=== PATIENT | male | born 1945 | race Caucasian/White ===

== ENCOUNTER 2023-05-26 13:16 | Outpatient (OUT) | payer MEDICARE, SELFPAY ==
--- NOTE | 2023-05-26 13:34 | CT_ITS ---
[address] [address] Patient Name: IVAN BERNAL MRN: [id number] date: 1945 Sex: M Assigned Patient Location: CT Current Patient Location: Accession/Order Number: [id number] Exam Date: 05/26/2023 13:25 Report Date: 05/27/2023 07:52 At the request of: CHAVA BRICE Procedure: CT lung screening low-dose EXAMINATION: CT lung screening low-dose HISTORY: Nicotine dependence , cigarettes, uncomplicated F17.210 COMPARISON: 03/22/2022 chest x-ray TECHNIQUE: Axial, Coronal, and Sagittal images were created without the administration of IV contrast material. Dose reduction techniques were achieved by using automated exposure control and/or adjustment of mA and/or kV according to patient size and/or use of iterative reconstruction technique. FINDINGS: LUNGS: Minimal biapical pleural parenchymal scarring. Scattered subcentimeter calcified and noncalcified pulmonary nodules. The largest noncalcified nodule is identified in the left apex axial image 24 measuring 8.6 x 3.6 mm. Mild paraseptal emphysema with an upper lobe predominance. PLEURA: No mass, effusion, or pneumothorax. VASCULATURE: No abnormality. LUDWIN: No mass or pathologic adenopathy. MEDIASTINUM: No mass or pathologic adenopathy. CARDIAC: No enlargement or pericardial effusion. Heavy coronary atherosclerosis AORTA: No aortic aneurysm. Moderate atherosclerosis CHEST WALL: No mass or axillary adenopathy BONES: No bone lesion or fracture. LIMITED ABDOMEN: No suspicious findings. Limited images of the upper abdomen. OTHER: Negative. CT/CT lung screening low-dose IMPRESSION: LUNG SCREENING: Lung-RADS Category 2- Benign Appearance or Behavior. Nodules with a very low likelihood of becoming a clinically active cancer due to size or lack of growth. 2. Continue annual screening with LDCT in 12 months. Electronically authenticated by: IVAN CALIXTO Date: 05/27/2023 07:52
== END 2023-05-26 13:17 | disposition home or self-care (01) ==
LOC: CT 13:16
PROVIDERS: PCP Internal Medicine; Visit Provider Internal Medicine
DX: F17.210 Nicotine dependence, cigarettes, uncomplicated (principal); R91.8 Other nonspecific abnormal finding of lung field
CPT/HCPCS: 71271

== ENCOUNTER 2023-05-26 13:46 | Outpatient (OUT) | payer MEDICARE, SELFPAY ==
[2023-05-26 15:04] LABS: Basophils Absolute Auto 0.1 10^3/uL (0.0-0.1); Basophils Percent Auto 1.2 % (0.2-2.0); Eosinophils Absolute Auto 0.3 10^3/uL (0.0-0.7); Eosinophils Percent Auto 4.6 % (0.9-7.0); Hematocrit 41.9 % (42.0-54.0); Hemoglobin 13.9 g/dL (14.0-18.0); Immature Granulocytes Abs Auto 0.02 10^3/uL (0.00-0.03); Immature Granulocytes Pct Auto 0.3 % (0.0-0.5); Lymphocytes Absolute Auto 1.7 10^3/uL (1.2-3.8); Lymphocytes Percent Auto 23.1 % (20.5-60.0); Mean Corpuscular HGB Conc 33.2 g/dL (29.9-35.2); Mean Corpuscular Hemoglobin 32.6 pg (25.9-34.0); Mean Corpuscular Volume 98.4 fL (80.0-94.0); Mean Platelet Volume 11.2 fL (9.5-13.5); Monocytes Absolute Auto 0.7 10^3/uL (0.3-0.8); Monocytes Percent Auto 9.8 % (1.7-12.0); Neutrophils Absolute Auto 4.6 10^3/uL (1.4-6.5); Platelet Count 225 10^3/uL (150-450); Red Blood Count 4.26 10^6/uL (4.70-6.10); Red Cell Distribution Width 13.6 % (11.0-15.0); White Blood Count 7.5 10^3/uL (4.0-11.0)
[2023-05-26 15:43] LABS: BUN Creatinine Ratio 15.2; Calcium 8.6 mg/dL (8.5-10.1); Carbon Dioxide 31.2 mmol/L (21.0-32.0); Chloride 104 mmol/L (98-107); Chol HDL Ratio 2.5; Cholesterol 107 mg/dL (<=200); Estimated GFR (African America >60 (>=60); Estimated GFR (Non-African Ame >60 (>=60); Glucose 89 mg/dL (74-106); HDL Cholesterol 42 mg/dL (40-60); LDL Cholesterol Calculated 46.4 mg/dL; Potassium 4.2 mmol/L (3.5-5.1); Sodium 143 mmol/L (136-145); Triglycerides 93 mg/dL (<=150); VLDL CHOLESTEROL 18.6 mg/dL
[2023-05-26 15:53] LABS: Prostate Specific Antigen Scrn 0.76 ng/mL (<=4.00)
== END 2023-05-26 13:47 | disposition home or self-care (01) ==
LOC: LAB 13:49
PROVIDERS: PCP Internal Medicine; Visit Provider Internal Medicine
DX: E78.00 Pure hypercholesterolemia, unspecified (principal); I10 Essential (primary) hypertension; Z12.5 Encounter for screening for malignant neoplasm of prostate; I42.0 Dilated cardiomyopathy
CPT/HCPCS: 36415; 80048; 80061; 85025; G0103

== ENCOUNTER 2023-12-08 08:53 | Outpatient (OUT) | payer MEDICARE, SELFPAY ==
[2023-12-08 10:54] LABS: Anion Gap 15.1; BUN Creatinine Ratio 22.1; Carbon Dioxide 25.5 mmol/L (21.0-32.0); Chloride 103 mmol/L (98-107); Estimated GFR (African America >60 (>=60); Estimated GFR (Non-African Ame 58 (>=60); Glucose 92 mg/dL (74-106); Potassium 4.6 mmol/L (3.5-5.1); Sodium 139 mmol/L (136-145)
== END 2023-12-08 08:54 | disposition home or self-care (01) ==
LOC: LAB 08:54
PROVIDERS: PCP Internal Medicine; Visit Provider Internal Medicine Cardiovascular Disease
DX: I42.0 Dilated cardiomyopathy (principal); I10 Essential (primary) hypertension
CPT/HCPCS: 36415; 80048

== ENCOUNTER 2024-05-26 07:58 | Outpatient (OUT) | payer MEDICARE, SELFPAY ==
[2024-05-26 08:27] LABS: Basophils Absolute Auto 0.1 10^3/uL (0.0-0.1); Basophils Percent Auto 0.8 % (0.2-2.0); Eosinophils Absolute Auto 0.4 10^3/uL (0.0-0.7); Hemoglobin 11.3 g/dL (14.0-18.0); Immature Granulocytes Abs Auto 0.05 10^3/uL (0.00-0.03); Immature Granulocytes Pct Auto 0.6 % (0.0-0.5); Lymphocytes Absolute Auto 1.7 10^3/uL (1.2-3.8); Lymphocytes Percent Auto 18.9 % (20.5-60.0); Mean Corpuscular HGB Conc 32.3 g/dL (29.9-35.2); Mean Corpuscular Hemoglobin 32.9 pg (25.9-34.0); Mean Platelet Volume 10.4 fL (9.5-13.5); Monocytes Absolute Auto 0.8 10^3/uL (0.3-0.8); Monocytes Percent Auto 9.4 % (1.7-12.0); Neutrophils Percent Auto 66.3 % (43.0-75.0); Platelet Count 286 10^3/uL (150-450); Red Blood Count 3.43 10^6/uL (4.70-6.10)
[2024-05-26 09:26] LABS: Alanine Aminotransferase 25 U/L (16-63); Albumin Globulin Ratio 0.9; Albumin Level 3.2 g/dL (3.4-5.0); Alkaline Phosphatase 59 U/L (46-116); Anion Gap 13.9; Aspartate Amino Transferase 14 U/L (15-37); BUN Creatinine Ratio 24.1; Bilirubin Total 0.4 mg/dL (0.2-1.0); Calcium 9.1 mg/dL (8.5-10.1); Carbon Dioxide 26.8 mmol/L (21.0-32.0); Chloride 105 mmol/L (98-107); Cholesterol 83 mg/dL (<=200); Estimated GFR (African America >60 (>=60); Estimated GFR (Non-African Ame >60 (>=60); Globulin 3.5 g/dL; Glucose 104 mg/dL (74-106); HDL Cholesterol 28 mg/dL (40-60); Potassium 4.7 mmol/L (3.5-5.1); Sodium 141 mmol/L (136-145); Total Protein 6.7 g/dL (6.4-8.2); Triglycerides 101 mg/dL (<=150); VLDL CHOLESTEROL 20.2 mg/dL
[2024-05-26 10:53] LABS: Prostate Specific Antigen Scrn 18.13 ng/mL (<=4.00)
== END 2024-05-26 07:59 | disposition home or self-care (01) ==
LOC: LAB 07:59
PROVIDERS: PCP Internal Medicine; Visit Provider Internal Medicine
DX: I11.0 Hypertensive heart disease with heart failure (principal); I50.22 Chronic systolic (congestive) heart failure; I48.91 Unspecified atrial fibrillation; J42 Unspecified chronic bronchitis; Z12.5 Encounter for screening for malignant neoplasm of prostate; E78.00 Pure hypercholesterolemia, unspecified
CPT/HCPCS: 36415; 80053; 80061; 85025; G0103

== ENCOUNTER 2024-06-07 09:44 | Outpatient (OUT) | payer MEDICARE, SELFPAY ==
--- OUTSIDE RECORDS SUMMARY | 2024-06-07 10:06 | XMS_ITS | CCD ---
Author Organization [facility] CliniSyla Care Team Providers Care Order Schedule Clerk Name Role Phone Alonzo Gray Unavailable Unavailable Unavailable Irma Pérez Unavailable Malcom Irene Unavailable DO Alonzo Gray Primary Care Provider MD Malcom Irene Attending Provider MD Malcom Irene Admit Provider [phone] ISAAC, DR ROSADO Primary Care Unavailable VIVAS, DR DAQUAN Solo Admitting Unavailable VIVAS, DR DAQUAN Solo Attending Unavailable VIVAS, DR DAQUAN Solo Consulting Unavailable KARIME, ALEXANDRIA Consulting Unavailable ISAAC, DR ROSADO Primary Care Unavailable VIVAS, DR DAQUAN Solo Admitting Unavailable VIVAS, DR DAQUAN Solo Attending Unavailable SANGEETHA, DR DAQUAN Solo Consulting Unavailable NATALIIA, YOHANA Consulting Unavailable ISAAC, DR ROSADO Admitting Unavailable BALL, DR ROSADO Attending Unavailable BALL, DR ROSADO Primary Care Unavailable BALL, DR ROSADO Consulting Unavailable ISAAC, DR ROSADO Primary Care Unavailable MISC, DR DONNELLY Admitting Unavailable MISC, DR DONNELLY Attending Unavailable MISC, DR DONNELLY Consulting Unavailable ISAAC, DR ROSADO Admitting Unavailable BALL, DR ROSADO Attending Unavailable BALL, DR ROSADO Primary Care Unavailable BALL, DR ROSADO Consulting Unavailable MANCELONA, DR IVAN Harrison Consulting Unavailable DO Alonzo Gray Primary Care Provider MD Malcom Irene Admit Provider MD Malcom Irene Attending Provider RUPERT Pérez Attending Provider Maria Del Rosario, Dr. Alexandria Callaway Attending Unavail able Maria Del Rosario, Dr. Alexandria Callaway Referring Unavail able Isaac, Dr. Rosado tomas [facility], Dr. Suyapa Potter Attending Unavailable Isaac, Dr. Alonzo Jesus Primary Care Mau Irwin II, Dr. Suyapa Potter Attending Unavailable Nicholas II, Dr. Suyapa Potter Referring Unavailable Isaac, Dr. Alonzo Jesus Primary Care Mau Gray, Dr. Alonzo Jesus Primary Care Mau Irwin II, Dr. Suyapa Potter Attending Unavailable Nicholas II, Dr. Suyapa Potter Referring Unavailable Isaac, Dr. Alonzo Jesus Primary Care Mau Issa, Dr. Alexandria Callaway Attending Unavail able Maria Del Rosario, Dr. Alexandria Callaway Referring Unavail able Alonzo Gray Unavailable DO Alonzo Gray Primary Care Provider MD Malcom Irene Attending Provider Malcom Irene Admitting Unavailable Alonzo Gray Primary Care Unavailable Malcom Irene Attending Unavailable Irma Pérez Attending Unavailable Irma Pérez Admitting Unavailable Alonzo Gray Primary Care Unavailable SUYAPA IRWIN Attending Unavailable ALONZO GRAY Primary Care Unavailable SUYAPA IRWIN Attending Unavailable SUYAPA IRWIN Referring Unavailable ALONZO GRAY Primary Care Unavailable Allergies Allergy Classification Reported Allergen(s) Allergy Type Date of Onset Reaction(s) Facility (20 sources) Cephalexin; Translations: [Keflex] Drug Allergy Anaphylaxis, Unknown [employer] Other (20 sources) Penicillins; Translations: [Penicillins] Allergy to drug (finding) 01-04-20 22 Anaphylaxis, Rash, Rash, anaphylaxis [facility] (8 sources) Penicillin V Drug Allergy anaphylaxis [facility] Other (7 sources) Cephalexin; Translations: [cephalexin] Drug Allergy 02-12-20 22 Anaphylaxis [facility] (1 source) Cephalexin Drug Allergy 05-24-20 13 [facility] (1 source) Penicillins Drug allergy (disorder) 05-24-20 13 [facility] (12 sources) Penicillin Drug Allergy anaphylaxis [facility] Other (4 sources) Substance with penicillin structure and antibacterial mechanism of action (substance) Drug allergy 03-21-20 14 Unknown [employer] Other (9 sources) Tamsulosin HCl *GENITOURINARY AGENTS - MISCELLANEO Propensity to adverse reactions Comment:Harry funez also said that along with dizziness he didnt feel well when he took the tamsulosin. [facility] Other (4 sources) patient allergy list reviewed by nurse or physicia Propensity to adverse reactions 07-14-20 Comment:Done [employer] Other (1 source) Penicillins Drug allergy (disorder) 07-16-20 [facility] (1 source) Tamsulosin HCl *GENITOURINARY Allergy to substance 11-23-19 Comment:Harry funez also said that along with dizziness he di... [facility] Medications Current Medications Medication Drug Class(es) Dates Sig (Normalized) Sig (Original) acetaminophen 500 mg oral tablet (3 sources) Start: 07-17-2022 take 1000 mg by mouth every six hours Acetaminophen Active 1000 MG PO Q6H July 17, 2022 12:00am amLODIPine 5 mg oral tablet (20 sources) Dihydropyridine Calcium Channel Taye Start: 12-10-2021 take 5 mg by mouth once daily Amlodipine Active 5 MG PO Daily February 11, 2022 12:00am amLODIPine Besyl ate Not-Taking amLODIPine Besyl ate Active aspirin 81 mg delayed release oral tablet (20 sources) Platelet Aggregation Inhibitor, Nonsteroidal Anti-inflammatory Drug Start: 02-11-2022 take 81 mg by mouth once daily Aspirin Active 81 MG PO Daily February 11, 2022 12:00am take 1 tablet by chris th every twenty-four hours Aspirin 81 MG 1 tablet Orally Once a day for 30 day(s) Active atorvastatin 80 mg oral tablet (20 sources) HMG-CoA Reductase Inhibitor Start: 02-03-2024 Atorvastatin Active 0 .ROUTE .COMPLEX 90 February 03, 2024 9:57am TAKE 1 TABLET DAILY IN THE EVENING Start: 01-12-2022 End: 02-03-2024 take 80 mg by mouth once daily at bedtime Atorvastatin Discontinued 80 MG PO Daily at bedtime February 11, 2022 12:00am February 03, 2024 9:57am Atorvastatin Mahin cium Active carvedilol 6.25 mg oral tablet (20 sources) alpha-Adrenergic Taye, beta-Adrenergic Taye Start: 05-23-2024 take 6.25 mg by mouth twice daily Carvedilol Active 6.25 MG PO Twice daily May 23, 2024 12:00am Start: 10-01-2022 take 1 tablet by chris twice daily at mealtime Carvedilol 6.25 MG Oral Tablet TAKE 1 TABLET BY MOUTH TWICE A DAY WITH MEALS Quantity: 180 Refills: 3 Ordered: 12-Jun-2023 Suyapa Irwin MD Start : 01-Oct-2022 Active Start: 06-18-2022 End: 05-23-2024 take 3.125 mg by mouth twice daily Carvedilol Discontinued 3.125 MG PO Twice daily June 18, 2022 12:00am May 23, 2024 11:31am Carvedilol Activ e cholecalciferol 0.025 mg oral capsule (18 sources) Vitamin D Start: 02-11-2022 take 1 capsule by mouth once daily Cholecalciferol (Vitamin D3) (Vitamin D3) 25 mcg (1,000 unit) Capsule Active 1000 UNIT PO Daily February 11, 2022 12:00am Start: 02-11-2022 take 1 capsule by mo [facility] once daily Cholecalciferol (Vitamin D3) (Vitamin D3) 25 mcg (1,000 unit) Capsule Active 25 MCG PO Daily February 11, 2022 12:00am Vitamin D 1000 U NIT TABS TAKE 1 TABLET DAILY. Quantity: 0 Refills: 0 Ordered: 23-Jan-2022 DO Active clopidogrel 75 mg oral tablet (20 sources) P2Y12 Platelet Inhibitor Start: 02-03-2024 take 1 tablet by mouth once daily Clopidogrel Active 0 .ROUTE .COMPLEX 90 February 03, 2024 9:57am TAKE 1 TABLET BY MOUTH EVERY DAY Start: 01-11-2022 End: 02-03-2024 take 75 mg by mouth once daily in the morning Clopidogrel Discontinued 75 MG PO Every morning February 11, 2022 12:00am February 03, 2024 9:57am Clopidogrel Bisu lfate Active empagliflozin 10 mg oral tablet (20 sources) Sodium-Glucose Cotransporter 2 Inhibitor Start: 05-23-2024 take 1 mg by mouth once daily Empagliflozin Active MG PO Daily May 23, 2024 12:00am [employer]: daily orally; Note: Source Status: Taking; Provider: Isaac Rosado ( ) Start: 10-01-2022 take 1 tablet by chris th once daily Jardiance 10 MG Oral Tablet TAKE 1 TABLET BY MOUTH ONCE DAILY Quantity: 90 Refills: 3 Ordered: 01-Oct-2022 Suyapa Irwin MD Start : 01-Oct-2022 Active NEW START JARDIANCE Active sacubitril 97 mg / valsartan 103 mg oral tablet (20 sources) Angiotensin 2 Receptor Taye Start: 06-18-2022 take 1 tablet by mouth twice daily Sacubitril-Valsartan (Entresto) 97-103 mg tablet Active 1 TAB PO Twice daily June 18, 2022 12:00am ENTRESTO Active spironolactone 25 mg oral tablet (12 sources) Aldosterone Antagonist Start: 05-23-2024 take 1 tablet by mouth once daily Spironolactone Active 25 MG PO Daily May 23, 2024 12:00am Free[employer]Si tablet Orally; Note: Source Status: Taking; Provider: Isaac Rosado ( ) Spironolactone 2 5 MG 1 tablet Orally Active triamcinolone acetonide 0.001 mg/mg topical ointment (12 sources) Corticosteroid Start: 05-23-2024 Triamcinolone Acetonide Active 1 APPLIC TOPICAL Twice daily May 23, 2024 12:00am [employer] application Externally Twice a day; Note: Source Status: Taking; Provider: Isaac Rosado ( ) Triamcinolone Ac etonide 0.1 % 1 application Externally Twice a day Active Vitamin D 1000 UNIT (9 sources) take 1 tablet by mouth once daily Vitamin D 1000 UNIT 1 tablet Orally Once a day for 30 day(s) Active vitamin e 180 mg oral capsule (20 sources) Start: 02-11-2022 take 400 [IU] by mouth once daily Vitamin E Active 400 UNIT PO Daily February 11, 2022 12:00am Vitamin E Active Completed/Discontinued Medications Medication Drug Class(es) Dates Sig (Normalized) Sig (Original) cephalexin 500 mg oral tablet (7 sources) Cephalosporin Antibacterial Start: 06-30-2012 take 1 capsule by mouth twice daily Keflex 500 mg 1 capsule Orally twice a day for 10 day(s) Jun, Not-Taking lisinopril 40 mg oral tablet (20 sources) Angiotensin Converting Enzyme Inhibitor Start: 08-29-2021 End: 06-18-2022 take 40 mg by mouth once daily Lisinopril Discontinued 40 MG PO Daily February 11, 2022 12:00am June 18, 2022 11:24am take 1 tablet by chris th every twenty-four hours Lisinopril 10 MG 1 tablet Orally Once a day for 30 day(s) Not-Taking 24 hr metoprolol succinate 50 mg extended release oral tablet (19 sources) beta-Adrenergic Taye Start: 01-23-2022 End: 06-18-2022 take 50 mg by mouth once daily Metoprolol Succinate Discontinued 50 MG PO Daily February 11, 2022 12:00am June 18, 2022 11:24am Metoprolol Succi julio Active Vitamin E-400 CAPS (13 sources) Vitamin E-400 CA PS TAKE 1 CAPSULE Daily Quantity: 0 Refills: 0 Ordered: 23-Jan-2022 DO Active Problems Active Problems Problem Classification Problem Date Documented Date Episodic/Chronic Acute bronchitis (20 sources) Acute bronchitis; Translations: [Acute bronchitis due to other specified organisms] Onset: 4 Episodic Allergic reactions (20 sources) Irritant contact dermatitis due to detergents; Translations: [Irritant contact dermatitis caused by detergent] Episodic Cardiac dysrhythmias (20 sources) Atrial fibrillation; Translations: [Atrial fibrillation] Onset: 3 Chronic Chronic obstructive pulmonary disease and bronchiectasis (20 sources) Chronic obstructive pulmonary disease with (acute) exacerbation; Translations: [Mucopurulent chronic bronchitis] Onset: 9 Chronic Congestive heart failure; nonhypertensive (19 sources) Heart failure with reduced ejection fraction; Translations: [Unspecified systolic (congestive) heart failure] Chronic Disorders of lipid metabolism (20 sources) Hyperlipidemia; Translations: [Other and unspecified hyperlipidemia] Onset: 3 Chronic Diverticulosis and diverticulitis (9 sources) Diverticulitis of colon; Translations: [Diverticulitis of colon (without mention of hemorrhage)] Onset: 4 Chronic Essential hypertension (20 sources) Hypertensive disorder; Translations: [Unspecified essential hypertension] Onset: 2 Chronic Hyperplasia of prostate (20 sources) Lower urinary tract symptoms due to benign prostatic hypertrophy; Translations: [Benign prostatic hyperplasia with lower urinary tract symptoms] Onset: 5 Chronic Immunizations and screening for infectious disease (9 sources) Vaccination given; Translations: [Encounter for immunization] Episodic Occlusion or stenosis of precerebral arteries (20 sources) Bilateral stenosis of carotid arteries; Translations: [Occlusion and stenosis of carotid artery without mention of cerebral infarction] Onset: 2 Resolved: 2 Chronic Osteoarthritis (20 sources) Bilateral arthritis of knees; Translations: [Bilateral primary osteoarthritis of knee] Onset: 4 12-28-2023 Chronic Other aftercare (1 source) group home (current) use of aspirin; Translations: [SKILLED NURSING CURRENT USE OF ASPIRIN] Onset: 2 Episodic Other aftercare (1 source) Other artificial flower maker (current) drug therapy; Translations: [OTH RESEARCH LABORATORY MANAGER CURRENT DRUG THERAPY] Onset: 2 Episodic Other circulatory disease (1 source) H/O: cardiovascular disease; Translations: [Personal history of other diseases of the circulatory system] 05-19-2024 Episodic Other circulatory disease (1 source) Personal history of other diseases of the circulatory system; Translations: [Personal history of other diseases of circulatory system] 05-23-2024 Episodic Other connective tissue disease (1 source) Other specified soft tissue disorders; Translations: [OTHER SPEC SOFT TISSUE DISORDERS] Onset: 2 Episodic Other ear and sense organ disorders (20 sources) Impacted cerumen; Translations: [Impacted cerumen, bilateral] Episodic Other lower respiratory disease (14 sources) Dyspnea; Translations: [Shortness of breath] Onset: 2 Episodic Other lower respiratory disease (4 sources) Shortness of breath; Translations: [SHORTNESS OF BREATH] Onset: 2 Episodic Other nutritional; endocrine; and metabolic disorders (2 sources) Body mass index (BMI) 19.9 or less, adult; Translations: [Body mass index (BMI) 19.9 or less, adult] Onset: 4 Episodic Other screening for suspected conditions (not mental disorders or infectious disease) (20 sources) Electrocardiogram abnormal; Translations: [Nonspecific abnormal electrocardiogram [ECG] [EKG]] Onset: 7 Resolved: 1 Episodic Dian-; endo-; and myocarditis; cardiomyopathy (except that caused by tuberculosis or sexually transmitted disease) (20 sources) Cardiomyopathy; Translations: [Other primary cardiomyopathies] Onset: 2 Resolved: 2 Chronic Peripheral and visceral atherosclerosis (20 sources) Peripheral vascular disease, unspecified; Translations: [PAD (peripheral artery disease)] Chronic Residual codes; unclassified (15 sources) Body mass index 20-24 - normal; Translations: [Body Mass Index between 19-24, adult] Episodic Residual codes; unclassified (3 sources) Other specified postprocedural states; Translations: [OTH SPECIFIED POSTPROCEDURAL STATES] Onset: 2 Episodic Residual codes; unclassified (1 source) Localized edema; Translations: [LOCALIZED EDEMA] Onset: 2 Episodic Residual codes; unclassified (8 sources) Procedure not done; Translations: [Procedure and treatment not carried out because of patient's decision for unspecified reasons] Episodic Residual codes; unclassified (8 sources) Postprocedural state finding; Translations: [Other specified postprocedural states] Episodic Residual codes; unclassified (1 source) Procedure and treatment not carried out because of patient's decision for unspecified reasons; Translations: [Procedure and treatment not carried out because of patient's decision for unspecified reasons] Episodic Substance-related disorders (20 sources) Smoker; Translations: [Tobacco use disorder] Onset: 4 Resolved: 2 Chronic Comment on above: 1/2 pack per day; 1/4 pack per day; Unclassified (1 source) CONTACT W/AND (SUSP) EXPOS COVID-19; Translations: [CONTACT W/AND (SUSP) EXPOS COVID-19] Onset: 2 Unclassified (1 source) Occlusion and stenosis of bilateral carotid arteries; Translations: [Occlusion and stenosis of bilateral carotid arteries] Onset: 3 Past or Other Problems Problem Classification Problem Date Documented Date Episodic/Chronic Abdominal pain (9 sources) Left lower quadrant pain; Translations: [Left lower quadrant pain] Onset: 07-14-2014 Episodic Bacterial infection; unspecified site (8 sources) Bacterial infectious disease; Translations: [Bacterial infection, unspecified, in conditions classified elsewhere and of unspecified site] Onset: 08-16-2018 Episodic Coagulation and hemorrhagic disorders (1 source) Spontaneous ecchymoses; Translations: [SPONTANEOUS ECCHYMOSES] Onset: 03-17-2022 Episodic E Codes: Natural/environment (1 source) Exposure to other specified factors, initial encounter; Translations: [EXPOSURE OTHER SPEC FACTORS INITIAL] Onset: 03-17-2022 Episodic Fluid and electrolyte disorders (9 sources) Dehydration; Translations: [Dehydration] Onset: 07-14-2014 Episodic Genitourinary symptoms and ill-defined conditions (9 sources) Polyuria; Translations: [Other polyuria] Onset: 07-14-2014 Episodic Malaise and fatigue (9 sources) Malaise and fatigue; Translations: [Other malaise and fatigue] Onset: 09-28-2017 Episodic Open wounds of head; neck; and trunk (4 sources) Unspecified open wound of other part of head, initial encounter; Translations: [UNS OPEN WOUND OTH PART HEAD INIT] Onset: 03-14-2022 Episodic Other aftercare (1 source) Encounter for surgical aftercare following surgery on the circulatory system Onset: 03-18-2022 Resolved: 03-18-2022 Episodic Other aftercare (1 source) television cable installer (current) use of antithrombotics/antip latelets; Translations: [RESEARCH LABORATORY MANAGER ANTITHROMBOT/ANTIPLAT LETS] Onset: 03-17-2022 Episodic Other circulatory disease (4 sources) Other specified symptoms and signs involving the circulatory and respiratory systems; Translations: [OTH SPEC SX SIGNS INVLV CIRC RS] Onset: 12-17-2021 Episodic Other circulatory disease (9 sources) Cardiovascular symptoms; Translations: [Other specified symptoms and signs involving the circulatory and respiratory systems] Resolved: 01-09-2022 Episodic Other connective tissue disease (9 sources) Olecranon bursitis; Translations: [Olecranon bursitis] Onset: 08-16-2018 Episodic Other connective tissue disease (8 sources) Synovial cyst of knee; Translations: [Synovial cyst of popliteal space] Onset: 05-24-2019 Episodic Other connective tissue disease (1 source) Synovial cyst of popliteal space; Translations: [Synovial cyst of popliteal space] Onset: 05-24-2019 Episodic Other non-traumatic joint disorders (8 sources) Arthralgia of the lower leg; Translations: [Pain in left knee] Onset: 04-18-2014 Episodic Other non-traumatic joint disorders (1 source) Pain in left knee; Translations: [Pain in left knee] Onset: 04-18-2014 Episodic Other skin disorders (9 sources) Other seborrheic keratosis; Translations: [Other seborrheic keratosis] Onset: 12-27-2015 Episodic Other upper respiratory disease (8 sources) Bleeding from nose; Translations: [Epistaxis] Resolved: 04-16-2022 Episodic Other upper respiratory disease (1 source) Epistaxis; Translations: [Epistaxis] Resolved: 04-16-2022 Episodic Residual codes; unclassified (9 sources) Tobacco user; Translations: [Nondependent tobacco use disorder] Onset: 03-21-2014 Episodic Sprains and strains (9 sources) Sprain of medial collateral ligament of knee; Translations: [Sprain of medial collateral ligament of unspecified knee, initial encounter] Onset: 04-18-2014 Episodic Unclassified (1 source) Bacterial infection, unspecified, in conditions classified elsewhere and of unspecified site; Translations: [Bacterial infection, unspecified, in conditions classified elsewhere and of unspecified site] Onset: 08-16-2018 Unclassified (1 source) Hypertrophy (benign) of prostate without urinary obstruction and other lower urinary tract symptoms [LUTS]; Translations: [Hypertrophy (benign) of prostate without urinary obstruction and other lower urinary tract symptoms [LUTS]] Onset: 10-16-2015 Results Test Name Value Interpretation Reference Range Facility US carotid doppler BIon 10-02 US carotid doppler BI [facility] [place] [address] Ultrasound Report Signed Patient: Ivan Anthony MR#: [id number] 221 : 1945 Acct:[id number] Age/Sex: 78 / M ADM Date: 10/19/23 Loc: [facility] Room: Type: [facility] Attending Dr: Malcom Irene MD Ordering Provider: Malcom Irene MD Date of Service: 10/19/23 US/US carotid doppler BI: I65.23 Copies to: Malcom Irene MD CAROTID DUPLEX INDICATION: Known carotid occlusive disease status post bilateral endarterectomy PROCEDURE: Color-flow duplex scanning is used to interrogate the extracranial carotid arterial system, as well as both vertebral arteries. Both carotid bifurcations show some smooth homogeneous plaque formation. The proximal right internal carotid artery shows a highest peak systolic velocity of 173 cm/s with an end-diastolic velocity of 24.2 cm/s . The mid internal carotid artery measures 132 cm/s peak systolic with an end diastolic velocity of 24.2 cm/s . The distal segment measures 76.2 cm/s peak systolic with an end diastolic velocity of 16.3 cm/s . The velocities of the right common carotid artery are 98.8 cm/s peak systolic and 14.3 cm/s end-diastolic and 146 cm/s peak systolic and 24.3 cm/s end diastolic distally. The peak systolic velocity ratio of the internal to the common carotid artery is 1.18 . The external carotid artery measures 132 cm/s peak systolic. The right vertebral artery is patent at 73.3 cm/s peak systolic with antegrade flow. The proximal left internal carotid artery shows a highest peak systolic velocity of 114 cm/s with an end-diastolic velocity of 22.7 cm/s . The mid internal carotid artery measures 101 cm/s peak systolic with an end diastolic velocity of 21.2 cm/s . The distal segment measures 110 cm/s peak systolic with an end diastolic velocity of 22.7 cm/s . The velocities of the left common carotid artery are 57.8 cm/s peak systolic and 10.7 cm/s end-diastolic and 85.1 cm/s peak systolic and 13.2 cm/s end diastolic distally. The peak systolic velocity ratio of the internal to the common carotid artery is 1.34 . The external carotid artery measures 285 cm/s peak systolic. The left vertebral artery is patent at 56.6 cm/s peak systolic with antegrade flow. US/US carotid doppler BI IMPRESSION: Mild flow disturbance is present bilaterally with likely less than 50% stenosis in both internal carotid arteries. The right vertebral artery is patent with antegrade flow. The left vertebral artery has [id number] flow Impression dictated by: Malcom Irene M.D.10/19/2023 12:03 PM Dictation Location: [place] [address] Tech: Marian Cabrera Transcribed By: ELOY 10/19/23 1203 Dictated By: Malcom Irene MD 10/19/23 1202 Signed By: 10/19/23 1203 [facility] Office Visit (Cardiology)on 05-20-2023 Follow-up visit Diagnoses/Problems Assessed Hyperlipidemia (272.4) (E78.5) Hypertension (401.9) (I10) Current smoker (305.1) (F17.200) 1/4 pack per day Cardiomyopathy (425.4) (I42.9) Shortness of breath (786.05) (R06.02) Body mass index (BMI) of 20.0 to 20.9 in adult (V85.1) (Z68.20) Orders Atrial fibrillation Changed: From Aspirin EC 81 MG TBEC TAKE 1 TABLET DAILY DIRECTED To Aspirin 81 MG Oral Tablet Delayed Release TAKE 1 TABLET DAILY DIRECTED SocHx: Current smoker Tobacco Use Screening; Status:Complete; Done: [id number] You need to quit smoking.; Status:Complete - Retrospective Authorization; Done: [id number] You need to stop smoking. Though it is not easy, more than half of all adult smokers have quit. We encourage you to write down all the reasons you should quit smoking and set a quit date for yourself. Ask us how we can help. You may also call 9-516-DDQUNOW for free resources and assistance.; Status:Complete - Retrospective Authorization; Done: [id number] Patient Instructions Please bring all medicines, vitamins, and herbal supplements with you when you come to the office. Prescriptions will not be filled unless you are compliant with your follow up appointments or have a follow up appointment scheduled as per instruction of your physician. Refills should be requested at the time of your visit. Follow up in 6 months Chief Complaint IVAN ANTHONY is being seen for a 4-6 month follow-up of. History of Present Illness Patient returns in follow-up of problems as noted. In the interim he is done relatively well. He denies angina CHF or arrhythmia symptomatology. Specifically we focused on cardiomyopathy and/or heart failure symptoms and he has none. Likewise he has no arrhythmia symptomatology whatsoever. His lipids and hypertension both appear to be well controlled and he denies any shortness of breath. He continues to smoke and the merits of smoking cessation were advocated. Surgical History Problems History of Common carotid artery ligation History of Complete colonoscopy denies History of Excision melanoma History of Knee surgery History of Tonsillectomy Current Meds Medication NameInstruction Aspirin EC 81 MG TBECTAKE 1 TABLET DAILY DIRECTED. Atorvastatin Calcium 80 MG Oral TabletTAKE 1 TABLET DAILY. Carvedilol 6.25 MG Oral TabletTAKE 1 TABLET TWICE DAILY WITH MEALS. Clopidogrel Bisulfate 75 MG Oral TabletTAKE 1 TABLET DAILY. Entresto 97-103 MG Oral TabletTAKE 1 TABLET BY MOUTH TWICE A DAY Jardiance 10 MG Oral TabletTAKE 1 TABLET BY MOUTH ONCE DAILY Vitamin D 1000 UNIT TABSTAKE 1 TABLET DAILY. Vitamin E-400 CAPSTAKE 1 CAPSULE Daily Allergies Medication Keflex Allergy; Anaphylaxis;; Updated By: Lucía Pereira; 03/10/2022 1:12:35 PM Penicillins Allergy; Anaphylaxis;; Updated By: Lucía Pereira; 03/10/2022 1:12:35 PM Social History Problems Current smoker (305.1) (F17.200) 1/4 pack per day Daily caffeine consumption 1to 2 cups of coffee daily No alcohol use No illicit drug use Review of Systems Constitutional: not feeling tired. Eyes: no eyesight problems. ENT: no hearing loss and no nosebleeds. Cardiovascular: no intermittent leg claudication and as noted in HPI. Respiratory: no chronic cough and no shortness of breath. Gastrointestinal: no change in bowel habits and no blood in stools. Genitourinary: no urinary frequency and no hematuria. Skin: no skin rashes. Neurological: no seizures and no frequent falls. Psychiatric: no depression and not suicidal. All other systems have been reviewed and are negative for complaint. Vitals Vital Signs Recorded: [id number] 02:27PMRecorded: 57Ggi2956 02:14PM Phjhsykt800, LUE, Banaqzv274, LUE, Sitting Ltzbuuwep97, LUE, Qwkyjgn04, LUE, Sitting Heart Rate64, L Radial Height6 ft 2 in Mhflue529 lb BMI Jkdizrvdmi79.41 kg/m2 BSA Calculated1.97 Tobacco Usea) Yes Patient encouraged to stop using tobacco productsYes Falls Screening (Age 18+)a) No falls within the last year Physical Exam Constitutional: alert and in no acute distress. Eyes: no erythema, swelling or discharge from the eye . Neck: neck is supple, symmetric, trachea midline, no masses and no thyromegaly . Pulmonary: no increased work of breathing or signs of respiratory distress and lungs clear to auscultation. Cardiovascular: carotid pulses 2+ bilaterally with no bruit , JVP was normal, no thrills , regular rhythm, normal S1 and S2, no murmurs , pedal pulses 2+ bilaterally and no edema . Abdomen: abdomen non-tender, no masses and no hepatomegaly . Skin: skin warm and dry, normal skin turgor . Psychiatric judgment and insight is normal and oriented to person, place and time . Signatures Electronically signed by : Suyapa Irwin MD; May 20 2023 5:02PM EST (Author) Normal Touchworks Tobacco Screening.on 023 Fall risk assessment a) No falls within the last year -[facility] DO Work Phone: Tobacco use status CPHS a) Yes M -[facility] 250 DO Work Phone: Tobacco Screening. 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 Both carotid bifurcations show mild to moderate heterogeneous plaque formation. The proximal right internal carotid artery shows a highest peak systolic velocity of 295 cm/s with an end-diastolic velocity of 47 cm/s . The mid internal carotid artery measures 169 cm/s peak systolic and 30 cm/s end diastolic. The distal segment measures 67.8 cm/s peak systolic with an end diastolic velocity of 15.2 cm/s . The velocities of the right common carotid artery are 106 cm/s peak systolic and 18 cm/s end-diastolic proximally and 107 cm/s peak systolic and 14.9 cm/s end diastolic distally. The peak systolic velocity ratio of the internal to the common carotid artery is 2.76. The right external carotid artery measures 116 cm/s peak systolic. The right vertebral artery is patent at 103 cm/s with antegrade flow. The proximal left internal carotid artery shows a highest peak systolic velocity of 232 cm/s with an end-diastolic velocity of 37 cm/s . The mid internal carotid artery measures 172 cm/s peak systolic and 49.4 cm/s end diastolic. The distal segment measures 135 cm/s peak systolic with an end diastolic velocity of 30.3 cm/s . The velocities of the left common carotid artery are 91.9 cm/s peak systolic and 17.4 cm/s end-diastolic proximally and 88.2 cm/s peak systolic and 20.5 cm/s end diastolic distally. The peak systolic velocity ratio of the internal to the common carotid artery is 2.63 . The left external carotid artery measures 108 cm/s peak systolic. The left vertebral artery is patent at 75.8 cm/s with antegrade flow. US/US carotid doppler BI IMPRESSION: Moderate residual or recurrent internal carotid artery stenosis is noted bilaterally in the range of 50-69%. This is unchanged from the prior study. Impression dictated by: Malcom Irene M.D.04/14/2023 11:59 AM Dictation Location: [place] [address] Tech: Imani Negro Transcribed By: ELOY 04/14/23 1159 Dictated By: Malcom Irene MD 04/14/23 1157 Signed By: 04/14/23 1159 [facility] Office Visit (Cardiology)on 11-24-2022 Follow-up visit Diagnoses/Problems Assessed Cardiomyopathy (425.4) (I42.9) Hyperlipidemia (272.4) (E78.5) Hypertension (401.9) (I10) Body mass index (BMI) of 20.0 to 20.9 in adult (V85.1) (Z68.20) Atrial fibrillation (427.31) (I48.91) Current smoker (305.1) (F17.200) 1/4 pack per day Shortness of breath (786.05) (R06.02) Orders SocHx: Current smoker Tobacco Use Screening; Status:Complete; Done: 24Nov2022 You need to stop smoking. Though it is not easy, more than half of all adult smokers have quit. We encourage you to write down all the reasons you should quit smoking and set a quit date for yourself. Ask us how we can help. You may also call 7-039-XLYNTresoritNOW for free resources and assistance.; Status:Complete; Done: 24Nov2022 Patient Instructions Please bring all medicines, vitamins, and herbal supplements with you when you come to the office. Prescriptions will not be filled unless you are compliant with your follow up appointments or have a follow up appointment scheduled as per instruction of your physician. Refills should be requested at the time of your visit. Follow up in 4-6 ] months Chief Complaint Echo results History of Present Illness Patient returns in follow-up of problems as noted. He states he been feeling better and better. He has been compliant with therapy. Ejection fraction previously was 20 to 25% and recent echocardiogram demonstrates 35 to 40%. Also notable is that his ventricle was dilated before and now has normal dimensions. This was discussed and explained to him and his in great detail. He is pleased in this regard and we recommend continued therapy as is. He and his are educated regarding arrhythmia symptoms watch for both those of atrial fibrillation as well as malignant ventricular arrhythmias and they were advised to contact us or go to the emergency room if such symptoms arise or occur. For now it appears that his lipids and hypertension are adequately addressed. Atrial fibrillation is none recurrent and because of this, for the time being we will continue current antithrombotic strategy as is. The merits of smoking cessation were again emphasized. Current Meds Medication NameInstruction Aspirin EC 81 MG Oral Tablet Delayed ReleaseTAKE 1 TABLET DAILY DIRECTED. Atorvastatin Calcium 80 MG Oral TabletTAKE 1 TABLET DAILY. Carvedilol 6.25 MG Oral TabletTAKE 1 TABLET TWICE DAILY WITH MEALS. Clopidogrel Bisulfate 75 MG Oral TabletTAKE 1 TABLET DAILY. Entresto 97-103 MG Oral TabletTAKE 1 TABLET BY MOUTH TWICE A DAY Jardiance 10 MG Oral TabletTAKE 1 TABLET BY MOUTH ONCE DAILY Vitamin D 1000 UNIT TABSTAKE 1 TABLET DAILY. Vitamin E-400 CAPSTAKE 1 CAPSULE Daily Allergies Medication Keflex Allergy; Anaphylaxis;; Updated By: Lucía Pereira; 03/10/2022 1:12:35 PM Penicillins Allergy; Anaphylaxis;; Updated By: Lucía Pereira; 03/10/2022 1:12:35 PM Social History Problems Current smoker (305.1) (F17.200) 1/4 pack per day Daily caffeine consumption 1to 2 cups of coffee daily No alcohol use No illicit drug use Review of Systems Constitutional: not feeling tired. Eyes: no eyesight problems. ENT: no hearing loss and no nosebleeds. Cardiovascular: no intermittent leg claudication and as noted in HPI. Respiratory: no chronic cough and no shortness of breath. Gastrointestinal: no change in bowel habits and no blood in stools. Genitourinary: no urinary frequency and no hematuria. Skin: no skin rashes. Neurological: no seizures and no frequent falls. Psychiatric: no depression and not suicidal. All other systems have been reviewed and are negative for complaint. Vitals Vital Signs Recorded: 24Nov2022 04:05PMRecorded: 24Nov2022 03:25PM [id number], LUE, Sitting Goisdhrls1159, LUE, Sitting Heart Rate66, L Radial Height6 ft 2 in Utnpeq439 lb BMI Vlhkpxmydg53.8 kg/m2 BSA Calculated1.99 Tobacco Usea) Yes Patient encouraged to stop using tobacco productsYes PHQ-2 #1. Over the last 2 weeks have you felt down, depressed or hopeless? (If yes, answer PHQ-9 below)No PHQ-2 #2. Over the last 2 weeks have you felt little interest or pleasure in doing things? (If yes, answer PHQ-9 below)No Falls Screening (Age 18+)a) No falls within the last year Physical Exam Constitutional: alert and in no acute distress. Eyes: no erythema, swelling or discharge from the eye . Neck: neck is supple, symmetric, trachea midline, no masses and no thyromegaly . Pulmonary: no increased work of breathing or signs of respiratory distress and lungs clear to auscultation. Cardiovascular: carotid pulses 2+ bilaterally with no bruit , JVP was normal, no thrills , regular rhythm, normal S1 and S2, no murmurs , pedal pulses 2+ bilaterally and no edema . Abdomen: abdomen non-tender, no masses and no hepatomegaly . Skin: skin warm and dry, normal skin turgor . Psychiatric judgment and insight is normal and oriented to person, place and time . Signatures Electro (more content not included)... Normal Touchworks Tobacco Screening.on 023 Adult depression screening assessment No [facility] [facility] 250 DO Work Phone: Fall risk assessment a) No falls within the last year [facility] [facility] 250 DO Work Phone: Tobacco use status CPHS a) Yes M [facility] [facility] 250 DO Work Phone: Tobacco Screening. Yes [facility] [facility] 250 DO Work Phone: Echocardiogramon 11-19-[address], [address] [place] [address] TRANSTHORACIC ECHOCARDIOGRAM REPORT Patient Name: IVAN [facility] Physician: [id number] Richy Delgadillo MD Study Date: 11/19/2022 Referring Physician: SUYAPA IRWIN MRN/PID: [id number] PCP: Alonzo Gray Accession/Order#: [id number] Department Location: [facility] Date of : 1945 Fellow: Gender: M Nurse: Admit Date: Vascular Nurse: Marcia Fernandez [facility] Height: 187.96 cm CC Report to: Weight: 75.30 kg Study Type: Echocardiogram BSA: 2.01 m2 Blood Pressure: 150 /86 mmHg Diagnosis/ICD: I42.9-Cardiomyopath y, unspecified; R06.02-Shortness of breath Indication: Atrial Fibrillation, HTN, Hyperlipidemia, Tobacco Abuse, Carotid Stenosis Procedure/CPT: Echo Complete w Full [id number] Study Detail: The following Echo studies were performed: 2D, M-Mode, Doppler and color flow. PHYSICIAN INTERPRETATION: Left Ventricle: Left ventricular systolic function is moderately decreased, with an estimated ejection fraction of 35-40%. There are no regional wall motion abnormalities. The left ventricular cavity size is normal. Spectral Doppler shows an impaired relaxation pattern of left ventricular diastolic filling. Mild LVH. Left Atrium: The left atrium is mildly dilated. Mildly dilated left atrium. Right Ventricle: The right ventricle is normal in size. There is normal right ventricular global systolic function. Right Atrium: The right atrium is normal in size. Aortic Valve: The aortic valve appears structurally normal. There is no evidence of aortic valve regurgitation. The peak instantaneous gradient of the aortic valve is 4.2 mmHg. The mean gradient of the aortic valve is 2.0 mmHg. Mitral Valve: The mitral valve is normal in structure. There is mild mitral valve regurgitation. Tricuspid Valve: The tricuspid valve is structurally normal. No evidence of tricuspid regurgitation. Pulmonic Valve: The pulmonic valve is structurally normal. There is no indication of pulmonic valve regurgitation. Pericardium: There is no pericardial effusion noted. Aorta: The aortic root is normal. CONCLUSIONS: 1. Left ventricular systolic function is moderately decreased with a 35-40% estimated ejection fraction. 2. Mild LVH. 3. Spectral Doppler shows an impaired relaxation pattern of left ventricular diastolic filling. 4. Mildly dilated left atrium. 5. Mild mitral valve regurgitation. 6. When compared to prior study there is evidence of improvement of left ventricular systolic function. QUANTITATIVE DATA SUMMARY: 2D MEASUREMENTS: Normal Ranges: Ao Root d: 3.50 cm (2.0-3.7cm) LAs: 4.10 cm (2.7-4.0cm) RVIDd: 3.10 cm (0.9-3.6cm) IVSd: 1.60 cm (0.6-1.1cm) LVPWd: 1.10 cm (0.6-1.1cm) LVIDd: 4.70 cm (3.9-5.9cm) LVIDs: 4.30 cm LV Mass Index: 125.2 g/m2 LV % FS 8.5 % LV SYSTOLIC FUNCTION BY 2D PLANIMETRY (MOD): Normal Ranges: EF-A4C View: 37.6 % (>=55%) LV DIASTOLIC FUNCTION: Normal Ranges: MV Peak E: 0.49 m/s (0.7-1.2 m/s) MV Peak A: 0.96 m/s (0.42-0.7 m/s) E/A Ratio: 0.51 (1.0-2.2) MV lateral e' 0.05 m/s MV medial e' 0.03 m/s E/e' Ratio: 10.80 (<8.0) MITRAL VALVE: Normal Ranges: MV Vmax: 0.87 m/s (<=1.3m/s) MV peak P.0 mmHg (<5mmHg) MV mean P.0 mmHg (<48mmHg) MITRAL INSUFFICIENCY: Normal Ranges: MR Vmax: 293.00 cm/s AORTIC VALVE: Normal Ranges: AoV Vmax: 1.02 m/s (<=1.7m/s) AoV Peak P.2 mmHg (<20mmHg) AoV Mean P.0 mmHg (1.7-11.5mmHg) LVOT Max Zain: 0.65 m/s (<=1.1m/s) AoV VTI: 28.00 cm (18-25cm) LVOT VTI: 17.60 cm LVOT Diameter: 2.70 cm (1.8-2.4cm) AoV Area, VTI: 3.60 cm2 (2.5-5.5cm2) AoV Area,Vmax: 3.63 cm2 (2.5-4.5cm2) AoV Dimensionless Index: 0.63 PULMONIC VALVE: Normal Ranges: PV Max Zain: 0.5 m/s (0.6-0.9m/s) PV Max P.2 mmHg [id number] Richy Delgadillo MD Electronically signed on 11/19/2022 at 5:56:19 PM Final Normal [facility] Office Visit (Cardiology)on 10-01-2022 Follow-up visit Diagnoses/Problems Assessed Atrial fibrillation (427.31) (I48.91) Cardiomyopathy (425.4) (I42.9) Hyperlipidemia (272.4) (E78.5) Hypertension (401.9) (I10) Shortness of breath (786.05) (R06.02) Asymptomatic bilateral carotid artery stenosis (433.10,433.30) (I65.23) Body mass index (BMI) of 21.0 to 21.9 in adult (V85.1) (Z68.21) Current smoker (305.1) (F17.200) 1/4 pack per day Orders Atrial fibrillation Renew: Aspirin EC 81 MG Oral Tablet Delayed Release; TAKE 1 TABLET DAILY DIRECTED Cardiomyopathy Start: Jardiance 10 MG Oral Tablet; TAKE 1 TABLET BY MOUTH ONCE DAILY Cardiomyopathy, Hypertension Start: Carvedilol 6.25 MG Oral Tablet; TAKE 1 TABLET TWICE DAILY WITH MEALS Cardiomyopathy, Shortness of breath Echocardiogram; Status:Hold For - Scheduling,Retrospe ctive Authorization; Requested for:01Oct2022; Hyperlipidemia Renew: Atorvastatin Calcium 80 MG Oral Tablet; TAKE 1 TABLET DAILY SocHx: Current smoker You need to quit smoking.; Status:Complete - Retrospective Authorization; Done: 01Oct2022 Tobacco Use Screening; Status:Complete; Done: 01Oct2022 You need to stop smoking. Though it is not easy, more than half of all adult smokers have quit. We encourage you to write down all the reasons you should quit smoking and set a quit date for yourself. Ask us how we can help. You may also call 0-377-QLKOTresoritNOW for free resources and assistance.; Status:Complete - Retrospective Authorization; Done: 01Oct2022 Unlinked Stop: amLODIPine Besylate 5 MG Oral Tablet Stop: Carvedilol 3.125 MG Oral Tablet Patient Instructions Please bring all medicines, vitamins, and herbal supplements with you when you come to the office. Prescriptions will not be filled unless you are compliant with your follow up appointments or have a follow up appointment scheduled as per instruction of your physician. Refills should be requested at the time of your visit. Follow-up after testing completed Chief Complaint IVAN ANTHONY is being seen for a 6 month follow-up of. History of Present Illness Patient is seen by me for the first time for follow-up of nonischemic cardiomyopathy. He was evaluated many months ago by Dr. Issa. Guideline directed therapy was initiated but thereafter up titration was not performed. He is on an acceptable dose of Entresto but a tiny dose of carvedilol and not on spironolactone or Jardiance. His most recent echocardiogram was months ago and ejection fraction at that time was 25 to 30%. Because of this I recommend that we today intensify therapy by doubling carvedilol and adding Jardiance. I also recommend an echocardiogram to determine the status of his cardiomyopathy to determine if in fact he is improved, or not. Based upon the results we will make a final recommendation. Obviously if there is improvement in ejection fraction we will continue as is but if ejection fraction is still impaired we will schedule prompt appointment to discuss whether or not he wishes to proceed with device implantation or further up titrate medication for the next several months. He and his are educated regarding symptoms of cardiomyopathy heart failure and most importantly arrhythmia to watch for and encouraged to call if they arise. I did advocate the merits of smoking cessation. Surgical History Problems History of Common carotid artery ligation History of Complete colonoscopy denies History of Excision melanoma History of Knee surgery History of Tonsillectomy Current Meds Medication NameInstruction amLODIPine Besylate 5 MG Oral TabletTAKE 1 TABLET BY MOUTH EVERY DAY Aspirin EC 81 MG Oral Tablet Delayed ReleaseTAKE 1 TABLET DAILY DIRECTED. Atorvastatin Calcium 80 MG Oral TabletTAKE 1 TABLET DAILY. Carvedilol 3.125 MG Oral TabletTAKE 1 TABLET BY MOUTH TWICE A DAY Clopidogrel Bisulfate 75 MG Oral TabletTAKE 1 TABLET DAILY. Entresto 97-103 MG Oral TabletTAKE 1 TABLET BY MOUTH TWICE A DAY Lisinopril 40 MG Oral TabletTAKE 1 TABLET DAILY DIRECTED. Metoprolol Succinate ER 50 MG Oral Tablet Extended Release 24 HourTAKE 1 TABLET DAILY. Vitamin D 1000 UNIT TABSTAKE 1 TABLET DAILY. Vitamin E-400 CAPSTAKE 1 CAPSULE Daily Allergies Medication Keflex Allergy; Anaphylaxis;; Updated By: Lucía Pereira; 03/10/2022 1:12:35 PM Penicillins Allergy; Anaphylaxis;; Updated By: Lucía Pereira; 03/10/2022 1:12:35 PM Social History Problems Current smoker (305.1) (F17.200) 1/4 pack per day Daily caffeine consumption 1to 2 cups of coffee daily No alcohol use No illicit drug use Review of Systems Constitutional: not feeling tired. Eyes: no eyesight problems. ENT: no hearing loss and no nosebleeds. Cardiovascular: no intermittent leg claudication and as noted in HPI. Respiratory: no chronic cough and no shortness of breath. Gastrointestinal: no change in bowel habits and no blood in stools. Genitourinary: no urinary frequency and no hematuria. Skin: no skin rashes. (more content not included)... Normal [facility] Tobacco Screening.on 022 Fall risk assessment a) No falls within the last year [facility] [facility] 250 DO Work Phone: Tobacco use status CPHS a) Yes M [facility] [facility] 250 DO Work Phone: Tobacco Screening. Yes [facility] [facility] 250 DO Work Phone: PROF CHEM 8 (BAS METB)on Anion gap [Moles/Vol] 10.2 mmol/L Normal [facility] Comment on above: Performed By: #### B MP #### [facility] [address] [place] [address] [address] Oksana Dowell Calcium [Mass/Vol] 8.5 mg/dL Normal 8.5-10.1 [facility] Comment on above: Performed By: #### B MP #### [facility] [address] [place] [address] [address] Oksana Dowell Chloride [Moles/Vol] 106 mmol/L Normal 98-107 [facility] Comment on above: Performed By: #### B MP #### [facility] [address] [place] [address] [address] Oksana Dowell CO2 [Moles/Vol] 27.0 mmol/L Normal 21.0-32.0 [facility] Comment on above: Performed By: #### B MP #### [facility] [address] [place] [address] [address] Oksana Dowell Creatinine [Mass/Vol] 1.06 mg/dL Normal 0.70-1.30 [facility] Comment on above: Performed By: #### B MP #### [facility] [address] [place] [address] [address] Oksana Dowell EGFR-AF BOTSWANAN >60 Normal >=60 [facility] Comment on above: Performed By: #### B MP #### [facility] [address] [place] [address] [address] Oksana Dowell EGFR-NON AF BOTSWANAN >60 Normal >=60 [facility] Comment on above: Performed By: #### B MP #### [facility] [address] [place] [address] [address] Oksana Dowell Glucose [Mass/Vol] 102 mg/dL Normal 74-106 [facility] Comment on above: Performed By: #### B MP #### [facility] [address] [place] [address] [address] Oksana Dowell Potassium [Moles/Vol] 4.2 mmol/L Normal 3.5-5.1 [facility] Comment on above: Performed By: #### B MP #### [facility] [address] [place] [address] [address] Oksana Dowell Sodium [Moles/Vol] 139 mmol/L Normal 136-145 [facility] Comment on above: Performed By: #### B MP #### [facility] [address] [place] [address] Dr. Oksana Dowell Urea nitrogen [Mass/Vol] 18.0 mg/dL Normal 7.0-18.0 [facility] Comment on above: Performed By: #### B MP #### [facility] [address] [place] [address] Dr. Oksana Dowell Urea nitrogen/Creatinine [Mass ratio] 17.0 mg/mg Normal [facility] Comment on above: Performed By: #### B MP #### [facility] [address] [place] [address] Dr. Oksana Dowell BNPon 07-23-2022 Natriuretic peptide B (Bld) [Mass/Vol] 562.0 pg/mL Normal <=1,800.0 [facility] Comment on above: Performed By: #### H STROPN, BNP, CMP #### [facility] [address] [place] [address] Dr. Oksana Dowell CBC AUTO DIFFon 07-23-2022 BASO # 0.1 103/ul Normal 0.0-0.1 [facility] Comment on above: Performed By: #### C BC #### [facility] [address] [place] [address] Dr. Oksana Dowell Basophils/100 WBC (Bld) 0.8 % Normal 0.2-2.0 [facility] Comment on above: Performed By: #### C BC #### [facility] [address] [place] [address] Dr. Oksana Dowell EO # 0.4 103/ul Normal 0.0-0.7 [facility] Comment on above: Performed By: #### C BC #### [facility] [address] [place] [address] Dr. Oksana Dowell Eosinophils/100 WBC (Bld) 5.7 % Normal 0.9-7.0 [facility] Comment on above: Performed By: #### C BC #### [facility] [address] [place] [address] Dr. Oksana Dowell Erythrocyte distribution width (RBC) [Ratio] 14.3 % Normal 11.0-15.0 [facility] Comment on above: Performed By: #### C BC #### [facility] [address] [place] [address] Dr. Oksana Dowell Hematocrit (Bld) [Volume fraction] 32.0 % Critically low 42.0-54.0 [facility] Comment on above: Performed By: #### C BC #### [facility] [address] [place] [address] Dr. Oksana Dowell Hemoglobin (Bld) [Mass/Vol] 10.3 g/dL Critically low 14.0-18.0 [facility] Comment on above: Performed By: #### C BC #### [facility] [address] [place] [address] Dr. Oksana Dowell IG # 0.02 10e3/ul Normal 0.00-0.03 [facility] Comment on above: Performed By: #### C BC #### [facility] [address] [place] [address] Dr. Oksana Dowell IG % 0.3 % Normal 0.0-0.5 [facility] Comment on above: Performed By: #### C BC #### [facility] [address] [place] [address] Dr. Oksana Dowell LYMPH # 1.3 103/ul Normal 1.2-3.8 [facility] Comment on above: Performed By: #### C BC #### [facility] [address] [place] [address] Dr. Oksana Dowell Lymphocytes/100 WBC (Bld) 17.9 % Critically low 20.5-60.0 [facility] Comment on above: Performed By: #### C BC #### [facility] [address] [place] [address] Dr. Oksana Dowell MANUAL DIFF REQ NO Normal [facility] Comment on above: Performed By: #### C BC #### [facility] [address] [place] [address] Dr. Oksana Dowell MCH (RBC) [Entitic mass] 31.4 pg Normal 25.9-34.0 [facility] Comment on above: Performed By: #### C BC #### [facility] [address] [place] [address] Dr. Oksana Dowell MCHC (RBC) [Mass/Vol] 32.2 g/dL Normal 29.9-35.2 [facility] Comment on above: Performed By: #### C BC #### [facility] [address] [place] [address] Dr. Oksana Dowell MCV (RBC) [Entitic vol] 97.6 fL Critically high 80.0-94 .0 [facility] Comment on above: Performed By: #### C BC #### [facility] [address] [place] [address] Dr. Oksana Dowell MONO # 0.9 103/ul Critically high 0.3-0.8 [facility] Comment on above: Performed By: #### C BC #### [facility] [address] [place] [address] Dr. Oksana Dowell Monocytes/100 WBC (Bld) 12.8 % Critically high 1.7-12. 0 [facility] Comment on above: Performed By: #### C BC #### [facility] [address] [place] [address] Dr. Oksana Dowell NEUT # 4.5 103/ul Normal 1.4-6.5 [facility] Comment on above: Performed By: #### C BC #### [facility] [address] [place] [address] Dr. Oksana Dowell Neutrophils/100 WBC (Bld) 62.5 % Normal 43.0-75.0 [facility] Comment on above: Performed By: #### C BC #### [facility] [address] [place] [address] Dr. Oksana Dowell Platelet mean volume (Bld) [Entitic vol] 10.6 fL Normal 9.5-13.5 [facility] Comment on above: Performed By: #### C BC #### [facility] [address] [place] [address] Dr. Oksana Dowell PLT 219 103/ul Normal 150-450 [facility] Comment on above: Performed By: #### C BC #### [facility] [address] [place] [address] Dr. Oksana Dowell RBC 3.28 106/ul Critically low 4.70-6.10 [facility] Comment on above: Performed By: #### C BC #### [facility] [address] [place] [address] Dr. Oksana Dowell WBC 7.2 103/ul Normal 4.0-11.0 [facility] Comment on above: Performed By: #### C BC #### [facility] [address] [place] [address] Dr. Oksana Dowell PROF 14(COMP METB)on 022 Albumin [Mass/Vol] 3.2 g/dL Critically low 3.4-5.0 [facility] Comment on above: Performed By: #### H STROPN, BNP, CMP #### [facility] [address] [place] [address] Dr. Oksana Dowell Albumin/Globulin [Mass ratio] 1.1 {ratio} Normal [facility] Comment on above: Performed By: #### H STROPN, BNP, CMP #### [facility] [address] [place] [address] Dr. Oksana Dowell ALP [Catalytic activity/Vol] 59 U/L Normal 46-116 [facility] Comment on above: Performed By: #### H STROPN, BNP, CMP #### [facility] [address] [place] [address] Dr. Oksana Dowell ALT [Catalytic activity/Vol] 15 U/L Critically low 16-63 [facility] Comment on above: Performed By: #### H STROPN, BNP, CMP #### [facility] [address] [address] [address] Oksana Dowell Anion gap [Moles/Vol] 10.8 mmol/L Normal Th e [facility] Comment on above: Performed By: #### H STROPN, BNP, CMP #### [facility] [address] [address] [address] Oksana Dowell AST [Catalytic activity/Vol] 12 U/L Critically low 15-37 [facility] Comment on above: Performed By: #### H STROPN, BNP, CMP #### [facility] [address] [place] [address] Dr. Oksana Dowell Bilirubin [Mass/Vol] 0.3 mg/dL Normal 0.2-1.0 [facility] Comment on above: Performed By: #### H STROPN, BNP, CMP #### [facility] [address] [place] [address] Dr. Oksana Dowell Calcium [Mass/Vol] 8.5 mg/dL Normal 8.5-10.1 [facility] Comment on above: Performed By: #### H STROPN, BNP, CMP #### [facility] [address] [place] [address] Dr. Oksana Dowell Chloride [Moles/Vol] 106 mmol/L Normal 98-107 [facility] Comment on above: Performed By: #### H STROPN, BNP, CMP #### [facility] [address] [place] [address] Dr. Oksana Dowell CO2 [Moles/Vol] 26.8 mmol/L Normal 21.0-32.0 [facility] Comment on above: Performed By: #### H STROPN, BNP, CMP #### [facility] [address] [place] [address] Dr. Oksana Dowell Creatinine [Mass/Vol] 0.87 mg/dL Normal 0.70-1.30 [facility] Comment on above: Performed By: #### H STROPN, BNP, CMP #### [facility] [address] [address] [address] Oksana Dowell EGFR-AF BOTSWANAN >60 Normal >=60 [facility] Comment on above: Performed By: #### H STROPN, BNP, CMP #### [facility] [address] [address] [address] Oksana Dowell EGFR-NON AF BOTSWANAN >60 Normal >=60 [facility] Comment on above: Performed By: #### H STROPN, BNP, CMP #### [facility] [address] [address] [address] Oksana Dowell Globulin (S) [Mass/Vol] 3.0 g/dL Normal [facility] Comment on above: Performed By: #### H STROPN, BNP, CMP #### [facility] [address] [address] [address] Oksana Dowell Glucose [Mass/Vol] 119 mg/dL Critically high 74-106 [facility] Comment on above: Performed By: #### H STROPN, BNP, CMP #### [facility] [address] [address] [address] Oksana Dowell Potassium [Moles/Vol] 3.6 mmol/L Normal 3.5-5.1 [facility] Comment on above: Performed By: #### H STROPN, BNP, CMP #### [facility] [address] [address] [address] Oksana Dowell Protein [Mass/Vol] 6.2 g/dL Critically low 6.4-8.2 [facility] Comment on above: Performed By: #### H STROPN, BNP, CMP #### [facility] [address] [address] [address] Oksana Dowell Sodium [Moles/Vol] 140 mmol/L Normal 136-145 [facility] Comment on above: Performed By: #### H STROPN, BNP, CMP #### [facility] [address] [address] [address] Oksana Dowell Urea nitrogen [Mass/Vol] 13.0 mg/dL Normal 7.0-18.0 [facility] Comment on above: Performed By: #### H STROPN, BNP, CMP #### [facility] [address] [place], [place] [address] Dr. Oksana Dowell Urea nitrogen/Creatinine [Mass ratio] 14.9 mg/mg Normal [facility] Comment on above: Performed By: #### H STROPN, BNP, CMP #### [facility] [address] [place], [place] [address] Dr. Oksana Dowell TROPONIN, HIGH SENSITIVITYon 07-23-2022 HSTROP 8.3 pg/mL Normal 4.0-76.1 [facility] Comment on above: Result Comment: CUT- OFF POINTS HAVE BEEN ESTABLISHED BASED ON THE FOURTH UNIVERSAL DEFINITIONS OF MYOCARDIAL INFARCTION. THE UPPER REFERENCE LIMIT (URL) OF TROPONIN, DEFINED THE 99TH PERCENTILE OF cTnI DISTRIBUTION IN A REFERENCE POPULATION, HAS BEEN CONFIRMED THE DECISION THRESHOLD FOR MT DIAGNOSIS. Performed By: #### H STROPN, BNP, CMP #### [facility] [address] [address] [address] Oksana Dowell XR CHEST 1 Von 07-23-2022 XR CHEST 1 V EXAM: XR CHEST 1 V HISTORY: SHORTNESS OF BREATH COMPARISON: None. TECHNIQUE: A frontal projection of the chest is submitted. FINDINGS: The lungs are clear. A pneumothorax is not identified. The size of the cardiac silhouette is mildly enlarged, likely accentuated by the AP projection. The diaphragm is normal in morphology. Osseous structures are age appropriate. IMPRESSION: 1. No evidence of acute pulmonary disease. Electronically authenticated by: ALEXANDRIA SCHAFFER Date: 2022-07-23 20:48 Normal [facility] Basophils Auto (Bld) [#/Vol] Ordered By: Senthil Donato on 07-16-2022 Basophils (Bld) [#/Vol] 0.1 10*3/uL 0.0-0.2 [facility] Basophils/100 WBC Auto (Bld) Ordered By: Senthil Donato on 07-16-2022 Basophils/100 WBC (Bld) 0.9 % . [facility] Creatinine and Glomerular fi ltration rate.predicted panel (S/P/Bld)Ordered By: Senthil Donato on 07-16-2022 Creatinine [Mass/Vol] 1.06 mg/dL 0.64-1.27 [facility] Eosinophils Auto (Bld) [#/Vo l]Ordered By: Senthil Donato on 07-16-2022 Eosinophils (Bld) [#/Vol] 0.3 10*3/uL 0.0-0.45 [facility] Eosinophils/100 WBC Auto (Bl d)Ordered By: Senthil Donato on 07-16-2022 Eosinophils/100 WBC (Bld) 4.0 % . [facility] Erythrocyte distribution wid th Auto (RBC) [Ratio]Ordered By: Senthil Donato on 07-16-2022 Erythrocyte distribution width (RBC) [Ratio] 14.6 % 12.0-14.8 [facility] Estimated glomerular filtrat ion rate (GFR) non- AmericanOrdered By: Senthil Donato on 07-16-2022 GFR/1.73 sq M.predicted among non-blacks MDRD (S/P/Bld) [Vol rate/Area] > 60 mL/Min [facility] Hematocrit Auto (Bld) [Volum e fraction]Ordered By: Senthil Donato on 07-16-2022 Hematocrit (Bld) [Volume fraction] 38.2 % 38.8-50.0 [facility] Hemoglobin [Mass/volume] in BloodOrdered By: Senthil Donato on 07-16-2022 Hemoglobin (Bld) [Mass/Vol] 12.6 g/dL 13.0-17.0 [facility] - Hematology and Cell countsOrdered By: Senthil Donato on 07-16-2022 Nucleated RBC/100 WBC (Bld) [Ratio] 0.1 % 0-0.5 [facility] Leukocytes [#/volume] in Blo od by Automated countOrdered By: Senthil Donato on 07-16-2022 WBC (Bld) [#/Vol] 7.2 10*3/uL 4.5-11.0 [facility] Lymphocytes Auto (Bld) [#/Vo l]Ordered By: Senthil Donato on 07-16-2022 Lymphocytes (Bld) [#/Vol] 1.2 10*3/uL 1.00-4.8 [facility] Lymphocytes/100 WBC Auto (Bl d)Ordered By: Senthil Donato on 07-16-2022 Lymphocytes/100 WBC (Bld) 16.4 % . [facility] MCH Auto (RBC) [Entitic mass ]Ordered By: Senthil Donato on 07-16-2022 MCH (RBC) [Entitic mass] 31.7 pg 27.5-35.2 [facility] MCHC Auto (RBC) [Mass/Vol]Or dered By: Senthil Donato on 07-16-2022 MCHC (RBC) [Mass/Vol] 33.1 g/dL 32.5-35.[address] [facility] MCV Auto (RBC) [Entitic vol] Ordered By: Senthil Donato on 07-16-2022 MCV (RBC) [Entitic vol] 95.6 fL 83.5-101 [facility] Monocytes Auto (Bld) [#/Vol] Ordered By: Senthil Donato on 07-16-2022 Monocytes (Bld) [#/Vol] 0.5 10*3/uL 0.0-0.8 [facility] Monocytes/100 WBC Auto (Bld) Ordered By: Senthil Donato on 07-16-2022 Monocytes/100 WBC (Bld) 7.2 % . [facility] Neutrophils Auto (Bld) [#/Vo l]Ordered By: Senthil Donato on 07-16-2022 Neutrophils (Bld) [#/Vol] 5.1 10*3/uL 1.8-7.7 [facility] Neutrophils/100 WBC Auto (Bl d)Ordered By: Senthil Donato on 07-16-2022 Neutrophils/100 WBC (Bld) 71.5 % . [facility] No Panel InformationOrdered By: Senthil Donato on 07-16-2022 Estimated GFR () > 60 mL/Min [facility] Comment on above: GFR estimated refere nce range: According to KDOQI guidelines, <60 ml/min/1.73m2 is sufficient to diagnose a patient with chronic kidney disease. Pharmacy Creatinine Clearance (Chem 61.81 [facility] Platelet mean volume Auto (B ld) [Entitic vol]Ordered By: Senthil Donato on 07-16-2022 Platelet mean volume (Bld) [Entitic vol] 9.5 fL 6.6-10.1 [facility] Platelets Auto (Bld) [#/Vol] Ordered By: Senthil Donato on 07-16-2022 Platelets (Bld) [#/Vol] 197 10*3/uL 150-450 [facility] RBC Auto (Bld) [#/Vol]Ordere d By: Senthil Donato on 07-16-2022 RBC (Bld) [#/Vol] 4.00 10*6/uL 3.90-5.60 [facility] Serum or plasma anion gap de terminationOrdered By: Senthil Donato on 07-16-2022 Anion gap [Moles/Vol] 14.2 mmol/L 6.0-15.0 [facility] Serum or plasma calcium paul urement (mass/volume)Ordered By: Senthil Donato on 07-16-2022 Calcium [Mass/Vol] 9.3 mg/dL 8.2-10.2 [facility] Serum or plasma chloride sarah surement (moles/volume)Ordered By: Senthil Donato on 07-16-2022 Chloride [Moles/Vol] 102 mmol/L 95-114 [facility] Serum or plasma glucose paul urement (mass/volume)Ordered By: Senthil Donato on 07-16-2022 Glucose [Mass/Vol] 106 mg/dL 70-100 [facility] Comment on above: ADA recommended refe rence rangeRandom Glucose Reference Range is dependent on time and content of last meal. Glucose of more than 200 mg/dL in a nonstressed, ambulatory subject supports the diagnosis of Diabetes Mellitus. Serum or plasma potassium me asurement (moles/volume)Ordered By: Senthil Donato on 07-16-2022 Potassium [Moles/Vol] 3.9 mmol/L 3.5-5.1 [facility] Serum or plasma sodium measu rement (moles/volume)Ordered By: Senthil Donato on 07-16-2022 Sodium [Moles/Vol] 137 mmol/L 136-146 [facility] Serum or plasma total carbon dioxide measurement (moles/volume)Ordered By: Senthil Donato on 07-16-2022 CO2 [Moles/Vol] 24.7 mmol/L 22.0-30.0 [facility] Serum or plasma urea nitroge n measurement (mass/volume)Ordered By: Senthil Donato on 07-16-2022 Urea nitrogen [Mass/Vol] 17 mg/dL 9-23 [facility] COVID-19 Positive/NegativeOr dered By: Malcom Irene on 07-14-2022 SARS-CoV-2 (COVID-19) N gene LAUREN+probe Ql (Resp) Negative Negative [facility] Comment on above: Testing for SARS-CoV -2 by RT-PCR This test was developed and its performance characteristics determined by [employer] [facility] and validated at the [facility]. This test has not been FDA cleared or approved. This test has been authorized by FDA under an Emergency Use Authorization (EUA). This test has been validated in accordance with the FDA's Guidance Document (Policy for Diagnostics Testing in Laboratories Certified to Perform High Complexity Testing under CLIA prior to Emergency Use Authorization for Coronavirus Disease-2019 during the Public Health Emergency) issued on February 02, 2020. This test is only authorized for the duration of time the declaration that circumstances exist justifying the authorization of the emergency use of in vitro diagnostic tests for detection of SARS-CoV-2 virus and/or diagnosis of COVID-19 infection under section 564(b)(1) of the Act, 21 U.S.C. 360bbb-3(b)(1), unless the authorization is terminated or revoked sooner. Creatinine (Bld) [Mass/Vol]O rdered By: Malcom Irene on 06-18-2022 Creatinine [Mass/Vol] 1.1 mg/dL 0.6-1.3 [facility] Comment on above: ER/ESD physician is notified/shown all ISTAT results. Critical values may be confirmed by laboratory testing if deemed necessary by ER attending doctor. No Panel InformationOrdered By: Malcom Irene on 06-18-2022 POC Estimated GFR > 60 [facility] Comment on above: GFR estimated refere nce range: According to KDOQI guidelines, <60 ml/min/1.73m2 is sufficient to diagnose a patient with chronic kidney disease. POC Estimated GFR Non- Amer > 60 [facility] Covid-19 PCR (CVDTB)on SARS-CoV-2 (COVID-19) RNA LAUREN+probe Ql (Unsp spec) Not detected Normal NOT DETECTED [facility] Comment on above: Result Comment: This test is not yet approved or cleared by the [place] FDA. When there are no FDA-approved or cleared tests available, and other criteria are met, FDA can make tests available under an emergency access mechanism called an Emergency Use Authorization (EUA). The EUA for this test is supported by the Library Cataloging Technician of Health and Human Service's (HHS's) declaration that circumstances exist to justify the emergency use of in vitro diagnostics for the detection and/or diagnosis of the virus that causes COVID-19. This EUA will remain in effect (meaning this test can be used) for the duration of the COVID-19 declaration justifying emergency of IVDs, unless it is terminated or revoked by FDA (after which the test may no longer be used). When diagnostic testing is negative, the possibility of a false negative should be considered in the context of a patient's recent exposures and the presence of clinical signs and symptoms consistent with SARS-CoV-2. Performed By: #### [facility] #### [facility] [address] [place] [address] Dr. Oksana Dwoell Tobacco Screening.on 022 Adult depression screening assessment No [facility] Work Phone: Fall risk assessment a) [facility] the [facility] Work Phone: Tobacco use status [facility] a) Yes [facility] y 250 DO Work Phone: Tobacco Screening. Yes [facility] DO Work Phone: Echocardiogramon 01-27-2022 Echocardiography [facility] [address] [place] [address], [address] [place] [address] TRANSTHORACIC ECHOCARDIOGRAM REPORT Patient Name: IVAN ANTHONY Bruce Physician: [id number] Suyapa Irwin MD Study Date: 01/27/2022 Referring Physician: [id number] ALEXANDRIA ISSA MRN/PID: [id number] PCP: Alonzo Gray Accession/Order#: [id number] Department Location: [facility] Tressa Garg Date of : 1945 Fellow: Gender: M Nurse: Admit Date: Vascular Nurse: Marcia Fernandez RDCS, RVT Height: 187.96 cm CC Report to: Malcom Irene Weight: 73.94 kg Study Type: Echocardiogram BSA: 1.99 m2 Blood Pressure: 160 /72 mmHg Diagnosis/ICD: R94.39-Abnormal result of other cardiovascular function study; Z01.818-Encounter for other preprocedural examination; R06.02-Shortness of breath Indication: Atrial Fibrillation, HTN, Hyperlipidemia, Tobacco Abuse, Bilateral Carotid Artery Stenosis, POC-Carotid Endarterectomy with Dr. Joseline Irene/Date Pending Procedure/CPT: Echo Complete w Full [id number] Study Detail: The following Echo studies were performed: 2D, M-Mode, Doppler and color flow. PHYSICIAN INTERPRETATION: Left Ventricle: The left ventricular systolic function is severely decreased, with an estimated ejection fraction of 25-30%. There is global hypokinesis of the left ventricle with minor regional variations. The left ventricular cavity size is mildly dilated. There is mild concentric left ventricular hypertrophy. Spectral Doppler shows a normal pattern of left ventricular diastolic filling. Left Atrium: The left atrium is mildly dilated. Right Ventricle: The right ventricle is normal in size. There is normal right ventricular global systolic function. Right Atrium: The right atrium is normal in size. Aortic Valve: The aortic valve is trileaflet. There is no evidence of aortic valve regurgitation. The peak instantaneous gradient of the aortic valve is 5.7 mmHg. The mean gradient of the aortic valve is 2.0 mmHg. Mitral Valve: The mitral valve is mildly thickened. There is trace to mild mitral valve regurgitation. Tricuspid Valve: The tricuspid valve is structurally normal. There is trace to mild tricuspid regurgitation. Pulmonic Valve: The pulmonic valve is not well visualized. There is no indication of pulmonic valve regurgitation. Pericardium: There is no pericardial effusion noted. Aorta: The aortic root is normal. CONCLUSIONS: 1. The left ventricular systolic function is severely decreased with a 25-30% estimated ejection fraction. 2. There is global hypokinesis of the left ventricle with minor regional variations. QUANTITATIVE DATA SUMMARY: 2D MEASUREMENTS: Normal Ranges: Ao Root d: 3.00 cm (2.0-3.7cm) LAs: 4.20 cm (2.7-4.0cm) RVIDd: 3.10 cm (0.9-3.6cm) IVSd: 1.20 cm (0.6-1.1cm) LVPWd: 1.10 cm (0.6-1.1cm) LVIDd: 6.10 cm (3.9-5.9cm) LVIDs: 5.60 cm LV Mass Index: 153.0 g/m2 LV % FS 8.2 % LV SYSTOLIC FUNCTION BY 2D PLANIMETRY (MOD): Normal Ranges: EF-A4C View: 27.3 % (>55%) LV DIASTOLIC FUNCTION: Normal Ranges: MV Peak E: 0.51 m/s (0.7-1.2 m/s) MV Peak A: 0.97 m/s (0.42-0.7 m/s) E/A Ratio: 0.53 (1.0-2.2) MV lateral e' 0.04 m/s MV medial e' 0.03 m/s E/e' Ratio: 13.90 (<8.0) MITRAL VALVE: Normal Ranges: MV Vmax: 1.02 m/s (<1.3m/s) MV peak P.2 mmHg (<5mmHg) MV mean P.0 mmHg (<48mmHg) MITRAL INSUFFICIENCY: Normal Ranges: MR Vmax: 332.00 cm/s AORTIC VALVE: Normal Ranges: AoV Vmax: 1.19 m/s (<1.7m/s) AoV Peak P.7 mmHg (<20mmHg) AoV Mean P.0 mmHg (1.7-11.5mmHg) LVOT Max Zain: 0.76 m/s (<1.1m/s) AoV VTI: 25.70 cm (18-25cm) LVOT VTI: 17.10 cm LVOT Diameter: 2.30 cm (1.8-2.4cm) AoV Area, VTI: 2.76 cm2 (2.5-5.5cm2) AoV Area,Vmax: 2.65 cm2 (2.5-4.5cm2) AoV Dimensionless Index: 0.67 PULMONIC VALVE: Normal Ranges: PV Max Zain: 0.6 m/s (0.6-0.9m/s) PV Max P.3 mmHg [id number] Suyapa Irwin MD Electronically signed on 01/31/2022 at 7:24:37 PM Final Normal [facility] Echocardiography Please click on the link to view the study images Normal -[facility] 600 DO Work Phone: Tobacco Screening.on 022 Adult depression screening assessment No [facility] io [facility] [facility] 250 DO Work Phone: Fall risk assessment a) No falls within the last year [facility] 250 DO Work Phone: Tobacco use status CPHS a) Yes M -[facility] 250 DO Work Phone: Tobacco Screening. Yes [facility] 250 DO Work Phone: No Panel Informationon 01-17 Normal [facility] 250 DO Work Phone: No Panel Informationon 01-16 [facility] 250 DO Work Phone: Tobacco Screening.on 022 Adult depression screening assessment No [facility] 250 DO Work Phone: Fall risk assessment a) No falls within the last year -[facility] 250 DO Work Phone: Tobacco use status CPHS a) Yes M P-[facility] 250 DO Work Phone: Tobacco Screening. Yes [facility] 250 DO Work Phone: US CAROTID ART BILon 022 US CAROTID ART HELEN EXAMINATION: US CAROTID ART HELEN HISTORY: Cardiovascular symptoms COMPARISON: No relevant comparison available. TECHNIQUE: Duplex Doppler ultrasound analysis of carotid and vertebral arteries. . Bilateral carotid arterial duplex examination was performed using B-mode, color flow and spectral analysis. Carotid stenosis is reported according to validated velocity parameters, similar to NASCET criteria. FINDINGS: RIGHT CAROTID ARTERY Extensive atherosclerotic plaque. Maximum area reduction 89% proximal internal carotid artery Subclavian: PSV: 147.6 cm/s cm/s EDV: 15.6 cm/s cm/s CCA: Prox: PSV: 88.7 cm/s cm/s EDV: 17.6 cm/s cm/s Mid: PSV: 116.1 cm/s cm/s EDV: 22.4 cm/s cm/s Distal: PSV: 108.0 cm/s cm/s EDV: 22.4 cm/s cm/s BULB: PSV: 121.0 cm/s cm/s EDV: 20.8 cm/s cm/s ICA: Prox: PSV: 513.3 cm/s cm/s EDV: 145.3 cm/s cm/s Mid: PSV: 191.9 cm/s cm/s EDV: 41.5 cm/s cm/s Distal: PSV: 41.9 cm/s cm/s EDV: 19.1 cm/s cm/s ECA: PSV: 131.8 cm/s cm/s EDV: 15.6 cm/s cm/s VERTEBRAL: PSV: 77.9 cm/s cm/s EDV: 18.6 cm/s cm/s ICA/CCA ratio: PSV: 4.8 EDV: 6.5 LEFT CAROTID ARTERY Extensive atherosclerotic plaque. 94% reduction proximal internal carotid artery. 89% reduction in vertebral artery Subclavian: PSV: 279.3 cm/s cm/s EDV: 12.0 cm/s CCA: Prox: PSV: 32.3 cm/s cm/s EDV: 10.4 cm/s Mid: PSV: 32.3 cm/s cm/s EDV: 13.6 cm/s Distal: PSV: 33.9 cm/s cm/s EDV: 15.3 cm/s BULB: PSV: 438.5 cm/s cm/s EDV: 104.8 cm/s ICA: Prox: PSV: 111.3 cm/s cm/s EDV: 22.4 cm/s Mid: PSV: 59.4 cm/s cm/s EDV: 29.6 cm/s Distal: PSV: 68.0 cm/s cm/s EDV: 15.3 cm/s ECA: PSV: 137.6 cm/s cm/s EDV: 9.8 cm/s VERTEBRAL: PSV: 241.2 cm/s cm/s EDV: 79.5 cm/s ICA/CCA ratio: PSV: 12.9 EDV: 6.9 IMPRESSION: High-grade stenosis proximal bilateral internal carotid arteries, measured at 89% in the right and 94% in the left 89% area narrowing left vertebral artery Spectral Doppler US Thresholds (Reference: Jaron EG, et al. Radiology 2000; 214:247-252) Stenosis (%) PSV (cm/sec) VICA/VCCA 0-49 <150 <2.5 50-69 150-225 2.5-4.0 >70 >225 >4.0 Electronically authenticated by: IVAN CALIXTO Date: 2021-12-17 12:30 Normal [facility] Vital Signs Date Time Vital Sign Value Performing Clinician Facility 05-23-2024 11:09-0400 Body height 186.69 cm [facility] 05-23-2024 11:09-0400 Body mass index (BMI) [Ratio] 18.2 kg/m2 [facility] 05-23-2024 11:09-0400 Body weight 63.61 kg [facility] 05-23-2024 11:09-0400 Diastolic blood pressure 61 mm[Hg] [facility] 05-23-2024 11:09-0400 Heart rate 66 /min [facility] 05-23-2024 11:09-0400 Respiratory rate 12 /min [facility] 05-23-2024 11:09-0400 Systolic blood pressure 100 mm[Hg] [facility] 11-16-2023 09:30-0500 Body height 186.69 cm Alonzo Ball Other [employer] Other 11-16-2023 09:30-0500 Body mass index (BMI) [Ratio] 19.96 kg/m2 Alonzo Ball Other [employer] Other 11-16-2023 09:30-0500 Body weight 69.58 kg Alonzo Ball Other [employer] Other 11-16-2023 09:30-0500 Diastolic blood pressure 78 mm[Hg] Alonzo Ball Other [employer] Other 11-16-2023 09:30-0500 Respiratory rate 12 /min Alonzo Ball Other [employer] Other 11-16-2023 09:30-0500 Systolic blood pressure 159 mm[Hg] Alonzo Ball Other [employer] Other 10-19-2023 11:30-0500 Body height 186.69 cm Malocm Irene Other [employer] Other 10-19-2023 11:30-0500 Body mass index (BMI) [Ratio] 20.56 kg/m2 Malcom Irene Other [employer] Other 10-19-2023 11:30-0500 Body temperature 97.8 [degF] Malcom Irene Other [employer] Other 10-19-2023 11:30-0500 Body weight 71.67 kg Malcom Irene Other [employer] Other 10-19-2023 11:30-0500 Diastolic blood pressure 74 mm[Hg] Malcom Irene Other [employer] Other 10-19-2023 11:30-0500 SaO2% (BldA) [Mass fraction] 97 % Malcom Irene Other [facility] Other 10-19-2023 11:30-0500 Systolic blood pressure 128 mm[Hg] Malcom Irene Other [employer] Other 05-20-2023 14:27-0400 Diastolic blood pressure 70 mm[Hg] Alonzo Evangelista Ball Work Phone: [employer] DO Work Phone: 05-20-2023 14:27-0400 Systolic blood pressure 138 mm[Hg] [facility]onzo E [facility] [employer] [facility] Work Phone: 05-20-2023 14:14-0400 Body height 187.96 cm Alonzo Evangelista Ball Work Phone: [employer] [employer] DO Work Phone: 05-20-2023 14:14-0400 Body mass index (BMI) [Ratio] 20.41 kg/m2 Alonzo Evangelista Ball Work Phone: [employer] DO Work Phone: 05-20-2023 14:14-0400 Body surface area Derived from formula 1.97 m2 Alonzo Evangelista Ball Work Phone: [employer] [employer] 250 DO Work Phone: 05-20-2023 14:14-0400 Body weight 72.12 kg Alonzo E Ball [facility] [employer] 250 DO Work Phone: 05-20-2023 14:14-0400 Diastolic blood pressure 68 mm[Hg] Alonzo E Ball [facility] 250 DO Work Phone: 05-20-2023 14:14-0400 Heart rate 64 /min Alonzo E Ball Work Phone: [facility] [employer] 250 DO Work Phone: 05-20-2023 14:14-0400 Systolic blood pressure 180 mm[Hg] Alonzo E Ball Work Phone: [facility] [employer] 250 DO Work Phone: 05-15-2023 11:00-0400 Body height 186.69 cm Alonzo Ball Other [facility] Other 05-15-2023 11:00-0400 Body mass index (BMI) [Ratio] 20.64 kg/m2 Alonzo Ball Other [facility] Other 05-15-2023 11:00-0400 Body weight 71.94 kg Alonzo Ball Other [facility] [employer] Other 05-15-2023 11:00-0400 Diastolic blood pressure 72 mm[Hg] Alonzo Ball Other [facility] Other 05-15-2023 11:00-0400 Respiratory rate 12 /min Alonzo Ball Other [facility] Other 05-15-2023 11:00-0400 Systolic blood pressure 175 mm[Hg] Alonzo Ball Other [facility] Other 11-24-2022 16:05-0500 Diastolic blood pressure 82 mm[Hg] Alonzo E Ball Work Phone: [facility] [employer] 250 DO Work Phone: 11-24-2022 16:05-0500 Systolic blood pressure 138 mm[Hg] Alonzo E Ball Work Phone: [facility] [employer] 250 DO Work Phone: 11-24-2022 15:25-0500 Body height 187.96 cm Alonzo E Ball Work Phone: [facility] 250 DO Work Phone: 11-24-2022 15:25-0500 Body mass index (BMI) [Ratio] 20.8 kg/m2 Alonzo E Ball Work Phone: [facility] 250 DO Work Phone: 11-24-2022 15:25-0500 Body surface area Derived from formula 1.99 m2 Alonzo E Ball Work Phone: [facility] 250 DO Work Phone: 11-24-2022 15:25-0500 Body weight 73.48 kg Alonzo E Ball Work Phone: [facility] 250 DO Work Phone: 11-24-2022 15:25-0500 Diastolic blood pressure 82 mm[Hg] Alonzo E Ball Work Phone: [facility] 250 DO Work Phone: 11-24-2022 15:25-0500 Heart rate 66 /min Alonzo E Ball Work Phone: [facility] 250 DO Work Phone: 11-24-2022 15:25-0500 Systolic blood pressure 144 mm[Hg] Alonzo E Ball Work Phone: [facility] 250 DO Work Phone: 11-19-2022 14:30-0500 40 Alonzo E Ball Work Phone: [facility] [address] [place] Work Phone: Comment on above: [id number] 10-01-2022 13:47-0500 Body height 187.96 cm Alonzo E Ball Work Phone: [facility] 250 DO Work Phone: 10-01-2022 13:47-0500 Body mass index (BMI) [Ratio] 21.33 kg/m2 Alonzo E Ball Work Phone: [facility] 250 DO Work Phone: 10-01-2022 13:47-0500 Body surface area Derived from formula 2.01 m2 Alonzo E Ball Work Phone: [facility] 250 DO Work Phone: 10-01-2022 13:47-0500 Body weight 75.36 kg Alonzo E Ball Work Phone: [facility] 250 DO Work Phone: 10-01-2022 13:47-0500 Diastolic blood pressure 90 mm[Hg] Alonzo E Ball Work Phone: [facility] 250 DO Work Phone: 10-01-2022 13:47-0500 Heart rate 66 /min Alonzo E Ball Work Phone: [facility] 250 DO Work Phone: 10-01-2022 13:47-0500 Systolic blood pressure 160 mm[Hg] Alonzo E Ball Work Phone: [facility] 250 DO Work Phone: 08-11-2022 12:30-0400 Body height 186.69 cm Irma Pérez Other [employer] Other 08-11-2022 12:30-0400 Body mass index (BMI) [Ratio] 20.82 kg/m2 Irma Pérez Other [employer] Other 08-11-2022 12:30-0400 Body temperature 97.1 [degF] Irma Pérez Other [employer] Other 08-11-2022 12:30-0400 Body weight 72.58 kg Imra Pérez Other [facility] [employer] Other 08-11-2022 12:30-0400 Diastolic blood pressure 68 mm[Hg] Irma Pérez Other [facility] [employer] Other 08-11-2022 12:30-0400 SaO2% (BldA) [Mass fraction] 98 % Irma Pérez Other [facility] [employer] Other 08-11-2022 12:30-0400 Systolic blood pressure 158 mm[Hg] Irma Pérez Other [facility] [employer] Other 07-17-2022 07:00-0400 Diastolic blood pressure 54 mm[Hg] DO Alonzo Ball Work Phone: [facility] 07-17-2022 07:00-0400 Heart rate 49 /min DO Alonzo Ball Work Phone: [facility] 07-17-2022 07:00-0400 Respiratory rate 17 /min DO Alonzo Ball Work Phone: [facility] 07-17-2022 07:00-0400 Systolic blood pressure 122 mm[Hg] DO Alonzo Ball Work Phone: [facility] 07-17-2022 06:00-0400 SaO2% (BldA) [Mass fraction] 98 % DO Alonzo Ball Work Phone: [facility] 07-17-2022 05:46-0400 Body weight 74.8 kg DO Alonzo Ball Work Phone: [facility] 07-17-2022 00:00-0400 Body temperature 98.6 [degF] DO Alonzo Ball Work Phone: [facility] 07-17-2022 00:00-0400 Inhaled oxygen flow rate 1 L/min DO Alonzo Ball Work Phone: [facility] 07-16-2022 08:17-0400 Body height 189.23 cm DO Alonzo Ball Work Phone: [facility] 07-16-2022 08:17-0400 Body mass index (BMI) [Ratio] 20.2 kg/m2 DO Alonzo Ball Work Phone: [facility] 06-18-2022 15:35-0400 Diastolic blood pressure 57 mm[Hg] DO Alonzo Ball Work Phone: [facility] 06-18-2022 15:35-0400 Heart rate 57 /min DO Alonzo Ball Work Phone: [facility] 06-18-2022 15:35-0400 Respiratory rate 20 /min DO Alonzo Ball Work Phone: [facility] 06-18-2022 15:35-0400 SaO2% (BldA) [Mass fraction] 95 % DO Alonzo Ball Work Phone: [facility] 06-18-2022 15:35-0400 Systolic blood pressure 131 mm[Hg] DO Alonzo Ball Work Phone: [facility] 06-18-2022 12:30-0400 Inhaled oxygen flow rate 2 L/min DO Alonzo Ball Work Phone: [facility] 06-18-2022 11:04-0400 Body height 187.96 cm DO Alonzo Ball Work Phone: [facility] 06-18-2022 11:04-0400 Body weight 74.84 kg DO Alonzo Ball Work Phone: [facility] 05-20-2022 11:30-0400 Body height 186.69 cm Malcom Irene Other [facility] [employer] Other 05-20-2022 11:30-0400 Body mass index (BMI) [Ratio] 20.82 kg/m2 Malcom Irene Other [employer] Other 05-20-2022 11:30-0400 Body temperature 97.6 [degF] Malcom Brownleerer Other [employer] Other 05-20-2022 11:30-0400 Body weight 72.58 kg Malcom Brownleerer Other [employer] Other 05-20-2022 11:30-0400 Diastolic blood pressure 62 mm[Hg] Malcom Brownleerer Other [employer] Other 05-20-2022 11:30-0400 SaO2% (BldA) [Mass fraction] 99 % Malcom Brownleerer Other [employer] Other 05-20-2022 11:30-0400 Systolic blood pressure 138 mm[Hg] Malcom Brownleerer Other [employer] Other 03-18-2022 11:45-0400 Body height 186.69 cm Irma Mcdonalddilip Other [employer] Other 03-18-2022 11:45-0400 Body mass index (BMI) [Ratio] 20.82 kg/m2 Irma Pérez Other [employer] Other 03-18-2022 11:45-0400 Body temperature 97.2 [degF] Irma Pérez Other [employer] Other 03-18-2022 11:45-0400 Body weight 72.58 kg Irma Pérez Other [employer] Other 03-18-2022 11:45-0400 Diastolic blood pressure 52 mm[Hg] Irma Pérez Other [employer] Other 03-18-2022 11:45-0400 SaO2% (BldA) [Mass fraction] 99 % Irma Pérez Other [employer] Other 03-18-2022 11:45-0400 Systolic blood pressure 140 mm[Hg] Irma Pérez Other [employer] Other 03-10-2022 13:39-0400 Diastolic blood pressure 60 mm[Hg] Alonzo Evangelista Ball Work Phone: [employer] DO Work Phone: 03-10-2022 13:39-0400 Systolic blood pressure 138 mm[Hg] Alonzo Evangelista Ball Work Phone: [employer] DO Work Phone: 03-10-2022 13:19-0400 Body height 187.96 cm Alonzo E Ball Work Phone: [employer] [employer] 250 DO Work Phone: 03-10-2022 13:19-0400 Body mass index (BMI) [Ratio] 20.8 kg/m2 Alonzo Evangelista Ball Work Phone: [employer] 250 DO Work Phone: 03-10-2022 13:19-0400 Body surface area Derived from formula 1.99 m2 Alonzo E Ball Work Phone: [employer] 250 DO Work Phone: 03-10-2022 13:19-0400 Body weight 73.48 kg Alonzo E Ball Work Phone: [employer] 250 DO Work Phone: 05-09-2022 13:19-0400 Diastolic blood pressure 62 mm[Hg] Alonzo Evangelista Ball Work Phone: [facility] [employer] 250 DO Work Phone: 03-10-2022 13:19-0400 Heart rate 66 /min Alonzo Evangelista Ball Work Phone: [facility] [employer] 250 DO Work Phone: 03-10-2022 13:19-0400 Systolic blood pressure 152 mm[Hg] Alonzo Evangelista Ball Work Phone: [facility] [employer] 250 DO Work Phone: 02-04-2022 12:00-0400 Body height 186.69 cm Malcom Irene Other [employer] Other 02-04-2022 12:00-0400 Body mass index (BMI) [Ratio] 20.82 kg/m2 Malcom Irene Other [employer] Other 02-04-2022 12:00-0400 Body temperature 96.3 [degF] Malcom Irene Other [employer] Other 02-04-2022 12:00-0400 Body weight 72.58 kg Malcom Irene Other [employer] Other 02-04-2022 12:00-0400 Diastolic blood pressure 60 mm[Hg] Malcom Irene Other [employer] Other 02-04-2022 12:00-0400 SaO2% (BldA) [Mass fraction] 97 % Malcom Irene Other [employer] Other 02-04-2022 12:00-0400 Systolic blood pressure 158 mm[Hg] Malcom Irene Other [facility] [employer] Other 01-27-2022 08:45-0400 30 1 Alonzo E Ball Work Phone: [facility] [address] [place] Work Phone: Comment on above: [place] [id number] 01-23-2022 13:08-0400 Body height 187.96 cm Alonzo E Ball Work Phone: [facility] 250 DO Work Phone: 01-23-2022 13:08-0400 Body mass index (BMI) [Ratio] 20.93 kg/m2 Alonzo E Ball Work Phone: [facility] 250 DO Work Phone: 01-23-2022 13:08-0400 Body surface area Derived from formula 1.99 m2 Laonzo E Ball Work Phone: [facility] 250 DO Work Phone: 01-23-2022 13:08-0400 Body weight 73.94 kg Alonzo E Ball Work Phone: [facility] 250 DO Work Phone: 01-23-2022 13:08-0400 Heart rate 68 /min Alonzo E Ball Work Phone: [facility] 250 DO Work Phone: 01-16-2022 16:13-0400 30 1 Alonzo E Ball Work Phone: [facility] 250 DO Work Phone: Comment on above: [place] [id number] 01-13-2022 15:09-0400 Diastolic blood pressure 67 mm[Hg] Alonzo E Ball Work Phone: [facility] 250 DO Work Phone: 01-13-2022 15:09-0400 Systolic blood pressure 141 mm[Hg] Alonzo Evangelista Ball Work Phone: [facility] [employer] 250 DO Work Phone: 01-13-2022 15:05-0400 Body height 189.23 cm Alonzo Evangelista Ball Work Phone: [facility] [employer] 250 DO Work Phone: 01-13-2022 15:05-0400 Body mass index (BMI) [Ratio] 20.27 kg/m2 Alonzo Evangelista Ball Work Phone: [facility] [employer] 250 DO Work Phone: 01-13-2022 15:05-0400 Body surface area Derived from formula 1.99 m2 Alonzo Evangelista Ball Work Phone: [facility] [employer] 250 DO Work Phone: 01-13-2022 15:05-0400 Body weight 72.58 kg Alonzo Evangelista Ball Work Phone: [facility] [employer] 250 DO Work Phone: 01-13-2022 15:05-0400 Diastolic blood pressure 63 mm[Hg] Alonzo Evangelista Ball Work Phone: [facility] [employer] DO Work Phone: 01-13-2022 15:05-0400 Heart rate 65 /min Alonzo Evangelista Ball Work Phone: [facility] [employer] 250 DO Work Phone: 01-13-2022 15:05-0400 Systolic blood pressure 132 mm[Hg] Alonzo Evangelista Ball Work Phone: [facility] [employer] 250 DO Work Phone: 12-23-2021 11:30-0500 Body height 186.69 cm Irma Rutdilip Other [facility] Other 12-23-2021 11:30-0500 Body mass index (BMI) [Ratio] 20.82 kg/m2 Irma Pérez Other [employer] Other 12-23-2021 11:30-0500 Body temperature 96.9 [degF] Irma Pérez Other [employer] Other 12-23-2021 11:30-0500 Body weight 72.58 kg Irma Pérez Other [employer] Other 12-23-2021 11:30-0500 Diastolic blood pressure 70 mm[Hg] Irma Pérez Other [employer] Other 12-23-2021 11:30-0500 SaO2% (BldA) [Mass fraction] 95 % Irma Pérez Other [employer] Other 12-23-2021 11:30-0500 Systolic blood pressure 160 mm[Hg] Irma Pérez Other [employer] Other Encounters Encounter Date Encounter Type Care Provider Facility Start: 05-23-2024 End: 05-23-2024 ambulatory [facility] Work Phone: Start: 05-23-2024 End: 05-23-2024 Patient encounter procedure [facility] Work Phone: Start: 05-19-2024 End: 05-19-2024 ambulatory [facility] Ambulatory Start: 11-23-2023 Telephone encounter Alonzo INTERIANO [facility] Start: 11-23-2023 End: 11-23-2023 ambulatory SUYAPA Estevez [facility] [employer] Other Start: 11-16-2023 End: 11-16-2023 ambulatory Alonzo Gray Other [facility] [employer] Other Start: 11-16-2023 Office outpatient vi sit 25 minutes Alonzo Gray [facility] Start: 10-19-2023 Office outpatient vi sit 25 minutes Malcom Irene [facility] Vascular Surgery Start: 10-19-2023 End: 10-19-2023 ambulatory DO Alonzo Gray Work Phone: [employer] Other Start: 10-19-2023 End: 10-19-2023 Patient encounter procedure DO Alonzo Gray Work Phone: [facility]-Ultrasound [facility] Start: 08-17-2023 End: 08-17-2023 ambulatory Alonzo Gray Other [employer] Other Start: 08-17-2023 Nursing evaluation o f patient and report Alonzo Gray [facility] Start: 06-11-2023 Rx Renewal Alonzo Evangelista Bal l Work Phone: [facility] [employer] 250 DO Work Phone: Start: 05-27-2023 End: 05-27-2023 ambulatory Alonzo Gray Other [employer] Other Start: 05-27-2023 Telephone encounter Alonzo INTERIANO [facility] Start: 05-20-2023 Office outpatient vi sit 25 minutes Alonzo Gray Work Phone: [facility] [employer] 250 DO Work Phone: Start: 05-18-2023 End: 05-18-2023 ambulatory Alonzo Gray Other [employer] Other Start: 05-18-2023 Telephone encounter Alonzo INTERIANO [facility] Start: 05-15-2023 End: 05-15-2023 ambulatory Alonzo Gray Other [employer] Other Start: 05-15-2023 Patient encounter procedure Alonzo Gray [facility] Start: 04-14-2023 End: 04-14-2023 ambulatory Irma Pérez Facility:[facility] Start: 12-15-2022 Chart Update Alonzo evangelista Work Phone: [facility] 250 DO Work Phone: Start: 11-26-2022 End: 11-26-2022 ambulatory Irma Pérez Other [facility] [employer] Other Start: 11-26-2022 Telephone encounter Irma Fernández [facility] Start: 11-24-[address] Suyapa Irwin II Facility: Start: 11-24-2022 Chart Update Alonzo evangelista Work Phone: [facility] 250 DO Work Phone: Start: 11-19-2022 Patient encounter procedure Alonzo Gray Work Phone: [facility] [address] [place] Work Phone: Start: 11-19-[address] Suyapa Irwin II Facility:[id number] Start: 10-14-2022 End: 10-14-2022 ambulatory DO Alonzo Gray Work Phone: [facility] Work Phone: Start: 10-14-2022 End: 10-14-2022 Patient encounter procedure DO Alonzo Gray Work Phone: [facility]-Ultrasound [facility] Start: 10-01-2022 Office outpatient vi sit 25 minutes Alonzo Jean Carlos Gray Work Phone: [facility] 250 DO Work Phone: Start: 10-01-[address] Alonzo Gray Facility: Start: 08-11-2022 End: 08-11-2022 ambulatory Irma Pérez Other [facility] [employer] Other Start: 08-11-2022 Follow-up encounter Irma Fernández [facility] Start: 08-06-2022 End: 08-07-[address] ALONZO GRAY Facility:[facility] Start: 07-23-2022 End: 07-23-[address] ALONZO GRAY Facility:[facility] Start: 07-16-2022 End: 07-17-2022 Evaluation and management of inpatient DO Alonzo Gray Work Phone: [facility] [place] [facility] Start: 07-14-2022 End: 07-14-2022 Patient encounter procedure DO Alonzo Gray Work Phone: [facility]-Pre-Surgical Testing Start: 06-23-2022 End: 06-23-2022 ambulatory Irma Pérez Other [employer] Other Start: 06-23-2022 Encounter for other preprocedural examination Irma Pérez [facility] Vascular Surgery Start: 06-23-2022 Telephone encounter Irma Fernández [facility] Start: 06-18-2022 End: 06-18-2022 Evaluation and management of inpatient DO Alonzo Gray Work Phone: [facility] [place] [facility] Start: 06-05-2022 [facility]ced[facility] Start: 06-02-2022 End: 06-02-[address] ALONZO GRAY Facility:[facility] Start: 06-02-2022 End: 06-02-2022 Encounter for preprocedural laboratory examination DR ALONZO GRAY Facility:[facility] Start: 05-20-2022 End: 05-20-2022 ambulatory Malcom Irene Other [employer] Other Start: 05-20-2022 Postop follow up vis it related to original px Malcom Irene [facility] Vascular Surgery Start: 05-20-2022 End: 05-20-2022 Patient encounter procedure DO Alonzo Gray Work Phone: [facility]-Ultrasound [facility] Start: 03-18-2022 End: 03-18-2022 ambulatory Irma Pérez Other [employer] Other Start: 03-18-2022 Follow-up encounter Irma Mcdonaldkimberlyken Fernández [facility] Start: 03-14-2022 End: 03-14-[address] ALONZO GRAY Facility: Start: 03-10-2022 Office outpatient vi sit 25 minutes Alonzo Gray Work Phone: [facility] 250 DO Work Phone: Start: 03-10-[address] Alonzo Gray Facility: Start: 02-10-2022 End: 02-10-2022 ambulatory Irma Pérez Other [facility] [employer] Other Start: 02-10-2022 Encounter for other preprocedural examination Irma Pérez [facility] Start: 02-10-2022 Telephone encounter Irma Fernández [facility] Start: 02-05-2022 Chart Update Alonzo evangelista Work Phone: [facility] DO Work Phone: Start: 02-04-2022 End: 02-04-2022 ambulatory Malcom Irene Other [facility] [employer] Other Start: 02-04-2022 Office outpatient vi sit 25 minutes Malcom Irene [facility] Start: 01-27-2022 Encounter for other preprocedural examination Dr. Alexandria Issa [facility] Start: 01-27-2022 Telephone encounter Irma Mcdonaldkimberlyken Fernández [facility] Start: 01-27-2022 Patient encounter procedure Alonzo Gray Work Phone: [facility] [place] Work Phone: Start: 01-27-2022 End: 01-27-[address] Alexandria Issa [facility] [employer] Other Start: 01-23-2022 FUV, Provider: Alexandria Issa, Status: Pen, Time: 1:00 PM Alonzo Gray Work Phone: [facility] DO Work Phone: Start: 01-23-2022 Office outpatient vi sit 25 minutes Alonzo Jean Carlos Isaac Work Phone: [facility] DO Work Phone: Start: 01-21-2022 Chart Update Alonzo Jean Carlos Chris l Work Phone: [facility] DO Work Phone: Start: 01-13-2022 Office consultation new/estab patient 60 min Alonzo Jean Carlos Isaac Work Phone: [facility] DO Work Phone: Start: 12-23-2021 End: 12-23-2021 ambulatory Irma Pérez Other [employer] Other Start: 12-23-2021 Office outpatient ne w 20 minutes Irma Pérez [facility] Start: 12-17-2021 End: 12-18-[address] ALONZO GRAY Facility: Start: 05-13-2021 Adult health examination Miles min Isaac Other [employer] Other Patient encounter status Huinae dodd E Isaac Work Phone: [facility] DO Work Phone: Preoperative state Alonzo Evangelista Ba ll Work Phone: [facility] DO Work Phone: Procedures Date Procedure Procedure Detail Performing Clinician Start: 11-23-2023 Basic metabolic 2000 panel - Serum or Plasma SUYAPA IRWIN Start: 10-19-2023 Doppler ultrasonogra phy of bilateral carotid arteries DO Alonzo Ball Work Phone: Start: 11-19-2022 Echocardiography Benjsammie Evangelista Ball Work Phone: Start: 10-14-2022 Doppler ultrasonogra phy of bilateral carotid arteries DO Alonzo Ball Work Phone: Start: 05-20-2022 Doppler ultrasonogra phy of bilateral carotid arteries DO Alonzo Gray Work Phone: Start: 01-27-2022 Echocardiography Benjsammie Gray Work Phone: Start: 09-28-2017 General examination of patient Alonzo Gray Other Start: 09-28-2017 Screening for malign ant neoplasm of colon Alonzo Gray Other Start: 09-28-2017 Screening for malign ant neoplasm of prostate Alonzo Gray Other Depression screening Trista Gray Other Excision of melanoma Trista Gray Work Phone: History of carotid endarterectomy Alonzo Gray Other End: 06-05-2021 Hyperlipidemia screening Alonzo Gray Other Ligation of common c arotid artery Alonzo Gray Work Phone: Operative procedure on knee Alonzo Gray Work Phone: Screening for malign ant neoplasm of prostate Alonzo Gray Other Tonsillectomy Alonzo Evangelista Bal l Work Phone: Total colonoscopy Alonzo Gray Work Phone: Comment on above: denies; Plan of Treatment Date Care Activity Detail Author Start: 12-02-2023 FUV, Provider: Suyapa Irwin, Status: Lele, Time: 2:20 PM FUV, Provider: Suyapa Irwin, Status: Lele, Time: 2:20 PM [facility] 250 DO Work Phone: Start: 05-20-2023 FUV, Provider: Suyapa Irwin, Status: Lele, Time: 2:20 PM FUV, Provider: Suyapa Irwin, Status: Lele, Time: 2:20 PM [facility] DO Work Phone: Start: 11-24-2022 FUV, Provider: Suyapa Irwin, Status: Lele, Time: 3:30 PM FUV, Provider: Suyapa Irwin, Status: Pen, Time: 3:30 PM [facility] DO Work Phone: Start: 11-19-2022 ECHO, Provider: MALU KIM [facility] 01,[id number], Status: Pen, Time: 2:30 PM ECHO, Provider: [facility] 01,[id number], Status: Pen, Time: 2:30 PM -[facility] 250 DO Work Phone: Start: 10-01-2022 FUV, Provider: Suyapa Irwin, Status: Pen, Time: 1:40 PM FUV, Provider: Suyapa Irwin, Status: Pen, Time: 1:40 PM [facility] 250 DO Work Phone: Start: 07-17-2022 [facility] Start: 07-16-2022 Extirpation of Matte r from Right Internal Carotid Artery, Open Approach Extirpation of Matter from Right Internal Carotid Artery, Open Approach [facility] Start: 07-16-2022 Supplement Right Internal Carotid Artery with Synthetic Substitute, Open Approach Supplement Right Internal Carotid Artery with Synthetic Substitute, Open Approach [facility] Start: 07-16-2022 Hospital admission [facility] Start: 06-18-2022 Fluoroscopy of Abdom inal Aorta using Low Osmolar Contrast Fluoroscopy of Abdominal Aorta using Low Osmolar Contrast [facility] Start: 06-18-2022 Fluoroscopy of Bilat eral Common Carotid Arteries using Low Osmolar Contrast Fluoroscopy of Bilateral Common Carotid Arteries using Low Osmolar Contrast [facility] Start: 06-18-2022 [facility] Work Phone: Start: 03-10-2022 FUV, Provider: Alexandria Issa, Status: Pen, Time: 1:15 PM FUV, Provider: Alexandria Issa, Status: Pen, Time: 1:15 PM [facility] DO Work Phone: Start: 01-27-2022 ECHO, Provider: MALU KIM [facility] ULTRAS[facility] 01,[id number], Status: Pen, Time: 8:45 AM ECHO, Provider: [facility] 01,[id number], Status: Pen, Time: 8:45 AM [facility] Work [facility]: Start: 01-23-2022 FUV, Provider: Alexandria Issa, Status: Pen, Time: 1:00 PM FUV, Provider: Alexandria Issa, Status: Pen, Time: 1:00 PM [facility] Work Phone: Start: 01-16-2022 SURGNONUH, Provider: Suyapa Arroyo, Status: Pen, Time: 2:00 PM [facility], Provider: Suyapa Arroyo, Status: Pen, Time: 2:00 PM [facility] Work Phone: Patient Education Arteriogram (DC) [facility] Work Phone: Patient referral [facility] Work Phone: Immunizations Immunization Date Immunization Notes Care Provider [address] 08-17-2023 influenza virus vaccine, unspecified formulation [facility] 08-17-2023 influenza, high dose seasonal, preservative-free Alonzo Gray Other [facility] [employer] Other 09-02-2022 Pfizer COVID-19 Vac Bivalent 30 MCG/0.3ML Intramuscular Suspension Alonzo Gray Work Phone: [facility] 07-22-2022 Fluad Quadrivalent 0 .5 ML Intramuscular Prefilled Syringe Alonzo Gray [facility] Work Phone: 07-22-2022 influenza virus vaccine, split virus (incl. purified surface antigen) Alonzo Gray Other [employer] Other 07-22-2022 influenza virus vaccine, unspecified formulation [facility] 07-22-2022 influenza, high dose seasonal, preservative-free Alonzo Gray Other [facility] Other 09-02-2021 Moderna COVID-19 Vaccine 100 MCG/0.5ML Intramuscular Suspension Alonzo Gray Work Phone: [facility] 08-14-2021 influenza virus vaccine, split virus (incl. purified surface antigen) Alonzo Gray Other [employer] Other 08-14-2021 influenza virus vaccine, unspecified formulation [facility] 12-31-2020 Moderna COVID-19 Vaccine 100 MCG/0.5ML Intramuscular Suspension Alonzo Gray Work Phone: [facility] 12-03-2020 Moderna COVID-19 Vaccine 100 MCG/0.5ML Intramuscular Suspension Alonzo Gray Work Phone: [facility] 07-10-2020 influenza virus vaccine, split virus (incl. purified surface antigen) Alonzo Gray Other [facility] [employer] Other 07-10-2020 influenza virus vaccine, unspecified formulation [facility] Payers Date Payer Category Payer Self-pay [id number] 1957 Medicare [id number] . [id number] 1945 Unknown [id number] 2.16.84 [id number] 1945 Unknown [id number] 2.16.84 [id number] 1945 Unknown [id number] 2.16.84 [id number] 1945 Unknown [id number] 2.16.84 [id number] 1945 Unknown [id number] 2.16.84 [id number] 1945 Unknown [id number] 2.16.8 [id number] 1947 Unknown [id number] 2.16.8 [id number] 1945 Unknown [id number] 2.16. [id number] 1945 Unknown [id number] 2.16. [id number] 1945 Unknown [id number] 2.16. [id number] 1945 Unknown [id number] 2.16.8 [id number] 1945 Unknown [id number] 2.16.8 [id number] Medicare Medicare [id number] Medicare Medicare [id number] [id number] Unknown Unknown [id number] 2.16.8 [id number] Unknown [id number] 2.16.8 [id number] Social History Date Type Detail Facility No alcohol use No alcohol use [facility] DO Work Phone: Comment on above: 1to 2 cups of coffee daily; 1/2 pack per day; 1/4 pack per day; Sex Assigned At Sex Assigned At Bir th [place] [facility] Other Start: 06-18-2022 End: 11-16-2023 Tobacco smoking status NHIS Smoker (finding) [facility] Start: 1945 Sex Assigned At Male F [facility] Medical Equipment Procedure Code Equipment Code Equipment Origin al Text Equipment Identifier Dates Endarterectomy, carotid Cardiovascular patch, animal-derived [id number] FDA Start: 02-20-2022 Endarterectomy, carotid Cardiovascular patch, animal-derived ([id number] FDA Start: 07-16-2022 Goals Date Patient Goal Desired Activity /State Functional Status Date Assessment Result Facility 07-17-2022 Functional status Patient at Baseline 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 Daily weights, call w/ increase weigth > 3lbs. 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 Instructed to notify office for any unexpected weight gain > 3lbs and/or increased dyspnea, difficulty breathing during sleep, worsening lower extremity swelling, chest pain or lightheadedness. Reviewed GDMT w/ beta blockers, ANGELA/ARB/ARNI, MRA and SGLT-2 Nov, Elevated cholesterol (ICD-10 - E78.00) Instructed on diet and exercise with continued statin therapy.Discussed the beneficial effects of lowering cholesterol in reducing the risk for cerebrovascular and cardiovascular disease. Nov, Primary hypertension (ICD-10 - I10) This patient is instructed to consume a healthy, low-fat, low-salt diet. They are also encouraged to continue exercise to achieve/maintain a normal BMI. Patient is instructed on home BP measurements: - rest for 5 minutes w/o talking.- positioned w/ feet on floor and arm supported.- average best 2/3 readings w/ goal < 135/85.- update office w/ home readings in 2 weeks. Nov, Chronic bronchitis, mucopurulent (ICD-10 - J41.1) Instructed to stop tobacco use immediately. Denies need for inhalers No ER visits for AE. Mucolytics as needed, hydrate Nov, Paroxysmal a-fib (ICD-10 - I48.0) This patient is in NSR. This patient is not anticoagulated to prevent thromboembolic events. They are maintaining regular scheduled appts with their director of restaurants. Nov, Carotid atherosclerosis, bilateral (ICD-10 - I65.23) Smoking cessation advised. Continue DAPT Continue secondary prevention measures. Nov, Cigarette nicotine dependence in remission (ICD-10 - F17.211) This patient has been encouraged to quit tobacco use immediately. They are aware of the hazards associated with tobacco use, including but not limited to respiratory infections, vascular disease and cancers. 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 Daily weights, call w/ increase weigth > 3lbs. 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 Instructed to notify office for any unexpected weight gain > 3lbs and/or increased dyspnea, difficulty breathing during sleep, worsening lower extremity swelling, chest pain or lightheadedness. Reviewed GDMT w/ beta blockers, ANGELA/ARB/ARNI, MRA and SGLT-2 Nov, Elevated cholesterol (ICD-10 - E78.00) Instructed on diet and exercise with continued statin therapy.Discussed the beneficial effects of lowering cholesterol in reducing the risk for cerebrovascular and cardiovascular disease. Nov, Primary hypertension (ICD-10 - I10) This patient is instructed to consume a healthy, low-fat, low-salt diet. They are also encouraged to continue exercise to achieve/maintain a normal BMI. Patient is instructed on home BP measurements: - rest for 5 minutes w/o talking.- positioned w/ feet on floor and arm supported.- average best 2/3 readings w/ goal < 135/85.- update office w/ home readings in 2 weeks. Nov, Chronic bronchitis, mucopurulent (ICD-10 - J41.1) Continue abstinence from tobacco products Denies need for inhalers No ER visits for AE. Mucolytics as needed, hydrate Nov, Paroxysmal a-fib (ICD-10 - I48.0) This patient is in NSR. This patient is not anticoagulated to prevent thromboembolic events. They are maintaining regular scheduled appts with their director of restaurants. Nov, Carotid atherosclerosis, bilateral (ICD-10 - I65.23) Smoking cessation advised. Continue DAPT Continue secondary prevention measures. Nov, Cigarette nicotine dependence in remission (ICD-10 - F17.211) Continue abstinence. UTD w/ yearly LDCT chest for lung cancer screening [employer] Other 12-18-2023 Evaluation note* Encounter Date Diagnosis Assessment Notes Treatment Notes Treatment Clinical Notes Oct, Carotid stenosis, bilateral (ICD-10 - I65.23) Oct, Other Carotid occlusi ve disease He has nonsurgical level of recurrent or residual stenosis after bilateral endarterectomy. Velocities are improved from the prior study April 2023. He has no symptoms and has not been hospitalized. He will continue his current medical regimen and we will see him back annually for follow-up duplex [employer] Other 07-14-2023 Evaluation note* Encounter Date Diagnosis Assessment Notes Treatment Notes Treatment Clinical Notes May, Medicare annual wellness visit, initial (ICD-10 - Z00.00) Personalized health advice was given to the beneficiary including a written plan for screenings discussed and provided. Advanced care planning reviewed and/or information given as requested. Additional counseling was provided here today in regards to, [ ]. The above visit was performed by [ ] under direct supervision of [ ]. Document reviewed and amended by provider signed below. 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 Instructed to notify office for any unexpected weight gain > 3lbs and/or increased dyspnea, difficulty breathing during sleep, worsening lower extremity swelling, chest pain or lightheadedness. Reviewed GDMT w/ beta blockers, ANGELA/ARB/ARNI, MRA and SGLT-2 May, Elevated cholesterol (ICD-10 - E78.00) Instructed on diet and exercise with continued statin therapy.Discussed the beneficial effects of lowering cholesterol in reducing the risk for cerebrovascular and cardiovascular disease. May, Primary hypertension (ICD-10 - I10) This patient is instructed to consume a healthy, low-fat, low-salt diet. They are also encouraged to continue exercise to achieve/maintain a normal BMI. May, Chronic bronchitis, mucopurulent (ICD-10 - J41.1) Smoking cessation encouraged Mucinex as needed. No ER visits for AECOPD May, Paroxysmal a-fib (ICD-10 - I48.0) This patient is in NSR or rate controlled. This patient is not anticoagulated. They are maintaining regular scheduled appts with their director of restaurants. May, Cigarette nicotine dependence without complication (ICD-10 - F17.210) This patient has been encouraged to quit tobacco use immediately. They are aware of the hazards associated with tobacco use, including but not limited to respiratory infections, vascular disease and cancers. May, Bilateral carotid artery stenosis (ICD-10 - I65.23) s/p B/L CEA Continue secondary prevention measures May, Screening PSA (prostate specific antigen) (ICD-10 - Z12.5) [employer] Other 07-14-2023 Evaluation note* Encounter Date Diagnosis Assessment Notes Treatment Notes Treatment Clinical Notes May, Medicare annual wellness visit, initial (ICD-10 - Z00.00) Personalized health advice was given to the beneficiary including a written plan for screenings discussed and provided. Advanced care planning reviewed and/or information given as requested. Additional counseling was provided here today in regards to, [ ]. The above visit was performed by [ ] under direct supervision of [ ]. Document reviewed and amended by provider signed below. 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 Instructed to notify office for any unexpected weight gain > 3lbs and/or increased dyspnea, difficulty breathing during sleep, worsening lower extremity swelling, chest pain or lightheadedness. Reviewed GDMT w/ beta blockers, ANGELA/ARB/ARNI, MRA and SGLT-2 May, Elevated cholesterol (ICD-10 - E78.00) Instructed on diet and exercise with continued statin therapy.Discussed the beneficial effects of lowering cholesterol in reducing the risk for cerebrovascular and cardiovascular disease. May, Primary hypertension (ICD-10 - I10) This patient is instructed to consume a healthy, low-fat, low-salt diet. They are also encouraged to continue exercise to achieve/maintain a normal BMI. May, Chronic bronchitis, mucopurulent (ICD-10 - J41.1) Smoking cessation encouraged Mucinex as needed. No ER visits for AECOPD May, Paroxysmal a-fib (ICD-10 - I48.0) This patient is in NSR or rate controlled. This patient is not anticoagulated. They are maintaining regular scheduled appts with their director of restaurants. May, Bilateral carotid artery stenosis (ICD-10 - I65.23) s/p B/L CEA Continue secondary prevention measures May, Cigarette nicotine dependence in remission (ICD-10 - F17.211) Continued abstinence stressed May, Screening PSA (prostate specific antigen) (ICD-10 - Z12.5) May, Other This patient merrill s been encouraged to quit tobacco use immediately. They are aware of the hazards associated with tobacco use, including but not limited to respiratory infections, vascular disease and cancers. [employer] Other 10-10-2022 Evaluation note* Encounter Date Diagnosis Assessment Notes Treatment Notes Treatment Clinical Notes Aug, Carotid stenosis, bilateral (ICD-10 - I65.23) Patient is doing well overall after recent right carotid endarterectomy. He does remain with a small amount of voice hoarseness. We discussed referral to ENT for further evaluation, but patient states that he would like to wait a little bit longer and discuss further at next visit. He denies any issues with chewing or swallowing. He continues taking his daily aspirin, Plavix, and statin medications daily. We will continue to follow him along and see him again in 2 months with duplex studies. At that time we will reassess his voice. He knows to call us in the meantime with any issues or concerns. He verbalizes understanding of all discussion, agrees with this plan, denies any questions. Aug, Current smoker (ICD-10 - F17.200) We discussed the overall health risks associated with tobacco smoking. Patient is unmotivated to quit at this time. [employer] Other 08-22-2022 Evaluation note* Encounter Date Diagnosis Assessment Notes Treatment Notes Treatment Clinical Notes Jun, Pre-op testing (ICD-10 - Z01.818) [employer] Other 07-19-2022 Evaluation note* Encounter Date Diagnosis Assessment Notes Treatment Notes Treatment Clinical Notes May, Bilateral carotid artery stenosis (ICD-10 - I65.23) May, Other Bilateral carot id artery occlusive disease I am concerned about the post procedure duplex findings on the left internal carotid artery. He will undergo diagnostic arteriogram and we will see if he perhaps require stent placement in the proximal component of the repair. I explained this to the patient and his who understand and agree to proceed. Once that is completed we will schedule him for right carotid endarterectomy. [employer] Other 05-17-2022 Evaluation note* Encounter Date Diagnosis Assessment Notes Treatment Notes Treatment Clinical Notes March, Carotid stenosis, bilateral (ICD-10 - I65.23) Patient has gotten along well after his left CEA. His incision is healing nicely. He does remain with a little bit of numbness along the incision line only. He is having no difficulty with chewing or swallowing. He remains with known stenosis greater than 70%. He remains asymptomatic and on good medical therapy at this time. He did have cardiology clearance prior to left CEA but he is now telling me today that he needs a defibrillator but he is not scheduled to follow-up with cardiology until September. There is no mention of this in previous cardiology clearance. We will get him into see cardiology sooner than his September appointment to clarify this. We will have him back in the office in a couple of months with repeat carotid ultrasound prior to planning to proceed with right CEA. This was discussed at length with him. He knows to call us in the meantime if any issues present. He verbalizes understanding of all discussion, agrees this plan, denies any questions. March, Encounter for surgical aftercare following surgery of circulatory system (ICD-10 - Z48.812) [employer] Other 04-11-2022 Evaluation note* Encounter Date Diagnosis Assessment Notes Treatment Notes Treatment Clinical Notes Jan, Pre-op testing (ICD-10 - Z01.818) [employer] Other 04-05-2022 Evaluation note* Encounter Date Diagnosis Assessment Notes Treatment Notes Treatment Clinical Notes Jan, Carotid stenosis, bilateral (ICD-10 - I65.23) Jan, Other Bilateral carot id occlusive disease This patient has severe bilateral carotid occlusive disease of likely greater than 80% and is candidate for surgical intervention. The left side may be slightly less based on the CT angiogram. He is on good medical therapy at this time. Given his cardiac history I would like to perform TCAR if possible but I am concerned about the mural plaque noted on his outside duplex examination in both common carotid arteries particular the left. I will bring him back in to office for repeat ultrasound that I can participate in to confirm that and then make a decision between open standard carotid endarterectomy or TCAR. [employer] Other 02-21-2022 Evaluation note* Encounter Date Diagnosis Assessment Notes Treatment Notes Treatment Clinical Notes Dec, Asymptomatic bilateral carotid artery stenosis (ICD-10 - I65.23) We reviewed ultrasound results from the [facility] indicating high-grade stenosis of bilateral ICA. Patient is asymptomatic at this time. He is currently on good medical therapy with high intensity statin medication, aspirin, and Plavix daily. We will send this patient for CTA as well as cardiac clearance and have him back to further discuss plans for either endarterectomy or TCAR procedure. These were discussed with him at length today and all of his questions were addressed. We reviewed signs and symptoms of carotid occlusive disease and when would be appropriate to return for evaluation prior to next scheduled appointment. He verbalizes understanding of all discussion, agrees with this plan, denies any additional questions. Dec, Smoker (ICD-10 - F17.200) We discussed health risks associated with tobacco smoking. Recommend smoking cessation. Patient provided with information on [place] tobacco program. He seems unmotivated to quit at this time. [employer] Other Chief complaint Narrative - ReportedDAROSENDA ANTHONY is being seen for a cardiovascular evaluation . POC. Carotid Surgery. Dr. Mcnally. -[facility] DO Work Phone: Evaluation noteNo InformationNort [facility] Other Evaluation noteNo assessment information available [facility] Work Phone: Evaluation note* Diagnosis Onset Date Resolution Status Stenosis of right carotid artery acute [facility] Work Phone: Evaluation note* Diagnosis Onset Date Resolution Status Atrial fibrillation acute Chronic bronchitis acute Chronic HFrEF (heart failure with reduced ejection fraction) acute H/O carotid stenosis acute Nicotine addiction acute Nonischemic cardiomyopathy a cute Medicare annual wellness visit, subsequent noneactive Screening PSA (prostate specific antigen) noneactive [facility] Work Phone: Hisak[facility] general Narrative - Reported* Type Description Date Medical History hypertension Medical History acid reflux Medical History coronary artery disease Surgical History melanoma excision FACE Hospitalization History REACTION TO [employer] Other Hiswd[facility] general Narrative - Reported* Type Description Date Medical History hypertension Medical History acid reflux Medical History coronary artery disease Surgical History melanoma excision FACE Surgical History LEFT CAR ENDART Hospitalization History REACTION TO [employer] Other Hisgncv general Narrative - Reported* Type Description Date Medical History Chronic bronchitis, mucopurulent Medical History S/P carotid endarterectomy Medical History Essential hypertension Medical History Nonischemic dilated cardiomyopat hy Medical History Paroxysmal atrial fibrillation Medical History Bilateral carotid artery stenosi s Medical History Hearing loss of both ears due to cerumen impaction Medical History Osteoarthritis of both knees Medical History Benign prostatic hyp erplasia with lower urinary tract symptoms Medical History Irritant contact dermatitis due to detergent Medical History Acute bronchitis due to other sp ecified organisms Medical History [ ] Surgical History melanoma excision FACE Surgical History ENDARTERECTOMY, CAROTID, RIGHT 07/2022 Surgical History ATERIOGRAM, CAROTID AND VERTEBR AL 06/2022 Surgical History ENDARTERECTOMY, CAROTID, LEFT 0 01/2022 Surgical History RIGHT KNEE ARTHROSCOPY 2013 Surgical History BCC RIGHT CHEEK 12/2016 Surgical History [ ] Hospitalization History REACTION TO [facility]EF[facility] 2018 [employer] Other History of Present illness Narrative* Mr. Anthony is a 76-year-old male who is seen today at the request of Dr. Tomas for preoperativeclearance I believe for carotid surgery. He does not have known coronary disease. He does have riskfactors given his carotid disease and history of hypertension and longstanding cigarette abuse. Hisexertional capacity is quite limited because of chronic knee problems. He apparently has had some remote stress testing done in the past but has been more than 10 years. EKG demonstrates sinus rhythmwith diffuse ST and T changes that are most likely related to chronic hypertension but ischemia cannot be excluded. * Past medical history and review of systems as per office record. * Physical exam: * HEENT: He has bilateral carotid bruits * Neck: No lymphadenopathy * Lungs: Clear * Heart: Regular rate and rhythm without murmurs or extra sounds * Abdomen: Soft nontender * Extremities: No edema * Neurologic: Intact and nonfocal * Skin: No significant lesion * Impression and plan: * 1) preoperative clearance requested for a 76-year-old male who has limited exertional capacity and risk factors for coronary disease with an abnormal EKG. Based on this I believe he should have a stress test done and this will be ordered for him as a Lexiscan stress test. If the stress test is without evidence for significant ischemia he can be cleared for his vascular surgery. This is discussed with both he and his family. * 2) prior history of an atrial fibrillation event that occurred 4 to 5 years ago apparently after anallergic reaction with no known recurrence. * 3) chronic hypertension. * 4) chronic cigarette abuse with active cigarette smoking. -[facility] DO Work Phone: History of Present illness Narrative* Mr. Anthony is a 76-year-old male seen back today for follow-up on his echocardiogram. He was seen recently as a new patient for preoperative clearance for him to undergo carotid surgery. He has had 1 side done and apparently will require second procedure on the other side. He has no cardiac complaints. During his preop evaluation he did have a stress test done. This did not suggest evidence for i schemia. Ejection fraction was estimated at 30%. He now is also had an echocardiogram that again suggested ejection fraction to be in the 25 to 30%. No significant valvular disease. He has a possiblehistory of at least 1 episode of atrial fibrillation but this is unclear. He has no complaints of ch est pain. * Physical exam: * Neck: No carotid bruits are heard * Lungs: Few rhonchi * Heart: Regular rate and rhythm without murmurs or extra sounds * Extremities: No edema * Recommendation is continuation of his current medications. I did discuss with both he and his the potential indication for a defibrillator for prevention of sudden . They are going to thinkabout this and discussed that. No changes made to his medications today. Blood pressure does remain somewhat at least borderline elevated. Continued observation. He is also encouraged to work on stopping smoking. He is to return in 6 months for follow-up or sooner if problems develop. -[facility] [employer] DO Work Phone: History of Present illness Narrative* Patient is seen by me for the first time for follow-up of nonischemic cardiomyopathy. He was evaluated many months ago by Dr. Issa. Guideline directed therapy was initiated but thereafter up titration was not performed. He is on an acceptable dose of Entresto but a tiny dose of carvedilol and noton spironolactone or Jardiance. * His most recent echocardiogram was months ago and ejection fraction at that time was 25 to 30%. Because of this I recommend that we today intensify therapy by doubling carvedilol and adding Jardiance. I also recommend an echocardiogram to determine the status of his cardiomyopathy to determine if in fact he is improved, or not. Based upon the results we will make a final recommendation. Obviouslyif there is improvement in ejection fraction we will continue as is but if ejection fraction is still impaired we will schedule prompt appointment to discuss whether or not he wishes to proceed with device implantation or further up titrate medication for the next several months. * He and his are educated regarding symptoms of cardiomyopathy heart failure and most importantly arrhythmia to watch for and encouraged to call if they arise. I did advocate the merits of smokingcessation. -[facility] [employer] DO Work Phone: History of Present illness NarrativePatient returns in follow-up of problems as noted. In the interim he is done relatively well. He denies angina CHF or arrhythmia symptomatology. Specifically we focused on cardiomyopathy and/or heartfailure symptoms and he has none. Likewise he has no arrhythmia symptomatology whatsoever. His lipids and hypertension both appear to be well controlled and he denies any shortness of breath. He continues to smoke and the merits of smoking cessation were advocated.[facility] DO Work Phone: Family History Unknown Family Member Name Dates Details Family history of cardiac di sorder: Father(V17.49, Z82.49) Status:Active : Mother, Father Status:Active Unknown Family Member Name Dates Details Family history of cardiac di sorder: Father(V17.49, Z82.49) Status:Active : Mother, Father Status:Active Unknown Family Member Name Dates Details Family history of cardiac di sorder: Father(V17.49, Z82.49) Status:Active : Mother, Father Status:Active Unknown Family Member Name Dates Details Family history of cardiac di sorder: Father(V17.49, Z82.49) Status:Active : Mother, Father Status:Active Unknown Family Member Name Dates Details Family history of cardiac di sorder: Father(V17.49, Z82.49) Status:Active : Mother, Father Status:Active Unknown Family Member Name Dates Details Family history of cardiac di sorder: Father(V17.49, Z82.49) Status:Active : Mother, Father Status:Active Unknown Family Member Name Dates Details Family history of cardiac di sorder: Father(V17.49, Z82.49) Status:Active : Mother, Father Status:Active Relationship Condition Age at Onset Recorded Date/T edin father Leukemia Unknown Heart problem Unknown Not Specified Unknown Unknown Family Member Name Dates Details Family history of cardiac di sorder: Father(V17.49, Z82.49) Status:Active : Mother, Father Status:Active Unknown Family Member Name Dates Details Family history of cardiac di sorder: Father(V17.49, Z82.49) Status:Active : Mother, Father Status:Active Unknown Family Member Name Dates Details Family history of cardiac di sorder: Father(V17.49, Z82.49) Status:Active : Mother, Father Status:Active Unknown Family Member Name Dates Details : Mother, Father Status:Active Family history of cardiac di sorder: Father(V17.49, Z82.49) Status:Active Unknown Family Member Name Dates Details Family history of cardiac di sorder: Father(V17.49, Z82.49) Status:Active : Mother, Father Status:Active Unknown Family Member Name Dates Details Family history of cardiac di sorder: Father(V17.49, Z82.49) Status:Active : Mother, Father Status:Active Unknown Family Member Name Dates Details Family history of cardiac di sorder: Father(V17.49, Z82.49) Status:Active : Mother, Father Status:Active Relationship Condition Age at Onset Recorded Date/T edin father Leukemia Unknown Heart problem Unknown mother Unknown father Malignant neoplasm Unknown Unknown Heart disease Unknown Chief Complaint IVAN ANTHONY is being seen for a 1-2 month follow-up of.IVAN ANTHONY is being seen for a 6 month follow-up of.IVAN ANTHONY is being seen for a 4-6 month follow-up of. Chief Complaint and Reason for Visit Chief Complaint i65.23 Carotid Stenosis Chief Complaint i65.23 Carotid Stenosis Carotid Stenosis Chief Complaint Carotid Stenosis i65.23 Reason for Visit Stenosis of right ca rotid artery Chief Complaint i65.23 Chief Complaint Medicare Wellness Reason for Visit Atrial fibrillation Chronic bronchitis Chronic HFrEF (heart failure with reduced ejection fraction) H/O carotid stenosis Nicotine addiction Nonischemic cardiomyopathy Medicare annual wellness visit, subsequent Screening PSA (prostate specific antigen) Advance Directives Advance Directive Response Recorded Date/ Time Advance Directives No January 01 3:40pm Advance Directive Response Recorded Date/ Time Advance Directives No January 01 2:40pm Summary Purpose Additional Source Comments REASON FOR VISIT (unrecogniz ed section and content) REF DR GRAY [facility] CAROTIDSu rgical clearanceVASC FOLLOW UP AFTER CARDIAC CLEARANCE, Follow-up carotid diseaseClinical4 week left car endartcovid test2 MONTH FOLLOW UP; CAROTID DUPLEX 10A, Follow-up after left carotid endarterectomySURG FOLLOW UP; RIGHT CEA 07/16/22No Information4 month Follow upUpdateCT results/lab results4 month Follow upflu shot6 MO F/U WITH CAR U/S 11 AM, Follow-up carotid occlusive6 month Follow up6 month Follow upWellnessERROR6 month Follow up Care Teams (unrecognized sec tion and content) Team Status: Inactive Member Role Status Dates Alonzo Isaac , DO Primary Care Provider Active Malcom Irene MD Admit Provider, Attending Provide r Active Team Status: Inactive Member Role Status Dates Alonzo Gray , DO Primary Care Provider Active Malcom Irene MD Attending Provider Active Team Status: Active Member Role Status Dates Alonzo Gray , DO Primary Care Provider Active Team Status: Inactive Member Role Status Dates Alonzo Gray , DO Primary Care Provider Active RUPERT Bailey Attending Provider Active Team Status: Inactive Member Role Status Dates Alonzo Gray , DO Primary Care Provide r, Attending Provider Active Start: May 23, 2024 End: May 23, 2024 Goals (unrecognized section and content) Goals may be documented in a n alternate section (unrecognized sect ion and content) No Status Records FoundNo Status Records FoundNo Status Records FoundNo Status Records FoundNo Status Records FoundNo Status Records Found INFORMATION SOURCE (unrecogn ized section and content) DATE CREATED AUTHOR 08/09/2022 [facility] DATE CREATED AUTHOR AUTHOR'S ORGANIZ ATION 11/25/2022 [facility] DATE CREATED AUTHOR AUTHOR'S ORGANIZ ATION 03/08/2023 [facility] DATE CREATED AUTHOR AUTHOR'S ORGANIZ ATION 05/21/2023 [employer] DATE CREATED AUTHOR AUTHOR'S ORGANIZ ATION 10/23/2023 [facility] DATE CREATED AUTHOR AUTHOR'S ORGANIZ ATION 05/23/2024 [facility] FOR RECORDS PERTAINING TO PATIENTS WHO ARE OR HAVE BEEN ENROLLED IN A CHEMICAL DEPENDENCY/SUBSTANCEABUSE PROGRAM, SOME INFORMATION MAY BE OMITTED. This clinical summary was aggregated from multiple sources. Caution should be exercised in using it in the provision of clinical care. This summary normalizes information from multiple sources, and as a consequence, information in this document may materially change the coding, format and clinical context of patient data. In addition, data may be omitted in some cases. CLINICAL DECISIONS SHOULD BE BASED ON THE PRIMARY CLINICAL RECORDS. [facility] [employer] [facility]. provides no warranty or guarantee of the accuracy or completeness of information in this document.
--- NOTE | 2024-06-07 10:27 | CT_ITS ---
[address] [address] Patient Name: IVAN BERNAL MRN: [id number] date: 1945 Sex: M Assigned Patient Location: CT Current Patient Location: Accession/Order Number: [id number] Exam Date: 06/07/2024 10:22 Report Date: 06/08/2024 06:43 At the request of: CHAVA BRICE Procedure: CT lung screening low-dose EXAMINATION: CT lung screening low-dose HISTORY: Nicotine Dependence F17.210 COMPARISON: CT LUNG CANCER SCREENING 05/26/2023 TECHNIQUE: Axial, Coronal, and Sagittal images were created without the administration of IV contrast material. Dose reduction techniques were achieved by using automated exposure control and/or adjustment of mA and/or kV according to patient size and/or use of iterative reconstruction technique. FINDINGS: LUNGS: Stable geographic shaped 9 x 4 mm nodule versus scarring within left lung apex. Stable appearance of a few tiny scattered calcified and noncalcified nodules within the lungs. Mild emphysematous changes. No acute infiltrates. PLEURA: No mass, effusion, or pneumothorax. VASCULATURE: No abnormality. LUDWIN: No mass or pathologic adenopathy. MEDIASTINUM: No mass or pathologic adenopathy. CARDIAC: Trace amount of pericardial fluid. Coronary Artery calcifications: Coronary calcifications are moderate. AORTA: No aneurysm or dissection. CHEST WALL: No mass or axillary adenopathy BONES: No bone lesion or fracture. LIMITED ABDOMEN: No suspicious findings. Limited images of the upper abdomen. OTHER: Negative. CT/CT lung screening low-dose IMPRESSION: 1. Lung-RADS 2- Benign Appearance or Behavior. Nodules with a very low likelihood of becoming a clinically active cancer due to size or lack of growth. Follow-up CT Chest in 1 year. Electronically authenticated by: ROMINA ALMONTE Date: 06/08/2024 06:43
== END 2024-06-07 09:45 | disposition home or self-care (01) ==
LOC: CT 09:44
PROVIDERS: PCP Internal Medicine; Visit Provider Internal Medicine
DX: F17.210 Nicotine dependence, cigarettes, uncomplicated (principal)
CPT/HCPCS: 71271

== ENCOUNTER 2024-06-27 08:26 | Outpatient (OUT) | payer MEDICARE, SELFPAY ==
[2024-06-27 08:45] LABS: Basophils Absolute Auto 0.1 10^3/uL (0.0-0.1); Basophils Percent Auto 1.1 % (0.2-2.0); Eosinophils Absolute Auto 0.5 10^3/uL (0.0-0.7); Eosinophils Percent Auto 4.5 % (0.9-7.0); Hematocrit 37.7 % (42.0-54.0); Hemoglobin 12.3 g/dL (14.0-18.0); Immature Granulocytes Abs Auto 0.03 10^3/uL (0.00-0.03); Immature Granulocytes Pct Auto 0.3 % (0.0-0.5); Lymphocytes Absolute Auto 1.6 10^3/uL (1.2-3.8); Lymphocytes Percent Auto 14.6 % (20.5-60.0); Mean Corpuscular HGB Conc 32.6 g/dL (29.9-35.2); Mean Corpuscular Hemoglobin 33.1 pg (25.9-34.0); Mean Corpuscular Volume 101.3 fL (80.0-94.0); Mean Platelet Volume 10.4 fL (9.5-13.5); Monocytes Absolute Auto 0.9 10^3/uL (0.3-0.8); Monocytes Percent Auto 7.7 % (1.7-12.0); Neutrophils Percent Auto 71.8 % (43.0-75.0); Platelet Count 244 10^3/uL (150-450); Red Blood Count 3.72 10^6/uL (4.70-6.10); Red Cell Distribution Width 13.4 % (11.0-15.0); White Blood Count 11.2 10^3/uL (4.0-11.0)
--- OUTSIDE RECORDS SUMMARY | 2024-06-27 08:51 | XMS_ITS | CCD ---
Author Organization [facility] CliniSyla Care Team Providers Care Outreach Rep Name Role Phone Alonzo Gray Unavailable Unavailable Unavailable Irma Pérez Unavailable Malcom Irene Unavailable DO Alonzo Gray Primary Care Provider MD Malcom Irene Attending Provider MD Malcom Irene Admit Provider ISAAC, DR ROSADO Primary Care Unavailable VIVAS, [...] Care Unavailable BALL, DR ROSADO Consulting Unavailable LUBBOCK, DR IVAN Harrison Consulting Unavailable DO Alonzo Gray Primary Care Provider [phone] MD Malcom Irene Admit Provider MD Malcom Irene Attending Provider RUPERT Pérez Attending Provider Maria Del Rosario, Dr. Alexandria Callaway Attending Unavail able Maria Del Rosario, Dr. Alexandria Callaway Referring Unavail able Isaac, Dr. Rosado tomas Primary Care [facility], Dr. Suyapa Potter Attending Unavailable Isaac, Dr. [...] Unavailable DO Alonzo Gray Primary Care Provider [phone] MD Malcom Irene Attending Provider Malcom Irene [...] Cephalexin; Translations: [Keflex] Drug Allergy Anaphylaxis, Unknown [facility] Other (20 sources) Penicillins; Translations: [Penicillins] Allergy to drug (finding) 01-04-20 22 Anaphylaxis, Rash, Rash, anaphylaxis [facility] (8 sources) Penicillin V Drug Allergy anaphylaxis [employer] [facility] [employer] Other (7 sources) Cephalexin; Translations: [cephalexin] Drug Allergy 02-12-20 22 Anaphylaxis [facility] (1 source) Cephalexin Drug Allergy 05-24-20 13 [facility] (1 source) Penicillins Drug allergy (disorder) 05-24-20 13 [facility] (12 sources) Penicillin Drug Allergy anaphylaxis [facility] [employer] Other (4 sources) Substance with penicillin structure and antibacterial mechanism of action (substance) Drug allergy 03-21-20 14 Unknown [facility] Other (9 sources) Tamsulosin HCl *GENITOURINARY AGENTS - MISCELLANEO Propensity to adverse reactions Comment:Harry funez also said that along with dizziness he didnt feel well when he took the tamsulosin. [facility] Other (4 sources) patient allergy list reviewed by nurse or physicia Propensity to adverse reactions 07-14-20 Comment:Done [facility] Other (1 source) Penicillins Drug allergy (disorder) 07-16-20 [facility] (1 source) Tamsulosin HCl *GENITOURINARY Allergy to substance 11-23-19 Comment:Harry funez also said that along with dizziness he di... 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 CURRENT USE OF ASPIRIN] Onset: 2 Episodic Other aftercare (1 source) Other continuous churn buttermaker (current) drug therapy; Translations: [OTH HUMIDIFIER ATTENDANT CURRENT DRUG THERAPY] Onset: 2 Episodic Other [...] Resolved: 03-18-2022 Episodic Other aftercare (1 source) continuous churn buttermaker (current) use of antithrombotics/antip latelets; Translations: [USP ANTITHROMBOT/ANTIPLAT LETS] Onset: 03-17-2022 Episodic Other circulatory [...] doppler BIon 10-02 US carotid doppler BI [facility] [place] [address] Ultrasound Report Signed Patient: Ivan Anthony MR#: [id number] 221 : 1945 Acct:[id number] Age/Sex: 78 / M ADM Date: 10/19/23 Loc: [facility] Room: Type: [facility] Attending Dr: Malcom Irene MD Ordering Provider: [...] antegrade flow. The left vertebral artery has ymhf-qjz-xieag flow Impression dictated by: Malcom Irene M.D.10/19/2023 12:03 PM Dictation Location: [place] [address] Tech: Marian Cabrera Transcribed By: ELOY 10/19/23 1203 Dictated By: Malcom Irene MD 10/19/23 1202 Signed By: 10/19/23 1203 [facility] Office Visit (Cardiology)on 05-20-2023 Follow-up visit Diagnoses/Problems [...] Current smoker Tobacco Use Screening; Status:Complete; Done: [id number] You need to quit smoking.; Status:Complete - Retrospective Authorization; Done: [id number] You need to stop smoking. Though it is not easy, more than half of all adult smokers have quit. We encourage you to write down all the reasons you should quit smoking and set a quit date for yourself. Ask us how we can help. You may also call 2-327-DYFJNOW for free resources and assistance.; Status:Complete - Retrospective Authorization; Done: [id number] Patient Instructions Please bring all medicines, vitamins, [...] negative for complaint. Vitals Vital Signs Recorded: [id number] 02:27PMRecorded: 74Pqo5363 02:14PM Mhxbmqbb400, LUE, Glsjwlj165, LUE, Sitting Fbpxjamvx01, LUE, Rlqlzgb32, LUE, Sitting Heart Rate64, L Radial Height6 ft 2 in Dztban081 lb BMI Cjuiolcagi59.41 kg/m2 BSA Calculated1.97 Tobacco Usea) Yes Patient [...] a) No falls within the last year -[facility] [facility] DO Work Phone: Tobacco use status CPHS a) Yes M -[facility] [facility] DO Work Phone: Tobacco Screening. 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 You may also call 1-983-QTBEExplaraNOW for free resources and assistance.; Status:Complete; Done: [...] Vital Signs Recorded: 24Nov2022 04:05PMRecorded: 24Nov2022 03:25PM [id number], LUE, Sitting Odrqoqixb6851, LUE, Sitting Heart Rate66, L Radial Height6 ft 2 in Zvlebi433 lb BMI Rgsuvttiaq13.8 kg/m2 BSA Calculated1.99 Tobacco Usea) Yes Patient [...] Screening.on 023 Adult depression screening assessment No [facility] [facility] DO Work Phone: Fall risk assessment a) No falls within the last year [facility] [facility] 250 DO Work Phone: Tobacco use status CPHS a) Yes M [facility] [facility] 250 DO Work Phone: Tobacco Screening. Yes [facility] [facility] 250 DO Work Phone: Echocardiogramon 11-19-[address], [address] [place] [address] TRANSTHORACIC ECHOCARDIOGRAM REPORT Patient Name: IVAN [facility] Physician: [id number] Rihcy Delgadillo MD Study Date: 11/19/2022 Referring Physician: SUYAPA IRWIN MRN/PID: [id number] PCP: Alonzo Gray Accession/Order#: [id number] Department Location: [facility] Date of : 1945 Fellow: Gender: M Nurse: Admit Date: Manager Library: Marcia Fernandez [facility] [place], [facility] Height: 187.96 cm CC Report to: Weight: 75.30 kg Study Type: Echocardiogram BSA: 2.01 m2 Blood Pressure: 150 /86 mmHg Diagnosis/ICD: I42.9-Cardiomyopath y, unspecified; R06.02-Shortness of breath Indication: Atrial Fibrillation, HTN, Hyperlipidemia, Tobacco Abuse, Carotid Stenosis Procedure/CPT: Echo Complete w Full Doppler-63210 Study Detail: The following Echo studies were [...] 0.5 m/s (0.6-0.9m/s) PV Max P.2 mmHg [id number] Richy Delgadillo MD Electronically signed on 11/19/2022 at 5:56:19 PM Final Normal [facility] Office Visit (Cardiology)on 10-01-2022 Follow-up visit Diagnoses/Problems [...] we can help. You may also call 3-400-NDHQExplaraNOW for free resources and assistance.; Status:Complete - [...] skin rashes. (more content not included)... Normal [facility] Tobacco Screening.on 022 Fall risk assessment a) No falls within the last year [facility] [facility] DO Work Phone: Tobacco use status CPHS a) Yes M P-[facility] [facility] 250 DO Work Phone: Tobacco Screening. Yes MP-[facility] [facility] 250 DO Work Phone: PROF CHEM 8 (BAS METB)on Anion gap [Moles/Vol] 10.2 mmol/L Normal [facility] Comment on above: Performed By: #### B MP #### [facility] [address] [place] [address] [address] Oksana Dowell Calcium [Mass/Vol] 8.5 mg/dL Normal 8.5-10.1 [facility] Comment on above: Performed By: #### B MP #### [facility] [address] [place] [address] [address] Oksana Dowell Chloride [Moles/Vol] 106 mmol/L Normal 98-107 [facility] Comment on above: Performed By: #### B MP #### [facility] [address] [place] [address] [address] Oksana Dowell CO2 [Moles/Vol] 27.0 mmol/L Normal 21.0-32.0 [facility] Comment on above: Performed By: #### B MP #### [facility] [address] [place] [address] [address] Oksana Dowell Creatinine [Mass/Vol] 1.06 mg/dL Normal 0.70-1.30 [facility] Comment on above: Performed By: #### B MP #### [facility] [address] [place] [address] [address] Oksana Dowell EGFR-AF GABONESE >60 Normal >=60 [facility] Comment on above: Performed By: #### B MP #### [facility] [address] [place] [address] [address] Oksana Dowell EGFR-NON AF GABONESE >60 Normal >=60 [facility] Comment on above: Performed By: #### B MP #### [facility] [address] [place] [address] [address] Oksana Dowell Glucose [Mass/Vol] 102 mg/dL Normal 74-106 [facility] Comment on above: Performed By: #### B MP #### [facility] [address] [place] [address] [address] Oksana Dowell Potassium [Moles/Vol] 4.2 mmol/L Normal 3.5-5.1 [facility] Comment on above: Performed By: #### B MP #### [facility] [address] [place] [address] [address] Oksana Dowell Sodium [Moles/Vol] 139 mmol/L Normal 136-145 [facility] Comment on above: Performed By: #### B MP #### [facility] [address] [place] [address] Dr. Oksana Dowell Urea nitrogen [Mass/Vol] 18.0 mg/dL Normal 7.0-18.0 [facility] Comment on above: Performed By: #### B MP #### [facility] [address] [place] [address] Dr. Oksana Dowell Urea nitrogen/Creatinine [Mass ratio] 17.0 mg/mg Normal [facility] Comment on above: Performed By: #### B MP #### [facility] [address] [place] [address] Dr. Oksana Dowell BNPon 07-23-2022 Natriuretic peptide B (Bld) [Mass/Vol] 562.0 pg/mL Normal <=1,800.0 [facility] Comment on above: Performed By: #### H STROPN, BNP, CMP #### [facility] [address] [place] [address] Dr. Oksana Dowell CBC AUTO DIFFon 07-23-2022 BASO # 0.1 103/ul Normal 0.0-0.1 [facility] Comment on above: Performed By: #### C BC #### [facility] [address] [place] [address] Dr. Oksana Dowell Basophils/100 WBC (Bld) 0.8 % Normal 0.2-2.0 [facility] Comment on above: Performed By: #### C BC #### [facility] [address] [place] [address] Dr. Oksana Dowell EO # 0.4 103/ul Normal 0.0-0.7 [facility] Comment on above: Performed By: #### C BC #### [facility] [address] [place] [address] Dr. Oksana Dowell Eosinophils/100 WBC (Bld) 5.7 % Normal 0.9-7.0 [facility] Comment on above: Performed By: #### C BC #### [facility] [address] [place] [address] Dr. Oksana Dowell Erythrocyte distribution width (RBC) [Ratio] 14.3 % Normal 11.0-15.0 [facility] Comment on above: Performed By: #### C BC #### [facility] [address] [place] [address] Dr. Oksana Dowell Hematocrit (Bld) [Volume fraction] 32.0 % Critically low 42.0-54.0 [facility] Comment on above: Performed By: #### C BC #### [facility] [address] [place] [address] Dr. Oksana Dowell Hemoglobin (Bld) [Mass/Vol] 10.3 g/dL Critically low 14.0-18.0 [facility] Comment on above: Performed By: #### C BC #### [facility] [address] [place] [address] Dr. Oksana Dowell IG # 0.02 10e3/ul Normal 0.00-0.03 [facility] Comment on above: Performed By: #### C BC #### [facility] [address] [place] [address] Dr. Oksana Dowell IG % 0.3 % Normal 0.0-0.5 [facility] Comment on above: Performed By: #### C BC #### [facility] [address] [place] [address] Dr. Oksana Dowell LYMPH # 1.3 103/ul Normal 1.2-3.8 [facility] Comment on above: Performed By: #### C BC #### [facility] [address] [place] [address] Dr. Oksana Dowell Lymphocytes/100 WBC (Bld) 17.9 % Critically low 20.5-60.0 [facility] Comment on above: Performed By: #### C BC #### [facility] [address] [place] [address] Dr. Oksana Dowell MANUAL DIFF REQ NO Normal [facility] Comment on above: Performed By: #### C BC #### [facility] [address] [place] [address] Dr. Oksana Dowell MCH (RBC) [Entitic mass] 31.4 pg Normal 25.9-34.0 [facility] Comment on above: Performed By: #### C BC #### [facility] [address] [place] [address] Dr. Oksana Dowell MCHC (RBC) [Mass/Vol] 32.2 g/dL Normal 29.9-35.2 [facility] Comment on above: Performed By: #### C BC #### [facility] [address] [place] [address] Dr. Oksana Dowell MCV (RBC) [Entitic vol] 97.6 fL Critically high 80.0-94 .0 [facility] Comment on above: Performed By: #### C BC #### [facility] [address] [place] [address] Dr. Oksana Dowell MONO # 0.9 103/ul Critically high 0.3-0.8 [facility] Comment on above: Performed By: #### C BC #### [facility] [address] [place] [address] Dr. Oksana Dowell Monocytes/100 WBC (Bld) 12.8 % Critically high 1.7-12. 0 [facility] Comment on above: Performed By: #### C BC #### [facility] [address] [place] [address] Dr. Oksana Dowell NEUT # 4.5 103/ul Normal 1.4-6.5 [facility] Comment on above: Performed By: #### C BC #### [facility] [address] [place] [address] Dr. Oksana Dowell Neutrophils/100 WBC (Bld) 62.5 % Normal 43.0-75.0 [facility] Comment on above: Performed By: #### C BC #### [facility] [address] [place] [address] Dr. Oksana Dowell Platelet mean volume (Bld) [Entitic vol] 10.6 fL Normal 9.5-13.5 [facility] Comment on above: Performed By: #### C BC #### [facility] [address] [place] [address] Dr. Oksana Dowell PLT 219 103/ul Normal 150-450 [facility] Comment on above: Performed By: #### C BC #### [facility] [address] [place] [address] Dr. Oksana Dowell RBC 3.28 106/ul Critically low 4.70-6.10 [facility] Comment on above: Performed By: #### C BC #### [facility] [address] [place] [address] Dr. Oksana Dowell WBC 7.2 103/ul Normal 4.0-11.0 [facility] Comment on above: Performed By: #### C BC #### [facility] [address] [place] [address] Dr. Oksana Dowell PROF 14(COMP METB)on 022 Albumin [Mass/Vol] 3.2 g/dL Critically low 3.4-5.0 [facility] Comment on above: Performed By: #### H STROPN, BNP, CMP #### [facility] [address] [place] [address] Dr. Oksana Dowell Albumin/Globulin [Mass ratio] 1.1 {ratio} Normal [facility] Comment on above: Performed By: #### H STROPN, BNP, CMP #### [facility] [address] [place] [address] Dr. Oksana Dowell ALP [Catalytic activity/Vol] 59 U/L Normal 46-116 [facility] Comment on above: Performed By: #### H STROPN, BNP, CMP #### [facility] [address] [place] [address] Dr. Oksana Dowell ALT [Catalytic activity/Vol] 15 U/L Critically low 16-63 [facility] Comment on above: Performed By: #### H STROPN, BNP, CMP #### [facility] [address] [place] [address] [address] Oksana Dowell Anion gap [Moles/Vol] 10.8 mmol/L Normal [facility] Comment on above: Performed By: #### H STROPN, BNP, CMP #### [facility] [address] [place] [address] [address] Oksana Dowell AST [Catalytic activity/Vol] 12 U/L Critically low 15-37 [facility] Comment on above: Performed By: #### H STROPN, BNP, CMP #### [facility] [address] [place] [address] Dr. Oksana Dowell Bilirubin [Mass/Vol] 0.3 mg/dL Normal 0.2-1.0 [facility] Comment on above: Performed By: #### H STROPN, BNP, CMP #### [facility] [address] [place] [address] Dr. Oksana Dowell Calcium [Mass/Vol] 8.5 mg/dL Normal 8.5-10.1 [facility] Comment on above: Performed By: #### H STROPN, BNP, CMP #### [facility] [address] [place] [address] Dr. Oksana Dowell Chloride [Moles/Vol] 106 mmol/L Normal 98-107 [facility] Comment on above: Performed By: #### H STROPN, BNP, CMP #### [facility] [address] [place] [address] Dr. Oksana Dowell CO2 [Moles/Vol] 26.8 mmol/L Normal 21.0-32.0 [facility] Comment on above: Performed By: #### H STROPN, BNP, CMP #### [facility] [address] [place] [address] Dr. Oksana Dowell Creatinine [Mass/Vol] 0.87 mg/dL Normal 0.70-1.30 [facility] Comment on above: Performed By: #### H STROPN, BNP, CMP #### [facility] [address] [place] [address] [address] Oksana Dowell EGFR-AF GABONESE >60 Normal >=60 [facility] Comment on above: Performed By: #### H STROPN, BNP, CMP #### [facility] [address] [place] [address] [address] Oksana Dowell EGFR-NON AF GABONESE >60 Normal >=60 [facility] Comment on above: Performed By: #### H STROPN, BNP, CMP #### [facility] [address] [place] [address] [address] Oksana Dowell Globulin (S) [Mass/Vol] 3.0 g/dL Normal [facility] Comment on above: Performed By: #### H STROPN, BNP, CMP #### [facility] [address] [place] [address] [address] Oksana Dowell Glucose [Mass/Vol] 119 mg/dL Critically high 74-106 [facility] Comment on above: Performed By: #### H STROPN, BNP, CMP #### [facility] [address] [place] [address] [address] Oksana Dowell Potassium [Moles/Vol] 3.6 mmol/L Normal 3.5-5.1 [facility] Comment on above: Performed By: #### H STROPN, BNP, CMP #### [facility] [address] [place] [address] [address] Oksana Dowell Protein [Mass/Vol] 6.2 g/dL Critically low 6.4-8.2 [facility] Comment on above: Performed By: #### H STROPN, BNP, CMP #### [facility] [address] [place] [address] [address] Oksana Dowell Sodium [Moles/Vol] 140 mmol/L Normal 136-145 [facility] Comment on above: Performed By: #### H STROPN, BNP, CMP #### [facility] [address] [place] [address] [address] Oksana Dowell Urea nitrogen [Mass/Vol] 13.0 mg/dL Normal 7.0-18.0 [facility] Comment on above: Performed By: #### H STROPN, BNP, CMP #### [facility] [address] [place], [place] [address] Dr. Oksana Dowell Urea nitrogen/Creatinine [Mass ratio] 14.9 mg/mg Normal [facility] Comment on above: Performed By: #### H STROPN, BNP, CMP #### [facility] [address] [place], [place] [address] Dr. Oksana Dowell TROPONIN, HIGH SENSITIVITYon 07-23-2022 HSTROP 8.3 pg/mL Normal 4.0-76.1 [facility] Comment on above: Result Comment: CUT- OFF POINTS HAVE BEEN ESTABLISHED BASED ON THE FOURTH UNIVERSAL DEFINITIONS OF MYOCARDIAL INFARCTION. THE UPPER REFERENCE LIMIT (URL) OF TROPONIN, DEFINED THE 99TH PERCENTILE OF cTnI DISTRIBUTION IN A REFERENCE POPULATION, HAS BEEN CONFIRMED THE DECISION THRESHOLD FOR LA DIAGNOSIS. Performed By: #### H STROPN, BNP, CMP #### [facility] [address] [place] [address] [address] Oksana Dowell XR CHEST 1 Von [...] ALEXANDRIA SCHAFFER Date: 2022-07-23 20:48 Normal [facility] Basophils Auto (Bld) [#/Vol] Ordered By: Senthil Donato on 07-16-2022 Basophils (Bld) [#/Vol] 0.1 10*3/uL 0.0-0.2 [facility] Basophils/100 WBC Auto (Bld) Ordered By: Senthil Donato on 07-16-2022 Basophils/100 WBC (Bld) 0.9 % . F [facility] Creatinine and Glomerular fi ltration rate.predicted panel (S/P/Bld)Ordered By: Senthil Donato on 07-16-2022 Creatinine [Mass/Vol] 1.06 mg/dL 0.64-1.27 [facility] Eosinophils Auto (Bld) [#/Vo l]Ordered By: Senthil Donato on 07-16-2022 Eosinophils (Bld) [#/Vol] 0.3 10*3/uL 0.0-0.45 [facility] Eosinophils/100 WBC Auto (Bl d)Ordered By: Senthil Donato on 07-16-2022 Eosinophils/100 WBC (Bld) 4.0 % . [facility] Erythrocyte distribution wid th Auto (RBC) [Ratio]Ordered By: Senthil Donato on 07-16-2022 Erythrocyte distribution width (RBC) [Ratio] 14.6 % 12.0-14.8 [facility] Estimated glomerular filtrat ion rate (GFR) non- AmericanOrdered By: Senthil Donato on 07-16-2022 GFR/1.73 sq M.predicted among non-blacks MDRD (S/P/Bld) [Vol rate/Area] > 60 mL/Min [facility] Hematocrit Auto (Bld) [Volum e fraction]Ordered By: Senthil Donato on 07-16-2022 Hematocrit (Bld) [Volume fraction] 38.2 % 38.8-50.0 [facility] Hemoglobin [Mass/volume] in BloodOrdered By: Senthil Donato on 07-16-2022 Hemoglobin (Bld) [Mass/Vol] 12.6 g/dL 13.0-17.0 [facility] - Hematology and Cell countsOrdered By: Senthil Donato on 07-16-2022 Nucleated RBC/100 WBC (Bld) [Ratio] 0.1 % 0-0.5 [facility] Leukocytes [#/volume] in Blo od by Automated countOrdered By: Senthil Donato on 07-16-2022 WBC (Bld) [#/Vol] 7.2 10*3/uL 4.5-11.0 [facility] Lymphocytes Auto (Bld) [#/Vo l]Ordered By: Senthil Donato on 07-16-2022 Lymphocytes (Bld) [#/Vol] 1.2 10*3/uL 1.00-4.8 [facility] Lymphocytes/100 WBC Auto (Bl d)Ordered By: Senthil Donato on 07-16-2022 Lymphocytes/100 WBC (Bld) 16.4 % . [facility] MCH Auto (RBC) [Entitic mass ]Ordered By: Senthil Donato on 07-16-2022 MCH (RBC) [Entitic mass] 31.7 pg 27.5-35.2 [facility] MCHC Auto (RBC) [Mass/Vol]Or dered By: Senthil Donato on 07-16-2022 MCHC (RBC) [Mass/Vol] 33.1 g/dL 32.5-35.6 [facility] MCV Auto (RBC) [Entitic vol] Ordered By: Senthil Donato on 07-16-2022 MCV (RBC) [Entitic vol] 95.6 fL 83.5-[address] [facility] Monocytes Auto (Bld) [#/Vol] Ordered By: Senthil Donato on 07-16-2022 Monocytes (Bld) [#/Vol] 0.5 10*3/uL 0.0-0.8 [facility] Monocytes/100 WBC Auto (Bld) Ordered By: Senthil Donato on 07-16-2022 Monocytes/100 WBC (Bld) 7.2 % . [facility] Neutrophils Auto (Bld) [#/Vo l]Ordered By: Senthil Donato on 07-16-2022 Neutrophils (Bld) [#/Vol] 5.1 10*3/uL 1.8-7.7 [facility] Neutrophils/100 WBC Auto (Bl d)Ordered By: Senthil Donato on 07-16-2022 Neutrophils/100 WBC (Bld) 71.5 % . [facility] No Panel InformationOrdered By: Senthil Donato on 07-16-2022 Estimated GFR () > 60 mL/Min [facility] Comment on above: GFR estimated refere nce range: According to KDOQI guidelines, <60 ml/min/1.73m2 is sufficient to diagnose a patient with chronic kidney disease. Pharmacy Creatinine Clearance (Chem 61.81 [facility] Platelet mean volume Auto (B ld) [Entitic vol]Ordered By: Senthil Donato on 07-16-2022 Platelet mean volume (Bld) [Entitic vol] 9.5 fL 6.6-10.1 [facility] Platelets Auto (Bld) [#/Vol] Ordered By: Senthil Donato on 07-16-2022 Platelets (Bld) [#/Vol] 197 10*3/uL 150-450 [facility] RBC Auto (Bld) [#/Vol]Ordere d By: Senthil Donato on 07-16-2022 RBC (Bld) [#/Vol] 4.00 10*6/uL 3.90-5.60 [facility] Serum or plasma anion gap de terminationOrdered By: Senthil Donato on 07-16-2022 Anion gap [Moles/Vol] 14.2 mmol/L 6.0-15.0 [facility] Serum or plasma calcium paul urement (mass/volume)Ordered By: Senthil Donato on 07-16-2022 Calcium [Mass/Vol] 9.3 mg/dL 8.2-10.2 [facility] Serum or plasma chloride sarah surement (moles/volume)Ordered By: Senthil Donato on 07-16-2022 Chloride [Moles/Vol] 102 mmol/L 95-114 [facility] Serum or plasma glucose paul urement (mass/volume)Ordered By: Senthil Donato on 07-16-2022 Glucose [Mass/Vol] 106 mg/dL 70-100 [facility] Comment on above: ADA recommended refe rence rangeRandom Glucose Reference Range is dependent on time and content of last meal. Glucose of more than 200 mg/dL in a nonstressed, ambulatory subject supports the diagnosis of Diabetes Mellitus. Serum or plasma potassium me asurement (moles/volume)Ordered By: Senthil Donato on 07-16-2022 Potassium [Moles/Vol] 3.9 mmol/L 3.5-5.1 [facility] Serum or plasma sodium measu rement (moles/volume)Ordered By: Senthil Donato on 07-16-2022 Sodium [Moles/Vol] 137 mmol/L 136-146 [facility] Serum or plasma total carbon dioxide measurement (moles/volume)Ordered By: Senthil Donato on 07-16-2022 CO2 [Moles/Vol] 24.7 mmol/L 22.0-30.0 [facility] Serum or plasma urea nitroge n measurement (mass/volume)Ordered By: Senthil Donato on 07-16-2022 Urea nitrogen [Mass/Vol] 17 mg/dL 9-23 [facility] COVID-19 Positive/NegativeOr dered By: Malcom Irene on 07-14-2022 SARS-CoV-2 (COVID-19) N gene LAUREN+probe Ql (Resp) Negative Negative [facility] Comment on above: Testing for SARS-CoV -2 by RT-PCR This test was developed and its performance characteristics determined by [employer]) and validated at the [facility]. This test has not been FDA [...] on 06-18-2022 Creatinine [Mass/Vol] 1.1 mg/dL 0.6-1.3 [facility] Comment on above: ER/ESD physician is notified/shown all ISTAT results. Critical values may be confirmed by laboratory testing if deemed necessary by ER attending doctor. No Panel InformationOrdered By: Malcom Irene on 06-18-2022 POC Estimated GFR > 60 [facility] Comment on above: GFR estimated refere nce range: According to KDOQI guidelines, <60 ml/min/1.73m2 is sufficient to diagnose a patient with chronic kidney disease. POC Estimated GFR Non- Amer > 60 [facility] Covid-19 PCR (CVDTB)on SARS-CoV-2 (COVID-19) RNA LAUREN+probe Ql (Unsp spec) Not detected Normal NOT DETECTED [facility] Comment on above: Result Comment: This test is not yet approved or cleared by the [place] FDA. When there are no FDA-approved or cleared tests available, and other criteria are met, FDA can make tests available under an emergency access mechanism called an Emergency Use Authorization (EUA). The EUA for this test is supported by the [place] of Health and Human Service's (HHS's) declaration [...] consistent with SARS-CoV-2. Performed By: #### [facility] #### [facility] [address] [place] [address] Dr. Oksana Dowell Tobacco Screening.on 022 Adult depression screening assessment No [facility] Work Phone: Fall risk assessment a) [facility] the [facility] Work Phone: Tobacco use status CPHS a) Yes M [facility] y 250 DO Work Phone: Tobacco Screening. Yes [facility] DO Work Phone: Echocardiogramon 01-27-2022 Echocardiography [facility] [address] [place] [address], [address] [place] [address] TRANSTHORACIC ECHOCARDIOGRAM REPORT Patient Name: IVAN ANTHONY [place] Physician: [id number] Suyapa Irwin MD Study Date: 01/27/2022 Referring Physician: [id number] ALEXANDRIA ISSA MRN/PID: [id number] PCP: Alonzo Gray Accession/Order#: [id number] Department Location: [facility] Tressa Garg Date of : 1945 Fellow: Gender: M Nurse: Admit Date: Manager Library: Marcia Fernandez RDCS, RVT Height: 187.96 cm [...] Irene/Date Pending Procedure/CPT: Echo Complete w Full [id number] Study Detail: The following Echo studies were [...] 0.6 m/s (0.6-0.9m/s) PV Max P.3 mmHg [id number] Suyapa Irwin MD Electronically signed on 01/31/2022 at 7:24:37 PM Final Normal [facility] Echocardiography Please click on the link to view the study images Normal -[facility] 600 DO Work Phone: Tobacco Screening.on 022 Adult depression screening assessment No [facility] y 250 DO Work Phone: Fall risk assessment a) No falls within the last year [facility] y 250 DO Work Phone: Tobacco use status CPHS a) Yes M -[facility] y 250 DO Work Phone: Tobacco Screening. Yes [facility] y 250 DO Work Phone: No Panel Informationon 01-17 Normal [facility] y 250 DO Work Phone: No Panel Informationon 01-16 [facility] [facility] 250 DO Work Phone: Tobacco Screening.on 022 Adult depression screening assessment No [facility] y 250 DO Work Phone: Fall risk assessment a) No falls within the last year -[facility] y 250 DO Work Phone: Tobacco use status CPHS a) Yes M P-[facility] y 250 DO Work Phone: Tobacco Screening. Yes [facility] y 250 DO Work Phone: [...] by: IVAN CALIXTO Date: 2021-12-17 12:30 Normal [facility] Vital Signs Date Time Vital Sign Value Performing Clinician Facility 05-23-2024 11:09-0400 Body height 186.69 cm [facility] 05-23-2024 11:09-0400 Body mass index (BMI) [Ratio] 18.2 kg/m2 [facility] 05-23-2024 11:09-0400 Body weight 63.61 kg [facility] 05-23-2024 11:09-0400 Diastolic blood pressure 61 mm[Hg] [facility] 05-23-2024 11:09-0400 Heart rate 66 /min [facility] 05-23-2024 11:09-0400 Respiratory rate 12 /min [facility] 05-23-2024 11:09-0400 Systolic blood pressure 100 mm[Hg] [facility] 11-16-2023 09:30-0500 Body height 186.69 cm Alonzo Ball Other [facility] Other 11-16-2023 09:30-0500 Body mass index (BMI) [Ratio] 19.96 kg/m2 Alonzo Ball Other [facility] Other 11-16-2023 09:30-0500 Body weight 69.58 kg Alonzo Ball Other [facility] Other 11-16-2023 09:30-0500 Diastolic blood pressure 78 mm[Hg] Alonzo Ball Other [facility] Other 11-16-2023 09:30-0500 Respiratory rate 12 /min Alonzo Ball Other [facility] Other 11-16-2023 09:30-0500 Systolic blood pressure 159 mm[Hg] Alonzo Ball Other [facility] Other 10-19-2023 11:30-0500 Body height 186.69 cm Malcom Irene Other [facility] Other 10-19-2023 11:30-0500 Body mass index (BMI) [Ratio] 20.56 kg/m2 Malcom Irene Other [facility] Other 10-19-2023 11:30-0500 Body temperature 97.8 [degF] Malcom Irene Other [facility] Other 10-19-2023 11:30-0500 Body weight 71.67 kg Malcom Irene Other [facility] Other 10-19-2023 11:30-0500 Diastolic blood pressure 74 mm[Hg] Malcom Irene Other [facility] Other 10-19-2023 11:30-0500 SaO2% (BldA) [Mass fraction] 97 % Malcom Irene Other [employer] Other 10-19-2023 11:30-0500 Systolic blood pressure 128 mm[Hg] Malcom Irene Other [facility] Other 05-20-2023 14:27-0400 Diastolic blood pressure 70 mm[Hg] Alonzo Evangelista Ball Work Phone: [employer] DO Work Phone: 05-20-2023 14:27-0400 Systolic blood pressure 138 mm[Hg] Alonzo E Ball Work Phone: [facility] DO Work Phone: 05-20-2023 14:14-0400 Body height 187.96 cm Alonzo Evangelista Ball Work Phone: [employer] DO Work Phone: 05-20-2023 14:14-0400 Body mass index (BMI) [Ratio] 20.41 kg/m2 Alonzo Evangelista Ball Work Phone: [employer] DO Work Phone: 05-20-2023 14:14-0400 Body surface area Derived from formula 1.97 m2 Alonzo Evangelista Ball Work Phone: [employer] 250 DO Work Phone: 05-20-2023 14:14-0400 Body weight 72.12 kg Alonzo E Ball Work Phone: [facility] [place] 250 DO Work Phone: 05-20-2023 14:14-0400 Diastolic blood pressure 68 mm[Hg] Alonzo E Ball Work Phone: [facility] [place] 250 DO Work Phone: 05-20-2023 14:14-0400 Heart rate 64 /min Alonzo E Ball Work Phone: [facility] [place] 250 DO Work Phone: 05-20-2023 14:14-0400 Systolic blood pressure 180 mm[Hg] Alonzo E Ball Work Phone: [facility] [place] 250 DO Work Phone: 05-15-2023 11:00-0400 Body height 186.69 cm Alonzo Ball Other [employer] Other 05-15-2023 11:00-0400 Body mass index (BMI) [Ratio] 20.64 kg/m2 Alonzo Ball Other [employer] Other 05-15-2023 11:00-0400 Body weight 71.94 kg Alonzo Ball Other [facility] [employer] Other 05-15-2023 11:00-0400 Diastolic blood pressure 72 mm[Hg] Alonzo Ball Other [employer] Other 05-15-2023 11:00-0400 Respiratory rate 12 /min Alonzo Ball Other [employer] Other 05-15-2023 11:00-0400 Systolic blood pressure 175 mm[Hg] Alonzo Ball Other [employer] Other 11-24-2022 16:05-0500 Diastolic blood pressure 82 mm[Hg] Alonzo E Ball Work Phone: [facility] [place] 250 DO Work Phone: 11-24-2022 16:05-0500 Systolic blood pressure 138 mm[Hg] Alonzo E Ball Work Phone: [facility] [employer] 250 DO Work Phone: 11-24-2022 15:25-0500 Body height 187.96 cm Alonzo E Ball Work Phone: [facility] 250 DO Work Phone: 11-24-2022 15:25-0500 Body mass index (BMI) [Ratio] 20.8 kg/m2 Alonzo E Ball Work Phone: [facility] 250 DO Work Phone: 11-24-2022 15:25-0500 Body surface area Derived from formula 1.99 m2 Alonzo E Ball Work Phone: [facility] 250 DO Work Phone: 11-24-2022 15:25-0500 Body weight 73.48 kg Alonzo E Ball Work Phone: [facility] 250 DO Work Phone: 11-24-2022 15:25-0500 Diastolic blood pressure 82 mm[Hg] Alonzo E Ball Work Phone: [facility] 250 DO Work Phone: 11-24-2022 15:25-0500 Heart rate 66 /min Alonzo E Ball Work Phone: [facility] 250 DO Work Phone: 11-24-2022 15:25-0500 Systolic blood pressure 144 mm[Hg] Alonzo E Ball Work Phone: [facility] 250 DO Work Phone: 11-19-2022 14:30-0500 40 8 Alonzo E Ball Work Phone: [facility] [address] [place] Work Phone: Comment on above: [id number] 10-01-2022 13:47-0500 Body height 187.96 cm Alonzo E Ball Work Phone: [facility] 250 DO Work Phone: 10-01-2022 13:47-0500 Body mass index (BMI) [Ratio] 21.33 kg/m2 Alonzo E Ball Work Phone: [facility] [employer] 250 DO Work Phone: 10-01-2022 13:47-0500 Body surface area Derived from formula 2.01 m2 Alonzo E Ball Work Phone: [facility] 250 DO Work Phone: 10-01-2022 13:47-0500 Body weight 75.36 kg Alonzo E Ball Work Phone: [facility] 250 DO Work Phone: 10-01-2022 13:47-0500 Diastolic blood pressure 90 mm[Hg] Alonzo E Ball Work Phone: [facility] 250 DO Work Phone: 10-01-2022 13:47-0500 Heart rate 66 /min Alonzo E Ball Work Phone: [facility] 250 DO Work Phone: 10-01-2022 13:47-0500 Systolic blood pressure 160 mm[Hg] Alonzo E Ball Work Phone: [facility] [employer] 250 DO Work Phone: 08-11-2022 12:30-0400 Body height 186.69 cm Irma Pérez Other [facility] Other 08-11-2022 12:30-0400 Body mass index (BMI) [Ratio] 20.82 kg/m2 Irma Pérez Other [facility] Other 08-11-2022 12:30-0400 Body temperature 97.1 [degF] Irma Pérez Other [facility] Other 08-11-2022 12:30-0400 Body weight 72.58 kg Irma Pérez Other [facility] [employer] Other 08-11-2022 12:30-0400 Diastolic blood pressure 68 mm[Hg] Irma Pérez Other [facility] [employer] Other 08-11-2022 12:30-0400 SaO2% (BldA) [Mass fraction] 98 % Irma Pérez Other [facility] [employer] Other 08-11-2022 12:30-0400 Systolic blood pressure 158 mm[Hg] Irma Pérez Other [facility] [employer] Other 07-17-2022 07:00-0400 Diastolic blood pressure 54 mm[Hg] DO Alonzo Ball Work Phone: [facility] 07-17-2022 07:00-0400 Heart rate 49 /min DO Alonzo Ball Work Phone: [facility] 07-17-2022 07:00-0400 Respiratory rate 17 /min DO Alonzo Ball Work Phone: [facility] 07-17-2022 07:00-0400 Systolic blood pressure 122 mm[Hg] DO Alonzo Ball Work Phone: [facility] 07-17-2022 06:00-0400 SaO2% (BldA) [Mass fraction] 98 % DO Alonzo Ball Work Phone: [facility] 07-17-2022 05:46-0400 Body weight 74.8 kg DO Alonzo Ball Work Phone: [facility] 07-17-2022 00:00-0400 Body temperature 98.6 [degF] DO Alonzo Ball Work Phone: [facility] 07-17-2022 00:00-0400 Inhaled oxygen flow rate 1 L/min DO Alonzo Ball Work Phone: [facility] 07-16-2022 08:17-0400 Body height 189.23 cm DO Alonzo Ball Work Phone: [facility] 07-16-2022 08:17-0400 Body mass index (BMI) [Ratio] 20.2 kg/m2 DO Alonzo Ball Work Phone: [facility] 06-18-2022 15:35-0400 Diastolic blood pressure 57 mm[Hg] DO Alonzo Ball Work Phone: [facility] 06-18-2022 15:35-0400 Heart rate 57 /min DO Alonzo Ball Work Phone: [facility] 06-18-2022 15:35-0400 Respiratory rate 20 /min DO Alonzo Ball Work Phone: [facility] 06-18-2022 15:35-0400 SaO2% (BldA) [Mass fraction] 95 % DO Alonzo Ball Work Phone: [facility] 06-18-2022 15:35-0400 Systolic blood pressure 131 mm[Hg] DO Alonzo Ball Work Phone: [facility] 06-18-2022 12:30-0400 Inhaled oxygen flow rate 2 L/min DO Alonzo Ball Work Phone: [facility] 06-18-2022 11:04-0400 Body height 187.96 cm DO Alonzo Ball Work Phone: [facility] 06-18-2022 11:04-0400 Body weight 74.84 kg DO Alonzo Ball Work Phone: [facility] 05-20-2022 11:30-0400 Body height 186.69 cm Malcom Irene Other [facility] [employer] Other 05-20-2022 11:30-0400 Body mass index (BMI) [Ratio] 20.82 kg/m2 Malcom Irene Other [facility] Other 05-20-2022 11:30-0400 Body temperature 97.6 [degF] Malcom Brownleerer Other [facility] Other 05-20-2022 11:30-0400 Body weight 72.58 kg Malcom Brownleerer Other [facility] Other 05-20-2022 11:30-0400 Diastolic blood pressure 62 mm[Hg] Malcom Brownleerer Other [facility] Other 05-20-2022 11:30-0400 SaO2% (BldA) [Mass fraction] 99 % Malcom Brownleerer Other [facility] Other 05-20-2022 11:30-0400 Systolic blood pressure 138 mm[Hg] Malcom Brownleerer Other [facility] Other 03-18-2022 11:45-0400 Body height 186.69 cm Irma Mcdonalddilip Other [facility] Other 03-18-2022 11:45-0400 Body mass index (BMI) [Ratio] 20.82 kg/m2 Irma Pérez Other [facility] Other 03-18-2022 11:45-0400 Body temperature 97.2 [degF] Irma Pérez Other [facility] Other 03-18-2022 11:45-0400 Body weight 72.58 kg Irma Pérez Other [facility] Other 03-18-2022 11:45-0400 Diastolic blood pressure 52 mm[Hg] Irma Pérez Other [facility] Other 03-18-2022 11:45-0400 SaO2% (BldA) [Mass fraction] 99 % Irma Pérez Other [facility] Other 03-18-2022 11:45-0400 Systolic blood pressure 140 mm[Hg] Irma Pérez Other [facility] Other 03-10-2022 13:39-0400 Diastolic blood pressure 60 mm[Hg] Alonzo Evangelista Ball Work Phone: [employer] DO Work Phone: 03-10-2022 13:39-0400 Systolic blood pressure 138 mm[Hg] Alonzo Evangelista Ball Work Phone: [employer] DO Work Phone: 03-10-2022 13:19-0400 Body height 187.96 cm Alonzo E Ball Work Phone: [employer] 250 DO Work Phone: 03-10-2022 13:19-0400 Body mass index (BMI) [Ratio] 20.8 kg/m2 Alonzo Evangelista Ball Work Phone: [employer] 250 DO Work Phone: 03-10-2022 13:19-0400 Body surface area Derived from formula 1.99 m2 Alonzo E Ball Work Phone: [employer] 250 DO Work Phone: 03-10-2022 13:19-0400 Body weight 73.48 kg Alonzo E Ball Work Phone: [employer] 250 DO Work Phone: 05-09-2022 13:19-0400 Diastolic blood pressure 62 mm[Hg] Alonzo Evangelista Ball Work Phone: [facility] [place] 250 DO Work Phone: 03-10-2022 13:19-0400 Heart rate 66 /min Alonzo Evangelista Ball Work Phone: [facility] [place] 250 DO Work Phone: 03-10-2022 13:19-0400 Systolic blood pressure 152 mm[Hg] Alonzo Evangelista Ball Work Phone: [facility] [place] 250 DO Work Phone: 02-04-2022 12:00-0400 Body height 186.69 cm Malcom Irene Other [facility] Other 02-04-2022 12:00-0400 Body mass index (BMI) [Ratio] 20.82 kg/m2 Malcom Irene Other [facility] Other 02-04-2022 12:00-0400 Body temperature 96.3 [degF] Malcom Irene Other [facility] Other 02-04-2022 12:00-0400 Body weight 72.58 kg Malcom Irene Other [facility] Other 02-04-2022 12:00-0400 Diastolic blood pressure 60 mm[Hg] Malcom Irene Other [facility] Other 02-04-2022 12:00-0400 SaO2% (BldA) [Mass fraction] 97 % Malcom Irene Other [facility] Other 02-04-2022 12:00-0400 Systolic blood pressure 158 mm[Hg] Malcom Irene Other [facility] [employer] Other 01-27-2022 08:45-0400 30 1 Alonzo E Ball Work Phone: [facility] [address] [place] Work Phone: Comment on above: [place] [id number] 01-23-2022 13:08-0400 Body height 187.96 cm Alonzo E Ball Work Phone: [facility] 250 DO Work Phone: 01-23-2022 13:08-0400 Body mass index (BMI) [Ratio] 20.93 kg/m2 Alonzo E Ball Work Phone: [facility] 250 DO Work Phone: 01-23-2022 13:08-0400 Body surface area Derived from formula 1.99 m2 Alonzo E Ball Work Phone: [facility] 250 DO Work Phone: 01-23-2022 13:08-0400 Body weight 73.94 kg Alonzo E Ball Work Phone: [facility] 250 DO Work Phone: 01-23-2022 13:08-0400 Heart rate 68 /min Alonzo E Ball Work Phone: [facility] 250 DO Work Phone: 01-16-2022 16:13-0400 30 1 Alonzo E Ball Work Phone: [facility] 250 DO Work Phone: Comment on above: [place] [id number] 01-13-2022 15:09-0400 Diastolic blood pressure 67 mm[Hg] Alonzo E Ball Work Phone: [facility] 250 DO Work Phone: 01-13-2022 15:09-0400 Systolic blood pressure 141 mm[Hg] Alonzo Evangelista Ball Work Phone: [facility] [employer] 250 DO Work Phone: 01-13-2022 15:05-0400 Body height 189.23 cm Alonzo Evangelista Ball Work Phone: [facility] [employer] DO Work Phone: 01-13-2022 15:05-0400 Body mass index (BMI) [Ratio] 20.27 kg/m2 Alonzo Evangelista Ball Work Phone: [facility] [employer] 250 DO Work Phone: 01-13-2022 15:05-0400 Body surface area Derived from formula 1.99 m2 Alonzo Evangelista Ball Work Phone: [facility] [employer] DO Work Phone: 01-13-2022 15:05-0400 Body weight 72.58 kg Alonzo Evangelista Ball Work Phone: [facility] [employer] DO Work Phone: 01-13-2022 15:05-0400 Diastolic blood pressure 63 mm[Hg] Alonzo Evangelista Ball Work Phone: [facility] [employer] DO Work Phone: 01-13-2022 15:05-0400 Heart rate 65 /min Alonzo Evangelista Ball Work Phone: [facility] [employer] DO Work Phone: 01-13-2022 15:05-0400 Systolic blood pressure 132 mm[Hg] Alonzo Evangelista Ball Work Phone: [facility] [employer] 250 DO Work Phone: 12-23-2021 11:30-0500 Body height 186.69 cm Irma Rutdilip Other [employer] Other 12-23-2021 11:30-0500 Body mass index (BMI) [Ratio] 20.82 kg/m2 Irma Pérez Other [facility] Other 12-23-2021 11:30-0500 Body temperature 96.9 [degF] Irma Pérez Other [facility] Other 12-23-2021 11:30-0500 Body weight 72.58 kg Irma Pérez Other [facility] Other 12-23-2021 11:30-0500 Diastolic blood pressure 70 mm[Hg] Irma Pérez Other [facility] Other 12-23-2021 11:30-0500 SaO2% (BldA) [Mass fraction] 95 % Irma Pérez Other [facility] Other 12-23-2021 11:30-0500 Systolic blood pressure 160 mm[Hg] Irma Pérez Other [facility] Other Encounters Encounter Date Encounter Type Care Provider Facility Start: 05-23-2024 End: 05-23-[address] [facility] Work Phone: Start: 05-23-2024 End: 05-23-2024 Patient encounter procedure [facility] Work Phone: Start: 05-19-2024 End: 05-19-2024 ambulatory [facility] Start: 11-23-2023 Telephone encounter Alonzo INTERIANO [facility] Start: 11-23-2023 End: 11-23-2023 ambulatory SUYAPA Estevez [facility] [employer] Other Start: 11-16-2023 End: 11-16-2023 ambulatory Alonzo Gray Other [facility] [employer] Other Start: 11-16-2023 Office outpatient vi sit 25 minutes Alonzo Gray [facility] Start: 10-19-2023 Office outpatient vi sit 25 minutes Malcom Irene [facility] Start: 10-19-2023 End: 10-19-2023 ambulatory DO Alonzo Gray Work Phone: [facility] Other Start: 10-19-2023 End: 10-19-2023 Patient encounter procedure DO Alonzo Gray Work Phone: [facility] Start: 08-17-2023 End: 08-17-2023 ambulatory Alonzo Gray Other [facility] Other Start: 08-17-2023 Nursing evaluation o f patient and report Alonzo Gray [facility] Start: 06-11-2023 Rx Renewal Alonzo Evangelista Bal l Work Phone: [facility] [place] 250 DO Work Phone: Start: 05-27-2023 End: 05-27-2023 ambulatory Alonzo Gray Other [facility] Other Start: 05-27-2023 Telephone encounter Alonzo INTERIANO [facility] Start: 05-20-2023 Office outpatient vi sit 25 minutes Alonzo Gray Work Phone: [facility] [place] 250 DO Work Phone: Start: 05-18-2023 End: 05-18-2023 ambulatory Alonzo Gray Other [facility] Other Start: 05-18-2023 Telephone encounter Alonzo INTERIANO [facility] Start: 05-15-2023 End: 05-15-2023 ambulatory Alonzo Gray Other [facility] Other Start: 05-15-2023 Patient encounter procedure Alonzo Gray [facility] Start: 04-14-2023 End: 04-14-2023 ambulatory Irma Pérez Facility:[facility] Start: 12-15-2022 Chart Update Alonzo evangelista Work Phone: [facility] 250 DO Work Phone: Start: 11-26-2022 End: 11-26-2022 ambulatory Irma Pérez Other [facility] [employer] Other Start: 11-26-2022 Telephone encounter Irma Fernández [facility] Start: 11-24-[address] Suyapa Irwin II Facility: Start: 11-24-2022 Chart Update Alonzo evangelista Work Phone: [facility] DO Work Phone: Start: 11-19-2022 Patient encounter procedure Alonzo Gray Work Phone: [facility] [address] [place] Work Phone: Start: 11-19-[address] Suyapa Irwin II Facility:44 Start: 10-14-2022 End: 10-14-2022 ambulatory DO Alonzo Gray Work Phone: [facility] Work Phone: Start: 10-14-2022 End: 10-14-2022 Patient encounter procedure DO Alonzo Gray Work Phone: [facility]-Ultrasound [facility] Start: 10-01-2022 Office outpatient vi sit 25 minutes Alonzo Jean Carlos Gray Work Phone: [facility] 250 DO Work Phone: Start: 10-01-[address] Alonzo Gray Facility: Start: 08-11-2022 End: 08-11-2022 ambulatory Irma Pérez Other [facility] [employer] Other Start: 08-11-2022 Follow-up encounter Irma Fernández PG Vascular Surgery Start: 08-06-2022 End: 08-07-[address] ALONZO GRAY Facility:H1 Start: 07-23-2022 End: 07-23-[address] ALONZO GRAY Facility:H1 Start: 07-16-2022 End: 07-17-2022 Evaluation and management of inpatient DO Alonzo Gray Work Phone: [facility] [place] [facility] Start: 07-14-2022 End: 07-14-2022 Patient encounter procedure DO Alonzo Grya Work Phone: [facility]-Pre-Surgical Testing Start: 06-23-2022 End: 06-23-2022 ambulatory Irma Pérez Other [facility] Other Start: 06-23-2022 Encounter for other preprocedural examination Irma Pérez [facility] Start: 06-23-2022 Telephone encounter Irma Fernández Vascular Surgery Start: 06-18-2022 End: 06-18-2022 Evaluation and management of inpatient DO Alonzo Gray Work Phone: [facility] [place] [facility] Start: 06-05-2022 Encounter for preprocedural laboratory [facility] Start: 06-02-2022 End: 06-02-[address] ALONZO GRAY Facility:H1 Start: 06-02-2022 End: 06-02-2022 Encounter for preprocedural laboratory examination DR ALONZO GRAY Facility:H1 Start: 05-20-2022 End: 05-20-2022 ambulatory Malcom Irene Other [facility] Other Start: 05-20-2022 Postop follow up vis it related to original px Malcom Irene [facility] V[facility] Surgery Start: 05-20-2022 End: 05-20-2022 Patient encounter procedure DO Alonzo Gray Work Phone: [facility]-Ultrasound [facility] Start: 03-18-2022 End: 03-18-2022 ambulatory Irma Pérez Other [facility] Other Start: 03-18-2022 Follow-up encounter Irma Mcdonaldkimberlyken Fernández [facility] V[facility] Surgery Start: 03-14-2022 End: 03-14-[address] ALONZO GRAY Facility: Start: 03-10-2022 Office outpatient vi sit 25 minutes Alonzo Gray Work Phone: [facility] [place] 250 DO Work Phone: Start: 03-10-[address] Alonzo Gray Facility: Start: 02-10-2022 End: 02-10-2022 ambulatory Irma Pérez Other [facility] [employer] Other Start: 02-10-2022 Encounter for other preprocedural examination Irma Pérez [facility] Start: 02-10-2022 Telephone encounter Irma Fernández [facility] Start: 02-05-2022 Chart Update Alonzo evangelista Work Phone: [facility] DO Work Phone: Start: 02-04-2022 End: 02-04-2022 ambulatory Malcom Irene Other [facility] [employer] Other Start: 02-04-2022 Office outpatient vi sit 25 minutes Malcom Irene [facility] Start: 01-27-2022 Encounter for other preprocedural examination Dr. Alexandria Issa [facility] Start: 01-27-2022 Telephone encounter Irma Mcdonaldkimberlyken Fernández [facility] Surgery Start: 01-27-2022 Patient encounter procedure Alonzo Gray Work Phone: [facility] [address] [place] Work Phone: Start: 01-27-2022 End: 01-27-[address] Alexandria Issa [facility] [employer] Other Start: 01-23-2022 FUV, Provider: Alexandria Issa, Status: Pen, Time: 1:00 PM Alonzo Gray Work Phone: [facility] [place] 250 DO Work Phone: Start: 01-23-2022 Office outpatient vi sit 25 minutes Alonzo Jean Carlos Isaac Work Phone: [facility] 250 DO Work Phone: Start: 01-21-2022 Chart Update Alonzo Jean Carlos Chris l Work Phone: [facility] 250 DO Work Phone: Start: 01-13-2022 Office consultation new/estab patient 60 min Alonzo Jean Carlos Isaac Work Phone: [facility] [place] 250 DO Work Phone: Start: 12-23-2021 End: 12-23-2021 ambulatory Irma Pérez Other [facility] Other Start: 12-23-2021 Office outpatient ne w 20 minutes Irma Pérez [facility] V[facility] Surgery Start: 12-17-2021 End: 12-18-[address] ALONZO GRAY Facility: Start: 05-13-2021 Adult health examination Miles min Isaac Other [facility] Other Patient encounter status Huinae dodd E Isaac Work Phone: [facility] DO Work Phone: Preoperative state Alonzo Evangelista Ba ll Work Phone: [facility] DO Work Phone: Procedures Date Procedure [...] Suyapa Irwin, Status: Lele, Time: 2:20 PM [facility] [place] 250 DO Work Phone: Start: 05-20-2023 FUV, Provider: Suyapa Irwin, Status: Lele, Time: 2:20 PM FUV, Provider: Suyapa Irwin, Status: Lele, Time: 2:20 PM [facility] [place] 250 DO Work Phone: Start: 11-24-2022 FUV, Provider: Suyapa Irwin, Status: Lele, Time: 3:30 PM FUV, Provider: Suyapa Irwin, Status: Pen, Time: 3:30 PM [facility] DO Work Phone: Start: 11-19-2022 ECHO, Provider: MALU KIM [facility] 01,[id number], Status: Pen, Time: 2:30 PM ECHO, Provider: [facility] 01,[id number], Status: Pen, Time: 2:30 PM -[facility] [facility] DO Work Phone: Start: 10-01-2022 FUV, Provider: Suyapa Irwin, Status: Pen, Time: 1:40 PM FUV, Provider: Suyapa Irwin, Status: Pen, Time: 1:40 PM [facility] 250 DO Work Phone: Start: 07-17-2022 [facility] Start: 07-16-2022 Extirpation of Matte r from Right Internal Carotid Artery, Open Approach Extirpation of Matter from Right Internal Carotid Artery, Open Approach [facility] Start: 07-16-2022 Supplement Right Internal Carotid Artery with Synthetic Substitute, Open Approach Supplement Right Internal Carotid Artery with Synthetic Substitute, Open Approach [facility] Start: 07-16-2022 Hospital admission [facility] Start: 06-18-2022 Fluoroscopy of Abdom inal Aorta using Low Osmolar Contrast Fluoroscopy of Abdominal Aorta using Low Osmolar Contrast [facility] Start: 06-18-2022 Fluoroscopy of Bilat eral Common Carotid Arteries using Low Osmolar Contrast Fluoroscopy of Bilateral Common Carotid Arteries using Low Osmolar Contrast [facility] Start: 06-18-2022 [facility] Work Phone: Start: 03-10-2022 FUV, Provider: Alexandria Issa, Status: Pen, Time: 1:15 PM FUV, Provider: Alexandria Issa, Status: Pen, Time: 1:15 PM [facility] [place] 250 DO Work Phone: Start: 01-27-2022 ECHO, Provider: MALU KIM [facility] 01,[id number], Status: Pen, Time: 8:45 AM ECHO, Provider: [facility] 01,[id number], Status: Pen, Time: 8:45 AM [facility] Work Phone: Start: 01-23-2022 FUV, Provider: Alexandria Issa, Status: Pen, Time: 1:00 PM FUV, Provider: Alexandria Issa, Status: Pen, Time: 1:00 PM [facility] Work Phone: Start: 01-16-2022 SURGNONUH, Provider: Suyapa Arroyo, Status: Pen, Time: 2:00 PM SURGNONUH, Provider: Suyapa Arroyo, Status: Pen, Time: 2:00 PM [facility] Work Phone: Patient Education Arteriogram (DC) [facility] Work Phone: Patient referral [facility] Work Phone: Immunizations Immunization Date Immunization Notes Care Provider [address] 08-17-2023 influenza virus vaccine, unspecified formulation [facility] 08-17-2023 influenza, high dose seasonal, preservative-free Alonzo Gray Other [facility] [employer] Other 09-02-2022 Pfizer COVID-19 Vac Bivalent 30 MCG/0.3ML Intramuscular Suspension Alonzo Gray Work Phone: [facility] 07-22-2022 Fluad Quadrivalent 0 .5 ML Intramuscular Prefilled Syringe Alonzo Gray [facility] Work Phone: 07-22-2022 influenza virus vaccine, split virus (incl. purified surface antigen) Alonzo Gray Other [facility] Other 07-22-2022 influenza virus vaccine, unspecified formulation [facility] 07-22-2022 influenza, high dose seasonal, preservative-free Alonzo Gray Other [employer] [facility] [employer] Other 09-02-2021 Moderna COVID-19 Vaccine 100 MCG/0.5ML Intramuscular Suspension Alonzo Gray Work Phone: [facility] 08-14-2021 influenza virus vaccine, split virus (incl. purified surface antigen) Alonzo Gray Other [facility] Other 08-14-2021 influenza virus vaccine, unspecified formulation [facility] 12-31-2020 Moderna COVID-19 Vaccine 100 MCG/0.5ML Intramuscular Suspension Alonzo Gray Work Phone: [facility] 12-03-2020 Moderna COVID-19 Vaccine 100 MCG/0.5ML Intramuscular Suspension Alonzo Gray Work Phone: [facility] 07-10-2020 influenza virus vaccine, split virus (incl. purified surface antigen) Alonzo Gray Other [facility] [employer] Other 07-10-2020 influenza virus vaccine, unspecified formulation [facility] Payers Date Payer Category Payer Self-pay [id number] 1957 Medicare [id number] . [id number] 1945 Unknown [id number] 2.16.84 [id number] 1945 Unknown [id number] 2.16.84 [id number] 1945 Unknown [id number] 2.16.84 0.1.074328.3.579.2.593 1945 Unknown [id number] 2.16.84 0.1.821045.3.579.2.593 1945 Unknown [id number] 2.16.84 0.1.128879.3.579.2.593 1945 Unknown [id number] 2.16.8 40.1.713808.3.579.2.1068 1945 Unknown [id number] 2.16.8 40.1.448207.3.579.2.1068 1947 Unknown [id number] 2.16. 840.1.371925.3.579.2.356 1945 Unknown [id number] 2.16. 840.1.527321.3.579.2.356 1945 Unknown [id number] 2.16. 840.1.796465.3.579.2.356 1945 Unknown [id number] 2.16.8 40.1.961154.3.579.2.1244 1945 Unknown [id number] 2.16.8 [id number] Medicare Medicare [id number] Medicare Medicare [id number] Unknown Unknown [id number] 2.16.8 40.1.386098.3.579.2.531 Unknown [id number] 2.16.8 40.1.434730.3.579.2.531 Social History Date Type Detail Facility No alcohol use No alcohol use [facility] 250 DO Work Phone: Comment on above: 1to 2 cups of coffee daily; 1/2 pack per day; 1/4 pack per day; Sex Assigned At Sex Assigned At Bir th [place] [facility] Other Start: 06-18-2022 End: 11-16-2023 Tobacco smoking status NHIS Smoker (finding) [facility] Start: 1945 Sex Assigned At Male F [facility] Medical Equipment Procedure Code Equipment Code Equipment Origin al Text Equipment Identifier Dates Endarterectomy, carotid Cardiovascular patch, animal-derived [id number] FDA Start: 02-20-2022 Endarterectomy, carotid Cardiovascular patch, animal-derived [id number] FDA Start: 07-16-2022 Goals Date Patient Goal Desired Activity /State Functional Status Date Assessment Result Facility 07-17-2022 Functional status Patient at Baseline [facility] Work Phone: Mental Status Date Assessment Result Facility 07-17-2022 Cognitive function Cognitive Sta tus Patient at Baseline [facility] Work Phone: Clinical Notes 12-23-2021 to [...] maintaining regular scheduled appts with their director biomedical engineering. Nov, Carotid atherosclerosis, bilateral (ICD-10 - I65.23) Smoking cessation advised. Continue DAPT Continue secondary prevention measures. Nov, Cigarette nicotine dependence in remission (ICD-10 - F17.211) This patient has been encouraged to quit tobacco use immediately. They are aware of the hazards associated with tobacco use, including but not limited to respiratory infections, vascular disease and cancers. [facility] Other 01-15-2024 Evaluation note* Encounter Date Diagnosis [...] maintaining regular scheduled appts with their director biomedical engineering. Nov, Carotid atherosclerosis, bilateral (ICD-10 - I65.23) Smoking cessation advised. Continue DAPT Continue secondary prevention measures. Nov, Cigarette nicotine dependence in remission (ICD-10 - F17.211) Continue abstinence. UTD w/ yearly LDCT chest for lung cancer screening [facility] Other 12-18-2023 Evaluation note* Encounter Date Diagnosis [...] see him back annually for follow-up duplex [facility] Other 07-14-2023 Evaluation note* Encounter Date Diagnosis [...] maintaining regular scheduled appts with their director biomedical engineering. May, Cigarette nicotine dependence without complication (ICD-10 [...] PSA (prostate specific antigen) (ICD-10 - Z12.5) [facility] Other 07-14-2023 Evaluation note* Encounter Date Diagnosis [...] maintaining regular scheduled appts with their director biomedical engineering. May, Bilateral carotid artery stenosis (ICD-10 - [...] to respiratory infections, vascular disease and cancers. [facility] Other 10-10-2022 Evaluation note* Encounter Date Diagnosis [...] is unmotivated to quit at this time. [facility] Other 08-22-2022 Evaluation note* Encounter Date Diagnosis Assessment Notes Treatment Notes Treatment Clinical Notes Jun, Pre-op testing (ICD-10 - Z01.818) [facility] Other 07-19-2022 Evaluation note* Encounter Date Diagnosis [...] will schedule him for right carotid endarterectomy. [facility] Other 05-17-2022 Evaluation note* Encounter Date Diagnosis [...] surgery of circulatory system (ICD-10 - Z48.812) [facility] Other 04-11-2022 Evaluation note* Encounter Date Diagnosis Assessment Notes Treatment Notes Treatment Clinical Notes Jan, Pre-op testing (ICD-10 - Z01.818) [facility] Other 04-05-2022 Evaluation note* Encounter Date Diagnosis [...] between open standard carotid endarterectomy or TCAR. [facility] Other 02-21-2022 Evaluation note* Encounter Date Diagnosis Assessment Notes Treatment Notes Treatment Clinical Notes Dec, Asymptomatic bilateral carotid artery stenosis (ICD-10 - I65.23) We reviewed ultrasound results from the [facility] indicating high-grade stenosis of bilateral ICA. Patient [...] smoking cessation. Patient provided with information on [place] tobacco program. He seems unmotivated to quit at this time. [facility] Other Chief complaint Narrative - ReportedDAROSENDA ANTHONY is being seen for a cardiovascular evaluation . POC. Carotid Surgery. Dr. Mcnally. -[facility] 250 DO Work Phone: Evaluation noteNo InformationNort [facility] Other Evaluation noteNo assessment information available [facility] Work Phone: Evaluation note* Diagnosis Onset Date Resolution Status Stenosis of right carotid artery acute [facility] Work Phone: Evaluation note* Diagnosis Onset Date Resolution Status Atrial fibrillation acute Chronic bronchitis acute Chronic HFrEF (heart failure with reduced ejection fraction) acute H/O carotid stenosis acute Nicotine addiction acute Nonischemic cardiomyopathy a cute Medicare annual wellness visit, subsequent noneactive Screening PSA (prostate specific antigen) noneactive [facility] Work Phone: [facility] general Narrative - Reported* Type Description Date Medical History hypertension Medical History acid reflux Medical History coronary artery disease Surgical History melanoma excision FACE Hospitalization History REACTION TO [place] Other [facility] general Narrative - Reported* Type Description Date Medical History hypertension Medical History acid reflux Medical History coronary artery disease Surgical History melanoma excision FACE Surgical History LEFT CAR ENDART Hospitalization History REACTION TO [place] Other [facility] general Narrative - Reported* Type Description Date [...] ] Hospitalization History REACTION TO [facility] 2018 [facility] Other History of Present illness Narrative* Mr. [...] chronic cigarette abuse with active cigarette smoking. -[facility] 250 DO Work Phone: History of Present [...] for follow-up or sooner if problems develop. -[facility] San[place] DO Work Phone: History of Present illness [...] I did advocate the merits of smokingcessation. -[facility] [place] DO Work Phone: History of Present illness [...] and the merits of smoking cessation were advocated.[facility] 250 DO Work Phone: Family History Unknown [...] and content) DATE CREATED AUTHOR 08/09/2022 [facility] DATE CREATED AUTHOR AUTHOR'S ORGANIZ ATION 11/25/2022 [facility] DATE CREATED AUTHOR AUTHOR'S ORGANIZ ATION 03/08/[address] [facility] DATE CREATED AUTHOR AUTHOR'S ORGANIZ ATION 05/21/2023 [facility] DATE CREATED AUTHOR AUTHOR'S ORGANIZ ATION 10/23/2023 [facility] DATE CREATED AUTHOR AUTHOR'S ORGANIZ ATION 05/23/2024 [facility] FOR RECORDS PERTAINING TO PATIENTS WHO [...] BE BASED ON THE PRIMARY CLINICAL RECORDS. [facility] [employer] [facility]. provides no warranty or guarantee of the accuracy or completeness of information in this document.
[2024-06-27 10:04] LABS: Percent Iron Saturation 26.8 %
[2024-06-28 04:12] LABS: PSA, Free 0.21 ng/mL; Prostate Specific Ag 1.8 ng/mL (0.0-4.0)
== END 2024-06-27 08:27 | disposition home or self-care (01) ==
LOC: LAB 08:28
PROVIDERS: PCP Internal Medicine; Visit Provider Internal Medicine
DX: D64.9 Anemia, unspecified (principal); R97.20 Elevated prostate specific antigen [PSA]
CPT/HCPCS: 36415; 82607; 82728; 82746; 83540; 83550; 84153; 84154; 85025

== ENCOUNTER 2024-08-29 09:41 | Outpatient (OUT) | payer MEDICARE, SELFPAY ==
[2024-08-29 09:59] LABS: Basophils Absolute Auto 0.1 10^3/uL (0.0-0.1); Basophils Percent Auto 1.4 % (0.2-2.0); Eosinophils Absolute Auto 0.4 10^3/uL (0.0-0.7); Eosinophils Percent Auto 4.1 % (0.9-7.0); Hematocrit 38.4 % (42.0-54.0); Hemoglobin 12.1 g/dL (14.0-18.0); Immature Granulocytes Abs Auto 0.02 10^3/uL (0.00-0.03); Immature Granulocytes Pct Auto 0.2 % (0.0-0.5); Lymphocytes Absolute Auto 1.6 10^3/uL (1.2-3.8); Lymphocytes Percent Auto 17.4 % (20.5-60.0); Mean Corpuscular HGB Conc 31.5 g/dL (29.9-35.2); Mean Corpuscular Hemoglobin 32.5 pg (25.9-34.0); Mean Corpuscular Volume 103.2 fL (80.0-94.0); Mean Platelet Volume 10.8 fL (9.5-13.5); Monocytes Absolute Auto 0.9 10^3/uL (0.3-0.8); Monocytes Percent Auto 10.2 % (1.7-12.0); Neutrophils Absolute Auto 6.1 10^3/uL (1.4-6.5); Neutrophils Percent Auto 66.7 % (43.0-75.0); Platelet Count 228 10^3/uL (150-450); Red Blood Count 3.72 10^6/uL (4.70-6.10); Red Cell Distribution Width 13.3 % (11.0-15.0); White Blood Count 9.2 10^3/uL (4.0-11.0)
[2024-08-30 03:16] LABS: Vitamin B12 312 pg/mL (232-1245)
== END 2024-08-29 09:42 | disposition home or self-care (01) ==
LOC: LAB 09:44
PROVIDERS: PCP Internal Medicine; Visit Provider Internal Medicine
DX: D64.9 Anemia, unspecified (principal)
CPT/HCPCS: 36415; 82607; 82746; 83921; 85025

== ENCOUNTER 2024-10-31 13:50 | Outpatient (OUT) | payer MEDICARE, SELFPAY ==
[2024-10-31 14:16] LABS: Basophils Absolute Auto 0.1 10^3/uL (0.0-0.1); Basophils Percent Auto 0.9 % (0.2-2.0); Eosinophils Absolute Auto 0.4 10^3/uL (0.0-0.7); Hemoglobin 11.1 g/dL (14.0-18.0); Immature Granulocytes Abs Auto 0.04 10^3/uL (0.00-0.03); Immature Granulocytes Pct Auto 0.3 % (0.0-0.5); Lymphocytes Absolute Auto 1.4 10^3/uL (1.2-3.8); Lymphocytes Percent Auto 11.5 % (20.5-60.0); Mean Corpuscular HGB Conc 32.6 g/dL (29.9-35.2); Mean Corpuscular Hemoglobin 33.6 pg (25.9-34.0); Mean Platelet Volume 10.9 fL (9.5-13.5); Monocytes Percent Auto 8.2 % (1.7-12.0); Neutrophils Absolute Auto 9.2 10^3/uL (1.4-6.5); Neutrophils Percent Auto 76.1 % (43.0-75.0); Platelet Count 211 10^3/uL (150-450); Red Cell Distribution Width 13.1 % (11.0-15.0); White Blood Count 12.1 10^3/uL (4.0-11.0)
[2024-10-31 14:44] LABS: Percent Iron Saturation 16.7 %
[2024-10-31 14:59] LABS: Prostate Specific Antigen Dx 1.27 ng/mL (<=4.00)
[2024-11-01 03:06] LABS: Vitamin B12 598 pg/mL (232-1245)
== END 2024-10-31 13:51 | disposition home or self-care (01) ==
LOC: LAB 13:52
PROVIDERS: PCP Internal Medicine; Visit Provider Internal Medicine
DX: D52.9 Folate deficiency anemia, unspecified (principal); R97.20 Elevated prostate specific antigen [PSA]
CPT/HCPCS: 36415; 82607; 82728; 83540; 83550; 84153; 85025

== ENCOUNTER 2025-03-03 09:45 | Outpatient (OUT) | payer MEDICARE, SELFPAY ==
[2025-03-03 10:15] LABS: Basophils Absolute Auto 0.1 10^3/uL (0.0-0.1); Basophils Percent Auto 1.4 % (0.2-2.0); Eosinophils Absolute Auto 0.4 10^3/uL (0.0-0.7); Eosinophils Percent Auto 4.7 % (0.9-7.0); Hematocrit 36.6 % (42.0-54.0); Hemoglobin 11.6 g/dL (14.0-18.0); Immature Granulocytes Abs Auto 0.02 10^3/uL (0.00-0.03); Immature Granulocytes Pct Auto 0.2 % (0.0-0.5); Lymphocytes Absolute Auto 1.5 10^3/uL (1.2-3.8); Lymphocytes Percent Auto 16.4 % (20.5-60.0); Mean Corpuscular HGB Conc 31.7 g/dL (29.9-35.2); Mean Corpuscular Volume 104.3 fL (80.0-94.0); Mean Platelet Volume 10.6 fL (9.5-13.5); Monocytes Absolute Auto 0.9 10^3/uL (0.3-0.8); Monocytes Percent Auto 9.6 % (1.7-12.0); Neutrophils Percent Auto 67.7 % (43.0-75.0); Platelet Count 298 10^3/uL (150-450); Red Blood Count 3.51 10^6/uL (4.70-6.10); Red Cell Distribution Width 13.2 % (11.0-15.0); White Blood Count 8.9 10^3/uL (4.0-11.0)
[2025-03-04 05:27] LABS: Vitamin B12 1463 pg/mL (232-1245)
== END 2025-03-03 09:46 | disposition home or self-care (01) ==
LOC: LAB 09:48
PROVIDERS: PCP Internal Medicine; Visit Provider Internal Medicine
DX: D52.9 Folate deficiency anemia, unspecified (principal); D64.9 Anemia, unspecified
CPT/HCPCS: 36415; 82607; 82728; 82746; 85025

== ENCOUNTER 2025-03-29 08:56 | Outpatient (OUT) | payer MEDICARE, SELFPAY ==
--- OUTSIDE RECORDS SUMMARY | 2025-03-29 08:58 | XMS_ITS | Encounter Summary ---
Author Organization [facility] Address [address] [place] [address] Phone Care Team Providers Care Retail Sales Consultant Name Role Phone Alonzo Gray Primary Care Provider Encounter Details Date Type Department Care Team (Late st Contact Info) Description 11/02/2024 Scanned Document [facility] [address] [place] [phone] Scanning, Generic Provider Social History Tobacco Use Types Packs/Day Years Used Date Smoking Tobacco: Every Day Cigarettes Smokeless Tobacco: Never Alcohol Use Standard Drinks/Week Comments Never 0 (1 standard drink = 0.6 oz pur e alcohol) Sex and Gender Information Value Date Recorded Sex Assigned at Not on file Legal Sex Male 12:18 PM EST Gender Identity Not on file Sexual Orientation Not on file documented as of this encounter Plan of Treatment Upcoming Encounters Date Type Department Care Team (Late st Contact Info) Description 04/19/2025 8:45 AM EDT Appointment [id number] [place] [phone] 10/05/2025 9:30 AM EST Office Visit [address] [phone] Terri Velazco MD 703 [facility] 2, [address] [id number] Scheduled Orders Name Type Priority Associated Diagnoses Orde r Schedule Ultrasound- OnBase Scan Imaging O rdered: 11/02/2024 documented as of this encounter Visit Diagnoses Not on filedocumented in this encounter Additional Health Concerns Assessment Noted Time A fall risk assessment has been complete d for the patient 05/19/2024 1:43 PM EDT documented as of this encounter Care Teams Retail Sales Consultant Relationship Specialty Start Date End Date Alonzo Gray DO PCP - General 11/02/20 documented as of this encounter
--- OUTSIDE RECORDS SUMMARY | 2025-03-29 08:58 | XMS_ITS | Clinical Summary ---
Author Organization [facility] Address [address] [place] [address] Care Team Providers Care Furnace Room Supervisor Name Role Phone Unavailable Primary Care Provider Unavailabl e Social History Tobacco Use Types Packs/Day Years Used Date Smoking Tobacco: Never Assessed Sex and Gender Information Value Date Recorded Sex Assigned at Not on file Legal Sex Male 12:33 AM EST Gender Identity Not on file Sexual Orientation Not on file Plan of Treatment Not on file
--- OUTSIDE RECORDS SUMMARY | 2025-03-29 08:58 | XMS_ITS | Encounter Summary ---
Author Organization [facility] Address [address] [place] [address] Phone Care Team Providers Care Melt Supervisor Name Role Phone Alonzo Gray DO Primary Care Provider Encounter Details Date Type Department Care Team (Late st Contact Info) Description 07/16/2022 Orders Only [facility] [address] [place] [address] Conversion, Onbase Social History Tobacco Use Types Packs/Day Years [...] Info) Description 04/19/2025 8:45 AM EDT Appointment [address] [place] [phone] 10/05/2025 9:30 AM EST Office Visit [address] [place] [phone] Terri Velazco MD 703 [facility] 2, [address] [place] [address] Scheduled Orders Name Type Priority Associated Diagnoses Orde r Schedule OUTSIDE LAB SCAN Lab Ordered: 07/16/2022 documented as of this encounter Visit Diagnoses Not on filedocumented in this encounter Care Teams Melt Supervisor Relationship Specialty Start Date End Date Alonzo Gray DO PCP - General 11/02/20 documented as of this encounter
--- OUTSIDE RECORDS SUMMARY | 2025-03-29 08:58 | XMS_ITS | Encounter Summary ---
Author Organization [facility] Address [address] [place] [address] Phone Care Team Providers Care Compliance Testing Analyst Name Role Phone Alonzo Gray DO Primary Care Provider [phone] Encounter Details Date Type Department Care Team (Late st Contact Info) Description 08/06/2022 Orders Only [facility] [address] [place] [address] Conversion, Onbase Social History Tobacco Use Types [...] Info) Description 04/19/2025 8:45 AM EDT Appointment [address] [place] [phone] 10/05/2025 9:30 AM EST Office Visit [address] [place] [phone] Terri Velazco MD 703 [facility] 2, [address] [place] [address] Scheduled Orders Name Type Priority Associated Diagnoses Orde r Schedule OUTSIDE LAB SCAN Lab Ordered: 08/06/2022 documented as of this encounter Visit Diagnoses Not on filedocumented in this encounter Care Teams Compliance Testing Analyst Relationship Specialty Start Date End Date Alonzo Gray DO PCP - General 11/02/20 documented as of this encounter
--- OUTSIDE RECORDS SUMMARY | 2025-03-29 08:58 | XMS_ITS | Clinical Summary ---
Author Organization [facility] Address [address] [place] [address] Phone Care Team Providers Care Managing Principal Name Role Phone Alonzo Gray DO Primary Care Provider [phone] Allergies Active Allergy Reactions Criticality Noted Date Comments Cephalexin Anaphylaxis High 09/19/2023 Penicillins Anaphylaxis High 09/19/2023 Medications aspirin 81 mg EC tablet Take 1 tablet (81 mg) by mouth once daily. Active vitamin E mixed 400 unit capsule Take 1 capsule by mouth once daily. Active atorvastatin (Lipitor) 80 mg tablet Take 1 tablet (80 mg) by mouth once daily in the evening. Active clopidogrel (Plavix) 75 mg tablet Take 1 tablet (75 mg) by mouth once daily. Active Entresto 97-103 mg tablet Take 1 tablet by mouth 2 times a day. 08/06/20 22 Active cholecalciferol (Vitamin D-3) 25 MCG (1000 UT) tablet Take 1 tablet (25 mcg) by mouth once daily. Active empagliflozin (Jardiance) 10 mgIndications:Card iomyopathy, unspecified type (Multi) Take 1 tablet (10 mg) by mouth once daily. 90 tablet 3 09/21/20 24 025 Active spironolactone (Aldactone) 25 mg tabletIndications: Dilated cardiomyopathy (Multi),Primary hypertension Take 1 tablet (25 mg) by mouth once daily. 90 tablet 3 11/01/20 24 025 Active folic acid (Folvite) 1 mg tablet Take 1 tablet (1 mg) by mouth once daily. Active buPROPion XL (Wellbutrin XL) 150 mg 24 hr tablet Take 1 tablet (150 mg) by mouth once daily in the morning. Take before meals. 12/29/19 25 Active carvedilol (Coreg) 6.25 mg tabletIndications: Cardiomyopathy, unspecified TAKE 1 TABLET BY MOUTH TWICE A DAY WITH FOOD 180 tablet 3 03/29/20 25 Active carvedilol (Coreg) 6.25 mg tabletIndications: Cardiomyopathy, unspecified TAKE 1 TABLET BY MOUTH TWICE A DAY WITH MEALS 180 tablet 3 04/21/20 24 025 Discontinued Active Problems Problem Noted Date Diagnosed Date Body mass index (BMI) 19.9 or less, adult 2023 Abnormal EKG 09/19/2023 Abnormal stress test 09/19/2023 Asymptomatic bilateral carotid artery stenosis 1 11/19/2022 Atrial fibrillation (Multi) 09/19/2023 Cardiomyopathy 09/19/2023 Hypertension 09/19/2023 Hyperlipidemia 09/19/2023 Shortness of breath 09/19/2023 Current smoker 09/19/2023 Encounters Date Type Department Care Team Description 03/24/[address] [address] Suyapa Rosales MD Cardiomyopathy, unspecified 03/10/[address] [place] [address] [place] [phone] Ruth Tamez, DRAWBENCH OPERATOR HELPER Results 03/09/2025 7:45 AM EDT - 03/09/2025 11:59 PM EDT Hospital Encounter [address] [place] [address] [place] [address] Discharge Disposition: Home 03/09/2025 7:44 AM EDT Hospital Encounter [address] [place] [address] Discharge Disposition: Home 03/09/2025 7:44 AM EDT Hospital Encounter [address] [place] [address] [place] [address] Discharge Disposition: Home 03/09/2025 7:44 AM EDT Hospital Encounter [address] [phone] Discharge Disposition: Home 03/09/2025 7:44 AM EDT Hospital Encounter [facility] [place] [phone] Left ventricular systolic dysfunction; Paroxysmal atrial fibrillation (Multi); Shortness of breath Discharge Disposition: Home 03/09/2025 Travel 02/09/2025 9:40 AM EDT Office [facility] [place] [phone] Michelle Velazco MD Left ventricular systolic dysfunction (Primary Dx); Primary hypertension; Paroxysmal atrial fibrillation (Multi); Asymptomatic bilateral carotid artery stenosis; Mixed hyperlipidemia; Shortness of breath; Current smoker; Body mass index (BMI) 19.9 or less, adult; H/O carotid endarterectomy; Chronic obstructive pulmonary disease, unspecified COPD type (Multi) 02/09/2025 Travel from Last 3 Months Immunizations Immunization Administration Dates Next Due Influenza, seasonal, injectable 08/02/2024 Family History Medical History Relation Name Comments Heart disease Father Relation Name Status Comments Father Social History Tobacco Use Types Packs/Day Years Used Date Smoking Tobacco: Every Day Cigarettes Smokeless Tobacco: Never Tobacco Cessation:Ready to Q uit: Yes; Counseling Given: Yes Alcohol Use Standard Drinks/Week Comments Never 0 (1 standard drink = 0.6 oz pur e alcohol) Sex and Gender Information Value Date Recorded Sex Assigned at Not on file Legal Sex Male 12:18 PM EST Gender Identity Not on file Sexual Orientation Not on file COVID-19 Exposure Response Date Recorded In the last 10 days, have yo u been in contact with someone who was confirmed or suspected to have Coronavirus/COVID-19? No / Unsure 03/09/2025 7:44 AM EDT Last Filed Vital Signs Vital Sign Reading Time Taken Comments Blood Pressure 118/78 03/09/2025 8:55 AM EDT Pulse 52 03/09/2025 8:55 AM EDT Temperature - - Respiratory Rate - - Oxygen Saturation - - Inhaled Oxygen Concentration - - Weight 67.1 kg (148 lb) 02/09/2025 9:58 AM EDT Height 189.2 cm (6' 2.5 ) 02/09/2025 9:58 AM EDT Body Mass Index 18.75 02/09/2025 9:58 AM EDT Plan of Treatment Upcoming Encounters Date Type Department Care Team (Late st Contact Info) Description 04/19/2025 8:45 AM EDT Appointment [facility] [address] [facility] [address] [place] [phone] 10/05/2025 9:30 AM EST Office Visit [facility] [address] [facility] [address] [place] [phone] Michelle Velazco MD [address] [place] [address] [place] [address] Health Maintenance Due Date Last Done Comments Creatinine Level 1945 Lipid Panel 1945 Medicare Annual Wellness Visit (AWV) 1945 Potassium Level 1945 Diabetes Screening 1965 Hepatitis C Screening 1965 Pneumococcal Vaccine (1 of 2 - PCV) 1966 DTaP/Tdap/Td Vaccines (1 - Tdap) 1969 Zoster Vaccines (1 of 2) 1997 RSV High Risk: (Elderly (60+) or Population) (1 - 1-dose 75+ series) 2022 Echocardiogram 11/19/2023 11/19/2022, 11/02, 01/27/2022, Additional history exists COVID-19 Vaccine ( season) 2024 09/02/2022, 09/02/2021, 12/31/2020, Additional history exists Influenza Vaccine Completed 09/02/2024, , 08/17/2023, Additional history exists HIB Vaccines Aged Out No longer eligi ble based on patient's age to complete this topic HPV Vaccines Aged Out No longer eligi ble based on patient's age to complete this topic Hepatitis A Vaccines Aged Out No long er eligible based on patient's age to complete this topic Hepatitis B Vaccines Aged Out No long er eligible based on patient's age to complete this topic IPV Vaccines Aged Out No longer eligi ble based on patient's age to complete this topic Meningococcal Vaccine Aged Out No yunior haider eligible based on patient's age to complete this topic Rotavirus Vaccines Aged Out No longer eligible based on patient's age to complete this topic Procedures Procedure Name Priority Date/Time Associated Diagnosis Comments STRESS TEST, REGADENOSON W MYOCARDIAL PERFUSION SPECT (MULTI STUDY) Routine 03/09/2025 10:05 AM EDT Left ventricular systolic dysfunction Paroxysmal atrial fibrillation (Multi) Shortness of breath ECHOCARDIOGRAM Routine 11/19/2022 from Last 3 Months or Most Recently Relevant to Health Maintenance Results * STRESS TEST, REGADENOSON W MYOCARDIAL PERFUSION SPECT (MULTI STUDY) (03/09/2025 10:05 AM EDT) Anatomical Region Laterality Modality Nuclear Medicine 03/09/2025 12:3 9 PM EDT 03/09/2025 12:39 PM EDT Impressions 03/09/2025 12:38 PM EDT Normal Lexiscan Myoview cardiac perfusion stress test. No evidence of ischemia or myocardial infarction by perfusion imaging. Normal left ventricular systolic function, ejection fraction 59%. No change when compared to previous study. Signed by: Richy Delgadillo 03/09/2025 12:38 PM Dictation workstation: [id number] Narrative 03/09/2025 12:38 PM EDT Interpreted By: Richy Delgadillo and Giannuzzi Michael STUDY: MYOCARDIAL PERFUSION STRESS TEST WITH LEXISCAN Performing facility: [facility], [address] [place] [address], [address], [place] [id number] [facility] Provider: Michelle Velazco MD, FACC PCP: Dr. Vanda Gray Supervising provider: Michelle Velazco MD, FACC INDICATION: Signs/Symptoms:dyspnea cm ,I51.89 Other ill-defined heart diseases,I48.0 Paroxysmal atrial fibrillation (Multi),R06.02 Shortness of breath HISTORY: Gender: M; Age: 79 y/o ; Height: HT 189.2 cm cm; Weight: WT 67.132 kg kg. Abnormal EKG; High Cholesterol; HTN; Arrhythmias;a-fib SOB; COPD; Currently smoking. COMPARISON: Previous nuclear testing completed at [facility]. ACCESSION NUMBER(S): [id number] ORDERING CLINICIAN: MICHELLE VELAZCO TECHNIQUE: ONE DAY protocol. Stress injection: Date:03-09-25, 34.5 mCi of Myoview IV 20 seconds after rapid injection of Lexiscan. Rest injection: Date: 03-09-25, 10.5 mCi of Myoview IV at rest. The patient had a rapid injection of 0.4 mg of Lexiscan IV over 10 seconds. Imaging was performed by gated tomographic technique. Reason for Lexiscan: hip/knee pain STRESS TEST DATA: Resting heart rate was 52 BPM. Resting blood pressure was 118/78 mmHg. Peak blood pressure was 106/72 mmHg. Peak heart rate was 78 BPM. TEST TERMINATED DUE TO: Protocol completed FINDINGS: STRESS TEST RESULTS: Resting electrocardiogram revealed normal sinus rhythm with nonspecific ST-T changes. There were no significant ischemic ECG changes or dysrhythmias. The patient did not have chest pains/symptoms during procedure. There was a normal recovery phase. IMAGING RESULTS: Image quality was good. Rest and stress tomographic images were reviewed and revealed normal perfusion without evidence of ischemia, myocardial infarction, or left ventricular dilatation with stress. Overall left ventricular systolic function appeared to be normal without regional wall motion abnormalities. Ejection fraction was 59%. TID is 1.04 and is normal. There was evidence of diaphragmatic attenuation artifact. Procedure Note Richy Delgadillo MD - 03/09/2025 Interpreted By: Richy Delgadillo and Giannuzzi Michael STUDY: MYOCARDIAL PERFUSION STRESS TEST WITH LEXISCAN Performing facility: [facility], [address] [place] [address], [address], [place] [id number] [facility] Provider: Michelle Velazco MD, FACC PCP: Dr. Vanda Gray Supervising provider: Michelle Velazco MD, FACC INDICATION: Signs/Symptoms:dyspnea cm ,I51.89 Other ill-defined heart diseases,I48.0 Paroxysmal atrial fibrillation (Multi),R06.02 Shortness of breath HISTORY: Gender: M; Age: 79 y/o ; Height: HT 189.2 cm cm; Weight: WT 67.132 kg kg. Abnormal EKG; High Cholesterol; HTN; Arrhythmias;a-fib SOB; COPD; Currently smoking. COMPARISON: Previous nuclear testing completed at [facility]. ACCESSION NUMBER(S): [id number] ORDERING CLINICIAN: MICHELLE VELAZCO TECHNIQUE: ONE DAY protocol. Stress injection: Date:03-09-25, 34.5 mCi of Myoview IV 20 seconds after rapid injection of Lexiscan. Rest injection: Date: 03-09-25, 10.5 mCi of Myoview IV at rest. The patient had a rapid injection of 0.4 mg of Lexiscan IV over 10 seconds. Imaging was performed by gated tomographic technique. Reason for Lexiscan: hip/knee pain STRESS TEST DATA: Resting heart rate was 52 BPM. Resting blood pressure was 118/78 mmHg. Peak blood pressure was 106/72 mmHg. Peak heart rate was 78 BPM. TEST TERMINATED DUE TO: Protocol completed FINDINGS: STRESS TEST RESULTS: Resting electrocardiogram revealed normal sinus rhythm with nonspecific ST-T changes. There were no significant ischemic ECG changes or dysrhythmias. The patient did not have chest pains/symptoms during procedure. There was a normal recovery phase. IMAGING RESULTS: Image quality was good. Rest and stress tomographic images were reviewed and revealed normal perfusion without evidence of ischemia, myocardial infarction, or left ventricular dilatation with stress. Overall left ventricular systolic function appeared to be normal without regional wall motion abnormalities. Ejection fraction was 59%. TID is 1.04 and is normal. There was evidence of diaphragmatic attenuation artifact. IMPRESSION: Normal Lexiscan Myoview cardiac perfusion stress test. No evidence of ischemia or myocardial infarction by perfusion imaging. Normal left ventricular systolic function, ejection fraction 59%. No change when compared to previous study. Signed by: Richy Delgadillo 03/09/2025 12:38 PM Dictation workstation: [id number] us Michelle Velazco MD CV STRESS PROCEDURES Final R esult * Echocardiogram (11/19/2022) 11/19/2022 [facility] RADIOLOGY SYSTEM - 11/19/2022 12:[address], [address] [place], [place] [address] TRANSTHORACIC ECHOCARDIOGRAM REPORT [facility] [id number] Richy Delgadillo MD Study Date: 11/19/2022 Referring Physician: SUYAPA ROSALES MRN/PID: [id number] PCP: Alonzo Gray Accession/Order#: [id number] Department Location: [facility] Date of : 1945 Fellow: Gender: M Nurse: Admit Date: Knife Changer: Marcia Fernandez RDCS, RVT Height: 187.96 cm CC Report to: Weight: 75.30 kg Study Type: Echocardiogram BSA: 2.01 m2 Blood Pressure: 150 /86 mmHg Diagnosis/ICD: I42.9-Cardiomyopathy, unspecified; R06.02-Shortness of breath Indication: Atrial Fibrillation, HTN, Hyperlipidemia, Tobacco Abuse, Carotid Stenosis Procedure/CPT: Echo Complete w Full [id number] Study Detail: The following Echo studies were [...] 0.5 m/s (0.6-0.9m/s) PV Max P.2 mmHg [id number] Richy Delgadillo MD Electronically signed on 11/19/2022 at 5:56:19 PM Final Procedure Note Conversion, Syngo - 12/05/[address], [address], [place] [address] TRANSTHORACIC ECHOCARDIOGRAM REPORT Patient Name: IVAN Arciniega Physician: [id number] De Luna MD Study Date: 11/19/2022 Referring Physician: SUYAPA ROSALES MRN/PID: [id number] PCP: Alonzo Gray Accession/Order#: [id number] Department Location: [facility] Date of : 1945 Fellow: Gender: M Nurse: Admit Date: Knife Changer: Marcia Fernandez RDCS,RVT Height: 187.96 cm CC Report to: Weight: 75.30 kg Study Type: Echocardiogram BSA: 2.01 m2 Blood Pressure: 150 /86 mmHg Diagnosis/ICD: I42.9-Cardiomyopathy, unspecified; R06.02-Shortness ofbreath Indication: Atrial Fibrillation, HTN, Hyperlipidemia, Tobacco Abuse,Carotid Stenosis Procedure/CPT: Echo Complete w Full [id number] Study Detail: The following Echo studies were performed: 2D, M-Mode,Doppler and color flow. PHYSICIAN INTERPRETATION: Left Ventricle: Left ventricular systolic function is moderatelydecreased, with an estimated ejection fraction of 35-40%. There are noregional wall motion abnormalities. The left ventricular cavity size isnormal. Spectral Doppler shows an impaired relaxation pattern of leftventricular diastolic filling. Mild LVH. Left Atrium: The left atrium is mildly dilated. Mildly dilated leftatrium. Right Ventricle: The right ventricle is normal in size. There is normalright ventricular global systolic function. Right Atrium: The right atrium is normal in size. Aortic Valve: The aortic valve appears structurally normal. There is noevidence of aortic valve regurgitation. The peak instantaneous gradient ofthe aortic valve is 4.2 mmHg. The mean gradient of the aortic valve is 2.0mmHg. Mitral Valve: The mitral valve is normal in structure. There is mildmitral valve regurgitation. Tricuspid Valve: The tricuspid valve is structurally normal. No evidenceof tricuspid regurgitation. Pulmonic Valve: The pulmonic valve is structurally normal. There is noindication of pulmonic valve regurgitation. Pericardium: There is no pericardial effusion noted. Aorta: The aortic root is normal. CONCLUSIONS: 1. Left ventricular systolic function is moderately decreased with a35-40% estimated ejection fraction. 2. Mild LVH. 3. Spectral Doppler shows an impaired relaxation pattern of leftventricular diastolic filling. 4. Mildly dilated left atrium. 5. Mild mitral valve regurgitation. 6. When compared to prior study there is evidence of improvement of leftventricular systolic function. QUANTITATIVE DATA SUMMARY: 2D MEASUREMENTS: [...] 0.5 m/s (0.6-0.9m/s) PV Max P.2 mmHg [id number] Richy Delgadillo MD Electronically signed on 11/19/2022 at 5:56:19 PM Final us Syngo Conversion CV ECHO PROCEDURES Final Result [facility] [address] from Last 3 Months or Most Recently Relevant to Health Maintenance Insurance [employer]ARE LINDSEYELIAS NELSON MEDICARE Care Teams Managing Principal Relationship Specialty Start Date End Date Alonzo Gray DO PCP - General 11/02/20
--- OUTSIDE RECORDS SUMMARY | 2025-03-29 08:58 | XMS_ITS | Encounter Summary ---
Author Organization [facility] Address [address] [place] [address] Phone Care Team Providers Care Front End Ui Developer Name Role Phone Alonzo Gray DO Primary Care Provider [phone] Encounter Details Date Type Department Care Team (Late st Contact Info) Description 05/26/2024 Scanned Document [facility] [address] [place] [phone] Scanning, Generic Provider Social History Tobacco Use [...] suspected to have Coronavirus/COVID-19? No / Unsure 05/19/2024 1:29 PM EDT documented as of this encounter Plan of Treatment Upcoming Encounters Date Type Department Care Team (Late st Contact Info) Description 04/19/2025 8:45 AM EDT Appointment [place] [id number] [place] [address] [place] [address] 10/05/2025 9:30 AM EST Office Visit [address] [place] [phone] Terri Velazco MD [address] [facility] [address] [place] [address] [place] [address] documented as of this encounter Visit Diagnoses Not on filedocumented in this encounter Additional Health Concerns Assessment Noted Time A fall risk assessment has been complete d for the patient 05/19/2024 1:43 PM EDT documented as of this encounter Care Teams Front End Ui Developer Relationship Specialty Start Date End Date Alonzo Gray DO PCP - General 11/02/20 documented as of this encounter
--- OUTSIDE RECORDS SUMMARY | 2025-03-29 08:58 | XMS_ITS | Encounter Summary ---
Author Organization [facility] Address [address] [place] [address] Phone Care Team Providers Care Cooker Cleaner Name Role Phone Alnozo Gray DO Primary Care Provider [phone] Reason for Visit * Reason Comments Med Refill Encounter Details Date Type Department Care Team (Late st Contact Info) Description 03/24/[address] [address] Eran Peterson MD Retired From Practice Cardiomyopathy, unspecified Social History Tobacco Use Types Packs/Day Years [...] No / Unsure 03/09/2025 7:44 AM EDT documented as of this encounter Plan of Treatment Upcoming Encounters Date Type Department Care Team (Late st Contact Info) Description 04/19/2025 8:45 AM EDT Appointment [place] [address] [place] [address] 10/05/2025 9:30 AM EST Office Visit [address] [phone] Terri Velazco MD [address] [facility] [address] [place] [address] documented as of this encounter Visit Diagnoses Diagnosis Cardiomyopathy, unspecified documented in this encounter Additional Health Concerns Assessment Noted Time A fall risk assessment has been complete d for the patient 05/19/2024 1:43 PM EDT documented as of this encounter Care Teams Cooker Cleaner Relationship Specialty Start Date End Date Alonzo Gray DO PCP - General 11/02/20 documented as of this encounter
--- OUTSIDE RECORDS SUMMARY | 2025-03-29 08:58 | XMS_ITS | Encounter Summary ---
Author Organization [facility] Address [address] [place] [address] Phone Care Team Providers Care Can Repairer Name Role Phone Alonzo Gray Primary Care Provider [phone] Encounter Details Date Type Department Care Team (Late st Contact Info) Description 10/31/2024 Scanned Document [facility] [address] [place] [address] Scanning, Generic Provider Social History Tobacco Use [...] Info) Description 04/19/2025 8:45 AM EDT Appointment [place] [address] [place] [phone] 10/05/2025 9:30 AM EST Office Visit [address] [place] [phone] Terri Velazco MD 703 [facility] 2, [address] [phone] documented as of this encounter Visit Diagnoses Not on filedocumented in this encounter Additional Health Concerns Assessment Noted Time A fall risk assessment has been complete d for the patient 05/19/2024 1:43 PM EDT documented as of this encounter Care Teams Can Repairer Relationship Specialty Start Date End Date Alonzo Gray DO PCP - General 11/02/20 documented as of this encounter
--- OUTSIDE RECORDS SUMMARY | 2025-03-29 09:08 | XMS_ITS | CCD ---
Author Organization [facility] CliniSywv Care Team Providers Care Liquefaction And Regasification Helper Name Role Phone Alonzo Gray Unavailable Unavailable Unavailable Irma Pérez Unavailable Malcom Irene Unavailable DO Alonzo Gray Primary Care Provider MD Malcom Irene Attending Provider MD Malcom Irene Admit Provider BABS, DR ROSADO Primary Care Unavailable SANGEETHA, DR DAQUAN Solo Admitting Unavailable SANGEETHA, DR DAQUAN Solo Attending Unavailable SANGEETHA, DR DAQUAN Solo Consulting Unavailable KARIME, ALEXANDRIA Consulting Unavailable BABS, DR ROSADO Primary Care Unavailable SANGEETHA, DR DAQUAN Solo Admitting Unavailable VIVAS, DR DAQUAN Solo Attending Unavailable SANGEETHA, DR DAQUAN Solo Consulting Unavailable NATALIIA, YOHANA Consulting Unavailable BABS, DR ROSADO Admitting Unavailable BALL, DR ROSADO Attending Unavailable BALL, DR ROSADO Primary Care Unavailable BALL, DR ROSADO Consulting Unavailable BABS, DR ROSADO Primary Care Unavailable MISC, DR DONNELLY Admitting Unavailable MISC, DR DONNELLY Attending Unavailable MISC, DR DONNELLY Consulting Unavailable BABS, DR ROSADO Admitting Unavailable BABS, DR ROSADO Attending Unavailable BALL, DR ROSADO Primary Care Unavailable BABS, DR ROSADO Consulting Unavailable WEST, DR IVAN Harrison Consulting Unavailable DO Alonzo Gray Primary Care Provider MD Malcom Irene Admit Provider MD Malcom Irene Attending Provider RUPERT Pérez Attending Provider Maria Del Rosario, Dr. Alexandria Callaway Attending Unavail isamar Issa, Dr. Alexandria Callaway Referring Unavail able Babs, Dr. Alonzo Jesus Primary Care [facility] , Dr. Eran Potter Attending Unavailable Babs, Dr. Alonzo Jesus Primary Care Mau Irwin II, Dr. Eran Potter Attending Unavailable Nicholas WILKERSON, Dr. Eran Potter Referring Unavailable Babs, Dr. Alonzo Jesus Primary Care Mau Gray, Dr. Alonzo Jesus Primary Care Mau Irwin II, Dr. Eran Potter Attending Unavailable Nicholas WILKERSON, Dr. Eran Potter Referring Unavailable Babs, Dr. Alonzo Jesus Primary Care Mau Issa, Dr. Alexandria Callaway Attending Unavail able Maria Del Rosario, Dr. Alexandria Callaway Referring Unavail able Alonzo Gray Unavailable DO Alonzo Gray Primary Care Provider [phone] MD Malcom Irene Attending Provider [phone] Alonzo Gray DO Primary Care Provider Alonzo Gray DO Primary Care Provider [phone] Elisa GRAYSON-CIrma Attending Provider Irma Pérez Attending Unavailable Irma Pérez Admitting Unavailable Alonzo Gray Primary Care Unavailable Alonzo Gray DO Primary Care Provider [phone] Elisa GRAYSON-CIrma Attending Provider Alonzo Gray DO Primary Care Provider ERAN IRWIN Attending Unavailable ERAN IRWIN Referring Unavailable ALONZO GRAY Primary Care Unavailable TERRI VELAZCO Attending Unavailable ERAN IRWIN Referring Unavailable ALONZO GRAY Primary Care Unavailable TERRI VELAZCO Referring Unavailable ALONZO GRAY Primary Care Unavailable TERRI VELAZCO Referring Unavailable ALONZO GRAY Primary Care Unavailable Allergies Allergy Classification Reported Allergen(s) Allergy Type Date of Onset Reaction(s) Facility (20 sources) Cephalexin; Translations: [Keflex] Drug Allergy 09-19-20 23 Anaphylaxis [facility] (20 sources) Penicillins; Translations: [Penicillins] Allergy to drug (finding) 01-04-20 22 Anaphylaxis, Rash, Rash, anaphylaxis [facility] (8 sources) Penicillin V Drug Allergy anaphylaxis [facility] (18 sources) Cephalexin; Translations: [CEPHALEXIN] Drug Allergy 02-12-20 22 Anaphylaxis [facility] Comment on above: Pt. states he had di fficulty breathing, throat swelling, passed out. went to hospital, transferred to [place] had a fib (1 source) Cephalexin Drug Allergy 05-24-20 13 [facility] (1 source) Penicillins Drug allergy (disorder) 05-24-20 13 [facility] (12 sources) Penicillin Drug Allergy anaphylaxis [facility] Other (4 sources) Substance with penicillin structure and antibacterial mechanism of action (substance) Drug allergy 03-21-20 14 Unknown [facility] Other (9 sources) Tamsulosin HCl *GENITOURINARY AGENTS - MISCELLANEO Propensity to adverse reactions Comment:Harry funez also said that along with dizziness he didnt feel well when he took the tamsulosin. [facility] Other (4 sources) patient allergy list reviewed by nurse or physicia Propensity to adverse reactions 07-14-20 14 Comment:Done [facility] Other (12 sources) Tamsulosin HCl *GENITOURINARY Allergy to substance 11-23-19 24 Comment:Harry funez also said that along with dizziness he di... [facility] Comment on above: Free Text Allergy: T amsulosin HCl *GENITOURINARY AGENTS - MISCELLANEO; Reaction: Comment:Patient also said that along with dizziness he didnt feel well when he took the tamsulosin. (1 source) Penicillins Drug Allergy 09-19-20 Anaphylaxis [facility] Work Phone: (6 sources) Penicillins Drug Allergy 09-19-20 Anaphylaxis [facility] Work Phone: Medications Current Medications Medication Drug Class(es) Dates Sig (Normalized) Sig (Original) acetaminophen 500 mg oral tablet (14 sources) Start: 07-17-2022 take 2 tablets by mouth every six hours as needed for pain Acetaminophen 500 mg Tablet Active 1000 MG PO Q6H as needed for Fever Or Pain July 17, 2022 12:00am Start: 07-17-2022 take 1000 mg by mout h every six hours Acetaminophen Active 1000 MG PO Q6H July 17, 2022 12:00am [id number] 200 actuat albuterol 0.09 mg/actuat metered dose inhaler (19 sources) beta2-Adrenergic Agonist Start: 09-30-2024 take 2 puff(s) by inhalation every six hours as needed for wheezing Albuterol Sulfate 90 mcg/actuation HFA aerosol inhaler Active 0 .ROUTE .COMPLEX 8.5 September 30, 2024 8:04am INHALE 2 PUFFS EVERY 6 HOURS NEEDED FOR SHORTNESS OF BREATH OR WHEEZING FOR 30 DAYS Start: 09-02-2024 End: 09-30-2024 take 1 puff(s) by inhalation every six hours as needed for wheezing Albuterol Sulfate 90 mcg/actuation HFA aerosol inhaler Discontinued 2 PUFF INHALATION Every 6 hours as needed for shortness of breath or wheezing 8.5 30 September 02, 2024 12:00am September 30, 2024 8:04am amLODIPine 5 mg oral tablet (20 sources) Dihydropyridine Calcium Channel Taye Start: 12-10-2021 take 1 tablet by mouth once daily Amlodipine 5 mg Tablet Active 5 MG PO Daily February 11, 2022 12:00am amLODIPine Besyl ate Not-Taking amLODIPine Besyl ate Active aspirin 81 mg delayed release oral tablet (20 sources) Platelet Aggregation Inhibitor, Nonsteroidal Anti-inflammatory Drug Start: 02-11-2022 take 1 tablet by mouth once daily Aspirin 81 mg Tablet,Delayed Release (Dr/Ec) Active 81 MG PO Daily February 11, 2022 12:00am take 1 tablet by chris th every twenty-four hours Aspirin 81 MG 1 tablet Orally Once a day for 30 day(s) Active atorvastatin (20 sources) HMG-CoA Reductase Inhibitor Start: 01-27-2025 Atorvastatin 80 mg t ablet Active 0 .ROUTE .COMPLEX January 27, 2025 6:52am TAKE 1 TABLET DAILY IN THE EVENING Start: 02-03-2024 End: 01-27-2025 Atorvastatin 80 mg tablet Discontinued 0 .ROUTE .COMPLEX 90 February 03, 2024 9:57am January 27, 2025 6:52am TAKE 1 TABLET DAILY IN THE EVENING Start: 01-12-2022 End: 02-03-2024 take 1 tablet by mouth once daily at bedtime Atorvastatin 80 mg Tablet Discontinued 80 MG PO Daily at bedtime February 11, 2022 12:00am February 03, 2024 9:57am Atorvastatin Mahin cium Active buPROPion (14 sources) Aminoketone Start: 12-29-2024 take 1 tablet by mouth every twenty-four hours in the morning Bupropion Hcl 150 mg tablet extended release 24 hr Active 0 .ROUTE .COMPLEX 90 December 29, 2024 10:47pm TAKE 1 TABLET BY MOUTH IN THE MORNING Start: 12-06-2024 End: 12-29-2024 take 1 tablet by mouth once daily before mealtime buPROPion XL (Wellbutrin XL) 150 mg 24 hr tablet Take 1 tablet (150 mg) by mouth once daily in the morning. Take before meals. 12/29/2024 Active carvedilol 6.25 mg oral tablet (20 sources) alpha-Adrenergic Taye, beta-Adrenergic Taye Start: 04-21-2024 take 1 tablet by mouth twice daily at mealtime carvedilol (Coreg) 6.25 mg tablet Indications: Cardiomyopathy, unspecified TAKE 1 TABLET BY MOUTH TWICE A DAY WITH MEALS 180 tablet 3 04/21/2024 Active Start: 10-01-2022 take 1 tablet by chris twice daily at mealtime Carvedilol 6.25 MG Oral Tablet TAKE 1 TABLET BY MOUTH TWICE A DAY WITH MEALS Quantity: 180 Refills: 3 Ordered: 12-Jun-2023 Eran Irwin MD Start : 01-Oct-2022 Active Start: 06-18-2022 End: 05-23-2024 take 1 tablet by mouth twice daily Carvedilol 3.125 mg tablet Discontinued 3.125 MG PO Twice daily June 18, 2022 12:00am May 23, 2024 11:31am Carvedilol Activ e cholecalciferol 0.025 mg oral capsule (20 sources) Vitamin D Start: 02-11-2022 take 1 capsule by mouth once daily Cholecalciferol (Vitamin D3) (Vitamin D3) 25 mcg (1,000 unit) Capsule Active 1000 UNIT PO Daily February 11, 2022 12:00am Start: 02-11-2022 take 1 capsule by mo [facility] once daily Cholecalciferol (Vitamin D3) (Vitamin D3) 25 mcg (1,000 unit) Capsule Active 25 MCG PO Daily February 11, 2022 12:00am take 1 tablet by chris th once daily cholecalciferol (Vitamin D-3) 25 MCG (1000 UT) tablet Take 1 tablet (25 mcg) by mouth once daily. Active Vitamin D 1000 U NIT TABS TAKE 1 TABLET DAILY. Quantity: 0 Refills: 0 Ordered: 23-Jan-2022 DO Active clopidogrel 75 mg oral tablet (20 sources) P2Y12 Platelet Inhibitor Start: 02-03-2024 End: 01-27-2025 take 1 tablet by mouth once daily Clopidogrel 75 mg tablet Active 0 .ROUTE .COMPLEX January 27, 2025 6:52am TAKE 1 TABLET BY MOUTH EVERY DAY Start: 01-11-2022 End: 02-03-2024 take 1 tablet by mouth once daily in the morning Clopidogrel 75 mg Tablet Discontinued 75 MG PO Every morning February 11, 2022 12:00am February 03, 2024 9:57am Clopidogrel Bisu lfate Active empagliflozin 10 mg oral tablet (20 sources) Sodium-Glucose Cotransporter 2 Inhibitor Start: 05-23-2024 End: 09-21-2025 take 1 tablet by mouth once daily empagliflozin (Jardiance) 10 mg Indications: Cardiomyopathy, unspecified type (Multi) Take 1 tablet (10 mg) by mouth once daily. 90 tablet 3 09/21/2024 09/21/2025 Active Start: 05-23-2024 take 1 mg by mouth once daily Empagliflozin Active MG PO Daily May 23, 2024 12:00am FreeTextSig: daily orally; Note: Source Status: Taking; Provider: Babs Rosado ( ) Start: 10-01-2022 take 1 tablet by chris once daily Jardiance 10 mg Indications: Cardiomyopathy, unspecified (Multi) , Cardiomyopathy, unspecified type (Multi) TAKE 1 TABLET BY MOUTH EVERY DAY 30 tablet 11 09/21/2023 Active JARDIANCE Active folic acid 1 mg oral tablet (20 sources) Start: 03-07-2025 take 1 tablet by mouth once daily Folic Acid 1 mg tablet Active 1 MG PO Daily 90 90 March 07, 2025 11:22am Start: 07-20-2024 End: 03-07-2025 take 1 tablet by mouth once daily Folic Acid 1 mg tablet Discontinued 0 .ROUTE .COMPLEX July 20, 2024 10:26pm March 07, 2025 11:22am TAKE 1 TABLET BY MOUTH EVERY DAY Start: 07-20-2024 take 1 tablet by chris th once daily Folic Acid Active 0 .ROUTE .COMPLEX 90 July 20, 2024 10:26pm TAKE 1 TABLET BY MOUTH EVERY DAY Start: 06-27-2024 End: 07-20-2024 take 1 tablet by mouth once daily Folic Acid 1 mg tablet Discontinued 1 MG PO Daily June 27, 2024 12:00am July 20, 2024 10:26pm levoFLOXacin 500 mg oral tablet (11 sources) Quinolone Antimicrobial Start: 05-27-2024 take 1 tablet by mouth once daily Levofloxacin 500 mg tablet Active 500 MG PO Daily May 27, 2024 12:00am sacubitril 97 mg / valsartan 103 mg oral tablet (20 sources) Angiotensin 2 Receptor Taye Start: 08-15-2024 take 1 tablet by mouth twice daily Sacubitril-Valsart an (Entresto) 97-103 mg tablet Active 0 .ROUTE .COMPLEX 60 August 15, 2024 1:46pm TAKE 1 TABLET BY MOUTH TWICE A DAY Start: 06-18-2022 End: 08-15-2024 take 1 tablet by mouth twice daily Entresto 97-103 mg tablet Take 1 tablet by mouth 2 times a day. 08/06/2022 Active ENTRESTO Active spironolactone 25 mg oral tablet (20 sources) Aldosterone Antagonist Start: 05-23-2024 End: 11-01-2025 take 1 tablet by mouth once daily spironolactone (Aldactone) 25 mg tablet Indications: Dilated cardiomyopathy (Multi) , Primary hypertension Take 1 tablet (25 mg) by mouth once daily. 90 tablet 3 11/01/2024 11/01/2025 Active Start: 11-23-2023 take 1 tablet by chris th once daily spironolactone (Aldactone) 25 mg tablet Indications: Dilated cardiomyopathy (Multi) , Primary hypertension Take 1 tablet (25 mg) by mouth once daily. 90 tablet 3 11/23/2023 Active triamcinolone acetonide 0.001 mg/mg topical ointment (20 sources) Corticosteroid Start: 05-23-2024 Triamcinolone Acetonide 0.1 % ointment Active 1 APPLIC TOPICAL Twice daily May 23, 2024 12:00am FreeTextSi application Externally Twice a day; Note: Source Status: Taking; Provider: Babs Rosado ( ) Triamcinolone Ac etonide 0.1 % 1 application Externally Twice a day Active Vitamin D 1000 UNIT (9 sources) take 1 tablet by chris th once daily Vitamin D 1000 UNIT 1 tablet Orally Once a day for 30 day(s) Active vitamin e 180 mg oral capsule (20 sources) Start: 02-11-2022 take 1 capsule by mouth once daily Vitamin E 400 unit Capsule Active 400 UNIT PO Daily February 11, [...] Enzyme Inhibitor Start: 08-29-2021 End: 06-18-2022 take 1 tablet by mouth once daily Lisinopril 40 mg Tablet Discontinued 40 MG PO Daily February 11, 2022 12:00am June 18, 2022 11:24am take 1 tablet by chris th every twenty-four hours Lisinopril 10 MG 1 tablet Orally Once a day for 30 day(s) Not-Taking 24 hr metoprolol succinate 50 mg extended release oral tablet (20 sources) beta-Adrenergic Taye Start: 01-23-2022 End: 06-18-2022 take 1 tablet by mouth once daily Metoprolol Succinate 50 mg Tablet Extended Release 24 Hr Discontinued 50 MG PO Daily February 11, 2022 12:00am June 18, 2022 11:24am Metoprolol Succi julio Active regadenoson (Lexiscan) injection 0.4 mg (1 source) Start: 03-09-2025 End: 03-09-2025 0.4 mg, intravenous, Once, O n Germaine 03/09/25 at 0845, For 1 dose Tc-99m tetrofosmin (Myoview) injection 10 millicurie (1 source) Start: 03-09-2025 End: 03-09-2025 10 millicurie, intravenous, Once in imaging, Starting on Thu03/09/25 at 0801, For 1 dose, Administer 45 to 90 minutes prior to imaging unless otherwise indicated. Tc-99m tetrofosmin (Myoview) injection 30 millicurie (1 source) Start: 03-09-2025 End: 03-09-2025 30 millicurie, intravenous, Once in imaging, Starting on Germaine 03/09/25 at 0912, For 1 dose, Administer 45 to 90 minutes prior to imaging unless otherwise indicated. Vitamin E-400 CAPS (13 sources) Vitamin E-400 CA PS TAKE 1 CAPSULE Daily Quantity: 0 Refills: 0 Ordered: 23-Jan-2022 DO Active Problems Active Problems Problem Classification Problem Date Documented Da te Episodic/Chronic Acute bronchitis (20 sources) Acute bronchitis; Translations: [Acute bronchitis due to other specified organisms] Onset: 03-21-2014 Episodic Allergic reactions (20 sources) Irritant contact dermatitis due to detergents; Translations: [Irritant contact dermatitis caused by detergent] Episodic Cardiac dysrhythmias (20 sources) Atrial fibrillation; Translations: [Atrial fibrillation] Onset: 09-19-2023 Chronic Chronic obstructive pulmonary disease and bronchiectasis (20 sources) Chronic obstructive pulmonary disease with (acute) exacerbation; Translations: [Mucopurulent chronic bronchitis] Onset: 05-24-2019 Chronic Congestive heart failure; nonhypertensive (20 sources) Heart failure with reduced ejection fraction; Translations: [Unspecified systolic (congestive) heart failure] Chronic Deficiency and other anemia (11 sources) Anemia; Translations: [Anemia, unspecified] 06-27-2024 Episodic Comment on above: Normal B12, elevated MMA.Low FA, Fe, Tsat%.Normal Ferritin, TIBC.Rx: FA 1mg qd, B12 1000mcg monthlyHemoccult?EGD, colonoscopy? Deficiency and other anemia (10 sources) Pernicious anemia; Translations: [Vitamin B12 deficiency anemia due to intrinsic factor deficiency] 09-13-2024 Episodic Deficiency and other anemia (10 sources) Anemia, unspecified; Translations: [Anemia, unspecified] 09-02-2024 Episodic Disorders of lipid metabolism (20 sources) Hyperlipidemia; Translations: [Other and unspecified hyperlipidemia] Onset: 09-19-2023 Chronic Diverticulosis and diverticulitis (9 sources) Diverticulitis of colon; Translations: [Diverticulitis of colon (without mention of hemorrhage)] Onset: 07-14-2014 Chronic Essential hypertension (20 sources) Hypertensive disorder; Translations: [Unspecified essential hypertension] Onset: 07-25-2022 Chronic Hyperplasia of prostate (20 sources) Lower urinary tract symptoms due to benign prostatic hypertrophy; Translations: [Benign prostatic hyperplasia with lower urinary tract symptoms] Onset: 10-16-2015 Chronic Immunizations and screening for infectious disease (9 sources) Vaccination given; Translations: [Encounter for immunization] Episodic Occlusion or stenosis of precerebral arteries (20 sources) Bilateral stenosis of carotid arteries; Translations: [Occlusion and stenosis of carotid artery without mention of cerebral infarction] Onset: 12-20-2021 Resolved: 05-20-2022 Chronic Comment on above: Problem List clean-u p per request of Phys. 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 CURRENT DRUG THERAPY] Onset: 07-25-2022 Episodic Other and ill-defined heart disease (2 sources) Left ventricular systolic dysfunction; Translations: [Other ill-defined heart diseases] 02-09-2025 Chronic Other and ill-defined heart disease (2 sources) Other ill-defined heart diseases; Translations: [Other ill-defined heart diseases] Onset: 03-09-2025 Chronic Other circulatory disease (12 sources) H/O: cardiovascular disease; Translations: [Personal history of other diseases of the circulatory system] 05-19-2024 Episodic Comment on above: s/p B/L 2021 Other circulatory disease (12 sources) Personal history of other diseases of the circulatory system; Translations: [Personal history of other diseases of circulatory system] 05-23-2024 Episodic Other connective tissue disease (1 source) Other specified soft tissue disorders; Translations: [OTHER SPEC SOFT TISSUE DISORDERS] Onset: 07-25-2022 Episodic Other ear and sense organ disorders (20 sources) Impacted cerumen; Translations: [Impacted cerumen, bilateral] Episodic Other lower respiratory disease (20 sources) Dyspnea; Translations: [Shortness of breath] Onset: 07-23-2022 Episodic Dian-; endo-; and myocarditis; cardiomyopathy (except that caused by tuberculosis or sexually transmitted disease) (20 sources) Cardiomyopathy; Translations: [Other primary cardiomyopathies] Onset: 02-05-2022 Resolved: 02-05-2022 Chronic Peripheral and visceral atherosclerosis (20 sources) Peripheral vascular disease, unspecified; Translations: [PAD (peripheral artery disease)] Chronic Residual codes; unclassified (15 sources) Body mass index 20-24 - normal; Translations: [Body Mass Index between 19-24, adult] Episodic Residual codes; unclassified (3 sources) Other specified postprocedural states; Translations: [OTH SPECIFIED POSTPROCEDURAL STATES] Onset: 07-25-2022 Episodic Residual codes; unclassified (1 source) Localized edema; Translations: [LOCALIZED EDEMA] Onset: 07-25-2022 Episodic Residual codes; unclassified (8 sources) Procedure [...] sources) Smoker; Translations: [Tobacco use disorder] Onset: 03-21-2014 Resolved: 12-23-2021 Chronic Comment on above: 1/2 pack per day; 1/4 pack per day; LDCT: no suspicious nodules - 05/2023, 06/2024 Unclassified (1 source) CONTACT W/AND (SUSP) EXPOS COVID-19; Translations: [CONTACT W/AND (SUSP) EXPOS COVID-19] Onset: 06-05-2022 Past or Other Problems Problem Classification Problem [...] Resolved: 03-18-2022 Episodic Other aftercare (1 source) long term (current) use of antithrombotics/antipla telets; Translations: [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 ANTITHROMBOT/ANTIPLATLE TS] Onset: 03-17-2022 Episodic Other circulatory disease (4 [...] of popliteal space] Onset: 05-24-2019 Episodic Other lower respiratory disease (6 sources) Shortness of breath; Translations: [SHORTNESS OF BREATH] Onset: 07-25-2022 Episodic Other non-traumatic joint disorders (8 sources) Arthralgia of the lower leg; Translations: [Pain in left knee] Onset: 04-18-2014 Episodic Other non-traumatic joint disorders (1 source) Pain in left knee; Translations: [Pain in left knee] Onset: 04-18-2014 Episodic Other nutritional; endocrine; and metabolic disorders (10 sources) Decreased body mass index; Translations: [Body mass index (BMI) 19.9 or less, adult] Onset: 05-19-2024 05-19-2024 Episodic Other nutritional; endocrine; and metabolic disorders (1 source) Body mass index (BMI) 19.9 or less, adult; Translations: [Body mass index (BMI) 19.9 or less, adult] Onset: 05-19-2024 Episodic Other screening for suspected conditions (not mental disorders or infectious disease) (20 sources) Electrocardiogram abnormal; Translations: [Nonspecific abnormal electrocardiogram [ECG] [EKG]] Onset: 09-28-2017 Resolved: 06-05-2021 Episodic Comment on above: PSA: 0.97 - 05/2021, 0.76 05/2023, 18.13 05/2024, 1.8 (11.7%) - 06/2024 PSA: 0.97 - 05/2021, 0.76 05/2023, 18.13 05/2024, 1.8 (11.7%) - 06/2024, 1. - 08/2024 PSA: 0.97 - 05/2021, 0.76 05/2023, 18.13 05/2024, 1.8 (11.7%) - 06/2024, 1.91 - 08/2024, 1. - 10/2024 PSA: 0.97 - 05/2021, 0.76 05/2023, 18.13 05/2024, 1.8 (11.7%) - 06/2024, 1.91 - 08/2024, 1.27 - 10/2024, 1.07 - 03/2025 Other skin disorders (9 sources) Other seborrheic [...] lower urinary tract symptoms [LUTS]] Onset: 10-16-2015 Unclassified (7 sources) Onset: 05-19-2024 05-19-2024 Results Test Name Value Interpretation Reference Range Facility [facility] Heart Perfusion W stress and W radionuclide Scotty 03-09-2025 Normal Lexiscan Myov iew cardiac perfusion stress test. No evidence of ischemia or myocardial infarction by perfusion imaging. Normal left ventricular systolic function, ejection fraction 59%. No change when compared to previous study. Signed by: Richy Delgadillo 03/09/2025 12:38 PM Dictation workstation: [id number] [facility] MMODAL Interpreted By: Richy Meléndez and Giannuzzi Michael STUDY: MYOCARDIAL PERFUSION STRESS TEST WITH LEXISCAN Performing facility: [facility], [address] [place] [address], [address], [place] [address] [facility] Provider: Terri Velazco MD, [facility] PCP: Dr. Vanda Gray Supervising provider: Terri Velazco MD, [facility] INDICATION: Signs/Symptoms:dyspnea cm ,I51.89 Other ill-defined heart diseases,I48.0 Paroxysmal atrial fibrillation (Multi),R06.02 Shortness of breath HISTORY: Gender: M; Age: 79 y/o ; Height: HT 189.2 cm cm; Weight: WT 67.132 kg kg. Abnormal EKG; High Cholesterol; HTN; Arrhythmias;a-fib SOB; COPD; Currently smoking. COMPARISON: Previous nuclear testing completed at [facility] [place]. ACCESSION NUMBER(S): [id number] ORDERING CLINICIAN: TERRI VELAZCO TECHNIQUE: ONE DAY protocol. Stress injection: [...] There was evidence of diaphragmatic attenuation artifact. MMODAL Richy Delgadillo MD - 03/09/2025 Interpreted By: Richy Delgadillo and Giannuzzi Michael STUDY: MYOCARDIAL PERFUSION STRESS TEST WITH LEXISCAN Performing facility: [facility], [address] [place] [address], [address], [place] [id number] [facility] Provider: Terri Velazco MD, [facility] PCP: Dr. Vanda Gray Supervising provider: Terri Velazco MD, [facility] INDICATION: Signs/Symptoms:dyspnea cm ,I51.89 Other ill-defined heart diseases,I48.0 Paroxysmal atrial fibrillation (Multi),R06.02 Shortness of breath HISTORY: Gender: M; Age: 79 y/o ; Height: HT 189.2 cm cm; Weight: WT 67.132 kg kg. Abnormal EKG; High Cholesterol; HTN; Arrhythmias;a-fib SOB; COPD; Currently smoking. COMPARISON: Previous nuclear testing completed at [facility] [place] [place]. ACCESSION NUMBER(S): [id number] ORDERING CLINICIAN: TERRI VELAZCO TECHNIQUE: ONE DAY protocol. Stress injection: [...] Richy Delgadillo 03/09/2025 12:38 PM Dictation workstation: [id number] [facility] Work Phone: Radiology Study observation (narrative) [facility] Work Phone: [place] Heart Perfusion W stress and W radionuclide IVOrdered By: Richy Delgadillo on 03-09-2025 [facility] Work Phone: NUCLEAR STRESS TESTon 2024 NUCLEAR STRESS TEST Interpreted By: Richy Meléndez and Giannuzzi Michael STUDY: MYOCARDIAL PERFUSION STRESS TEST WITH LEXISCAN Performing facility: [facility], [address] [place] [address], [address], [place] [address] [facility] Provider: Terri Velazco MD, FAC PCP: Dr. Vanda Gray Supervising provider: Terri Velazco MD, FAC INDICATION: Signs/Symptoms:dyspnea cm ,I51.89 Other ill-defined heart diseases,I48.0 Paroxysmal atrial fibrillation (Multi),R06.02 Shortness of breath HISTORY: Gender: M; Age: 79 y/o ; Height: HT 189.2 cm cm; Weight: WT 67.132 kg kg. Abnormal EKG; High Cholesterol; HTN; Arrhythmias;a-fib SOB; COPD; Currently smoking. COMPARISON: Previous nuclear testing completed at [facility]. ACCESSION NUMBER(S): [id number] ORDERING CLINICIAN: TERRI VELAZCO TECHNIQUE: ONE DAY protocol. Stress injection: [...] Richy Delgadillo 03/09/2025 12:38 PM Dictation workstation: [id number] [facility] Basophils Auto (Bld) [#/Vol] on 03-03-2025 Basophils (Bld) [#/Vol] Automated basophil count 0.0-0.1 [facility] Basophils/100 WBC Auto (Bld) on 03-03-2025 Basophils/100 WBC (Bld) Automated basophil % 0.2-2.0 [facility] Eosinophils/100 WBC Auto (Bl d)on 03-03-2025 Eosinophils/100 WBC (Bld) Automated eosinophil % 0.9-7.0 [facility] Erythrocyte distribution wid th Auto (RBC) [Ratio]on 03-03-2025 Erythrocyte distribution width (RBC) [Ratio] Erythrocyte distribution width [Ratio] by Automated count 11.0-15.0 [facility] Hematocrit Auto (Bld) [Volum e fraction]on 03-03-2025 Hematocrit (Bld) [Volume fraction] Hematocrit [Volume Fraction] of Blood by Automated count Low 42.0-54.0 [facility] Hemoglobin [Mass/volume] in Bloodon 03-03-2025 Hemoglobin (Bld) [Mass/Vol] Hemoglobin [Mass/volume] in Blood Low 14.0-18.0 [facility] Laboratory - Chemistry and C hemistry - challengeon 03-03-2025 Cobalamin (Vitamin B12) [Mass/Vol] 1463 pg/mL Abnormal 232-1245 [facility] Comment on above: Performed at: [address] [id number] Director: Eduin Middleton PhD, Phone: [phone] Ferritin [Mass/Vol] 68.0 ng/mL 26.0-388.0 [facility] Laboratory - Hematology and Cell countson 03-03-2025 Immature granulocytes/100 WBC (Bld) 0.2 % 0.0-0.5 [facility] Leukocytes [#/volume] correc yumiko for nucleated erythrocytes in Blood by Automated counon 03-03-2025 WBC corrected for nucl RBC Auto (Bld) [#/Vol] Leukocytes [#/volume] corrected for nucleated erythrocytes in Blood by Automated coun 4.0-11.0 [facility] Lymphocytes Auto (Bld) [#/Vo l]on 03-03-2025 Lymphocytes (Bld) [#/Vol] Lymphocytes [#/volume] in Blood by Automated count 1.2-3.8 [facility] Lymphocytes/100 WBC Auto (Bl d)on 03-03-2025 Lymphocytes/100 WBC (Bld) Lymphocytes/100 leukocytes in Blood by Automated count Low 20.5-60.0 [facility] MCH Auto (RBC) [Entitic mass ]on 03-03-2025 MCH (RBC) [Entitic mass] MCH [Entitic mass] by Automated count 25.9-34.0 [facility] MCHC Auto (RBC) [Mass/Vol]on 03-03-2025 MCHC (RBC) [Mass/Vol] MCHC [Mass/volume] by Automated count 29.9-35.2 [facility] MCV Auto (RBC) [Entitic vol] on 03-03-2025 MCV (RBC) [Entitic vol] MCV [Entitic volume] by Automated count High 80.0-94.0 [facility] Monocytes Auto (Bld) [#/Vol] on 03-03-2025 Monocytes (Bld) [#/Vol] Automated blood monocyte count High 0.3-0.8 [facility] Monocytes/100 WBC Auto (Bld) on 03-03-2025 Monocytes/100 WBC (Bld) Automated monocyte % 1.7-12.0 [facility] Neutrophils Auto (Bld) [#/Vo l]on 03-03-2025 Neutrophils (Bld) [#/Vol] Neutrophils [#/volume] in Blood by Automated count 1.4-6.5 [facility] Neutrophils/100 WBC Auto (Bl d)on 03-03-2025 Neutrophils/100 WBC (Bld) Automated neutrophil % 43.0-75.0 [facility] No Panel Informationon 03-03 Eosinophils # (Auto) 0.4 10 3/uL 0.0-0.7 [facility] Folate 29.70 ng/mL 8.60-58.90 [facility] Immature Granulocyte # (Auto) 0.02 10 3/uL 0.00-0.03 [facility] Platelet mean volume Auto (B ld) [Entitic vol]on 03-03-2025 Platelet mean volume (Bld) [Entitic vol] Platelet mean volume [Entitic volume] in Blood by Automated count 9.5-13.5 [facility] Platelets Auto (Bld) [#/Vol] on 03-03-2025 Platelets (Bld) [#/Vol] Platelets [#/volume] in Blood by Automated count 150-450 [facility] RBC Auto (Bld) [#/Vol]on RBC (Bld) [#/Vol] Erythrocytes [#/volu me] in Blood by Automated count Low 4.70-6.10 [facility] US carotid doppler BIon 01-0 US carotid doppler BI [facility] [address] [place] [address] Ultrasound Report Signed Patient: Ivan Anthony MR#: [id number] 221 : 1945 Acct:[id number] Age/Sex: 79 / M ADM Date: 11/08/24 Loc: [facility] Room: Type: [facility] Attending Dr: Irma Pérez [employer] Ordering Provider: Irma Pérez APRN Date of Service: 11/08/24 US/US carotid doppler BI: I65.23 - Occlusion and stenosis of bilateral carotid herman... Copies to: Irma Pérez APRN CAROTID DUPLEX INDICATION: Follow-up known carotid occlusive disease status post bilateral carotid endarterectomy PROCEDURE: Color-flow duplex scanning is used to interrogate the extracranial carotid arterial system, as well as both vertebral arteries. Both carotid bifurcations show some smooth homogeneous plaque formation. The proximal right internal carotid artery shows a highest peak systolic velocity of 176 cm/s with an end-diastolic velocity of 34.9 cm/s . The mid internal carotid artery measures 167 cm/s peak systolic with an end diastolic velocity of 27.7 cm/s . The distal segment measures 124 cm/s peak systolic with an end diastolic velocity of 22.5 cm/s . The velocities of the right common carotid artery are 153 cm/s peak systolic and 15.6 cm/s end-diastolic and 206 cm/s peak systolic and 25.2 cm/s end diastolic distally. The peak systolic velocity ratio of the internal to the common carotid artery is 0.85 . The external carotid artery measures 143 cm/s peak systolic. The right vertebral artery is patent at 99.4 cm/s peak systolic with antegrade flow. The proximal left internal carotid artery shows a highest peak systolic velocity of 118 cm/s with an end-diastolic velocity of 25.2 cm/s . The mid internal carotid artery measures 123 cm/s peak syst olic with an end diastolic velocity of 35 cm/s . The distal segment measures 116 cm/s peak systolic with an end diastolic velocity of 27.3 cm/s . The velocities of the left common carotid artery are 106 cm/s peak systolic and 16.1 cm/s end-diastolic and 86.9 cm/s peak systolic and 15.4 cm/s end diastolic distally. The peak systolic velocity ratio of the internal to the common carotid artery is 1.16 . The external carotid artery measures 122 cm/s peak systolic. The left vertebral artery is patent at 98.8 cm/s peak systolic with antegrade flow. US/US carotid doppler BI IMPRESSION: Persistent mild flow disturbance is present in the right internal carotid artery. However there is likely less than 50% stenosis of both extracranial internal carotid arteries. Both vertebral arteries are patent with antegrade flow. No change from prior study. Impression dictated by: Malcom Irene M.D.11/08/2024 11:51 AM Dictation Location: [place] [address] Tech: Danielle Gomez Transcribed By: ELOY 11/08/24 1151 Dictated By: Malcom Irene MD 11/08/24 1149 Signed By: 11/08/24 1151 Normal [facility] Basophils Auto (Bld) [#/Vol] on 10-31-2024 Basophils (Bld) [#/Vol] Automated basophil count 0.0-0.1 [facility] Basophils/100 WBC Auto (Bld) on 10-31-2024 Basophils/100 WBC (Bld) Automated basophil % 0.2-2.0 [facility] Eosinophils/100 WBC Auto (Bl d)on 10-31-2024 Eosinophils/100 WBC (Bld) Automated eosinophil % 0.9-7.0 [facility] Erythrocyte distribution wid th Auto (RBC) [Ratio]on 10-31-2024 Erythrocyte distribution width (RBC) [Ratio] Erythrocyte distribution width [Ratio] by Automated count 11.0-15.0 [facility] Hematocrit Auto (Bld) [Volum e fraction]on 10-31-2024 Hematocrit (Bld) [Volume fraction] Hematocrit [Volume Fraction] of Blood by Automated count Low 42.0-54.0 [facility] Hemoglobin [Mass/volume] in Bloodon 10-31-2024 Hemoglobin (Bld) [Mass/Vol] Hemoglobin [Mass/volume] in Blood Low 14.0-18.0 [facility] Iron binding capacity [Mass/ volume] in Serum or Plasmaon 10-31-2024 Iron binding capacity [Mass/Vol] Iron binding capacity [Mass/volume] in Serum or Plasma 250.0-450. 0 [facility] Iron saturation [Mass Fracti on] in Serum or Plasmaon 10-31-2024 Iron saturation [Mass fraction] Iron saturation [Mass Fraction] in Serum or Plasma [facility] Laboratory - Chemistry and C hemistry - challengeon 10-31-2024 Cobalamin (Vitamin B12) [Mass/Vol] 598 pg/mL 232-1245 [facility] Comment on above: Performed at: [facility] [address] [id number] Director: Eduin Middleton PhD, Phone: [phone] Ferritin [Mass/Vol] 76.0 ng/mL 26.0-388.0 [facility] Iron [Mass/Vol] 46.0 ug/dL Low 65.0-175.0 [facility] Laboratory - Hematology and Cell countson 10-31-2024 Immature granulocytes/100 WBC (Bld) 0.3 % 0.0-0.5 [facility] Leukocytes [#/volume] correc yumiko for nucleated erythrocytes in Blood by Automated counon 10-31-2024 WBC corrected for nucl RBC Auto (Bld) [#/Vol] Leukocytes [#/volume] corrected for nucleated erythrocytes in Blood by Automated coun High 4.0-11.0 [facility] Lymphocytes Auto (Bld) [#/Vo l]on 10-31-2024 Lymphocytes (Bld) [#/Vol] Lymphocytes [#/volume] in Blood by Automated count 1.2-3.8 [facility] Lymphocytes/100 WBC Auto (Bl d)on 10-31-2024 Lymphocytes/100 WBC (Bld) Lymphocytes/100 leukocytes in Blood by Automated count Low 20.5-60.0 [facility] MCH Auto (RBC) [Entitic mass ]on 10-31-2024 MCH (RBC) [Entitic mass] MCH [Entitic mass] by Automated count 25.9-34.0 [facility] MCHC Auto (RBC) [Mass/Vol]on 10-31-2024 MCHC (RBC) [Mass/Vol] MCHC [Mass/volume] by Automated count 29.9-35.2 [facility] MCV Auto (RBC) [Entitic vol] on 10-31-2024 MCV (RBC) [Entitic vol] MCV [Entitic volume] by Automated count High 80.0-94.0 [facility] Monocytes Auto (Bld) [#/Vol] on 10-31-2024 Monocytes (Bld) [#/Vol] Automated blood monocyte count High 0.3-0.8 [facility] Monocytes/100 WBC Auto (Bld) on 10-31-2024 Monocytes/100 WBC (Bld) Automated monocyte % 1.7-12.0 [facility] Neutrophils Auto (Bld) [#/Vo l]on 10-31-2024 Neutrophils (Bld) [#/Vol] Neutrophils [#/volume] in Blood by Automated count High 1.4-6.5 [facility] Neutrophils/100 WBC Auto (Bl d)on 10-31-2024 Neutrophils/100 WBC (Bld) Automated neutrophil % High 43.0-75.0 [facility] No Panel Informationon 10-31 Eosinophils # (Auto) 0.4 10 3/uL 0.0-0.7 [facility] Immature Granulocyte # (Auto) 0.04 10 3/uL High 0.00-0.03 [facility] Prostate Specific Antigen Total 1.27 ng/mL <=4.00 [facility] Platelet mean volume Auto (B ld) [Entitic vol]on 10-31-2024 Platelet mean volume (Bld) [Entitic vol] Platelet mean volume [Entitic volume] in Blood by Automated count 9.5-13.5 [facility] Platelets Auto (Bld) [#/Vol] on 10-31-2024 Platelets (Bld) [#/Vol] Platelets [#/volume] in Blood by Automated count 150-450 [facility] RBC Auto (Bld) [#/Vol]on RBC (Bld) [#/Vol] Erythrocytes [#/volu me] in Blood by Automated count Low 4.70-6.10 [facility] Basophils Auto (Bld) [#/Vol] on 08-29-2024 Basophils (Bld) [#/Vol] 0.1 10 3/uL 0.0-0.1 [facility] Basophils (Bld) [#/Vol] Automated basophil count 0.0-0.1 [facility] Basophils/100 WBC Auto (Bld) on 08-29-2024 Basophils/100 WBC (Bld) 1.4 % 0.2-2.0 [facility] Basophils/100 WBC (Bld) Automated basophil % 0.2-2.0 [facility] Eosinophils/100 WBC Auto (Bl d)on 08-29-2024 Eosinophils/100 WBC (Bld) 4.1 % 0.9-7.0 [facility] Eosinophils/100 WBC (Bld) Automated eosinophil % 0.9-7.0 [facility] Erythrocyte distribution wid th Auto (RBC) [Ratio]on 08-29-2024 Erythrocyte distribution width (RBC) [Ratio] 13.3 % 11.0-15.0 [facility] Erythrocyte distribution width (RBC) [Ratio] Erythrocyte distribution width [Ratio] by Automated count 11.0-15.0 [facility] Hematocrit Auto (Bld) [Volum e fraction]on 08-29-2024 Hematocrit (Bld) [Volume fraction] 38.4 % Low 42.0-54.0 [facility] Hematocrit (Bld) [Volume fraction] Hematocrit [Volume Fraction] of Blood by Automated count Low 42.0-54.0 [facility] Hemoglobin [Mass/volume] in Bloodon 08-29-2024 Hemoglobin (Bld) [Mass/Vol] 12.1 g/dL Low 14.0-18.0 [facility] Hemoglobin (Bld) [Mass/Vol] Hemoglobin [Mass/volume] in Blood Low 14.0-18.0 [facility] - Chemistry and C hemistry - challengeon 08-29-2024 Cobalamin (Vitamin B12) [Mass/Vol] 312 pg/mL 232-1245 [facility] Comment on above: Performed at: [address] [id number] Director: Eduin Middleton PhD, Phone: [phone] Laboratory - Hematology and Cell countson 08-29-2024 Immature granulocytes/100 WBC (Bld) 0.2 % 0.0-0.5 [facility] Leukocytes [#/volume] correc yumiko for nucleated erythrocytes in Blood by Automated counon 08-29-2024 WBC corrected for nucl RBC Auto (Bld) [#/Vol] 9.2 10 3/uL 4.0-11.0 [facility] WBC corrected for nucl RBC Auto (Bld) [#/Vol] Leukocytes [#/volume] corrected for nucleated erythrocytes in Blood by Automated coun .0-11.0 [facility] Lymphocytes Auto (Bld) [#/Vo l]on 08-29-2024 Lymphocytes (Bld) [#/Vol] 1.6 10 3/uL 1.2-3.8 [facility] Lymphocytes (Bld) [#/Vol] Lymphocytes [#/volume] in Blood by Automated count 1.2-3.8 [facility] Lymphocytes/100 WBC Auto (Bl d)on 08-29-2024 Lymphocytes/100 WBC (Bld) 17.4 % Low 20.5-60.0 [facility] Lymphocytes/100 WBC (Bld) Lymphocytes/100 leukocytes in Blood by Automated count Low 20.5-60.0 [facility] MCH Auto (RBC) [Entitic mass ]on 08-29-2024 MCH (RBC) [Entitic mass] 32.5 pg 25.9-34.0 [facility] MCH (RBC) [Entitic mass] MCH [Entitic mass] by Automated count 25.9-34.0 [facility] MCHC Auto (RBC) [Mass/Vol]on 08-29-2024 MCHC (RBC) [Mass/Vol] 31.5 g/dL 29.9-35.2 [facility] MCHC (RBC) [Mass/Vol] MCHC [Mass/volume] by Automated count 29.9-35.2 [facility] MCV Auto (RBC) [Entitic vol] on 08-29-2024 MCV (RBC) [Entitic vol] 103.2 fL High 80.0-94.0 [facility] MCV (RBC) [Entitic vol] MCV [Entitic volume] by Automated count High 80.0-94.0 [facility] Monocytes Auto (Bld) [#/Vol] on 08-29-2024 Monocytes (Bld) [#/Vol] 0.9 10 3/uL High 0.3-0.8 [facility] Monocytes (Bld) [#/Vol] Automated blood monocyte count High 0.3-0.8 [facility] Monocytes/100 WBC Auto (Bld) on 08-29-2024 Monocytes/100 WBC (Bld) 10.2 % 1.7-12.0 [facility] Monocytes/100 WBC (Bld) Automated monocyte % 1.7-12.0 [facility] Neutrophils Auto (Bld) [#/Vo l]on 08-29-2024 Neutrophils (Bld) [#/Vol] 6.1 10 3/uL 1.4-6.5 [facility] Neutrophils (Bld) [#/Vol] Neutrophils [#/volume] in Blood by Automated count 1.4-6.5 [facility] Neutrophils/100 WBC Auto (Bl d)on 08-29-2024 Neutrophils/100 WBC (Bld) 66.7 % 43.0-75.0 [facility] Neutrophils/100 WBC (Bld) Automated neutrophil % 43.0-75.0 [facility] No Panel Informationon 08-29 Eosinophils # (Auto) 0.4 10 3/uL 0.0-0.7 [facility] Folate 24.90 ng/mL 8.60-58.90 [facility] Immature Granulocyte # (Auto) 0.02 10 3/uL 0.00-0.03 [facility] Platelet mean volume Auto (B ld) [Entitic vol]on 08-29-2024 Platelet mean volume (Bld) [Entitic vol] 10.8 fL 9.5-13.5 [facility] Platelet mean volume (Bld) [Entitic vol] Platelet mean volume [Entitic volume] in Blood by Automated count 9.5-13.5 [facility] Platelets Auto (Bld) [#/Vol] on 08-29-2024 Platelets (Bld) [#/Vol] 228 10 3/uL 150-450 [facility] Platelets (Bld) [#/Vol] Platelets [#/volume] in Blood by Automated count 150-450 [facility] RBC Auto (Bld) [#/Vol]on RBC (Bld) [#/Vol] 3.72 10 6/uL Low 4.70-6.10 [facility] RBC (Bld) [#/Vol] Erythrocytes [#/volu me] in Blood by Automated count Low 4.70-6.10 [facility] Serum or plasma methylmalona te measurement (moles/volume)on 08-29-2024 Methylmalonate [Moles/Vol] Serum or plasma methylmalonate measurement (moles/volume) Abnormal 0-378 [facility] Comment on above: This test was develo ped and its performance characteristicsdetermined by [employer]. It has not been cleared orapproved by the Food and Drug Administration.Performed at: [address] [id number] Director: Raisa Calderon MD, Phone: [phone] Basophils Auto (Bld) [#/Vol] on 06-27-2024 Basophils (Bld) [#/Vol] 0.1 10 3/uL 0.0-0.1 [facility] Basophils (Bld) [#/Vol] Automated basophil count 0.0-0.1 [facility] Basophils/100 WBC Auto (Bld) on 06-27-2024 Basophils/100 WBC (Bld) 1.1 % 0.2-2.0 [facility] Basophils/100 WBC (Bld) Automated basophil % 0.2-2.0 [facility] Eosinophils/100 WBC Auto (Bl d)on 06-27-2024 Eosinophils/100 WBC (Bld) 4.5 % 0.9-7.0 [facility] Eosinophils/100 WBC (Bld) Automated eosinophil % 0.9-7.0 [facility] Erythrocyte distribution wid th Auto (RBC) [Ratio]on 06-27-2024 Erythrocyte distribution width (RBC) [Ratio] 13.4 % 11.0-15.0 [facility] Erythrocyte distribution width (RBC) [Ratio] Erythrocyte distribution width [Ratio] by Automated count 11.0-15.0 [facility] Hematocrit Auto (Bld) [Volum e fraction]on 06-27-2024 Hematocrit (Bld) [Volume fraction] 37.7 % Low 42.0-54.0 [facility] Hematocrit (Bld) [Volume fraction] Hematocrit [Volume Fraction] of Blood by Automated count Low 42.0-54.0 [facility] Hemoglobin [Mass/volume] in Bloodon 06-27-2024 Hemoglobin (Bld) [Mass/Vol] 12.3 g/dL Low 14.0-18.0 [facility] Hemoglobin (Bld) [Mass/Vol] Hemoglobin [Mass/volume] in Blood Low 14.0-18.0 [facility] Iron binding capacity [Mass/ volume] in Serum or Plasmaon 06-27-2024 Iron binding capacity [Mass/Vol] 314.0 ug/dL 250.0-450. 0 [facility] Iron binding capacity [Mass/Vol] Iron binding capacity [Mass/volume] in Serum or Plasma 250.0-450. 0 [facility] Iron saturation [Mass Fracti on] in Serum or Plasmaon 06-27-2024 Iron saturation [Mass fraction] 26.8 % [facility] Iron saturation [Mass fraction] Iron saturation [Mass Fraction] in Serum or Plasma [facility] Laboratory - Chemistry and C hemistry - challengeon 06-27-2024 Cobalamin (Vitamin B12) [Mass/Vol] 247.0 pg/mL 193.0-986. 0 [facility] Ferritin [Mass/Vol] 121.0 ng/mL 26.0-388.0 [facility] Iron [Mass/Vol] 84.0 ug/dL 65.0-175.0 [facility] Laboratory - Hematology and Cell countson 06-27-2024 Immature granulocytes/100 WBC (Bld) 0.3 % 0.0-0.5 [facility] Leukocytes [#/volume] correc yumiko for nucleated erythrocytes in Blood by Automated counon 06-27-2024 WBC corrected for nucl RBC Auto (Bld) [#/Vol] 11.2 10 3/uL High 4.0-11.0 [facility] WBC corrected for nucl RBC Auto (Bld) [#/Vol] Leukocytes [#/volume] corrected for nucleated erythrocytes in Blood by Automated coun High 4.0-11.0 [facility] Lymphocytes Auto (Bld) [#/Vo l]on 06-27-2024 Lymphocytes (Bld) [#/Vol] 1.6 10 3/uL 1.2-3.8 [facility] Lymphocytes (Bld) [#/Vol] Lymphocytes [#/volume] in Blood by Automated count 1.2-3.8 [facility] Lymphocytes/100 WBC Auto (Bl d)on 06-27-2024 Lymphocytes/100 WBC (Bld) 14.6 % Low 20.5-60.0 [facility] Lymphocytes/100 WBC (Bld) Lymphocytes/100 leukocytes in Blood by Automated count Low 20.5-60.0 [facility] MCH Auto (RBC) [Entitic mass ]on 06-27-2024 MCH (RBC) [Entitic mass] 33.1 pg 25.9-34.0 [facility] MCH (RBC) [Entitic mass] MCH [Entitic mass] by Automated count 25.9-34.0 [facility] MCHC Auto (RBC) [Mass/Vol]on 06-27-2024 MCHC (RBC) [Mass/Vol] 32.6 g/dL 29.9-35.2 [facility] MCHC (RBC) [Mass/Vol] MCHC [Mass/volume] by Automated count 29.9-35.2 [facility] MCV Auto (RBC) [Entitic vol] on 06-27-2024 MCV (RBC) [Entitic vol] 101.3 fL High 80.0-94.0 [facility] MCV (RBC) [Entitic vol] MCV [Entitic volume] by Automated count High 80.0-94.0 [facility] Monocytes Auto (Bld) [#/Vol] on 06-27-2024 Monocytes (Bld) [#/Vol] 0.9 10 3/uL High 0.3-0.8 [facility] Monocytes (Bld) [#/Vol] Automated blood monocyte count High 0.3-0.8 [facility] Monocytes/100 WBC Auto (Bld) on 06-27-2024 Monocytes/100 WBC (Bld) 7.7 % 1.7-12.0 [facility] Monocytes/100 WBC (Bld) Automated monocyte % 1.7-12.0 [facility] Neutrophils Auto (Bld) [#/Vo l]on 06-27-2024 Neutrophils (Bld) [#/Vol] 8.0 10 3/uL High 1.4-6.5 [facility] Neutrophils (Bld) [#/Vol] Neutrophils [#/volume] in Blood by Automated count High 1.4-6.5 [facility] Neutrophils/100 WBC Auto (Bl d)on 06-27-2024 Neutrophils/100 WBC (Bld) 71.8 % 43.0-75.0 [facility] Neutrophils/100 WBC (Bld) Automated neutrophil % 43.0-75.0 [facility] No Panel Informationon 06-27 Eosinophils # (Auto) 0.5 10 3/uL 0.0-0.7 [facility] Folate 8.20 ng/mL Low 8.60-58.90 [facility] Free Prostate Specific Antigen 0.21 ng/mL N/A [facility] Comment on above: Giuseppe ECLIA methodol ogy. Immature Granulocyte # (Auto) 0.03 10 3/uL 0.00-0.03 [facility] Prostate Specific Antigen Total 1.8 ng/mL 0.0-4.0 [facility] Comment on above: Giuseppe ECLIA methodol ogy.According to the [employer], Serum PSAshould decrease and remain at undetectable levels afterradical prostatectomy. The AUA defines biochemicalrecurrence as an initial PSA value 0.2 ng/mL or greaterfollowed by a subsequent confirmatory PSA value 0.2 ng/mLor greater. Values obtained with different assay methods orkits cannot be used interchangeably. Results cannot beinterpreted as absolute evidence of the presence or absenceof malignant disease. Platelet mean volume Auto (B ld) [Entitic vol]on 06-27-2024 Platelet mean volume (Bld) [Entitic vol] 10.4 fL 9.5-13.5 [facility] Platelet mean volume (Bld) [Entitic vol] Platelet mean volume [Entitic volume] in Blood by Automated count 9.5-13.5 [facility] Platelets Auto (Bld) [#/Vol] on 06-27-2024 Platelets (Bld) [#/Vol] 244 10 3/uL 150-450 [facility] Platelets (Bld) [#/Vol] Platelets [#/volume] in Blood by Automated count 150-450 [facility] RBC Auto (Bld) [#/Vol]on RBC (Bld) [#/Vol] 3.72 10 6/uL Low 4.70-6.10 [facility] RBC (Bld) [#/Vol] Erythrocytes [#/volu me] in Blood by Automated count Low 4.70-6.10 [facility] Serum or plasma free prostat e specific antigen (PSA)/total PSA ratioon 06-27-2024 Free PSA/Total PSA [Mass fraction] 11.7 % . [facility] Comment on above: The table below list s the probability of prostate cancer formen with non-suspicious PEDRO results and total PSA between4 and 10 ng/mL, by patient age (Carmelita et al, JEREMÍAS 1998,279:1542). % Free PSA 50-64 yr 65-75 yr 0.00-10.00% 56% 55% 10.01-15.00% 24% 35% 15.01-20.00% 17% 23% 20.01-25.00% 10% 20% >25.00% 5% 9%Please note: Carmelita et al did not make specific recommendations regarding the use of percent free PSA for any other population of men.Performed at: [facility] [employer] [id number] Director: Eduin Middleton PhD, Phone: [phone] Free PSA/Total PSA [Mass fraction] Serum or plasma free prostate specific antigen (PSA)/total PSA ratio . [facility] Comment on above: The table below list s the probability of prostate cancer formen with non-suspicious PEDRO results and total PSA between4 and 10 ng/mL, by patient age (Carmelita et al, JEREMÍAS 1998,279:1542). % Free PSA 50-64 yr 65-75 yr 0.00-10.00% 56% 55% 10.01-15.00% 24% 35% 15.01-20.00% 17% 23% 20.01-25.00% 10% 20% >25.00% 5% 9%Please note: Carmelita et al did not make specific recommendations regarding the use of percent free PSA for any other population of men.Performed at: [facility] [id number] Director: Eduin Middleton PhD, Phone: [phone] Office Visit (Cardiology)on 05-20-2023 Follow-up visit Diagnoses/Problems [...] Current smoker Tobacco Use Screening; Status:Complete; Done: [id number] You need to quit smoking.; Status:Complete - Retrospective Authorization; Done: [id number] You need to stop smoking. Though it is not easy, more than half of all adult smokers have quit. We encourage you to write down all the reasons you should quit smoking and set a quit date for yourself. Ask us how we can help. You may also call 7-469-RJTBNOW for free resources and assistance.; Status:Complete - Retrospective Authorization; Done: [id number] Patient Instructions Please bring all medicines, vitamins, [...] negative for complaint. Vitals Vital Signs Recorded: [id number] 02:27PMRecorded: [id number] 02:14PM Wagizbxr710, LUE, Itrfcie559, LUE, Sitting Jkberldvh40, LUE, Qjdytxh18, LUE, Sitting Heart Rate64, L Radial Height6 ft 2 in Zorwxi143 lb BMI Vhgxwijiyn53.41 kg/m2 BSA Calculated1.97 Tobacco Usea) Yes Patient [...] time . Signatures Electronically signed by : Eran Irwin MD; May 20 2023 5:02PM EST (Author) Normal [place] Tobacco Screening.on 023 Fall risk assessment a) No falls within the last year [facility] Yoozon 250 DO Work Phone: Tobacco use status [facility] a) Yes [facility] Heart-Sandu cedric 250 DO Work Phone: Tobacco Screening. Yes [facility] Heart-Sandu cedric 250 DO Work Phone: Office Visit (Cardiology)on 11-24-2022 Follow-up visit Diagnoses/Problems [...] we can help. You may also call 7-549-QSVLRevolutNOW for free resources and assistance.; Status:Complete; Done: [...] Vital Signs Recorded: 24Nov2022 04:05PMRecorded: 24Nov2022 03:25PM [id number], LUE, Sitting Xiemmdybn0016, LUE, Sitting Heart Rate66, L Radial Height6 ft 2 in Yjvhzr015 lb BMI Ashokqudtm56.8 kg/m2 BSA Calculated1.99 Tobacco Usea) Yes Patient [...] Screening.on 023 Adult depression screening assessment No [facility] Boomlagoon DO Work Phone: Fall risk assessment a) No falls within the last year [facility] Y[address]zon 250 DO Work Phone: Tobacco use status [facility] a) Yes [facility] Boomlag[place] DO Work Phone: Tobacco Screening. Yes [facility] Yoozon 250 DO Work Phone: Echocardiogramon 11-19-[address], [address] [place] [address] TRANSTHORACIC ECHOCARDIOGRAM REPORT Patient Name: IVAN [facility] Physician: [id number] Richy Delgadillo MD Study Date: 11/19/2022 Referring Physician: ERAN IRWIN MRN/PID: [id number] PCP: Alonzo Gray Accession/Order#: [id number] Department Location: [facility] Date of : 1945 Fellow: Gender: M Nurse: Admit Date: Export Freight Manager: Marcia Fernandez RDCS, T Height: 187.96 cm CC Report to: Weight: 75.30 kg Study Type: Echocardiogram BSA: 2.01 m2 Blood Pressure: 150 /86 mmHg Diagnosis/ICD: I42.9-Cardiomyopathy, unspecified; R06.02-Shortness of breath Indication: Atrial Fibrillation, HTN, Hyperlipidemia, Tobacco Abuse, Carotid Stenosis Procedure/CPT: Echo Complete w Full [id number] Study Detail: The following Echo studies were [...] 0.5 m/s (0.6-0.9m/s) PV Max P.2 mmHg [id number] Richy Delgadillo MD Electronically signed on 11/19/2022 at 5:56:19 PM Final Normal [facility] Office Visit (Cardiology)on 10-01-2022 [...] Shortness of breath Echocardiogram; Status:Hold For - Scheduling,Retrospective Authorization; Requested for:01Oct2022; Hyperlipidemia Renew: Atorvastatin Calcium [...] we can help. You may also call 8-185-QJFGNOW for free resources and assistance.; Status:Complete - [...] Follow-up after testing completed Chief Complaint IVAN ATNHONY is being seen for a 6 month [...] skin rashes. (more content not included)... Normal [place] Tobacco Screening.on 022 Fall risk assessment a) No falls within the last year [facility] Y[place]zon 250 DO Work Phone: Tobacco use status [facility] a) Yes [facility] Y[place] 250 DO Work Phone: Tobacco Screening. Yes [facility] 250 DO Work Phone: PROF CHEM 8 (BAS METB)on Anion gap [Moles/Vol] 10.2 mmol/L Normal [facility] Comment on above: Performed By: #### B MP #### [facility] [address] [place] [address] Dr. Oksana Dowell Calcium [Mass/Vol] 8.5 mg/dL Normal 8.5-10.1 [facility] Comment on above: Performed By: #### B MP #### [facility] [address] [place] [address] Dr. Oksana Dowell Chloride [Moles/Vol] 106 mmol/L Normal 98-107 [facility] Comment on above: Performed By: #### B MP #### [facility] [address] [address] [address] Oksana Dowell CO2 [Moles/Vol] 27.0 mmol/L Normal 21.0-32.0 [facility] Comment on above: Performed By: #### B MP #### [facility] [address] [place] [address] Dr. Oksana Dowell Creatinine [Mass/Vol] 1.06 mg/dL Normal 0.70-1.30 [facility] Comment on above: Performed By: #### B MP #### [facility] [address] [place] [address] Dr. Oksana Dowell EGFR-AF MALTESE >60 Normal >=60 [facility] Comment on above: Performed By: #### B MP #### [facility] [address] [address] [address] Oksana Dowell EGFR-NON AF MALTESE >60 Normal >=60 [facility] Comment on above: Performed By: #### B MP #### [facility] [address] [address] [address] Oksana Dowell Glucose [Mass/Vol] 102 mg/dL Normal 74-106 [facility] Comment on above: Performed By: #### B MP #### [facility] [address] [address] [address] Oksana Dowell Potassium [Moles/Vol] 4.2 mmol/L Normal 3.5-5.1 [facility] Comment on above: Performed By: #### B MP #### [facility] [address] [address] [address] Oksana Dowell Sodium [Moles/Vol] 139 mmol/L Normal 136-145 [facility] Comment on above: Performed By: #### B MP #### [facility] [address] [address] [address] Oksana Dowell Urea nitrogen [Mass/Vol] 18.0 mg/dL Normal 7.0-18.0 [facility] Comment on above: Performed By: #### B MP #### [facility] [address] [address] [address] Oksana Dowell Urea nitrogen/Creatinine [Mass ratio] 17.0 mg/mg Normal [facility] Comment on above: Performed By: #### B MP #### [facility] [address] [address] [address] Oksana Dowell BNPon 07-23-2022 Natriuretic peptide B (Bld) [Mass/Vol] 562.0 pg/mL Normal <=1,800.0 [facility] Comment on above: Performed By: #### H STROPN, BNP, CMP #### [facility] [address] [address] [address] Oksana Dowell CBC AUTO DIFFon 07-23-2022 BASO # 0.1 103/ul Normal 0.0-0.1 [facility] Comment on above: Performed By: #### C BC #### [facility] [address] [place] [address] Dr. Oksana Dowell Basophils/100 WBC (Bld) 0.8 % Normal 0.2-2.0 [facility] Comment on above: Performed By: #### C BC #### [facility] [address] [place] [address] Dr. Oksana Dowell EO # 0.4 103/ul Normal 0.0-0.7 [facility] Comment on above: Performed By: #### C BC #### [facility] [address] [place] [address] Dr. Oksana Dowell Eosinophils/100 WBC (Bld) 5.7 % Normal 0.9-7.0 [facility] Comment on above: Performed By: #### C BC #### [facility] [address] [place] [address] Dr. Oksana Dowell Erythrocyte distribution width (RBC) [Ratio] 14.3 % Normal 11.0-15.0 [facility] Comment on above: Performed By: #### C BC #### [facility] [address] [place] [address] Dr. Oksana Dowell Hematocrit (Bld) [Volume fraction] 32.0 % Critically low 42.0-54.0 [facility] Comment on above: Performed By: #### C BC #### [facility] [address] [place] [address] Dr. Oksana Dowell Hemoglobin (Bld) [Mass/Vol] 10.3 g/dL Critically low 14.0-18.0 [facility] Comment on above: Performed By: #### C BC #### [facility] [address] [place] [address] Dr. Oksana Dowell IG # 0.02 10e3/ul Normal 0.00-0.03 [facility] Comment on above: Performed By: #### C BC #### [facility] [address] [place] [address] Dr. Oksana Dowell IG % 0.3 % Normal 0.0-0.5 [facility] Comment on above: Performed By: #### C BC #### [facility] [address] [place] [address] Dr. Oksana Dowell LYMPH # 1.3 103/ul Normal 1.2-3.8 [facility] Comment on above: Performed By: #### C BC #### [facility] [address] [place] [address] Dr. Oksana Dowell Lymphocytes/100 WBC (Bld) 17.9 % Critically low 20.5-60.0 [facility] Comment on above: Performed By: #### C BC #### [facility] [address] [place] [address] Dr. Oksana Dowell MANUAL DIFF REQ NO Normal [facility] Comment on above: Performed By: #### C BC #### [facility] [address] [place] [address] Dr. Oksana Dowell MCH (RBC) [Entitic mass] 31.4 pg Normal 25.9-34.0 [facility] Comment on above: Performed By: #### C BC #### [facility] [address] [place] [address] Dr. Oksana Dowell MCHC (RBC) [Mass/Vol] 32.2 g/dL Normal 29.9-35.2 [facility] Comment on above: Performed By: #### C BC #### [facility] [address] [place] [address] Dr. Oksana Dowell MCV (RBC) [Entitic vol] 97.6 fL Critically high 80.0-94.0 [facility] Comment on above: Performed By: #### C BC #### [facility] [address] [place] [address] Dr. Oksana Dowell MONO # 0.9 103/ul Critically high 0.3-0.8 [facility] Comment on above: Performed By: #### C BC #### [facility] [address] [place] [address] Dr. Oksana Dowell Monocytes/100 WBC (Bld) 12.8 % Critically high 1.7-12.0 [facility] Comment on above: Performed By: #### C BC #### [facility] [address] [place] [address] Dr. Oksana Dowell NEUT # 4.5 103/ul Normal 1.4-6.5 [facility] Comment on above: Performed By: #### C BC #### [facility] [address] [place] [address] Dr. Oksana Dowell Neutrophils/100 WBC (Bld) 62.5 % Normal 43.0-75.0 [facility] Comment on above: Performed By: #### C BC #### [facility] [address] [place] [address] Dr. Oksana Dowell Platelet mean volume (Bld) [Entitic vol] 10.6 fL Normal 9.5-13.5 [facility] Comment on above: Performed By: #### C BC #### [facility] [address] [place] [address] Dr. Oksana Dowell PLT 219 103/ul Normal 150-450 [facility] Comment on above: Performed By: #### C BC #### [facility] [address] [place] [address] Dr. Oksana Dowell RBC 3.28 106/ul Critically low 4.70-6.10 [facility] Comment on above: Performed By: #### C BC #### [facility] [address] [place] [address] Dr. Oksana Dowell WBC 7.2 103/ul Normal 4.0-11.0 [facility] Comment on above: Performed By: #### C BC #### [facility] [address] [place] [address] Dr. Oksana Dowell PROF 14(COMP METB)on 022 Albumin [Mass/Vol] 3.2 g/dL Critically low 3.4-5.0 [facility] Comment on above: Performed By: #### H STROPN, BNP, CMP #### [facility] [address] [place] [address] Dr. Oksana Dowell Albumin/Globulin [Mass ratio] 1.1 {ratio} Normal [facility] Comment on above: Performed By: #### H STROPN, BNP, CMP #### [facility] [address] [place] [address] Dr. Oksana Dowell ALP [Catalytic activity/Vol] 59 U/L Normal 46-116 [facility] Comment on above: Performed By: #### H STROPN, BNP, CMP #### [facility] [address] [place] [address] Dr. Oksana Dowell ALT [Catalytic activity/Vol] 15 U/L Critically low 16-63 [facility] Comment on above: Performed By: #### H STROPN, BNP, CMP #### [facility] [address] [place] [address] Dr. Oksana Dowell Anion gap [Moles/Vol] 10.8 mmol/L Normal [facility] Comment on above: Performed By: #### H STROPN, BNP, CMP #### [facility] [address] [place] [address] Dr. Oksana Dowell AST [Catalytic activity/Vol] 12 U/L Critically low 15-37 [facility] Comment on above: Performed By: #### H STROPN, BNP, CMP #### [facility] [address] [place] [address] Dr. Oksana Dowell Bilirubin [Mass/Vol] 0.3 mg/dL Normal 0.2-1.0 [facility] Comment on above: Performed By: #### H STROPN, BNP, CMP #### [facility] [address] [place] [address] Dr. Oksana Dowell Calcium [Mass/Vol] 8.5 mg/dL Normal 8.5-10.1 [facility] Comment on above: Performed By: #### H STROPN, BNP, CMP #### [facility] [address] [place] [address] Dr. Oksana Dowell Chloride [Moles/Vol] 106 mmol/L Normal 98-107 [facility] Comment on above: Performed By: #### H STROPN, BNP, CMP #### [facility] [address] [place] [address] Dr. Oksana Dowell CO2 [Moles/Vol] 26.8 mmol/L Normal 21.0-32.0 [facility] Comment on above: Performed By: #### H STROPN, BNP, CMP #### [facility] [address] [address] [address] Oksana Dowell Creatinine [Mass/Vol] 0.87 mg/dL Normal 0.70-1.30 [facility] Comment on above: Performed By: #### H STROPN, BNP, CMP #### [facility] [address] [address] [address] Oksana Dowell EGFR-AF MALTESE >60 Normal >=60 [facility] Comment on above: Performed By: #### H STROPN, BNP, CMP #### [facility] [address] [address] [address] Oksana Dowell EGFR-NON AF MALTESE >60 Normal >=60 [facility] Comment on above: Performed By: #### H STROPN, BNP, CMP #### [facility] [address] [address] [address] Oksana Dowell Globulin (S) [Mass/Vol] 3.0 g/dL Normal [facility] Comment on above: Performed By: #### H STROPN, BNP, CMP #### [facility] [address] [address] [address] Oksana Dowell Glucose [Mass/Vol] 119 mg/dL Critically high 74-106 [facility] Comment on above: Performed By: #### H STROPN, BNP, CMP #### [facility] [address] [address] [address] Oksana Dowell Potassium [Moles/Vol] 3.6 mmol/L Normal 3.5-5.1 [facility] Comment on above: Performed By: #### H STROPN, BNP, CMP #### [facility] [address] [address] [address] Oksana Dowell Protein [Mass/Vol] 6.2 g/dL Critically low 6.4-8.2 Th [facility] Comment on above: Performed By: #### H STROPN, BNP, CMP #### [facility] [address] [address] [address] Oksana Dowell Sodium [Moles/Vol] 140 mmol/L Normal 136-145 [facility] Comment on above: Performed By: #### H STROPN, BNP, CMP #### [facility] [address] [address] [address] Oksana Dowell Urea nitrogen [Mass/Vol] 13.0 mg/dL Normal 7.0-18.0 [facility] Comment on above: Performed By: #### H STROPN, BNP, CMP #### [facility] [address] [address] [address] Oksana Dowell Urea nitrogen/Creatinine [Mass ratio] 14.9 mg/mg Normal [facility] Comment on above: Performed By: #### H STROPN, BNP, CMP #### [facility] [address] [address] [address] Oksana Dowell TROPONIN, HIGH SENSITIVITYon 07-23-2022 HSTROP 8.3 pg/mL Normal 4.0-76.1 [facility] Comment on above: Result Comment: CUT- OFF POINTS HAVE BEEN ESTABLISHED BASED ON THE FOURTH UNIVERSAL DEFINITIONS OF MYOCARDIAL INFARCTION. THE UPPER REFERENCE LIMIT (URL) OF TROPONIN, DEFINED THE 99TH PERCENTILE OF cTnI DISTRIBUTION IN A REFERENCE POPULATION, HAS BEEN CONFIRMED THE DECISION THRESHOLD FOR GA DIAGNOSIS. Performed By: #### H STROPN, BNP, CMP #### [facility] [address] [address] [address] Oksana Dowell XR CHEST 1 Von [...] ALEXANDRIA SCHAFFER Date: 2022-07-23 20:48 Normal [facility] Basophils Auto (Bld) [#/Vol] Ordered By: Senthil Donato on 07-16-2022 Basophils (Bld) [#/Vol] 0.1 10*3/uL 0.0-0.2 [facility] Basophils/100 WBC Auto (Bld) Ordered By: Senthil Donato on 07-16-2022 Basophils/100 WBC (Bld) 0.9 % . [facility] Creatinine and Glomerular fi ltration rate.predicted panel (S/P/Bld)Ordered By: Senthil Donato on 07-16-2022 Creatinine [Mass/Vol] 1.06 mg/dL 0.64-1.27 [facility] Eosinophils Auto (Bld) [#/Vo l]Ordered By: Senthil Donato on 07-16-2022 Eosinophils (Bld) [#/Vol] 0.3 10*3/uL 0.0-0.45 [facility] Eosinophils/100 WBC Auto (Bl d)Ordered By: Senthil Donato on 07-16-2022 Eosinophils/100 WBC (Bld) 4.0 % . [facility] Erythrocyte distribution wid th Auto (RBC) [Ratio]Ordered By: Senthil Donato on 07-16-2022 Erythrocyte distribution width (RBC) [Ratio] 14.6 % 12.0-14.8 [facility] Estimated glomerular filtrat ion rate (GFR) non- AmericanOrdered By: Senthil Donato on 07-16-2022 GFR/1.73 sq M.predicted among non-blacks MDRD (S/P/Bld) [Vol rate/Area] > 60 mL/Min [facility] Hematocrit Auto (Bld) [Volum e fraction]Ordered By: Senthil Donato on 07-16-2022 Hematocrit (Bld) [Volume fraction] 38.2 % 38.8-50.0 [facility] Hemoglobin [Mass/volume] in BloodOrdered By: Senthil Donato on 07-16-2022 Hemoglobin (Bld) [Mass/Vol] 12.6 g/dL 13.0-17.0 [facility] - Hematology and Cell countsOrdered By: Senthil Donato on 07-16-2022 Nucleated RBC/100 WBC (Bld) [Ratio] 0.1 % 0-0.5 [facility] Leukocytes [#/volume] in Blo od by Automated countOrdered By: Senthil Donato on 07-16-2022 WBC (Bld) [#/Vol] 7.2 10*3/uL 4.5-11.0 [facility] Lymphocytes Auto (Bld) [#/Vo l]Ordered By: Senthil Donato on 07-16-2022 Lymphocytes (Bld) [#/Vol] 1.2 10*3/uL 1.00-4.8 [facility] Lymphocytes/100 WBC Auto (Bl d)Ordered By: Senthil Donato on 07-16-2022 Lymphocytes/100 WBC (Bld) 16.4 % . [facility] MCH Auto (RBC) [Entitic mass ]Ordered By: Senthil Donato on 07-16-2022 MCH (RBC) [Entitic mass] 31.7 pg 27.5-35.2 [facility] MCHC Auto (RBC) [Mass/Vol]Or dered By: Senthil Donato on 07-16-2022 MCHC (RBC) [Mass/Vol] 33.1 g/dL 32.5-35.6 [facility] MCV Auto (RBC) [Entitic vol] Ordered By: Senthil Donato on 07-16-2022 MCV (RBC) [Entitic vol] 95.6 fL 83.5-101 [facility] Monocytes Auto (Bld) [#/Vol] Ordered By: Senthil Donato on 07-16-2022 Monocytes (Bld) [#/Vol] 0.5 10*3/uL 0.0-0.8 [facility] Monocytes/100 WBC Auto (Bld) Ordered By: Senthil Donato on 07-16-2022 Monocytes/100 WBC (Bld) 7.2 % . [facility] Neutrophils Auto (Bld) [#/Vo l]Ordered By: Senthil Donato on 07-16-2022 Neutrophils (Bld) [#/Vol] 5.1 10*3/uL 1.8-7.7 [facility] Neutrophils/100 WBC Auto (Bl d)Ordered By: Senthil Donato on 07-16-2022 Neutrophils/100 WBC (Bld) 71.5 % . [facility] No Panel InformationOrdered By: Senthil Donato on 07-16-2022 Estimated GFR () > 60 mL/Min [facility] Comment on above: GFR estimated refere nce range: According to KDOQI guidelines, <60 ml/min/1.73m2 is sufficient to diagnose a patient with chronic kidney disease. Pharmacy Creatinine Clearance (Chem 61.81 [facility] Platelet mean volume Auto (B ld) [Entitic vol]Ordered By: Senthil Donato on 07-16-2022 Platelet mean volume (Bld) [Entitic vol] 9.5 fL 6.6-10.1 [facility] Platelets Auto (Bld) [#/Vol] Ordered By: Senthil Donato on 07-16-2022 Platelets (Bld) [#/Vol] 197 10*3/uL 150-450 [facility] RBC Auto (Bld) [#/Vol]Ordere d By: Senthil Donato on 07-16-2022 RBC (Bld) [#/Vol] 4.00 10*6/uL 3.90-5.60 [facility] Serum or plasma anion gap de terminationOrdered By: Senthil Donato on 07-16-2022 Anion gap [Moles/Vol] 14.2 mmol/L 6.0-15.0 [facility] Serum or plasma calcium paul urement (mass/volume)Ordered By: Senthil Donato on 07-16-2022 Calcium [Mass/Vol] 9.3 mg/dL 8.2-10.2 [facility] Serum or plasma chloride sarah surement (moles/volume)Ordered By: Senthil Donato on 07-16-2022 Chloride [Moles/Vol] 102 mmol/L 95-114 [facility] Serum or plasma glucose paul urement (mass/volume)Ordered By: Senthil Donato on 07-16-2022 Glucose [Mass/Vol] 106 mg/dL 70-100 [facility] Comment on above: ADA recommended refe rence rangeRandom Glucose Reference Range is dependent on time and content of last meal. Glucose of more than 200 mg/dL in a nonstressed, ambulatory subject supports the diagnosis of Diabetes Mellitus. Serum or plasma potassium me asurement (moles/volume)Ordered By: Senthil Donato on 07-16-2022 Potassium [Moles/Vol] 3.9 mmol/L 3.5-5.1 [facility] Serum or plasma sodium measu rement (moles/volume)Ordered By: Senthil Donato on 07-16-2022 Sodium [Moles/Vol] 137 mmol/L 136-146 [facility] Serum or plasma total carbon dioxide measurement (moles/volume)Ordered By: Senthil Donato on 07-16-2022 CO2 [Moles/Vol] 24.7 mmol/L 22.0-30.0 [facility] Serum or plasma urea nitroge n measurement (mass/volume)Ordered By: Senthil Donato on 07-16-2022 Urea nitrogen [Mass/Vol] 17 mg/dL 9- [facility] COVID-19 Positive/NegativeOr dered By: Malcom Irene on 07-14-2022 SARS-CoV-2 (COVID-19) N gene LAUREN+probe Ql (Resp) Negative Negative [facility] Comment on above: Testing for SARS-CoV -2 by RT-PCR This test was developed and its performance characteristics determined by [employer]) and validated at the [facility]. This test has not been FDA [...] on 06-18-2022 Creatinine [Mass/Vol] 1.1 mg/dL 0.6-1.3 [facility] Comment on above: ER/ESD physician is notified/shown all ISTAT results. Critical values may be confirmed by laboratory testing if deemed necessary by ER attending doctor. No Panel InformationOrdered By: Malcom Irene on 06-18-2022 POC Estimated GFR > 60 [facility] Comment on above: GFR estimated refere nce range: According to KDOQI guidelines, <60 ml/min/1.73m2 is sufficient to diagnose a patient with chronic kidney disease. POC Estimated GFR Non- Amer > 60 [facility] Covid-19 PCR (CVDTBH)on SARS-CoV-2 (COVID-19) RNA LAUREN+probe Ql (Unsp spec) Not detected Normal NOT DETECTED [facility] Comment on above: Result Comment: This test is not yet approved or cleared by the [place] FDA. When there are no FDA-approved or cleared tests available, and other criteria are met, FDA can make tests available under an emergency access mechanism called an Emergency Use Authorization (EUA). The EUA for this test is supported by the [facility] of Health and Human Service's (HHS's) declaration [...] consistent with SARS-CoV-2. Performed By: #### C [facility] #### [facility] [address] [place] [address] Dr. Oksana Dowell Tobacco Screening.on 022 Adult depression screening assessment No [facility] Amvona cedric 250 DO Work Phone: Fall risk assessment a) No falls within the last year [facility] Amvona cedric 250 DO Work Phone: Tobacco use status CPHS a) Yes [facility] 250 DO Work Phone: Tobacco Screening. Yes [facility] 250 DO Work Phone: Echocardiogramon 01-27-2022 Echocardiography [facility] geoffrey [address] [place] [address], [address] [place] [address] TRANSTHORACIC ECHOCARDIOGRAM REPORT Patient Name: IVAN ANTHONY Reading Physician: [id number] Eran Irwin MD Study Date: 01/27/2022 Referring Physician: [id number] ALEXANDRIA ISSA MRN/PID: [id number] PCP: Alonzo Gray Accession/Order#: [id number] Department Location: [facility] Date of : 1945 Fellow: Gender: M Nurse: Admit Date: Export Freight Manager: Marcia Fernandez RDCS, RVT Height: 187.96 cm [...] Irene/Date Pending Procedure/CPT: Echo Complete w Full [id number] Study Detail: The following Echo studies were [...] 0.6 m/s (0.6-0.9m/s) PV Max P.3 mmHg [id number] Eran Irwin MD Electronically signed on 01/31/2022 at 7:24:37 PM Final Normal [facility] Echocardiography Please click on the link to view the study images [facility] DO Work Phone: Tobacco Screening.on 022 Adult depression screening assessment No [facility] Heart-[facility] cedric 250 DO Work Phone: Fall risk assessment a) No falls within the last year [facility] Heart-[facility] cedric 250 DO Work Phone: Tobacco use status CP a) Yes [facility] Heart-[facility] cedric 250 DO Work Phone: Tobacco Screening. Yes [facility] Heart-[facility]u cedric 250 DO Work Phone: No Panel Informationon 01-17 Normal [facility] Heart-[facility] cedric 250 DO Work Phone: No Panel Informationon 01-16 [facility] cedric 250 DO Work Phone: Tobacco Screening.on 022 Adult depression screening assessment No [facility] Heart-[facility] cedric 250 DO Work Phone: Fall risk assessment a) No falls within the last year [facility] [employer] cedric 250 DO Work Phone: Tobacco use status CP a) Yes [facility] [employer] cedric 250 DO Work Phone: Tobacco Screening. Yes [facility] Yoozon 250 DO Work Phone: US CAROTID ART BILon 022 US CAROTID ART MICHAEL EXAMINATION: US ZHU TID ART MICHAEL HISTORY: Cardiovascular symptoms COMPARISON: No relevant comparison [...] by: IVAN CALIXTO Date: 2021-12-17 12:30 Normal [facility] Vital Signs Date Time Vital Sign Value Performing Clinician Facility 03-09-2025 08:55-0400 Diastolic blood pressure 78 mm[Hg] Bhavana 1 [facility] 03-09-2025 08:55-0400 Heart rate 52 /min [address] 03-09-2025 08:55-0400 Systolic blood pressure 118 mm[Hg] [address] 03-07-2025 10:17-0400 Body height 189.23 cm [facility] 03-07-2025 10:17-0400 Body mass index (BMI) [Ratio] 18.5 kg/m2 [facility] 03-07-2025 10:17-0400 Body weight 66.28 kg [facility] 03-07-2025 10:17-0400 Diastolic blood pressure 70 mm[Hg] [facility] 03-07-2025 10:17-0400 Heart rate 58 /min [facility] 03-07-2025 10:17-0400 Respiratory rate 12 /min [facility] 03-07-2025 10:17-0400 Systolic blood pressure 123 mm[Hg] [facility] 02-09-2025 09:58-0400 Body height 189.2 cm Terri Velazco MD Work Phone: [facility] 02-09-2025 09:58-0400 Body mass index (BMI) [Ratio] 18.75 kg/m2 Terri Velazco MD Work Phone: [facility] 02-09-2025 09:58-0400 Body weight 67.13 kg Terri Velazco MD Work Phone: [facility] 02-09-2025 09:58-0400 Diastolic blood pressure 70 mm[Hg] Terri Velazco MD Work Phone: [facility] 02-09-2025 09:58-0400 Heart rate 60 /min Terri Velazco MD Work Phone: [facility] 02-09-2025 09:58-0400 Systolic blood pressure 138 mm[Hg] Terri Velazco MD Work Phone: [facility] 12-06-2024 09:55-0500 Body height 189.23 cm Alonzo Ball DO Work Phone: [facility] 12-06-2024 09:55-0500 Body mass index (BMI) [Ratio] 18.2 kg/m2 Alonzo Ball DO Work Phone: [facility] 12-06-2024 09:55-0500 Body weight 65.43 kg Alonzo Ball DO Work Phone: [facility] 12-06-2024 09:55-0500 Diastolic blood pressure 51 mm[Hg] Alonzo Ball DO Work Phone: [facility] 12-06-2024 09:55-0500 Heart rate 62 /min Alonzo Ball DO Work Phone: [facility] 12-06-2024 09:55-0500 Respiratory rate 12 /min Alonzo Ball DO Work Phone: [facility] 12-06-2024 09:55-0500 Systolic blood pressure 109 mm[Hg] Alonzo Ball DO Work Phone: [facility] 11-08-2024 11:45-0500 Body height 189.23 cm Alonzo Ball DO Work Phone: [facility] 11-08-2024 11:45-0500 Body mass index (BMI) [Ratio] 20.2 kg/m2 Alonzo Ball DO Work Phone: [facility] 11-08-2024 11:45-0500 Body temperature 96.4 [degF] Alonzo Ball DO Work Phone: [facility] 11-08-2024 11:45-0500 Body weight 72.57 kg Alonzo Ball DO Work Phone: [facility] 11-08-2024 11:45-0500 Diastolic blood pressure 62 mm[Hg] Alonzo Ball DO Work Phone: [facility] 11-08-2024 11:45-0500 Heart rate 49 /min Alonzo Ball DO Work Phone: [facility] 11-08-2024 11:45-0500 SaO2% (BldA) [Mass fraction] 92 % Alonzo Ball DO Work Phone: [facility] 11-08-2024 11:45-0500 Systolic blood pressure 138 mm[Hg] Alonzo Ball DO Work Phone: [facility] 09-02-2024 09:55-0400 Body height 186.69 cm [facility] 09-02-2024 09:55-0400 Body mass index (BMI) [Ratio] 18.7 kg/m2 [facility] 09-02-2024 09:55-0400 Body weight 65.31 kg [facility] 09-02-2024 09:55-0400 Diastolic blood pressure 73 mm[Hg] [facility] 09-02-2024 09:55-0400 Heart rate 58 /min [facility] 09-02-2024 09:55-0400 Respiratory rate 12 /min [facility] 09-02-2024 09:55-0400 Systolic blood pressure 145 mm[Hg] [facility] 05-23-2024 11:09-0400 Body height 186.69 cm [facility] 05-23-2024 11:09-0400 Body mass index (BMI) [Ratio] 18.2 kg/m2 [facility] 05-23-2024 11:09-0400 Body weight 63.61 kg [facility] 05-23-2024 11:09-0400 Diastolic blood pressure 61 mm[Hg] [facility] 05-23-2024 11:09-0400 Heart rate 66 /min [facility] 05-23-2024 11:09-0400 Respiratory rate 12 /min [facility] 05-23-2024 11:09-0400 Systolic blood pressure 100 mm[Hg] [facility] 05-19-2024 13:45-0400 Body height 189.2 cm Eran Irwin MD Work Phone: [facility] 05-19-2024 13:45-0400 Body mass index (BMI) [Ratio] 17.71 kg/m2 Eran Irwin MD Work Phone: [facility] 05-19-2024 13:45-0400 Body weight 63.41 kg Eran Irwin MD Work Phone: [facility] 05-19-2024 13:45-0400 Diastolic blood pressure 74 mm[Hg] Eran Iwrin MD Work Phone: [facility] 05-19-2024 13:45-0400 Heart rate 60 /min Eran Irwin MD Work Phone: [facility] 05-19-2024 13:45-0400 Systolic blood pressure 138 mm[Hg] Eran Irwin MD Work Phone: [facility] 11-16-2023 09:30-0500 Body height 186.69 cm Alonzo Ball Other [employer] Other 11-16-2023 09:30-0500 Body mass index (BMI) [Ratio] 19.96 kg/m2 Alonzo Ball Other [employer] Other 11-16-2023 09:30-0500 Body weight 69.58 kg Alonzo Ball Other [employer] Other 11-16-2023 09:30-0500 Diastolic blood pressure 78 mm[Hg] Alonzo Ball Other [employer] Other 11-16-2023 09:30-0500 Respiratory rate 12 /min Alonzo Ball Other [employer] Other 11-16-2023 09:30-0500 Systolic blood pressure 159 mm[Hg] Alonzo Ball Other [employer] Other 10-19-2023 11:30-0500 Body height 186.69 cm Malcom Irene Other [employer] Other 10-19-2023 11:30-0500 Body mass index (BMI) [Ratio] 20.56 kg/m2 Malcom Irene Other [facility] Other 10-19-2023 11:30-0500 Body temperature 97.8 [degF] Malcom Irene Other [employer] Other 10-19-2023 11:30-0500 Body weight 71.67 kg Malcom Irene Other [facility] Other 10-19-2023 11:30-0500 Diastolic blood pressure 74 mm[Hg] Malcom Irene Other [facility] Other 10-19-2023 11:30-0500 SaO2% (BldA) [Mass fraction] 97 % Malcom Irene Other [facility] Other 10-19-2023 11:30-0500 Systolic blood pressure 128 mm[Hg] Malcom Irene Other [facility] Other 05-20-2023 14:27-0400 Diastolic blood pressure 70 mm[Hg] Alonzo Evangelista Ball Work Phone: [employer] DO Work Phone: 05-20-2023 14:27-0400 Systolic blood pressure 138 mm[Hg] Alonzo E Ball Work Phone: [employer] 250 DO Work Phone: 05-20-2023 14:14-0400 Body height 187.96 cm Alonzo Evangelista Ball Work Phone: [employer] 250 DO Work Phone: 05-20-2023 14:14-0400 Body mass index (BMI) [Ratio] 20.41 kg/m2 Alonzo Evangelista Ball Work Phone: [email or web address] 250 DO Work Phone: 05-20-2023 14:14-0400 Body surface area Derived from formula 1.97 m2 Alonzo E Ball Work Phone: [facility] [place] [facility] 250 DO Work Phone: 05-20-2023 14:14-0400 Body weight 72.12 kg Alonzo E Ball Work Phone: [facility] 250 DO Work Phone: 05-20-2023 14:14-0400 Diastolic blood pressure 68 mm[Hg] Alonzo E Ball Work Phone: [facility] 250 DO Work Phone: 05-20-2023 14:14-0400 Heart rate 64 /min Alonzo E Ball Work Phone: [facility] 250 DO Work Phone: 05-20-2023 14:14-0400 Systolic blood pressure 180 mm[Hg] Alonzo E Ball Work Phone: [facility] [employer] 250 DO Work Phone: 05-15-2023 11:00-0400 Body height 186.69 cm Alonzo Ball Other [employer] Other 05-15-2023 11:00-0400 Body mass index (BMI) [Ratio] 20.64 kg/m2 Alonzo Ball Other [employer] Other 05-15-2023 11:00-0400 Body weight 71.94 kg Alonzo Ball Other [employer] Other 05-15-2023 11:00-0400 Diastolic blood pressure 72 mm[Hg] Alonzo Ball Other [employer] Other 05-15-2023 11:00-0400 Respiratory rate 12 /min Alonzo Ball Other [facility] Other 05-15-2023 11:00-0400 Systolic blood pressure 175 mm[Hg] Alonzo Ball Other [employer] Other 11-24-2022 16:05-0500 Diastolic blood pressure 82 mm[Hg] Alonzo E Ball Work Phone: [facility] [employer] 250 DO Work Phone: 11-24-2022 16:05-0500 Systolic blood pressure 138 mm[Hg] Alonzo E Ball Work Phone: [facility] [employer] 250 DO Work Phone: 11-24-2022 15:25-0500 Body height 187.96 cm Alonzo E Ball Work Phone: [facility] [employer] 250 DO Work Phone: 11-24-2022 15:25-0500 Body mass index (BMI) [Ratio] 20.8 kg/m2 Alonzo E Ball Work Phone: [facility] [employer] 250 DO Work Phone: 11-24-2022 15:25-0500 Body surface area Derived from formula 1.99 m2 Alonzo E Ball Work Phone: [facility] [employer] 250 DO Work Phone: 11-24-2022 15:25-0500 Body weight 73.48 kg Alonzo E Ball Work Phone: [facility] [employer] 250 DO Work Phone: 11-24-2022 15:25-0500 Diastolic blood pressure 82 mm[Hg] Alonzo E Ball Work Phone: [facility] 250 DO Work Phone: 11-24-2022 15:25-0500 Heart rate 66 /min Alonzo E Ball Work Phone: [facility] [employer] 250 DO Work Phone: 11-24-2022 15:25-0500 Systolic blood pressure 144 mm[Hg] Alonzo E Ball Work Phone: [facility] 250 DO Work Phone: 11-19-2022 14:30-0500 40 1 Alonzo E Ball Work Phone: [facility] 250A [place] Work Phone: Comment on above: [id number] 10-01-2022 13:47-0500 Body height 187.96 cm Alonzo Evangelista Ball Work Phone: [facility] 250 DO Work Phone: 10-01-2022 13:47-0500 Body mass index (BMI) [Ratio] 21.33 kg/m2 Alonzo Evangelista Ball Work Phone: [facility] 250 DO Work Phone: 10-01-2022 13:47-0500 Body surface area Derived from formula 2.01 m2 Alonzo Evangelista Ball Work Phone: [facility] 250 DO Work Phone: 10-01-2022 13:47-0500 Body weight 75.36 kg Alonzo E Ball Work Phone: [facility] 250 DO Work Phone: 10-01-2022 13:47-0500 Diastolic blood pressure 90 mm[Hg] Alonzo Evangelista Ball Work Phone: [facility] 250 DO Work Phone: 10-01-2022 13:47-0500 Heart rate 66 /min Alonzo E Ball Work Phone: [facility] 250 DO Work Phone: 10-01-2022 13:47-0500 Systolic blood pressure 160 mm[Hg] Alonzo E Ball Work Phone: [facility] 250 DO Work Phone: 08-11-2022 12:30-0400 Body height 186.69 cm Irma Pérez Other [employer] Other 08-11-2022 12:30-0400 Body mass index (BMI) [Ratio] 20.82 kg/m2 Irma Pérez Other [employer] Other 08-11-2022 12:30-0400 Body temperature 97.1 [degF] Irma Pérez Other [employer] Other 08-11-2022 12:30-0400 Body weight 72.58 kg Irma Pérez Other [facility] Other 08-11-2022 12:30-0400 Diastolic blood pressure 68 mm[Hg] Irma Pérez Other [employer] Other 08-11-2022 12:30-0400 SaO2% (BldA) [Mass fraction] 98 % Irma Pérez Other [employer] Other 08-11-2022 12:30-0400 Systolic blood pressure 158 mm[Hg] Irma Pérez Other [facility] Other 07-17-2022 07:00-0400 Diastolic blood pressure 54 mm[Hg] DO Alonzo Ball Work Phone: [facility] 07-17-2022 07:00-0400 Heart rate 49 /min DO Alonzo Ball Work Phone: [facility] 07-17-2022 07:00-0400 Respiratory rate 17 /min DO Alonzo Ball Work Phone: [facility] 07-17-2022 07:00-0400 Systolic blood pressure 122 mm[Hg] DO Alonzo Ball Work Phone: [facility] 07-17-2022 06:00-0400 SaO2% (BldA) [Mass fraction] 98 % DO Alonzo Ball Work Phone: [facility] 07-17-2022 05:46-0400 Body weight 74.8 kg DO Alonzo Ball Work Phone: [facility] 07-17-2022 00:00-0400 Body temperature 98.6 [degF] DO Alonzo Ball Work Phone: [facility] 07-17-2022 00:00-0400 Inhaled oxygen flow rate 1 L/min DO Alonzo Ball Work Phone: [facility] 07-16-2022 08:17-0400 Body height 189.23 cm DO Alonzo Ball Work Phone: [facility] 07-16-2022 08:17-0400 Body mass index (BMI) [Ratio] 20.2 kg/m2 DO Alonzo Ball Work Phone: [facility] 06-18-2022 15:35-0400 Diastolic blood pressure 57 mm[Hg] DO Alonzo Ball Work Phone: [facility] 06-18-2022 15:35-0400 Heart rate 57 /min DO Alonzo Ball Work Phone: [facility] 06-18-2022 15:35-0400 Respiratory rate 20 /min DO Alonzo Ball Work Phone: [facility] 06-18-2022 15:35-0400 SaO2% (BldA) [Mass fraction] 95 % DO Alonzo Ball Work Phone: [facility] 06-18-2022 15:35-0400 Systolic blood pressure 131 mm[Hg] DO Alonzo Ball Work Phone: [facility] 06-18-2022 12:30-0400 Inhaled oxygen flow rate 2 L/min DO Alonzo Ball Work Phone: [facility] 06-18-2022 11:04-0400 Body height 187.96 cm DO Alonzo Ball Work Phone: [facility] 06-18-2022 11:04-0400 Body weight 74.84 kg DO Alonzo [employer] Work Phone: [facility] 05-20-2022 11:30-0400 Body height 186.69 cm Malcom Irene Other [facility] Other 05-20-2022 11:30-0400 Body mass index (BMI) [Ratio] 20.82 kg/m2 Malcom Brownleerer Other [facility] Other 05-20-2022 11:30-0400 Body temperature 97.6 [degF] Malcom Brownleerer Other [facility] Other 05-20-2022 11:30-0400 Body weight 72.58 kg Malcom Brownleerer Other [facility] Other 05-20-2022 11:30-0400 Diastolic blood pressure 62 mm[Hg] Malcom Hobbsr Other [facility] Other 05-20-2022 11:30-0400 SaO2% (BldA) [Mass fraction] 99 % Malcom Brownleereenedelia Other [facility] Other 05-20-2022 11:30-0400 Systolic blood pressure 138 mm[Hg] Malcom Brownleereenedelia Other [facility] Other 03-18-2022 11:45-0400 Body height 186.69 cm Irma Pérez Other [facility] Other 03-18-2022 11:45-0400 Body mass index (BMI) [Ratio] 20.82 kg/m2 Irma Pérez Other [facility] Other 03-18-2022 11:45-0400 Body temperature 97.2 [degF] Irma Pérez Other [facility] Other 03-18-2022 11:45-0400 Body weight 72.58 kg Irma Pérez Other [facility] Other 03-18-2022 11:45-0400 Diastolic blood pressure 52 mm[Hg] Iram Pérez Other [facility] Other 03-18-2022 11:45-0400 SaO2% (BldA) [Mass fraction] 99 % Irma Pérez Other [facility] Other 03-18-2022 11:45-0400 Systolic blood pressure 140 mm[Hg] Irma Pérez Other [facility] Other 03-10-2022 13:39-0400 Diastolic blood pressure 60 mm[Hg] Alonzo Evangelista Ball Work Phone: [employer] 250 DO Work Phone: 03-10-2022 13:39-0400 Systolic blood pressure 138 mm[Hg] Alonzo Evangelista Ball Work Phone: [employer] 250 DO Work Phone: 03-10-2022 13:19-0400 Body height 187.96 cm Alonzo E Ball Work Phone: [employer] 250 DO Work Phone: 03-10-2022 13:19-0400 Body mass index (BMI) [Ratio] 20.8 kg/m2 Alonzo E Ball Work Phone: [employer] 250 DO Work Phone: 03-10-2022 13:19-0400 Body surface area Derived from formula 1.99 m2 Alonzo E Ball Work Phone: [facility] [employer] 250 DO Work Phone: 03-10-2022 13:19-0400 Body weight 73.48 kg Alonzo E Ball Work Phone: [facility] [employer] 250 DO Work Phone: 03-10-2022 13:19-0400 Diastolic blood pressure 62 mm[Hg] Alonzo E Ball Work Phone: [facility] [employer] 250 DO Work Phone: 03-10-2022 13:19-0400 Heart rate 66 /min Alonzo E Ball Work Phone: [facility] [employer] 250 DO Work Phone: 03-10-2022 13:19-0400 Systolic blood pressure 152 mm[Hg] Alonzo E Ball Work Phone: [facility] [employer] 250 DO Work Phone: 02-04-2022 12:00-0400 Body height 186.69 cm Malcom Irene Other [employer] Other 02-04-2022 12:00-0400 Body mass index (BMI) [Ratio] 20.82 kg/m2 Malcom Irene Other [employer] Other 02-04-2022 12:00-0400 Body temperature 96.3 [degF] Malcom Irene Other [employer] Other 02-04-2022 12:00-0400 Body weight 72.58 kg Malcom Irene Other [facility] Other 02-04-2022 12:00-0400 Diastolic blood pressure 60 mm[Hg] Malcom Irene Other [employer] Other 02-04-2022 12:00-0400 SaO2% (BldA) [Mass fraction] 97 % Malcom Irene Other [employer] Other 02-04-2022 12:00-0400 Systolic blood pressure 158 mm[Hg] Malcom Irene Other [employer] Other 01-27-2022 08:45-0400 30 1 Alonzo Jean Carlos Ball Work Phone: [facility] [employer] 250A [place] Work Phone: Comment on above: [id number] 01-23-2022 13:08-0400 Body height 187.96 cm Alonzo E Ball Work Phone: [facility] [employer] 250 DO Work Phone: 01-23-2022 13:08-0400 Body mass index (BMI) [Ratio] 20.93 kg/m2 Alonzo E Ball Work Phone: [facility] [employer] 250 DO Work Phone: 01-23-2022 13:08-0400 Body surface area Derived from formula 1.99 m2 Alonzo E Ball Work Phone: [facility] [employer] 250 DO Work Phone: 01-23-2022 13:08-0400 Body weight 73.94 kg Alonzo E Ball Work Phone: [facility] [employer] 250 DO Work Phone: 01-23-2022 13:08-0400 Heart rate 68 /min Alonzo E Ball Work Phone: [facility] [employer] 250 DO Work Phone: 01-16-2022 16:13-0400 30 1 Alonzo E Ball Work Phone: [facility] 250 DO Work Phone: Comment on above: [id number] 01-13-2022 15:09-0400 Diastolic blood pressure 67 mm[Hg] Alonzo E Ball Work Phone: [facility] 250 DO Work Phone: 01-13-2022 15:09-0400 Systolic blood pressure 141 mm[Hg] Alonzo E Ball Work Phone: [facility] 250 DO Work Phone: 01-13-2022 15:05-0400 Body height 189.23 cm Alonzo E Ball Work Phone: [facility] 250 DO Work Phone: 01-13-2022 15:05-0400 Body mass index (BMI) [Ratio] 20.27 kg/m2 Alonzo E Ball Work Phone: [facility] 250 DO Work Phone: 01-13-2022 15:05-0400 Body surface area Derived from formula 1.99 m2 Alonzo E Ball Work Phone: [facility] 250 DO Work Phone: 01-13-2022 15:05-0400 Body weight 72.58 kg Alonzo E Ball Work Phone: [facility] 250 DO Work Phone: 01-13-2022 15:05-0400 Diastolic blood pressure 63 mm[Hg] Alonzo E Ball Work Phone: [facility] 250 DO Work Phone: 01-13-2022 15:05-0400 Heart rate 65 /min Alonzo E Ball Work Phone: [facility] 250 DO Work Phone: 01-13-2022 15:05-0400 Systolic blood pressure 132 mm[Hg] Alonzo Evangelista Ball Work Phone: [facility] 250 DO Work Phone: 12-23-2021 11:30-0500 Body height 186.69 cm Irma Mcdonaldkimberlyken Other [employer] Other 12-23-2021 11:30-0500 Body mass index (BMI) [Ratio] 20.82 kg/m2 Irma Mcdonaldkimberlyken Other [employer] Other 12-23-2021 11:30-0500 Body temperature 96.9 [degF] Irma Mcdonaldkimberlyken Other [employer] Other 12-23-2021 11:30-0500 Body weight 72.58 kg Irma Pérez Other [employer] Other 12-23-2021 11:30-0500 Diastolic blood pressure 70 mm[Hg] Irma Mcdonalddilip Other [facility] Other 12-23-2021 11:30-0500 SaO2% (BldA) [Mass fraction] 95 % Irma Mcdonaldkimberlyken Other [employer] Other 12-23-2021 11:30-0500 Systolic blood pressure 160 mm[Hg] Irma Mcdonaldkmiberlyken Other [employer] Other Encounters Encounter Date Encounter Type Care Provider Facility Start: 03-09-2025 End: 03-09-2025 Subsequent hospital visit by physician Bhavana Rosas Admin Room [facility] Comment on above: Left ventricular sys tolic dysfunction; Paroxysmal atrial fibrillation (Multi); Shortness of breath Start: 03-09-2025 End: 03-09-2025 ambulatory [facility] Start: 03-07-2025 End: 03-07-2025 ambulatory [facility] Work Phone: Start: 03-07-2025 End: 03-07-2025 Patient encounter procedure [facility] Work Phone: Start: 03-03-2025 Non-patient / Non-visit [facility] Work Phone: Start: 02-27-2025 End: 02-27-2025 ambulatory [facility] Work Phone: Start: 02-27-2025 End: 02-27-2025 Patient encounter procedure [facility] Work Phone: Start: 02-09-2025 End: 02-09-2025 Office outpatient visit 25 minutes Terri Velazco MD Work Phone: [facility] Comment on above: Left ventricular sys tolic dysfunction (Primary Dx); Primary hypertension; Paroxysmal atrial fibrillation (Multi); Asymptomatic bilateral carotid artery stenosis; Mixed hyperlipidemia; Shortness of breath; Current smoker; Body mass index (BMI) 19.9 or less, adult; H/O carotid endarterectomy; Chronic obstructive pulmonary disease, unspecified COPD type (Multi) Start: 02-09-2025 End: 02-09-2025 ambulatory [facility] Start: 01-20-2025 End: 01-20-2025 ambulatory Alonzo Ball DO Work Phone: [facility] Work Phone: Start: 01-20-2025 End: 01-20-2025 Patient encounter procedure Alonzo Ball DO Work Phone: [facility] Work Phone: Start: 12-20-2024 End: 12-20-2024 ambulatory Alonzo Ball DO Work Phone: [facility] Work Phone: Start: 12-20-2024 End: 12-20-2024 Patient encounter procedure Alonzo Ball DO [facility] Phone[facility] Work Phone: Start: 12-06-2024 End: 12-06-2024 ambulatory Alonzo Ball DO Work Phone: [facility] Work Phone: Start: 12-06-2024 End: 12-06-2024 Patient encounter procedure Alonzo Ball DO Work Phone: [facility] Work Phone: Start: 11-15-2024 End: 11-15-2024 ambulatory Alonzo Ball DO Work Phone: [facility] Work Phone: Start: 11-15-2024 End: 11-15-2024 Patient encounter procedure Alonzo Ball DO Work Phone: [facility] Work Phone: Start: 11-08-2024 End: 11-08-2024 ambulatory Alonzo Ball DO Work Phone: [facility] Work Phone: Start: 11-08-2024 End: 11-08-2024 Patient encounter procedure Alonzo Ball DO Work Phone: [facility] Work Phone: Start: 10-31-2024 Non-patient / Non-visit Benjam in Ball DO Work Phone[facility] Work Phone: Start: 10-11-2024 End: 10-11-2024 Patient encounter procedure Alonzo Ball DO Work Phone: [facility] Work Phone: Start: 10-04-2024 End: 10-04-2024 Patient encounter procedure Alonzo Ball DO Work Phone: [facility] Work Phone: Start: 09-20-2024 End: 09-20-2024 ambulatory [facility] Work Phone: Start: 09-20-2024 End: 09-20-2024 Patient encounter procedure [facility] Work Phone: Start: 09-13-2024 End: 09-13-2024 ambulatory [facility] Work Phone: Start: 09-13-2024 End: 09-13-2024 Patient encounter procedure [facility] Work Phone: Start: 09-02-2024 End: 09-02-2024 [facility] Work Phone: Start: 09-02-2024 End: 09-02-2024 Patient encounter procedure [facility] Work Phone: Start: 08-31-2024 Non-patient / Non-visit [facility] Work Phone: Start: 08-29-2024 Non-patient / Non-visit [facility] Work Phone: Start: 06-27-2024 Non-patient / Non-visit [facility] Work Phone: Start: 05-23-2024 End: 05-23-2024 [facility] Work Phone: Start: 05-23-2024 End: 05-23-2024 Patient encounter procedure [facility] Work Phone: Start: 05-19-2024 End: 05-19-2024 Office outpatient visit 25 minutes Eran Irwin MD Work Phone: [facility] Comment on above: Mixed hyperlipidemia (Primary Dx); Dilated cardiomyopathy (Multi); Primary hypertension; Paroxysmal atrial fibrillation (Multi); Current smoker; Body mass index (BMI) 19.9 or less, adult Start: 05-19-2024 End: 05-19-2024 ambulatory ERAN Estevez [facility] Start: 11-23-2023 End: 11-23-2023 ambulatory Alonzo Gray Other [facility] Other Start: 11-23-2023 Telephone encounter Alonzo Gray [facility] Start: 11-16-2023 End: 11-16-2023 ambulatory Alonzo Gray Other [facility] Other Start: 11-16-2023 Office outpatient vi sit 25 minutes Alonzo Gray [facility] Start: 10-19-2023 Office outpatient vi sit 25 minutes Malcom Irene [facility] Vascular Surgery Start: 10-19-2023 End: 10-19-2023 ambulatory DO Alonzo Gray Work Phone: [facility] Other Start: 10-19-2023 End: 10-19-2023 Patient encounter procedure DO Alonzo Gray Work Phone: [facility] Start: 08-17-2023 End: 08-17-2023 ambulatory Alonzo Gray Other [facility] Other Start: 08-17-2023 Nursing evaluation o f patient and report Alonzo Gray [facility] Start: 06-11-2023 Rx Renewal Alonzo Jean Carlos Bal l Work Phone: [facility] [address] DO Work Phone: Start: 05-27-2023 End: 05-27-2023 ambulatory Alonzo Gray Other [facility] Other Start: 05-27-2023 Telephone encounter Alonzo Gray FP [facility] Start: 05-20-2023 Office outpatient vi sit 25 minutes Alonzo Jean Carlos Ball Work Phone: [facility] 250 DO Work Phone: Start: 05-18-2023 End: 05-18-2023 ambulatory Alonzo Gray Other [facility] Other Start: 05-18-2023 Telephone encounter Alonzo Gray FP [facility] Start: 05-15-2023 End: 05-15-2023 ambulatory Alonzo Gray Other [facility] Other Start: 05-15-2023 Patient encounter procedure Alonzo Gray [facility] Start: 12-15-2022 Chart Update Alonzo evangelista Work Phone: [facility] [address] DO Work Phone: Start: 11-26-2022 End: 11-26-2022 ambulatory Irma Pérez Other [facility] Other Start: 11-26-2022 Telephone encounter Irma Fernández [facility] Start: 11-24-[address] Eran Irwin II Facility: Start: 11-24-2022 Chart Update Alonzo evangelista Work Phone: [facility] 250 DO Work Phone: Start: 11-19-2022 Patient encounter procedure Alonzo Gray Work Phone: [facility] [address] [place] Work Phone: Start: 11-19-[address] Eran Irwin II Facility:[id number] Start: 10-14-2022 End: 10-14-2022 ambulatory DO Alonzo Gray Work Phone: [facility] Work Phone: Start: 10-14-2022 End: 10-14-2022 Patient encounter procedure DO Alonzo Gray Work Phone: [facility] Start: 10-01-2022 Office outpatient vi sit 25 minutes Alonzo Gray Work Phone: [facility] 250 DO Work Phone: Start: 10-01-[address] Alonzo Gray Facility: Start: 08-11-2022 End: 08-11-2022 ambulatory Irma Pérez Other [facility] Other Start: 08-11-2022 Follow-up encounter Irma Fernández [facility] Start: 08-06-2022 End: 08-07-[address] ALONZO GRAY Facility:H1 Start: 07-23-2022 End: 07-23-[address] ALONZO GRAY Facility:H1 Start: 07-16-2022 End: 07-17-2022 Evaluation and management of inpatient DO Alonzo Gray Work Phone: [facility] [place] [facility] Start: 07-14-2022 End: 07-14-2022 Patient encounter procedure DO Alonzo Gray Work Phone: [facility]-Pre-Surgical Testing Start: 06-23-2022 End: 06-23-2022 ambulatory Irma Pérez Other [facility] Other Start: 06-23-2022 Encounter for other preprocedural examination Irma Pérez [facility] Start: 06-23-2022 Telephone encounter Irma Fernández [facility] Start: 06-18-2022 End: 06-18-2022 Evaluation and management of inpatient DO Alonzo Gray Work Phone: [facility] Start: 06-05-2022 Encounter for preprocedural laboratory examination DR DOCTOR OSEGUERA [facility] Start: 06-02-2022 End: 06-02-[address] ALONZO GRAY Facility:H1 Start: 06-02-2022 End: 06-02-2022 Encounter for preprocedural laboratory examination DR ALONZO GRAY Facility:H1 Start: 05-20-2022 End: 05-20-2022 ambulatory Malcom Irene Other [facility] Other Start: 07-19-2022 Postop follow up vis it related to original px Malcom Irene [facility] Start: 05-20-2022 End: 05-20-2022 Patient encounter procedure DO Alonzo Gray Work Phone: [facility] Start: 03-18-2022 End: 03-18-2022 ambulatory Irma Mcdonalddilip Other [facility] Other Start: 03-18-2022 Follow-up encounter Irma Mcdonalddilip Jolene [facility] Start: 03-14-2022 End: 03-14-[address] ALONZO GRAY Facility: Start: 03-10-2022 Office outpatient vi sit 25 minutes [facility]onzo Gray [facility] Work Phone: Start: 03-10-[address] Alonzo Gray Facility: Start: 02-10-2022 End: 02-10-2022 ambulatory Irma Mcdonalddilip Other [facility] Other Start: 02-10-2022 Encounter for other preprocedural examination Irma Mcdonalddilip [facility] Vascular Surgery Start: 02-10-2022 Telephone encounter Irma Mcdonaldkimberlyken Fernández [facility] Start: 02-05-2022 Chart Update Alonzo evangelista Work Phone: [facility] DO Work Phone: Start: 02-04-2022 End: 02-04-2022 ambulatory Malcom Irene Other [facility] Other Start: 02-04-2022 Office outpatient vi sit 25 minutes Malcom Irene [facility] Vascular Surgery Start: 01-27-2022 Encounter for other preprocedural examination Dr. Alexandria Issa [facility] Start: 01-27-2022 Telephone encounter Irma Pérez Jolene [facility] Start: 01-27-2022 Patient encounter procedure Alonzo Gray Work Phone: [facility] [address] [place] Work Phone: Start: 01-27-2022 End: 01-27-[address] Alexandria Issa [facility] Other Start: 01-23-2022 FUV, Provider: Alexandria Issa, Status: Pen, Time: 1:00 PM Alonzo Gray Work Phone: [facility] [address] DO Work Phone: Start: 01-23-2022 Office outpatient vi sit 25 minutes Alonzo Gray Work Phone: [facility] [address] DO Work Phone: Start: 01-21-2022 Chart Update Alonzo evangelista Work Phone: [facility] 250 DO Work Phone: Start: 01-13-2022 Office consultation new/estab patient 60 min Alonzo Gray Work Phone: [facility] [address] DO Work Phone: Start: 12-23-2021 End: 12-23-2021 ambulatory Irma Pérez Other [facility] Other Start: 12-23-2021 Office outpatient ne w 20 minutes Irma Pérez [facility] Start: 12-17-2021 End: 12-18-[address] ALONZO GRAY Facility: Start: 05-13-2021 Adult health examination Miles min Babs Other [facility] Other Patient encounter status Trista Gray Work Phone: [facility] [address] DO Work Phone: Preoperative state Alonzo brown Work Phone: [facility] [address] DO Work Phone: Procedures Date Procedure Procedure Detail Performing Clinician Start: 03-09-2025 Cv strs tst xers&/or rx cont ecg trcg only Terri Velazco MD Work Phone: Start: 11-08-2024 Doppler ultrasonogra phy of bilateral carotid arteries Alonzo Gray DO Work Phone: Start: 10-19-2023 Doppler ultrasonogra phy of bilateral carotid arteries DO Alonzo Gray Work Phone: Start: 11-19-2022 Echocardiography Benjam in E Ball Work Phone: Start: 10-14-2022 Doppler ultrasonogra phy of bilateral carotid arteries DO Alonzo Gray Work Phone: Start: 05-20-2022 Doppler ultrasonogra phy of bilateral carotid arteries DO Alonzo Gray Work Phone: Start: 01-27-2022 Echocardiography Benjam in E Babs Work Phone: Start: 09-28-2017 General examination of patient Alonzo Gray Other Start: 09-28-2017 Screening for malign ant neoplasm of colon Alonzo Gray Other Start: 09-28-2017 Screening for malign ant neoplasm of prostate Alonzo Gray Other Depression screening Trista n Babs Other Excision of melanoma Trista n Jean Carlos Gray Work Phone: History of carotid endarterectomy Alonzo Gray Other History of carotid endarterectomy H/O carotid endarterectomy Terri Velazco MD Work Phone: End: 06-05-2021 Hyperlipidemia screening Alonzo Gray Other Ligation of common c arotid artery Alonzo Gray Work Phone: Operative procedure on knee Alonzo Gray Work Phone: Screening for malign ant neoplasm of prostate Alonzo Gray Other Tonsillectomy Alonzo Evangelista Bal l Work Phone: Total colonoscopy Alonzo Gray Work Phone: Comment on above: denies; Plan of Treatment Date Care Activity Detail Author Start: 10-05-2025 End: 10-05-2025 Patient encounter procedure 10/05/2025 9:30 AM EST Office Visit [facility] [address] [place] [id number] Terri Velazco MD [address] [place] [address] [facility] Start: 05-24-2025 Medicare Annual Wellness Visit Medicare Annual Wellness Visit (AWV) [facility] Start: 04-19-2025 End: 04-19-2025 Patient encounter procedure 04/19/2025 8:45 AM EDT Appointment [facility] Consuelo Seymour [facility] [address] [place] [id number] [facility] Start: 03-09-2025 End: 03-09-2025 Patient encounter procedure [facility] Start: 02-09-2025 End: 02-09-2027 NM Heart Perfusion W stress and W radionuclide IV Nuclear Stress Test Cardiac Nuclear Medicine Routine Left ventricular systolic dysfunction Paroxysmal atrial fibrillation (Multi) Shortness of breath Expected: 02/09/2025 (Approximate), Expires: 02/09/2027 [facility] Work Phone: Comment on above: Expected: 02/09/2025 (Approximate), Expi res: 02/09/2027 Start: 02-09-2025 End: 02-09-2027 Heart Transthoracic Transthoracic Echo Complete Echocardiography Routine Left ventricular systolic dysfunction Paroxysmal atrial fibrillation (Multi) Shortness of breath Expected: 02/09/2025 (Approximate), Expires: 02/09/2027 [facility] Service Area Work Phone: Comment on above: Expected: 02/09/2025 (Approximate), Expi res: 02/09/2027 Start: 12-16-2024 End: 12-16-2024 Patient encounter procedure 12/16/2024 1:40 PM EST Office Visit [facility] [address] [place] [address] Terri Velazco MD [address] [place] [address] [facility] Start: 07-03-2024 COVID-19 Vaccine ( season) COVID-19 Vaccine ( season) [facility] Start: 07-03-2024 Influenza vaccination Influenza Vaccine (#1) [facility] Start: 12-02-2023 FUV, Provider: Eran Irwin, Status: Pen, Time: 2:20 PM FUV, Provider: Eran Irwin, Status: Pen, Time: 2:20 PM -[facility] [address] DO Work Phone: Start: 11-19-2023 Echocardiography Echocardiogram [facility] Start: 07-03-2023 COVID-19 Vaccine ( season) COVID-19 Vaccine () [facility] Start: 05-20-2023 FUV, Provider: Eran Irwin, Status: Pen, Time: 2:20 PM FUV, Provider: Eran Irwin, Status: Pen, Time: 2:20 PM -[facility] [address] DO Work Phone: Start: 11-24-2022 FUV, Provider: Eran Irwin, Status: Pen, Time: 3:30 PM FUV, Provider: Eran Irwin, Status: Pen, Time: 3:30 PM -[facility] [address] DO Work Phone: Start: 11-19-2022 ECHO, Provider: [place] [facility]TR[facility] ,[id number], Status: Pen, Time: 2:30 PM ECHO, Provider: [place] [facility]VI [facility]TRAS[facility] ,[id number], Status: Pen, Time: 2:30 PM -[facility] [address] DO Work Phone: Start: 10-01-2022 FUV, Provider: Eran Irwin, Status: Pen, Time: 1:40 PM FUV, Provider: Eran Irwin, Status: Pen, Time: 1:40 PM [facility] [address] DO Work Phone: Start: 07-17-2022 [facility] Start: 07-16-2022 Extirpation of Matter from Right Internal Carotid Artery, Open Approach Extirpation of Matter from Right Internal Carotid Artery, Open Approach [facility] Start: 07-16-2022 Supplement Right Internal Carotid Artery with Synthetic Substitute, Open Approach Supplement Right Internal Carotid Artery with Synthetic Substitute, Open Approach [facility] Start: 07-16-2022 Hospital admission [facility] Start: 06-18-2022 Fluoroscopy of Abdominal Aorta using Low Osmolar Contrast Fluoroscopy of Abdominal Aorta using Low Osmolar Contrast [facility] Start: 06-18-2022 Fluoroscopy of Bilateral Common Carotid Arteries using Low Osmolar Contrast Fluoroscopy of Bilateral Common Carotid Arteries using Low Osmolar Contrast [facility] Start: 06-18-2022 [facility] Work Phone: Start: 2022 RSV High Risk: (Elderly (60+) or Population) (1 - 1-dose 75+ series) RSV High Risk: (Elderly (60+) or Population) (1 - 1-dose 75+ series) [facility] Start: 03-10-2022 FUV, Provider: Alexandria Issa, Status: Pen, Time: 1:15 PM FUV, Provider: Alexandria Issa, Status: Pen, Time: 1:15 PM [facility] [address] DO Work Phone: Start: 01-27-2022 ECHO, Provider: [place] [facility] ,[id number], Status: Pen, Time: 8:45 AM ECHO, Provider: [place] [facility] ,[id number], Status: Pen, Time: 8:45 AM -[facility] [address] DO Work Phone: Start: 01-23-2022 FUV, Provider: Alexandria Issa, Status: Pen, Time: 1:00 PM FUV, Provider: Alexandria Issa, Status: Pen, Time: 1:00 PM [facility] [address] DO Work Phone: Start: 01-16-2022 [facility], Provider: Eran Arroyo, Status: Pen, Time: 2:00 PM [facility], Provider: Eran Arroyo, Status: Pen, Time: 2:00 PM [facility] [address] DO Work Phone: Start: 2007 RSV patients and/or patients aged 60+ years (1 - 1-dose 60+ series) RSV patients and/or patients aged 60+ years (1 - 1-dose 60+ series) [facility] Start: 1997 Zoster Vaccines (1 of 2) Zoster Vaccines (1 of 2) [facility] Start: 1969 DTaP/Tdap/Td Vaccines (1 - Tdap) DTaP/Tdap/Td Vaccines (1 - Tdap) [facility] Start: 1966 Pneumococcal vaccination Pneumococcal Vaccine (1 of 2 - PCV) [facility] Start: 1965 Diabetes mellitus screening Diabetes Screening [facility] Start: 1965 Hepatitis C screening Hepatitis C Screening [facility] Start: 1953 Pneumococcal Vaccine: 65+ Years (1 of 2 - PCV) Pneumococcal Vaccine: 65+ Years (1 of 2 - PCV) [facility] Start: 1947 Creatinine measurement Creatinine Level [facility] Start: 1947 Lipid panel Lipid Panel [facility] Start: 1947 Medicare Annual Wellness Visit Medicare Annual Wellness Visit (AWV) [facility] Start: 1947 Potassium measurement Potassium Level [facility] Patient Education Arteriogram (DC) [facility] Work Phone: Patient referral [facility] Work Phone: [email or web address] Carotid arteries - bilateral [facility] Immunizations Immunization Date Immunization Notes Care Provider Fa jad 09-02-2024 influenza, high dose seasonal, preservative-free [facility] 08-02-2024 influenza, seasonal, injectable Terri Velazco MD Work Phone: [facility] 08-17-2023 influenza virus vaccine, unspecified formulation Eran Irwin MD Work Phone: [facility] 08-17-2023 influenza, high dose seasonal, preservative-free Alonzo Gray Other [facility] Other 09-02-2022 Pfizer COVID-19 Vac Bivalent 30 MCG/0.3ML Intramuscular Suspension Alonzo Gray Work Phone: [facility] 07-22-2022 Fluad Quadrivalent 0 .5 ML Intramuscular Prefilled Syringe Alonzo E Babs Work Phone: [facility] 250 DO Work Phone: 07-22-2022 influenza virus vaccine, split virus (incl. purified surface antigen) Alonzo Babs Other [facility] Other 07-22-2022 influenza virus vaccine, unspecified formulation [facility] 07-22-2022 influenza, high dose seasonal, preservative-free Alonzo Gray Other [facility] Other 09-02-2021 Moderna COVID-19 Vaccine 100 MCG/0.5ML Intramuscular Suspension Alonzo Gray Work Phone: [facility] 08-14-2021 influenza virus vaccine, split virus (incl. purified surface antigen) Alonzo Babs Other [facility] Other 08-14-2021 influenza virus vaccine, unspecified formulation [facility] 12-31-2020 Moderna COVID-19 Vaccine 100 MCG/0.5ML Intramuscular Suspension Alonzo E Babs Work Phone: [facility] 12-03-2020 Moderna COVID-19 Vaccine 100 MCG/0.5ML Intramuscular Suspension Alonzo Gray Work Phone: [facility] 07-10-2020 influenza virus vaccine, split virus (incl. purified surface antigen) Alonzo Babs Other [facility] Other 07-10-2020 influenza virus vaccine, unspecified formulation [facility] Payers Date Payer Category Payer Medicare [id number] 2021 Medicare (Managed Care) [employer] MEDICARE [id number] 1959 Medicare [id number] 1947 Unknown [id number] 2.16.840.1.564513.3.579.2. 593 1947 Unknown [id number] 2.16.840.1.407585.3.579.2. 593 1947 Unknown [id number] 2.16.840.1.003246.3.579.2. 593 1947 Unknown [id number] 2.16.840.1.409163.3.579.2. 593 1947 Unknown [id number] 2.16.840.1.294513.3.579.2. 593 1947 Unknown [id number] 2.16.840.1.722728.3.579.2. 1068 1947 Unknown [id number] 2.16.840.1.705868.3.579.2. 1068 1947 Unknown [id number] 2.16.840.1.295120.3.579.2. 356 1947 Unknown [id number] 2.16.840.1.848304.3.579.2. 356 1947 Unknown [id number] 2.16.840.1.142921.3.579.2. 356 1947 Unknown [id number] 2.16.840.1.365702.3.579.2. 1244 1947 Unknown [id number] 2.16.840.1.712527.3.579.2. 1244 1947 Unknown [id number] 2.16.840.1.706187.3.579.2. 1246 1947 Unknown [id number] 2.16.840.1.631950.3.579.2. 1246 1947 Unknown [id number] 2.16.840.1.663720.3.579.2. 1246 1947 Unknown [id number] 2.16.840.1.021143.3.579.2. 1246 1947 Unknown [id number] 2.16.840.1.686393.3.579.2. 1246 Medicare Medicare [id number] Self-pay Self Pay [id number] Unknown Social History Date Type Detail Facility Start: 11-23-2023 End: 02-09-2025 No alcohol use No alcohol use [facility] 250 DO Work Phone: Comment on above: 1to 2 cups of coffee daily; 1/2 pack per day; 1/4 pack per day; Start: 11-23-2023 End: 02-09-2025 Sex Assigned At [facility] Other Start: 06-18-2022 End: 11-16-2023 Tobacco smoking status ARIS Smoker (finding) [facility] Start: 1945 Sex Assigned At Male F [facility] Start: 09-13-2024 End: 03-07-2025 Sex Male (finding) [facility] Start: 05-19-2024 Tobacco smoking stat us NHIS Smokes tobacco daily [facility] History of tobacco use Cigarette Smoker [facility] Work Phone: Start: 05-19-2024 Tobacco use and exposure Smokeless tobacco non-user [facility] Work Phone: Start: 05-19-2024 End: 02-09-2025 Alcoholic beverage intake Lifetime non-drinker (finding) [facility] Work Phone: Start: 1945 Sex assigned at Not on file [facility] Work Phone: Start: 05-09-2024 End: 03-09-2025 Exposure to SARS-CoV-2 (event) Not sure [facility] Medical Equipment Procedure Code Equipment Code Equipment Origin al Text Equipment Identifier Dates Endarterectomy, carotid Cardiovascular patch, animal-derived [id number] FDA Start: 02-20-2022 Endarterectomy, carotid Cardiovascular patch, animal-derived ()[id number] FDA Start: 07-16-2022 Goals Date Patient Goal Desired Activity /State Functional Status Date Assessment Result Facility 07-17-2022 Functional status Patient at [facility] Work Phone: Mental Status Date Assessment Result Facility 07-17-2022 Cognitive function Cognitive Sta tus Patient at [facility] Work Phone: Clinical Notes 12-23-2021 to 02-09-2025 Terri Velazco MD - 02/09/2025 9:40 AM EDTPatient Instructions Note Date & Type Note Facility 02-09-2025 History of Present illness Narrative Chief Complaint Patient presents with Follow-up 6 month for cardiomyopathy Subjective Ivan Anthony is a 79 y.o. male HPI 79-year-old white male who has previously followed Dr. Irwin and prior to that with Dr. Issa. His cardiac condition started in 2021 when he had carotid endarterectomy surgery at [facility] and at that time he was found to have reduced ejection fraction by echocardiogram down to 25%. He had a nuclear stress test which revealed no ischemia. He was started on heart failure therapy and was followed. Echocardiogram November 2022 revealed ejection fraction of 35 to 40%. He has been on GDMT for heart failure which have been well-tolerated. He is an active smoker trying to quit smoking and has COPD. He has no claudication and has continue to follow with vascular surgery for bilateral carotid endarterectomy surgery. He denies any symptoms suggestive of TIA and denies any chest pain. He has dyspnea on exertion with no orthopnea PND or lower extremity edema. He has no known cardiac arrhythmias. His medical therapy was reviewed with him. Assessment/recommendations: 1-severe left ventricular systolic dysfunction of unknown etiology. It is my suspicion that an ischemic etiology is likely the cause since she has evidence of severe supravascular disease and is still actively smoking with history of hypertension and hyperlipidemia. The present functional status is class II stage C. He is on GDMT with compensation. Patient was advised to repeat the echocardiogram to ensure improvement and also to obtain a Lexiscan Cardiolite stress test to ensure there is no ischemic component. Present medical therapy will left unchanged 2-essential hypertension, currently under control 3-hyperlipidemia on statin therapy. 4-history of atrial fibrillation requiring cardioversion in [place] 5 years ago with no recurrent disease, currently not on antiarrhythmics or anticoagulants. 5-status post bilateral carotid endarterectomy surgery with no previous strokes, continue to follow with vascular surgery, encouraged the patient to quit smoking 6-COPD from active tobacco abuse currently not on inhaler therapy. 7-active tobacco abuse, patient is trying to quit smoking. Review of Systems Respiratory: Positive for shortness of breath. All other systems reviewed and are negative. Vitals: 02/09/25 0958 BP: 138/70 BP Location: Left arm Patient Position: Sitting Pulse: 60 Weight: 67.1 kg (148 lb) Height: 1.892 m (6' 2.5 ) Objective Physical Exam Constitutional: Appearance: Normal appearance. HENT: Nose: Nose normal. Neck: Vascular: No carotid bruit. Cardiovascular: Rate and Rhythm: Normal rate. Pulses: Normal pulses. Heart sounds: Normal heart sounds. Pulmonary: Effort: Pulmonary effort is normal. Breath sounds: Decreased air movement present. Comments: Michael wheezing with diminished air movement Abdominal: General: Bowel sounds are normal. Palpations: Abdomen is soft. Musculoskeletal: General: Normal range of motion. Cervical back: Normal range of motion. Right lower leg: No edema. Left lower leg: No edema. Skin: General: Skin is warm and dry. Neurological: General: No focal deficit present. Mental Status: He is alert. Psychiatric: Mood and Affect: Mood normal. Behavior: Behavior normal. Thought Content: Thought content normal. Judgment: Judgment normal. Allergies Cephalexin and Penicillins Current Medications Current Outpatient Medications: aspirin 81 mg EC tablet, Take 1 tablet (81 mg) by mouth once daily., Disp: , Rfl: atorvastatin (Lipitor) 80 mg tablet, Take 1 tablet (80 mg) by mouth once daily in the evening., Disp: , Rfl: buPROPion XL (Wellbutrin XL) 150 mg 24 hr tablet, Take 1 tablet (150 mg) by mouth once daily in the morning. Take before meals., Disp: , Rfl: carvedilol (Coreg) 6.25 mg tablet, TAKE 1 TABLET BY MOUTH TWICE A DAY WITH MEALS, Disp: 180 tablet, Rfl: 3 cholecalciferol (Vitamin D-3) 25 MCG (1000 UT) tablet, Take 1 tablet (25 mcg) by mouth once daily., Disp: , Rfl: clopidogrel (Plavix) 75 mg tablet, Take 1 tablet (75 mg) by mouth once daily., Disp: , Rfl: empagliflozin (Jardiance) 10 mg, Take 1 tablet (10 mg) by mouth once daily., Disp: 90 tablet, Rfl: 3 Entresto 97-103 mg tablet, Take 1 tablet by mouth 2 times a day., Disp: , Rfl: folic acid (Folvite) 1 mg tablet, Take 1 tablet (1 mg) by mouth once daily., Disp: , Rfl: spironolactone (Aldactone) 25 mg tablet, Take 1 tablet (25 mg) by mouth once daily., Disp: 90 tablet, Rfl: 3 vitamin E mixed 400 unit capsule, Take 1 capsule by mouth once daily., Disp: , Rfl: Assessment/Plan 1. Left ventricular systolic dysfunction Follow Up In Cardiology Follow Up In Cardiology Transthoracic Echo Complete Nuclear Stress Test 2. Primary hypertension 3. Paroxysmal atrial fibrillation (Multi) Transthoracic Echo Complete Nuclear Stress Test 4. Asymptomatic bilateral carotid artery stenosis 5. Mixed hyperlipidemia 6. Shortness of breath Transthoracic Echo Complete Nuclear Stress Test 7. Current smoker 8. Body mass index (BMI) 19.9 or less, adult 9. H/O carotid endarterectomy 10. Chronic obstructive pulmonary disease, unspecified COPD type (Multi) Scribe Attestation By signing my name below, I, Michelle Peck LPN, Scribe attest that this documentation has been prepared under the direction and in the presence of Terri Velazco MD. Provider Attestation - Scribe documentation All medical record entries made by the Scribe were at my direction and personally dictated by me. I have reviewed the chart and agree that the record accurately reflects my personal performance of the history, physical exam, discussion and plan. documented in this encounter [facility] Work Phone: 02-09-2025 Instructions Michelle Mullins LPN - 02/09/2025 9:40 AM EDT Please bring all medicines, vitamins, and herbal supplements with you when you come to the office. Prescriptions will not be filled unless you are compliant with your follow up appointments or have a follow up appointment scheduled as per instruction of your physician. Refills should be requested at the time of your visit. BMI was below normal measurement. Current weight: 67.1 kg (148 lb) Weight change since last visit (-) denotes wt loss 8.2 lbs Weight gain needed to achieve BMI of 18.5 = 2.3 Lbs Provided dietary education for weight gain to the patient. Echo Stress test Same medications documented in this encounter [facility] Work Phone: 12-06-2024 Evaluation note Diagnosis Onset Date Resolution Anemia acute December 06, 2024 9:49am Atrial fibrillation acute Febru raj2024 9:49am Chronic bronchitis acute 2024 9:49am Elevated PSA acute December 9:49am H/O carotid stenosis acute uary 2024 9:49am Heart failure with improved ejection fraction (HFimpEF) acute December 06 9:49am Hypercholesteremia acute ua 2024 9:49am Hypertension acute December 9:49am Nicotine addiction acute 2024 9:49am Nonischemic cardiomyopathy acute December 06, 2024 9:49am [facility] Work Phone: 1(849) 594-886701-07-2025 Evaluation note* Diagnosis Onset Date Resolution Status Admit Date Occlusion and stenosis of bilateral carotid arteries acute 2024 11:20am Anemia acute December 06, 2024 9:49am Atrial fibrillation acute u 2024 9:49am Chronic bronchitis acute 2024 9:49am H/O carotid stenosis acute ua2024 9:49am Heart failure with improved ejection fraction (HFimpEF) acute ua2024 9:49am Hypercholesteremia acute 2024 9:49am Hypertension acute December 9:49am Nicotine addiction acute 2024 9:49am Nonischemic cardiomyopathy acute December 06, 2024 9:49am [facility] Work Phone: 1(347) 261-893701-07-2025 Evaluation note* Diagnosis Onset Date Resolution Status Admit Date Occlusion and stenosis of bilateral carotid arteries acute 2024 11:20am Anemia acute December 06, 2024 9:49am Atrial fibrillation acute Febru raj2024 9:49am Chronic bronchitis acute Februa 2024 9:49am Elevated PSA acute December 9:49am H/O carotid stenosis acute uary 2024 9:49am Heart failure with improved ejection fraction (HFimpEF) acute ua2024 9:49am Hypercholesteremia acute 2024 9:49am Hypertension acute December 9:49am Nicotine addiction acute 2024 9:49am Nonischemic cardiomyopathy acute December 06, 2024 9:49am [facility] Work Phone: 1(129) 151-508101-07-2025 [facility]iology [facility] [address] [place] [address] Ultrasound Report Signed Patient: Iavn Anthony MR#: [id number] : 1945 Acct:[id number] Age/Sex: 79 / M ADM Date: 5 Loc: [facility] Room: Type: [facility] Attending Dr: Irma Pérez [employer] ENGINEERBradC Ordering Provider: Irma Pérez APRN Date of Service: 11/08/24 US/US carotid doppler BI: I65.23 - Occlusion and stenosis of bilateral carotid herman... Copies to: Irma Pérez APRN~ CAROTID DUPLEX INDICATION: Follow-up known carotid occlusive disease status post bilateral carotid endarterectomy PROCEDURE: Color-flow duplex scanning is used to interrogate the extracranial carotid arterial system, as well as both vertebral arteries. Both carotid bifurcations show some smooth homogeneous plaque formation. The proximal right internal carotid artery shows a highest peak systolic velocity of 176 cm/s with an end-diastolic velocity of 34.9 cm/s . The mid internal carotid artery measures 167 cm/s peak systolic with an end diastolic velocity of 27.7 cm/s . The distal segment measures 124 cm/s peak systolic with an end diastolic velocity of 22.5 cm/s . The velocities of the right common carotid artery are 153 cm/s peak systolic and 15.6 cm/s end-diastolic and 206 cm/s peak systolic and 25.2cm/s end diastolic distally. The peak systolic velocity ratio of the internal to the common carotidartery is 0.85 . The external carotid artery measures 143 cm/s peak systolic. The right vertebral artery is patent at 99.4 cm/s peak systolic with antegrade flow. The proximal left internal carotid artery shows a highest peak systolic velocityof 118 cm/s with anend-diastolic velocity of 25.2 cm/s . The mid internal carotid artery measures 123 cm/s peak systolic with an end diastolic velocity of35 cm/s . The distal segment measures 116 cm/s peak systolic with an end diastolic velocity of 27.3 cm/s . The velocities of the left common carotid artery are 106 cm/s peak systolic and 16.1 cm/s end-diastolic and 86.9 cm/s peaksystolic and 15.4 cm/s end diastolic distally. The peak systolic velocity ratioof the internal to the common carotid artery is 1.16 . The external carotid artery measures 122 cm/s peak systolic. The left vertebral artery is patent at 98.8 cm/s peak systolic with antegrade flow. US/US carotid doppler BI IMPRESSION: Persistent mild flow disturbance is present in the right internal carotid artery. However there is likely less than 50% stenosis of both extracranial internal carotid arteries. Both vertebral arteries are patent with antegrade flow. No change from prior study. Impression dictated by: Malcom Irene M.D.11/08/2024 11:51 AM Dictation Location: [id number] Tech: Danielle Patricia Transcribed By: ELOY 11/08/24 1151 Dictated By: Malcom Irene MD 11/08/24 1149 Signed By: 11/08/24 1151 [facility] Work Phone: 1(906) 673-968611-01-2024 Evaluation note* Diagnosis Onset Date Resolution Status Admit Date Anemia acute September 02, 2024 9:54am Atrial fibrillation acute Novem 2023 9:54am Chronic bronchitis acute Novemb er 2023 9:54am Chronic HFrEF (heart failure with reduced ejection fraction) acute Novem 2023 9:54am H/O carotid stenosis acute Nove mber 2023 9:54am Hypercholesteremia acute Novemb er 2023 9:54am Hypertension acute September 9:54am Nicotine addiction acute Novemb er 2023 9:54am Nonischemic cardiomyopathy acute September 02, 2024 9:54am [facility] Work Phone: 1(199) 377-581411-01-2024 Evaluation note* Diagnosis Onset Date Resolution Status Admit Date Anemia acute September 02, 2024 9:54am Atrial fibrillation acute Novem 2023 9:54am Chronic bronchitis acute Novemb er 2023 9:54am Chronic HFrEF (heart failure with reduced ejection fraction) acute Novem 2023 9:54am H/O carotid stenosis acute Nove mber 2023 9:54am Hypercholesteremia acute Novemb er 2023 9:54am Hypertension acute September 9:54am Nicotine addiction acute Novemb er 2023 9:54am Nonischemic cardiomyopathy acute September 02, 2024 9:54am Occlusion and stenosis of bilateral carotid arteries acute Janua ry 2024 11:20am [facility] Work Phone: 1(498) 599-130307-18-2024 History of Present illness Narrative* Eran Irwin MD - 05/19/2024 1:40 PM EDT Subjective Ivan Anthony is a 78 y.o. male Chief Complaint Follow-up HPI Patient returns for follow-up of problems as noted. In the interim he has done well. He denies angina CHF or arrhythmia symptomatology. The symptoms that preceded his original diagnosis were discussed and he denies them. Previous ejection fraction was depressed and follow-up echo demonstrated improvement of his dilated cardiomyopathy. He appears to be functional class I. At the present time bloodpressure and lipids appear to be adequately controlled. He carries a diagnosis of paroxysmal atrialfibrillation but he does not remember any arrhythmia symptomatology whatsoever. Because of this we will educate him. He checks his blood pressure every day and he was advised that if he detects abnorm al rhythm rate or pulse to seek attention. He understands and agrees. We note he continues to smokeand the merits of cessation were advocated. Vitals: 05/19/24 1345 BP: 138/74 BP Location: Right arm Patient Position: Sitting Pulse: 60 Weight: 63.4 kg (139 lb 12.8 oz) Height: 1.892 m (6' 2.5 ) Objective Physical Exam Constitutional: Appearance: Normal appearance. HENT: Nose: Nose normal. Neck: Vascular: No carotid bruit. Cardiovascular: Rate and Rhythm: Normal rate. Pulses: Normal pulses. Heart sounds: Normal heart sounds. Pulmonary: Effort: Pulmonary effort is normal. Abdominal: General: Bowel sounds are normal. Palpations: Abdomen is soft. Musculoskeletal: General: Normal range of motion. Cervical back: Normal range of motion. Right lower leg: No edema. Left lower leg: No edema. Skin: General: Skin is warm and dry. Neurological: General: No focal deficit present. Mental Status: He is alert. Psychiatric: Mood and Affect: Mood normal. Behavior: Behavior normal. Thought Content: Thought content normal. Judgment: Judgment normal. Allergies Cephalexin and Penicillins Current Medications Current Outpatient Medications: aspirin 81 mg EC tablet, Take 1 tablet (81 mg) by mouth once daily., Disp: , Rfl: atorvastatin (Lipitor) 80 mg tablet, Take 1 tablet (80 mg) by mouth once daily in the evening., Disp: , Rfl: carvedilol (Coreg) 6.25 mg tablet, TAKE 1 TABLET BY MOUTH TWICE A DAY WITH MEALS, Disp: 180 tablet,Rfl: 3 cholecalciferol (Vitamin D-3) 25 MCG (1000 UT) tablet, Take 1 tablet (25 mcg) by mouth once daily.,Disp: , Rfl: clopidogrel (Plavix) 75 mg tablet, Take 1 tablet (75 mg) by mouth once daily., Disp: , Rfl: Entresto 97-103 mg tablet, Take 1 tablet by mouth 2 times a day., Disp: , Rfl: Jardiance 10 mg, TAKE 1 TABLET BY MOUTH EVERY DAY, Disp: 30 tablet, Rfl: 11 spironolactone (Aldactone) 25 mg tablet, Take 1 tablet (25 mg) by mouth once daily., Disp: 90 tablet, Rfl: 3 vitamin E mixed 400 unit capsule, Take 1 capsule by mouth once daily., Disp: , Rfl: Assessment/Plan 1. Dilated cardiomyopathy (Multi) Asymptomatic on current guideline directed therapy. We suspect there may be slow incremental improvement. - Follow Up In Cardiology 2. Primary hypertension Review of treatment strategy demonstrates good control - Follow Up In Cardiology 3. Mixed hyperlipidemia Review of treatment strategy demonstrates good control 4. Paroxysmal atrial fibrillation (Multi) No recurrence. Educated on symptoms to watch for. He uses a blood pressure check machine every day and this reads out his pulse. He was advised if there were abnormalities to seek attention 5. Current smoker Importance of cessation was advocated 6. Body mass index (BMI) 19.9 or less, adult Increase caloric intake was advocated Scribe Attestation By signing my name below, I, Manolo Cortes RN . , Scribe attest that this documentation has been prepared under the direction and in the presence of Alisha Irwin MD. Provider Attestation - Scribe documentation All medical record entries made by the Scribe were at my direction and personally dictated by me. Ihave reviewed the chart and agree that the record accurately reflects my personal performance of the history, physical exam, discussion and plan. [facility] Work Phone: 1(327) 844-973507-18-2024 Instructions* Patient Instructions* Manolo Cortes RN - 05/19/2024 1:40 PM EDT Please bring all medicines, vitamins, and herbal supplements with you when you come to the office. Prescriptions will not be filled unless you are compliant with your follow up appointments or have a follow up appointment scheduled as per instruction of your physician. Refills should be requested at the time of your visit. BMI was below normal measurement. Current weight: 63.4 kg (139 lb 12.8 oz) Weight change since last visit (-) denotes wt loss -15.2 lbs Weight gain needed to achieve BMI of 18.5 = 5.9 Lbs [facility] Work Phone: 1(937) 639-714801-15-2024 Evaluation note* Encounter Date Diagnosis Assessment Notes [...] are maintaining regular scheduled appts with their seo manager. Nov, Carotid atherosclerosis, bilateral (ICD-10 - I65.23) Smoking cessation advised. Continue DAPT Continue secondary prevention measures. Nov, Cigarette nicotine dependence in remission (ICD-10 - F17.211) This patient has been encouraged to quit tobacco use immediately. They are aware of the hazards associated with tobacco use, including but not limited to respiratory infections, vascular disease and cancers. [facility] Other 01-15-2024 Evaluation note* Encounter Date Diagnosis [...] are maintaining regular scheduled appts with their seo manager. Nov, Carotid atherosclerosis, bilateral (ICD-10 - I65.23) Smoking cessation advised. Continue DAPT Continue secondary prevention measures. Nov, Cigarette nicotine dependence in remission (ICD-10 - F17.211) Continue abstinence. UTD w/ yearly LDCT chest for lung cancer screening [facility] Other 12-18-2023 Evaluation note* Encounter Date Diagnosis [...] see him back annually for follow-up duplex [facility] Other 07-14-2023 Evaluation note* Encounter Date Diagnosis [...] are maintaining regular scheduled appts with their seo manager. May, Cigarette nicotine dependence without complication (ICD-10 [...] PSA (prostate specific antigen) (ICD-10 - Z12.5) [facility] Other 07-14-2023 Evaluation note* Encounter Date Diagnosis [...] are maintaining regular scheduled appts with their seo manager. May, Bilateral carotid artery stenosis (ICD-10 - [...] to respiratory infections, vascular disease and cancers. [facility] Other 10-10-2022 Evaluation note* Encounter Date Diagnosis [...] is unmotivated to quit at this time. [facility] Other 08-22-2022 Evaluation note* Encounter Date Diagnosis Assessment Notes Treatment Notes Treatment Clinical Notes Jun, Pre-op testing (ICD-10 - Z01.818) [facility] Other 07-19-2022 Evaluation note* Encounter Date Diagnosis [...] will schedule him for right carotid endarterectomy. [facility] Other 05-17-2022 Evaluation note* Encounter Date Diagnosis [...] surgery of circulatory system (ICD-10 - Z48.812) [facility] Other 04-11-2022 Evaluation note* Encounter Date Diagnosis Assessment Notes Treatment Notes Treatment Clinical Notes Jan, Pre-op testing (ICD-10 - Z01.818) [facility] Other 04-05-2022 Evaluation note* Encounter Date Diagnosis [...] between open standard carotid endarterectomy or TCAR. [facility] Other 02-21-2022 Evaluation note* Encounter Date Diagnosis Assessment Notes Treatment Notes Treatment Clinical Notes Dec, Asymptomatic bilateral carotid artery stenosis (ICD-10 - I65.23) We reviewed ultrasound results from the [facility] indicating high-grade stenosis of bilateral ICA. Patient [...] smoking cessation. Patient provided with information on [place] tobacco program. He seems unmotivated to quit at this time. [facility] Other Chief complaint Narrative - ReportedDAVIChristie ANTHONY is being seen for a cardiovascular evaluation . POC. Carotid Surgery. Dr. Mcnally. -[facility] [address] DO Work Phone: Evaluation noteNo InformationNort [employer] (formerly [employer]) Other Evaluation noteNo assessment information available [facility] Work Phone: Evaluation note* Diagnosis Onset Date Resolution Status Stenosis of right carotid artery acute [facility] Work Phone: Evaluation note* Diagnosis Onset Date Resolution Status Atrial fibrillation acute Chronic bronchitis acute Chronic HFrEF (heart failure with reduced ejection fraction) acute H/O carotid stenosis acute Nicotine addiction acute Nonischemic cardiomyopathy a cute [employer] annual wellness visit, subsequent noneactive Screening PSA (prostate specific antigen) noneactive [facility] Work Phone: Evaluation note* Diagnosis Onset Date Resolution Status Atrial fibrillation acute Chronic bronchitis acute Chronic HFrEF (heart failure with reduced ejection fraction) acute H/O carotid stenosis acute Hypercholesteremia acute Hypertension acute Nicotine addiction acute Nonischemic cardiomyopathy a [facility] Work Phone: Evaluation note* Diagnosis Mixed hyperlipidemia- Primary Dilated cardiomyopathy (Multi) Other primary cardiomyopathies Primary hypertension Unspecified essential hypertension Paroxysmal atrial fibrillation (Multi) Atrial fibrillation Current smoker Body mass index (BMI) 19.9 or less, adult documented in this encounter [facility] Work Phone: Evaluation note* Diagnosis Left ventricular systolic dysfunction- Primary Primary hypertension Unspecified essential hypertension Paroxysmal atrial fibrillation (Multi) Atrial fibrillation Asymptomatic bilateral carotid artery stenosis Mixed hyperlipidemia Shortness of breath Current smoker Body mass index (BMI) 19.9 or less, adult H/O carotid endarterectomy Chronic obstructive pulmonary disease, unspecified COPD type (Multi) documented in this encounter [facility] Work Phone: Evaluation note* Diagnosis Onset Date Resolution Status Admit Date Anemia acute March 07, 2025 9:57am Atrial fibrillation acute March 072024 9:57am Chronic bronchitis acute March 9:57am Elevated PSA acute March 07 9:57am H/O carotid stenosis acute March 07, 2025 9:57am Heart failure with improved ejection fraction (HFimpEF) acute March 07, 2025 9:57am Hypercholesteremia acute March 9:57am Hypertension acute March 07 9:57am Nicotine addiction acute March 9:57am Nonischemic cardiomyopathy acute March 07, 2025 9:57am [facility] Work Phone: Evaluation note* Diagnosis Left ventricular systolic dysfunction Paroxysmal atrial fibrillation (Multi) Atrial fibrillation Shortness of breath documented in this encounter [facility] Work Phone: History general Narrative - Reported* Type Description Date Medical History hypertension Medical History acid reflux Medical History coronary artery disease Surgical History melanoma excision FACE Hospitalization History REACTION TO [facility] in [place] Other History general Narrative - Reported* Type Description Date Medical History hypertension Medical History acid reflux Medical History coronary artery disease Surgical History melanoma excision FACE Surgical History LEFT CAR ENDART Hospitalization History REACTION TO [facility] in [place] Other History general Narrative - Reported* Type Description Date [...] History [ ] Hospitalization History REACTION TO [facility] [place] Other History of Present illness Narrative* Mr. [...] chronic cigarette abuse with active cigarette smoking. [facility] 250 DO Work Phone: History of Present [...] for follow-up or sooner if problems develop. [facility] DO Work Phone: History of Present [...] I did advocate the merits of smokingcessation. [facility] [employer] DO Work Phone: History of Present illness [...] and the merits of smoking cessation were advocated.[facility] [employer] DO Work Phone: Reason for referral (narrative)* Consultation (Routine) - Authorized Specialty Diagnoses / Procedures Referred By Contac Referred To Contact Cardiology Diagnoses Dilated cardiomyopathy (Multi) Procedures Follow Up In Cardiology Eran Irwin MD [address] [place] [id number] Terri Velazco MD [address] [place] [id number] Referral ID Status Reason Start Date Expiration Date V isits Requested Visits Authorized [id number] Authorized 05/19/2024 05/19/2025 1 1 [facility] Work Phone: Rebynp for visit Narrative* Cardiac Stress Testing (Routine) - Authorized Specialty Diagnoses / Procedures Referred By Contac t Referred To Contact Radiology Diagnoses Dilated cardiomyopathy (Multi) Atrial fibrillation, unspecified type (Multi) Shortness of breath Procedures Nuclear Stress Test CHG MYOCARDIAL SPECT MULTIPLE STUDIES Terri Velazco MD [address] [facility] [address] [place] [address] Phone: tel: fax: Referral ID Status Reason Start Date Expiration Date V isits Requested Visits Authorized [id number] Authorized 02/09/2025 02/09/2026 5 5 [facility] Work Phone: Reason for visit Narrative* Cardiac Stress Testing (Routine) - Authorized Specialty Diagnoses / Procedures Referred By Contac t Referred To Contact Radiology Diagnoses Dilated cardiomyopathy (Multi) Atrial fibrillation, unspecified type (Multi) Shortness of breath Procedures Nuclear Stress Test CHG MYOCARDIAL SPECT MULTIPLE STUDIES Terri Velazco MD [address] [facility] [address] [place] [address] Phone: tel: fax: Referral ID Status Reason Start Date Expiration Date V isits Requested Visits Authorized [id number] Authorized 02/09/2025 02/09/2026 5 5 [facility] Work Phone: Family History No Family History Records FoundUnknown Family Member Name Dates Details Family history [...] visit, subsequent Screening PSA (prostate specific antigen) Chief Complaint CC Adult Risk Strati fication 4 month f/u Reason for Visit Atrial fibrillation Chronic bronchitis Chronic HFrEF (heart failure with reduced ejection fraction) H/O carotid stenosis Hypercholesteremia Hypertension Nicotine addiction Nonischemic cardiomyopathy Chief Complaint Admit Date CC Adult Risk Stratification August 3:22pm 4 month f/u September 02, 2024 9 :54am b12 shot September 13, 2024 10:17am Reason for Visit Admit Date Anemia September 02, 2024 9 :54am Atrial fibrillation September 02, 2024 9 :54am Chronic bronchitis September 02, 2024 9 :54am Chronic HFrEF (heart failure with reduced ejection fraction) September 02, 2024 9:54am H/O carotid stenosis September 02, 2024 9:54am Hypercholesteremia September 02, 2024 9 :54am Hypertension September 02, 2024 9 :54am Nicotine addiction September 02, 2024 9 :54am Nonischemic cardiomyopathy September 02, 2024 9:54am Chief Complaint Admit Date CC Adult Risk Stratification August 3:22pm 4 month f/u September 02, 2024 9 :54am b12 shot September 13, 2024 10:17am B12 Shot September 20, 2024 3:18pm Chief Complaint Admit Date CC Adult Risk Stratification August 3:22pm 4 month f/u September 02, 2024 9 :54am b12 shot September 13, 2024 10:17am B12 Shot September 20, 2024 3:18pm b12 shot October 04, 2024 1 0:11am b12 shot October 11, 2024 12:00pm 1 YR F/U; CAROTID U/S 1130A November 08, 2024 11:20am [email or web address] November 08, 2024 11 :24am Reason for Visit Admit Date Anemia September 02, 2024 9 :54am Atrial fibrillation September 02, 2024 9 :54am Chronic bronchitis September 02, 2024 9 :54am Chronic HFrEF (heart failure with reduced ejection fraction) September 02, 2024 9:54am H/O carotid stenosis September 02, 2024 9:54am Hypercholesteremia September 02, 2024 9 :54am Hypertension September 02, 2024 9 :54am Nicotine addiction September 02, 2024 9 :54am Nonischemic cardiomyopathy September 02, 2024 9:54am Occlusion and stenosis of bilateral zhu tid arteries November 08, 2024 11:20am Chief Complaint Admit Date CC Adult Risk Stratification August 3:22pm 4 month f/u September 02, 2024 9 :54am b12 shot September 13, 2024 10:17am B12 Shot September 20, 2024 3:18pm b12 shot October 04, 2024 1 0:11am b12 shot October 11, 2024 12:00pm 1 YR F/U; CAROTID U/S 1130A November 08, 2024 11:20am [email or web address] November 08, 2024 11 :24am B12 Shot November 15, 2024 1 0:15am Chief Complaint Admit Date b12 shot September 13, 2024 10:17am B12 Shot September 20, 2024 3:18pm b12 shot October 04, 2024 1 0:11am b12 shot October 11, 2024 12:00pm 1 YR F/U; CAROTID U/S 1130A November 08, 2024 11:20am [email or web address].November 08, 2024 11 :24am B12 Shot November 15, 2024 1 0:15am 3 month f/u December 06, 2024 9 :49am Reason for Visit Admit Date Occlusion and stenosis of bilateral zhu tid arteries November 08, 2024 11:20am Anemia December 06, 2024 9 :49am Atrial fibrillation December 06, 2024 9 :49am Chronic bronchitis December 06, 2024 9 :49am H/O carotid stenosis December 06, 2024 9:49am Heart failure with improved ejection fra ction (HFimpEF) December 06, 2024 9:49am Hypercholesteremia December 06, 2024 9 :49am Hypertension December 06, 2024 9 :49am Nicotine addiction December 06, 2024 9 :49am Nonischemic cardiomyopathy December 06, 2024 9:49am Chief Complaint Admit Date b12 shot October 04, 2024 1 0:11am b12 shot October 11, 2024 12:00pm 1 YR F/U; CAROTID U/S 1130A November 08, 2024 11:20am [email or web address].November 08, 2024 11 :24am B12 Shot November 15, 2024 1 0:15am 3 month f/u December 06, 2024 9 :49am B12 shot December 20, 2024 10:44am Reason for Visit Admit Date Occlusion and stenosis of bilateral zhu tid arteries November 08, 2024 11:20am Anemia December 06, 2024 9 :49am Atrial fibrillation December 06, 2024 9 :49am Chronic bronchitis December 06, 2024 9 :49am Elevated PSA December 06, 2024 9 :49am H/O carotid stenosis December 06, 2024 9:49am Heart failure with improved ejection fra ction (HFimpEF) December 06, 2024 9:49am Hypercholesteremia December 06, 2024 9 :49am Hypertension December 06, 2024 9 :49am Nicotine addiction December 06, 2024 9 :49am Nonischemic cardiomyopathy December 06, 2024 9:49am Chief Complaint Admit Date 1 YR F/U; CAROTID U/S 1130A November 08, 2024 11:20am [email or web address] November 08, 2024 11 :24am B12 Shot November 15, 2024 1 0:15am 3 month f/u December 06, 2024 9 :49am B12 shot December 20, 2024 10:44am B12 shot January 20, 2025 10: 52am Chief Complaint Admit Date 3 month f/u December 06, 2024 9 :49am B12 shot December 20, 2024 10:44am B12 shot January 20, 2025 10: 52am B12 shot February 27, 2025 9:2 9am Reason for Visit Admit Date Anemia December 06, 2024 9 :49am Atrial fibrillation December 06, 2024 9 :49am Chronic bronchitis December 06, 2024 9 :49am Elevated PSA December 06, 2024 9 :49am H/O carotid stenosis December 06, 2024 9:49am Heart failure with improved ejection fra ction (HFimpEF) December 06, 2024 9:49am Hypercholesteremia December 06, 2024 9 :49am Hypertension December 06, 2024 9 :49am Nicotine addiction December 06, 2024 9 :49am Nonischemic cardiomyopathy December 06, 2024 9:49am Chief Complaint Admit Date B12 shot December 20, 2024 10:44am B12 shot January 20, 2025 10: 52am B12 shot February 27, 2025 9:2 9am 3 mo f/u March 07, 2025 9:57am Reason for Visit Admit Date Anemia March 07, 2025 9:57am Atrial fibrillation March 07, 2025 9:57am Chronic bronchitis March 07, 2025 9:57am Elevated PSA March 07, 2025 9:57am H/O carotid stenosis March 07, 2025 9:57a m Heart failure with improved ejection fra ction (HFimpEF) March 07, 2025 9:57am Hypercholesteremia March 07, 2025 9:57am Hypertension March 07, 2025 9:57am Nicotine addiction March 07, 2025 9:57am Nonischemic cardiomyopathy March 07, 2025 9:57am Advance Directives No Advanced Directives Records Found Advance Directive Response Recorded Date/ Time Advance Directives No January 01 3:40pm Advance Directive Response Recorded Date/ Time Advance Directives No January 01 2:40pm Summary Purpose Additional Source Comments REASON FOR VISIT (unrecogniz ed section and content) Reason Comments Follow-up 6 months Specialty Diagnoses / Procedures Referred By Contac t Referred To Contact Cardiology Diagnoses Dilated cardiomyopathy (Multi) Primary hypertension Procedures Follow Up In Cardiology Eran Irwin MD [address] [place] [address], [address] [address] Eran Irwin MD [address] [place] [address] 2, [address] [address] Referral ID Status Reason Start Date Expiration Date V isits Requested Visits Authorized [id number] Authorized 11/23/2023 11/22/2024 1 1 Reason Comments Follow-up 6 month for cardiomy opathy Specialty Diagnoses / Procedures Referred By Contac t Referred To Contact Cardiology Diagnoses Dilated cardiomyopathy (Multi) Procedures Follow Up In Cardiology Eran Irwin MD IbrahTerri shearer MD [address] [place] [address] 2, [address] [address] Phone: tel: fax: Referral ID Status Reason Start Date Expiration Date V isits Requested Visits Authorized [id number] Authorized 05/19/2024 05/19/2025 1 1 Care Teams (unrecognized sec tion and content) Team Status: Active Member Role Status Dates Alonzo Gray DO Primary Care Provider Active Team Status: Inactive Member Role Status Dates Alonzo Gray DO Primary Care Provide r, Attending Provider Active Start: December 06, 2024 End: December 06, 2024 Team Status: Inactive Member Role Status Chiquita Gray DO Primary Care Provide r, Attending Provider Active Start: December 20, 2024 End: December 20, 2024 Team Status: Inactive Member Role Status Chiquita Gray DO Primary Care Provide r, Attending Provider Active Start: January 20, 2025 End: January 20, 2025 Team Status: Inactive Member Role Status Chiquita Gray DO Primary Care Provide r, Attending Provider Active Start: February 27, 2025 End: February 27, 2025 Team Status: Active Member Role Status Chiquita Gray DO Primary Care Provide r, Attending Provider Active Start: October 31, 2024 Team Status: Inactive Member Role Status Chiquita Gray DO Primary Care Provider Active Start: November 08, 2024 End: November 08, 2024 Malcom Irene MD Attending Provider Active S tart: November 08, 2024 End: November 08, 2024 Team Status: Inactive Member Role Status Chiquita Gray DO Primary Care Provider Active Start: November 08, 2024 End: November 08, 2024 LEONOR BaileyC Attending Provider Active Start: November 08, 2024 End: November 08, 2024 Team Status: Inactive Member Role Status Chiquita Gray DO Primary Care Provide r, Attending Provider Active Start: November 15, 2024 End: November 15, 2024 Team Status: Inactive Member Role Status Chiquita Gray DO Primary Care Provide r, Attending Provider Active Start: September 13, 2024 End: September 13, 2024 Team Status: Inactive Member Role Status Chiquita Gray DO Primary Care Provide r, Attending Provider Active Start: September 20, 2024 End: September 20, 2024 Team Status: Inactive Member Role Status Chiquita Gary DO Primary Care Provide r, Attending Provider Active Start: October 04, 2024 End: October 04, 2024 Team Status: Inactive Member Role Status Chiquita Gray DO Primary Care Provide r, Attending Provider Active Start: October 11, 2024 End: October 11, 2024 Team Status: Active Member Role Status Chiquita Gray DO Primary Care Provide r, Attending Provider Active Start: June 27, 2024 Team Status: Active Member Role Status Chiquita Gray DO Primary Care Provide r, Attending Provider Active Start: August 29, 2024 Team Status: Active Member Role Status Chiquita Gray DO Primary Care Provide r, Attending Provider Active Start: August 31, 2024 Team Status: Inactive Member Role Status Dates Alonzo Gray DO Primary Care Provide r, Attending Provider Active Start: September 02, 2024 End: September 02, 2024 Team Status: Inactive Member Role Status Dates Alonzo Gray DO Primary Care Provider Active Malcom Irene MD Admit Provider, Attending Provide r Active Team Status: Inactive Member Role Status Dates Alonzo Gray DO Primary Care Provider Active Malcom Irene MD Attending Provider Active Team Status: Inactive Member Role Status Dates Alonzo Gray DO Primary Care Provider Active Irma Pérez [employer]-C Attending Provider Active Team Status: Inactive Member Role Status Dates Alonzo Gray DO Primary Care Provide r, Attending Provider Active Start: May 23, 2024 End: May 23, 2024 Liquefaction And Regasification Helper Relationship Specialty Start Date End Date Alonzo Gray DO PCP - General 11/02/20 Team Status: Active Member Role Status Dates Alonzo Gray DO Primary Care Provider Active Start: November 08, 2024 Irma Pérez [employer]-C Attending Provider Active Start: November 08, 2024 Liquefaction And Regasification Helper Relationship Specialty Start Date End Date Alonzo Gray DO PCP - General 11/02/20 Team Status: Active Member Role Status Dates Alonzo Gray DO Primary Care Provide r, Attending Provider Active Start: March 03, 2025 Team Status: Inactive Member Role Status Dates Alonzo Gray DO Primary Care Provide r, Attending Provider Active Start: March 07, 2025 End: March 07, 2025 Liquefaction And Regasification Helper Relationship Specialty Start Date End Date Alonzo Gray DO PCP - General 11/02/20 Liquefaction And Regasification Helper Relationship Specialty Start Date End Date Alonzo Gray DO PCP - General 11/02/20 Liquefaction And Regasification Helper Relationship Specialty Start Date End Date Alonzo Gray DO PCP - General 11/02/20 Goals (unrecognized section and content) Goals may be documented in a n alternate section (unrecognized sect ion and content) No Status Records FoundNo Status Records FoundNo Status Records FoundNo Status Records FoundNo Status Records FoundNo Status Records FoundNo Status Records Found INFORMATION SOURCE (unrecogn ized section and content) DATE CREATED AUTHOR 08/09/2022 [facility] DATE CREATED AUTHOR AUTHOR'S ORGANIZ ATION 11/25/2022 [facility] DATE CREATED AUTHOR AUTHOR'S ORGANIZ ATION 03/08/2023 [facility] DATE CREATED AUTHOR AUTHOR'S ORGANIZ ATION 05/21/2023 [employer] DATE CREATED AUTHOR AUTHOR'S ORGANIZ ATION 11/14/2024 [facility] DATE CREATED AUTHOR AUTHOR'S ORGANIZ ATION 03/12/2025 [facility] DATE CREATED AUTHOR AUTHOR'S ORGANIZ ATION 03/15/2025 [facility] FOR RECORDS PERTAINING TO PATIENTS WHO ARE [...] BE BASED ON THE PRIMARY CLINICAL RECORDS. [facility]. provides no warranty or guarantee of the accuracy or completeness of information in this document.
--- NOTE | 2025-03-29 09:10 | XR_ITS ---
The [address] [address] Patient Name: IVAN BERNAL MRN: [id number] date: 1945 Sex: M Assigned Patient Location: LAB Current Patient Location: LAB Accession/Order Number: [id number] Exam Date: 03/29/2025 09:25 Report Date: 03/29/2025 09:29 At the request of: CHAVA BRICE DO Procedure: XR chest 2V PA AND LATERAL CHEST: CLINICAL HISTORY: Weight Loss, Hypertension, Cardiomyopathy, A-Fib COMPARISON: 07/23/[address] 06/07/2024 The lungs are hyperinflated. There is minimal apical scarring. There is no developing consolidation, effusion or pneumothorax. The cardiac, hilar and mediastinal silhouettes are within normal limits. There is no vascular congestion. The visualized bony thorax is intact. Endplate spurring is present at the spine. XR/XR chest 2V IMPRESSION: OBSTRUCTIVE LUNG DISEASE WITH MINOR CHRONIC CHANGE. NO ACUTE CARDIOPULMONARY ABNORMALITY. Impression dictated by: Ros Bates M.D. 03/29/2025 9:29 AM Dictation Location: [place] [address] Electronically authenticated by: [id number] Y Date: 03/29/2025 09:29
[2025-03-29 09:29] LABS: Alanine Aminotransferase 17 U/L (16-63); Albumin Globulin Ratio 1.2; Alkaline Phosphatase 58 U/L (46-116); Anion Gap 14.7; Aspartate Amino Transferase 14 U/L (15-37); BUN Creatinine Ratio 18.1; Bilirubin Total 0.5 mg/dL (0.2-1.0); Calcium 9.2 mg/dL (8.5-10.1); Chloride 105 mmol/L (98-107); Estimated GFR (African America 58 (>=60 mL/min/1.73m^2); Estimated GFR (Non-African Ame 48 (>=60 mL/min/1.73m^2); Globulin 3.4 g/dL; Glucose 108 mg/dL (74-106); Potassium 4.7 mmol/L (3.5-5.1); Sodium 142 mmol/L (136-145); Total Protein 7.4 g/dL (6.4-8.2)
[2025-03-29 09:41] LABS: Thyroid Stimulating Hormone 0.813 uIU/mL (0.358-3.740)
--- NOTE | 2025-03-29 10:38 | CT_ITS ---
The [address] [address] Patient Name: IVAN BERNAL MRN: [id number] date: 1945 Sex: M Assigned Patient Location: LAB Current Patient Location: LAB Accession/Order Number: [id number] Exam Date: 03/29/2025 11:10 Report Date: 03/29/2025 11:23 At the request of: CHAVA BRICE DO Procedure: CT abdomen pelvis w con CT ABDOMEN AND PELVIS WITH CONTRAST CLINICAL DATA: Weight loss, hypertension, cardiomyopathy and atrial fibrillation. COMPARISON: Chest CT 06/08/2024 Spiral images were obtained through the abdomen and pelvis following oral and 100 mL of Omnipaque 300. This CT exam was performed using one or more following dose reduction techniques: Automated exposure control, adjustment of the mA and/or kV according to patient size, or use of iterative reconstruction technique. Limited cuts through the lung bases show new minor atelectatic and/or infiltrative change at the posterior left costophrenic angle. Apparent mild wall thickening is seen at the distal thoracic esophagus. There is decreased attenuation of the hepatic parenchyma suggesting fatty infiltration. No intrahepatic masses are identified. No calcified gallstones are seen. The spleen and pancreas show no acute findings. There is slight thickening of the adrenal limbs. There are symmetric renal nephrograms, without hydronephrosis. A tiny left renal cyst. Atherosclerotic plaque is present at the aorta, iliac and proximal visceral arteries. There is associated visceral artery stenosis , greatest at the proximal superior mesenteric and left renal arteries. There is mild fusiform dilatation at the distal aorta with AP diameter of 3.4 cm. There is mural thrombus, greatest between the aneurysm and renal arteries where there is some luminal narrowing. The right common iliac artery is slightly larger in caliber than the left measuring 2.3 cm. There is also some mural thrombus at that site. There is no periaortic fluid. No ascites is seen. No enlarged lymph nodes are identified. The small bowel loops are not distended. Stool is visualized along the colon. There are left-sided colonic diverticula. Degenerative changes are seen at the spine with associated stenosis, greatest at L4-5. Images through the pelvis show no dilated small bowel. No appendiceal inflammation is seen. There is mild distal colonic stool. Additional descending and sigmoid diverticula are visualized, without associated active inflammation. The prostate is mildly prominent and there is mass effect at the bladder trigone. The prostate contains calcifications. The urinary bladder is otherwise within normal limits. There are patulous inguinal rings bilaterally with small bowel extending up to the internal inguinal ring on both sides though there is no obstruction. No ascites is seen. CT/CT abdomen pelvis w con IMPRESSION: TINY DEVELOPING LEFT LOWER LOBE PARENCHYMAL CHANGE. APPARENT WALL THICKENING AT THE DISTAL THORACIC ESOPHAGUS. CLINICAL CORRELATION IS SUGGESTED. FATTY LIVER. NO BOWEL OR URINARY TRACT OBSTRUCTION. DIVERTICULOSIS. 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 MILD PROSTATE HYPERTROPHY. Impression dictated by: Ros Bates M.D. 03/29/2025 11:23 AM Dictation Location: [place] [address] Electronically authenticated by: [id number] Y Date: 03/29/2025 11:23
[2025-03-31 16:09] LABS: Alpha-1-Globulin 0.3 g/dL (0.0-0.4); Alpha-2-Globulin 0.8 g/dL (0.4-1.0); Free Kappa Lt Chains,S 41.3 mg/L (3.3-19.4); Free Lambda Lt Chains,S 26.5 mg/L (5.7-26.3); Gamma Globulin 0.8 g/dL (0.4-1.8); Immunoglobulin A, Qn, Serum 323 mg/dL (61-437); Immunoglobulin G, Qn, Serum 834 mg/dL (603-1613); Immunoglobulin M, Qn, Serum 81 mg/dL (15-143); Kappa/Lambda Ratio,S 1.56 (0.26-1.65); Protein, Total 6.9 g/dL (6.0-8.5)
== END 2025-03-29 08:57 | disposition home or self-care (01) ==
LOC: LAB 08:57
PROVIDERS: PCP Internal Medicine; Visit Provider Internal Medicine
DX: R63.4 Abnormal weight loss (principal); I48.0 Paroxysmal atrial fibrillation; I10 Essential (primary) hypertension; I42.8 Other cardiomyopathies; R53.83 Other fatigue; K76.0 Fatty (change of) liver, not elsewhere classified; K57.90 Diverticulosis of intestine, part unspecified, without perforation or abscess without bleeding; J44.9 Chronic obstructive pulmonary disease, unspecified
CPT/HCPCS: 36415; 71046; 74177; 80053; 82784; 83521; 84155; 84165; 84443; 86334; Q9967

== ENCOUNTER 2025-05-18 10:39 | Outpatient (OUT) | payer MEDICARE, SELFPAY ==
--- OUTSIDE RECORDS SUMMARY | 2025-05-18 11:00 | XMS_ITS | CCD ---
Author Organization [facility] CliniSymn Care Team Providers Care Internal Medicine Hospitalist Name Role Phone Alonzo Gray Unavailable Unavailable Unavailable Irma Pérez Unavailable Malcom Irene Unavailable DO Alonzo Gray Primary Care Provider [phone] MD Malcom Irene Attending Provider MD Malcom Irene Admit Provider BABS, DR ROSADO Primary Care Unavailable VIVAS, DR DAQUAN Solo Admitting Unavailable VIVAS, DR DAQUAN Solo Attending Unavailable VIVAS, DR DAQUAN Solo Consulting Unavailable KARIME, ALEXANDRIA Consulting Unavailable BABS, DR ROSADO Primary Care Unavailable VIVAS, DR DAQUAN Solo Admitting Unavailable VIVAS, DR DAQUAN Solo Attending Unavailable VIVAS, DR DAQUAN Solo Consulting Unavailable NATALIIA, YOHANA Consulting Unavailable BALL, DR ROSADO Admitting Unavailable BALL, DR ROSADO Attending Unavailable BALL, DR ROSADO Primary Care Unavailable BALL, DR ROSADO Consulting Unavailable BABS, DR ROSADO Primary Care Unavailable MISC, DR DONNELLY Admitting Unavailable MISC, DR DONNELLY Attending Unavailable MISC, DR DONNELLY Consulting Unavailable BABS, DR ROSADO Admitting Unavailable BALL, DR ROSADO Attending Unavailable BALL, DR ROSADO Primary Care Unavailable BALL, DR ROSADO Consulting Unavailable WEST, DR IVAN Harrison Consulting Unavailable DO Alonzo Gray Primary Care Provider MD Malcom Irene Admit Provider MD Malcom Irene Attending Provider [phone] RUPERT Pérez Attending Provider Maria Del Rosario, Dr. Alexandria Callaway Attending Unavail able Maria Del Rosario, Dr. Alexandria Callaway Referring Unavail able Babs, Dr. Alonzo Jesus Primary Care [facility], Dr. Eran Potter Attending Unavailable Babs, Dr. Alonzo Jesus Primary Care Mau Irwin II, Dr. Eran Potter Attending Unavailable Nicholas II, Dr. Eran Potter Referring Unavailable Babs, Dr. Alonzo Jesus Primary Care Mau Gray, Dr. Alonzo Jesus Primary Care Jonasi balbir Irwin II, Dr. Eran Potter Attending Unavailable Nicholas II, Dr. Eran Potter Referring Unavailable Babs, Dr. Alonzo Jesus Primary Care Mau Issa, Dr. Alexandria Callaway Attending Unavail able Lyster, Dr. Alexandria Callaway Referring Unavail able Alonzo Gray Unavailable DO Alonzo Gray Primary Care Provider [phone] MD Malcom Irene Attending Provider Alonzo Gray DO Primary Care Provider Alonzo Gray DO Primary Care Provider Elisa GRAYSON-CIrma Attending Provider Irma Pérez Attending Unavailable Irma Pérez Admitting Unavailable Alonzo Gray Primary Care Unavailable Alonzo Gray DO Primary Care Provider [phone] Elisa GRAYSON-Irma Zhao Attending Provider Alonzo Gray DO Primary Care Provider ERAN IRWIN Attending Unavailable ERAN IRWIN Referring Unavailable ALONZO GRAY Primary Care Unavailable TERRI VELAZCO Attending Unavailable ERAN IRWIN Referring Unavailable ALONZO GRAY Primary Care Unavailable TERRI VELAZCO Referring Unavailable ALONZO GRAY E Primary Care Unavailable TERRI VELAZCO Referring Unavailable BABS ALONZO E Primary Care Unavailable Alonzo Gray DO Primary Care Provider [phone] Alonzo Gray DO Attending Provider Allergies Allergy Classification Reported Allergen(s) Allergy Type Date of Onset Reaction(s) Facility (20 sources) Cephalexin; Translations: [Keflex] Drug Allergy 09-19-20 23 Anaphylaxis [facility] (20 sources) Penicillins; Translations: [Penicillins] Allergy to drug (finding) 01-04-20 22 Anaphylaxis, Rash, Rash, anaphylaxis [facility] (8 sources) Penicillin V Drug Allergy anaphylaxis [facility] Other (19 sources) Cephalexin; Translations: [CEPHALEXIN] Drug Allergy 02-12-20 22 Anaphylaxis [facility] Comment on above: Pt. states he had di fficulty breathing, throat swelling, passed out. went to hospital, transferred to [place] had a fib (1 source) Cephalexin Drug Allergy 05-24-20 13 [facility] (1 source) Penicillins Drug allergy (disorder) 05-24-20 13 [facility] (12 sources) Penicillin Drug Allergy anaphylaxis [facility] Other (4 sources) Substance with penicillin structure and antibacterial mechanism of action (substance) Drug allergy 03-21-20 14 Unknown [facility] Other (9 sources) Tamsulosin HCl *GENITOURINARY AGENTS - MISCELLANEO Propensity to adverse reactions Comment:Harry funez also said that along with dizziness he didnt feel well when he took the tamsulosin. [facility] Other (4 sources) patient allergy list reviewed by nurse or physicia Propensity to adverse reactions 07-14-20 14 Comment:Done [facility] Other (13 sources) Tamsulosin HCl *GENITOURINARY Allergy to substance 11-23-19 24 Comment:Harry funez also said that along with dizziness he di... [facility] Comment on above: Free Text Allergy: T amsulosin HCl *GENITOURINARY AGENTS - MISCELLANEO; Reaction: Comment:Patient also said that along with dizziness he didnt feel well when he took the tamsulosin. (1 source) Penicillins Drug Allergy 09-19-20 Anaphylaxis [facility] Work Phone: (6 sources) Penicillins Drug Allergy 09-19-20 Anaphylaxis [facility] Work Phone: Medications Current Medications Medication Drug Class(es) Dates Sig (Normalized) Sig (Original) acetaminophen 500 mg oral tablet (15 sources) Start: 07-17-2022 take 2 tablets by mouth every six hours as needed for pain Acetaminophen 500 mg Tablet Active 1000 MG PO Q6H as needed for Fever Or Pain July 17, 2022 12:00am Complies with drug therapy Start: 07-17-2022 take 1000 mg by mout h every six hours Acetaminophen Active 1000 MG PO Q6H July 17, 2022 12:00am [id number] 200 actuat albuterol 0.09 mg/actuat metered dose inhaler (20 sources) beta2-Adrenergic Agonist Start: 09-30-2024 take 2 puff(s) by inhalation every six hours as needed for wheezing Albuterol Sulfate 90 mcg/actuation HFA aerosol inhaler Active 0 .ROUTE .COMPLEX 8.5 September 30, 2024 8:04am INHALE 2 PUFFS EVERY 6 HOURS NEEDED FOR SHORTNESS OF BREATH OR WHEEZING FOR 30 DAYS Complies with drug therapy Start: 09-02-2024 End: 09-30-2024 take 1 puff(s) [...] MG PO Daily February 11, 2022 12:00am Complies with drug therapy amLODIPine Besyl ate Not-Taking amLODIPine Besyl ate Active aspirin 81 mg delayed release oral tablet (20 sources) Platelet Aggregation Inhibitor, Nonsteroidal Anti-inflammatory Drug Start: 02-11-2022 take 1 tablet by mouth once daily Aspirin 81 mg Tablet,Delayed Release (Dr/Ec) Active 81 MG PO Daily February 11, 2022 12:00am Complies with drug therapy take 1 tablet by chris th every twenty-four hours Aspirin 81 MG 1 tablet Orally Once a day for 30 day(s) Active atorvastatin 80 mg oral tablet (20 sources) HMG-CoA Reductase Inhibitor Start: 01-27-2025 Atorvastatin 80 mg tablet Active 0 .ROUTE .COMPLEX January 27, 2025 6:52am TAKE 1 TABLET DAILY IN THE EVENING Start: 02-03-2024 End: 01-27-2025 Atorvastatin 80 mg tablet Ac tive 0 .ROUTE .COMPLEX January 275 6:52am TAKE 1 TABLET DAILY IN THE EVENING Complies with drug therapy Start: 01-12-2022 End: 02-03-2024 take 1 tablet by mouth once daily at bedtime Atorvastatin 80 mg Tablet Discontinued 80 MG PO Daily at bedtime February 11, 2022 12:00am February 03, 2024 9:57am Atorvastatin Mahin cium Active 24 hr buPROPion hydrochloride 150 mg extended release oral tablet (17 sources) Aminoketone Start: 03-24-2025 take 1 tablet by mouth once daily in the morning Bupropion Hcl 150 mg tablet extended release 24 hr Active 0 .ROUTE .COMPLEX March 24, 2025 5:25pm TAKE 1 TABLET BY MOUTH EVERY DAY IN THE MORNING Complies with drug therapy Start: 12-29-2024 End: 03-24-2025 take 1 tablet by mouth every twenty-four hours in the morning Bupropion Hcl 150 mg tablet extended release 24 hr Discontinued 0 .ROUTE .COMPLEX December 29, 2024 10:47pm March 24, 2025 5:25pm TAKE 1 TABLET BY MOUTH IN THE MORNING Start: 12-29-2024 take 1 tablet by chris th every twenty-four hours in the morning Bupropion Hcl 150 mg tablet extended release 24 hr Active 0 .ROUTE .COMPLEX December 29, 2024 10:47pm TAKE 1 TABLET BY MOUTH IN THE MORNING Start: 12-06-2024 End: 12-29-2024 take 1 tablet by mouth once daily in the morning Bupropion Hcl 150 mg tablet extended release 24 hr Discontinued 150 MG PO Every morning December 06, 2024 1:00am December 29, 2024 10:47pm carvedilol 6.25 mg oral tablet (20 sources) alpha-Adrenergic Taye, beta-Adrenergic Taye Start: 04-21-2024 take 1 tablet by mouth twice daily Carvedilol 6.25 mg tablet Active 6.25 MG PO Twice daily May 23, 2024 12:00am Complies with drug therapy Start: 10-01-2022 take 1 tablet by chris th twice daily at mealtime Carvedilol 6.25 MG [...] UNIT PO Daily February 11, 2022 12:00am Complies with drug therapy Start: 02-11-2022 take 1 capsule by mo uth once daily Cholecalciferol (Vitamin D3) (Vitamin D3) [...] 75 mg tablet Active 0 .ROUTE .COMPLEX 90 January 27, 2025 6:52am TAKE 1 TABLET BY MOUTH EVERY DAY Complies with drug therapy Start: 01-11-2022 End: 02-03-2024 take 1 tablet by mouth once daily in the morning Clopidogrel 75 mg Tablet Discontinued 75 MG PO Every morning February 11, 2022 12:00am February 03, 2024 9:57am Clopidogrel Bisu lfate Active empagliflozin 10 mg oral tablet (20 sources) Sodium-Glucose Cotransporter 2 Inhibitor Start: 05-23-2024 End: 09-21-2025 take 1 mg by mouth once daily Empagliflozin 10 mg tablet Active MG PO Daily May 23, 2024 12:00am FreeTextSig: daily orally; Note: Source Status: Taking; Provider: Babs Rosado ( ) Complies with drug therapy Start: 05-23-2024 take 1 mg by mouth once daily Empagliflozin Active MG PO Daily May 23, 2024 12:00am FreeTextSig: daily orally; Note: Source Status: Taking; Provider: Babs Rosado ( ) Start: 10-01-2022 take 1 tablet by chris th once daily Jardiance 10 mg Indications: Cardiomyopathy, unspecified (Multi) , Cardiomyopathy, unspecified type (Multi) TAKE 1 TABLET BY MOUTH EVERY DAY 30 tablet 11 09/21/2023 Active JARDIANCE Active folic acid 1 mg oral tablet (20 sources) Start: 03-07-2025 take 1 tablet by mouth once daily Folic Acid 1 mg tablet Active 1 MG PO Daily March 07, 2025 11:22am Complies with drug therapy Start: 07-20-2024 End: 03-07-2025 take 1 tablet by mouth once daily Folic Acid 1 mg tablet Discontinued 0 .ROUTE .COMPLEX July 20, 2024 10:26pm March 07, 2025 11:22am TAKE 1 TABLET BY MOUTH EVERY DAY Start: 07-20-2024 take 1 tablet by chris th once daily Folic Acid Active 0 .ROUTE .COMPLEX July 20, 2024 10:26pm TAKE 1 TABLET BY MOUTH EVERY DAY Start: 06-27-2024 End: 07-20-2024 take 1 tablet by mouth once daily Folic Acid 1 mg tablet Discontinued 1 MG PO Daily June 27, 2024 12:00am July 20, 2024 10:26pm levoFLOXacin 500 mg oral tablet (12 sources) Quinolone Antimicrobial Start: 05-27-2024 take 1 tablet by mouth once daily Levofloxacin 500 mg tablet Active 500 MG PO Daily May 27, 2024 12:00am Complies with drug therapy sacubitril 97 mg / valsartan 103 mg oral tablet (20 sources) Angiotensin 2 Receptor Taye Start: 08-15-2024 take 1 tablet by mouth twice daily Sacubitril-Valsart an (Entresto) 97-103 mg tablet Active 0 .ROUTE .COMPLEX August 15, 2024 1:46pm TAKE 1 TABLET BY MOUTH TWICE A DAY Complies with drug therapy Start: 06-18-2022 End: 08-15-2024 take 1 tablet by mouth twice daily Sacubitril-Valsartan (Entresto) 97-103 mg tablet Discontinued 1 TAB PO Twice daily June 18, 2022 12:00am August 15, 2024 1:46pm ENTRESTO Active spironolactone 25 mg oral tablet (20 sources) Aldosterone Antagonist Start: 05-23-2024 End: 11-01-2025 take 1 tablet by mouth once daily Spironolactone 25 mg tablet Active 25 MG PO Daily May 23, 2024 12:00am FreeTextSi tablet Orally; Note: Source Status: Taking; Provider: Babs Rosado ( ) Complies with drug therapy Start: 11-23-2023 take 1 tablet by chris [...] Status: Taking; Provider: Babs Rosado ( ) Complies with drug therapy Triamcinolone Ac etonide 0.1 % 1 application [...] UNIT PO Daily February 11, 2022 12:00am Complies with drug therapy Vitamin E Active Completed/Discontinued Medications Medication Drug [...] in imaging, Starting on Germaine 03/09/25 at 0801, For 1 dose, Administer 45 [...] Onset: 9 Chronic Congestive heart failure; nonhypertensive (20 sources) Heart failure with reduced ejection fraction; Translations: [Unspecified systolic (congestive) heart failure] Chronic Deficiency and other anemia (14 sources) Anemia; Translations: [Anemia, unspecified] 06-27-2024 Episodic Comment on above: Normal B12, elevated MMA.Low FA, Fe, Tsat%.Normal Ferritin, TIBC.Rx: FA 1mg qd, B12 1000mcg monthlyHemoccult?EGD, colonoscopy? Deficiency and other anemia (11 sources) Pernicious anemia; Translations: [Vitamin B12 deficiency [...] cerebral infarction] Onset: 2 Resolved: 2 Chronic Comment on above: Problem List clean-u p per request of Phys. EHR Cmte Osteoarthritis (20 sources) Bilateral arthritis of knees; Translations: [Bilateral primary osteoarthritis of knee] Onset: 4 12-28-2023 Chronic Other aftercare (1 source) group home (current) use of aspirin; Translations: [DRILLING ASSISTANT CURRENT USE OF ASPIRIN] Onset: 2 Episodic Other aftercare (1 source) Other buttermaker continuous churn (current) drug therapy; Translations: [OTH DRILLING ASSISTANT CURRENT DRUG THERAPY] Onset: 2 Episodic Other and ill-defined heart disease (2 sources) Left ventricular systolic dysfunction; Translations: [Other ill-defined heart diseases] 02-09-2025 Chronic Other and ill-defined heart disease (2 sources) Other ill-defined heart diseases; Translations: [Other ill-defined heart diseases] Onset: 5 Chronic Other circulatory disease (15 sources) H/O: cardiovascular disease; Translations: [Personal history [...] [Shortness of breath] Onset: 2 Episodic Other nutritional; endocrine; and metabolic disorders (3 sources) Weight decreased; Translations: [Abnormal weight loss] 03-07-2025 Episodic Other screening for suspected conditions (not mental disorders or infectious disease) (20 sources) Electrocardiogram abnormal; Translations: [Nonspecific abnormal electrocardiogram [ECG] [EKG]] Onset: 7 Resolved: 1 Episodic Comment on above: PSA: 0.97 - 05/2021, 0.76 05/2023, 18.13 05/2024, 1.8 (11.7%) - 06/2024 PSA: 0.97 - 05/2021, 0.76 05/2023, 18.13 05/2024, 1.8 (11.7%) - 06/2024, 1.91 - 08/2024 PSA: 0.97 - 05/2021, 0.76 05/2023, 18.13 05/2024, 1.8 (11.7%) - 06/2024, 1.91 - 08/2024, 1.27 - 10/2024 PSA: 0.97 - 05/2021, 0.76 05/2023, 18.13 05/2024, 1.8 (11.7%) - 06/2024, 1.91 - 08/2024, 1.27 - 10/2024, 1.07 - 03/2025 Dian-; endo-; and myocarditis; cardiomyopathy (except that caused by tuberculosis or sexually transmitted disease) (20 sources) Cardiomyopathy; Translations: [Other primary cardiomyopathies] Onset: 2 Resolved: 2 Chronic Peripheral and visceral atherosclerosis (20 sources) Peripheral vascular disease, unspecified; Translations: [Peripheral arterial disease] 05-02-2025 Chronic Residual codes; unclassified (15 sources) Body [...] [CONTACT W/AND (SUSP) EXPOS COVID-19] Onset: 2 Past or Other Problems Problem Classification Problem [...] Resolved: 03-18-2022 Episodic Other aftercare (1 source) group home (current) use of antithrombotics/antip latelets; Translations: [DRILLING ASSISTANT ANTITHROMBOT/ANTIPLAT LETS] Onset: 03-17-2022 Episodic Other circulatory [...] or less, adult] Onset: 05-19-2024 Episodic Other skin disorders (9 sources) Other [...] Test Name Value Interpretation Reference Range Facility Albumin [Mass/volume] in Ser um or Plasmaon 03-29-2025 Albumin [Mass/Vol] 4.0 g/dL 2.9-4.4 [facility] Estimated glomerular filtrat ion rate (GFR) non- Americanon 03-29-2025 GFR/1.73 sq M.predicted among non-blacks MDRD (S/P/Bld) [Vol rate/Area] 48 mL/min/{1.73_m2} Low >=60 mL/min/1.7 3m 2 [facility] Globulin Calc (S) [Mass/Vol] on 03-29-2025 Globulin (S) [Mass/Vol] 3.4 g/dL [facility] IgA [Mass/volume] in Serum o r Plasmaon 03-29-2025 IgA [Mass/Vol] 323 mg/dL 61-437 [facility] IgG [Mass/volume] in Serum o r Plasmaon 03-29-2025 IgG [Mass/Vol] 834 mg/dL 603-1613 [facility] IgM [Mass/volume] in Serum o r Plasmaon 03-29-2025 IgM [Mass/Vol] 81 mg/dL 15-143 [facility] Immunoglobulin light chains. kappa.free [Mass/volume] in Serumon 03-29-2025 Immunoglobulin light chains.kappa.free (S) [Mass/Vol] 41.3 mg/L Abnormal 3.3-19.4 [facility] Immunoglobulin light chains. kappa.free/Immunoglobulin light chains.lambda.free [Arsiteo 03-29-2025 Immunoglobulin light chains.kappa.free/Immun oglobulin light chains.lambda.free (S) [Mass ratio] 1.56 0.26-1.65 [facility] Comment on above: Performed at: [address] [id number] Director: Eduin Middleton PhD, Phone: [phone] Immunoglobulin light chains. lambda.free [Mass/volume] in Serum or Plasmaon 03-29-2025 Immunoglobulin light chains.lambda.free [Mass/Vol] 26.5 mg/L Abnormal 5.7-26.3 [facility] Laboratory - Chemistry and C hemistry - challengeon 03-29-2025 ALP [Catalytic activity/Vol] 58 U/L 46-116 [facility] ALT [Catalytic activity/Vol] 17 U/L 16-63 [facility] AST [Catalytic activity/Vol] 14 U/L Low 15-37 [facility] Bilirubin [Mass/Vol] 0.5 mg/dL 0.2-1.0 [facility] Calcium [Mass/Vol] 9.2 mg/dL 8.5-10.1 [facility] Chloride [Moles/Vol] 105 mmol/L 98-107 [facility] CO2 [Moles/Vol] 27.0 mmol/L 21.0-32.0 [facility] Creatinine [Mass/Vol] 1.44 mg/dL High 0.70-1.30 [facility] GFR/1.73 sq M.predicted MDRD (S/P/Bld) [Vol rate/Area] 58 mL/min/{1.73_m2} Low >=60 mL/min/1.7 3m 2 [facility] Glucose [Mass/Vol] 108 mg/dL High 74-106 [facility] Potassium [Moles/Vol] 4.7 mmol/L 3.5-5.1 [facility] Protein [Mass/Vol] 7.4 g/dL 6.4-8.2 [facility] Sodium [Moles/Vol] 142 mmol/L 136-145 [facility] TSH Qn 0.813 m[IU]/L 0.358-3.74 0 [facility] Urea nitrogen [Mass/Vol] 26.0 mg/dL High 7.0-18.0 [facility] Urea nitrogen/Creatinine [Mass ratio] 18.1 mg/mg [facility] No Panel Informationon 03-29 Protein Electrophoresis M-Jatin Not Observed g/dL Not Observed [facility] Protein Electrophoresis Note Comment . [facility] Comment on above: Protein electrophore sis scan will follow via computer,mail, or mathematical scientist delivery. Protein [Mass/volume] in Ser um or Plasmaon 03-29-2025 Protein [Mass/Vol] 6.9 g/dL 6.0-8.5 [facility] Serum globulin measurement ( mass/volume)on 03-29-2025 Globulin (S) [Mass/Vol] 2.9 g/dL 2.2-3.9 [facility] Serum or plasma albumin/glob ulin mass ratioon 03-29-2025 Albumin/Globulin [Mass ratio] 1.2 {ratio} [facility] Albumin/Globulin [Mass ratio] 1.4 {ratio} 0.7-1.7 [facility] Serum or plasma alpha 1 glob ulin measurement by electrophoresis (mass/volume)on 03-29-2025 Alpha 1 globulin Elph [Mass/Vol] 0.3 g/dL 0.0-0.4 [facility] Serum or plasma alpha 2 glob ulin measurement by electrophoresis (mass/volume)on 03-29-2025 Alpha 2 globulin Elph [Mass/Vol] 0.8 g/dL 0.4-1.0 [facility] Serum or plasma anion gap de terminationon 03-29-2025 Anion gap [Moles/Vol] 14.7 mmol/L [facility] Serum or plasma beta globuli n measurement by electrophoresis (mass/volume)on 03-29-2025 Beta globulin Elph [Mass/Vol] 1.0 g/dL 0.7-1.3 [facility] Serum or plasma gamma globul in measurement by electrophoresis (mass/volume)on 03-29-2025 Gamma globulin Elph [Mass/Vol] 0.8 g/dL 0.4-1.8 [facility] Serum or plasma immunoelectr ophoresis interpretationon 03-29-2025 Interpretation IEP [Interp] Comment . [facility] Comment on above: No monoclonality det ected. [facility] Heart Perfusion W stress and W radionuclide Scotty 03-09-2025 Normal Lexiscan Myov iew cardiac perfusion stress test. No evidence of ischemia or myocardial infarction by perfusion imaging. Normal left ventricular systolic function, ejection fraction 59%. No change when compared to previous study. Signed by: Richy Delgadillo 03/09/2025 12:38 PM Dictation workstation: [id number] [facility] Interpreted By: Richy Delgadillo and Giannuzzi Michael STUDY: MYOCARDIAL PERFUSION STRESS TEST WITH LEXISCAN Performing facility: [facility], [address] [place] [address], [address], [place] [address] [facility] Provider: Terri Velazco MD, [facility] PCP: Dr. Vanda Gray Supervising provider: Terri Velazco MD, FAC INDICATION: Signs/Symptoms:dyspnea cm ,I51.89 Other ill-defined heart diseases,I48.0 Paroxysmal atrial fibrillation (Multi),R06.02 Shortness of breath HISTORY: Gender: M; Age: 79 y/o ; Height: HT 189.2 cm cm; Weight: WT 67.132 kg kg. Abnormal EKG; High Cholesterol; HTN; Arrhythmias;a-fib SOB; COPD; Currently smoking. COMPARISON: Previous nuclear testing completed at [facility]. ACCESSION NUMBER(S): [id number] ORDERING CLINICIAN: TERRI VELAZCO TECHNIQUE: ONE DAY [...] There was evidence of diaphragmatic attenuation artifact. [facility] Richy Delgadillo MD - 03/09/2025 Interpreted By: Richy Delgadillo and Giannuzzi Michael STUDY: MYOCARDIAL PERFUSION STRESS TEST WITH LEXISCAN Performing facility: [facility], [address], [address], [place], [place] [address] Provider: Terri Velazco MD, [facility] PCP: Dr. Vanda Gray Supervising provider: Terri Velazco MD, [facility] INDICATION: Signs/Symptoms:dyspnea cm ,I51.89 Other ill-defined heart diseases,I48.0 Paroxysmal atrial fibrillation (Multi),R06.02 Shortness of breath HISTORY: Gender: M; Age: 79 y/o ; Height: HT 189.2 cm cm; Weight: WT 67.132 kg kg. Abnormal EKG; High Cholesterol; HTN; Arrhythmias;a-fib SOB; COPD; Currently smoking. COMPARISON: Previous nuclear testing completed at [facility]. ACCESSION NUMBER(S): [id number] ORDERING CLINICIAN: TERRI VELAZCO TECHNIQUE: ONE DAY [...] Richy Delgadillo 03/09/2025 12:38 PM Dictation workstation: [id number] [facility] Work Phone: Radiology Study observation (narrative) [facility] Work Phone: [facility] Heart Perfusion W stress and W radionuclide IVOrdered By: Richy Delgadillo on 03-09-2025 [facility] Work Phone: NUCLEAR STRESS TESTon 2024 NUCLEAR STRESS TEST Interpreted By: Richy Delgadillo and Maria Victoria Alejandra STUDY: MYOCARDIAL PERFUSION STRESS TEST WITH LEXISCAN Performing facility: [facility], [address] [place] [address], [address], [place] [id number] [facility] Provider: Terri Velazco MD, FACC PCP: Dr. Vanda Gray Supervising provider: Terri Velazco MD, FACC INDICATION: Signs/Symptoms:dyspnea cm ,I51.89 Other ill-defined heart diseases,I48.0 Paroxysmal atrial fibrillation (Multi),R06.02 Shortness of breath HISTORY: Gender: M; Age: 79 y/o ; Height: HT 189.2 cm cm; Weight: WT 67.132 kg kg. Abnormal EKG; High Cholesterol; HTN; Arrhythmias;a-fib SOB; COPD; Currently smoking. COMPARISON: Previous nuclear testing completed at [facility]. ACCESSION NUMBER(S): [id number] ORDERING CLINICIAN: TERRI VELAZCO TECHNIQUE: ONE DAY [...] Richy Delgadillo 03/09/2025 12:38 PM Dictation workstation: [id number] [facility] Basophils Auto (Bld) [#/Vol] on 03-03-2025 Basophils (Bld) [#/Vol] Automated basophil count 0.0-0.1 [facility] Basophils (Bld) [#/Vol] 0.1 10 3/uL 0.0-0.1 [facility] Basophils/100 WBC Auto (Bld) on 03-03-2025 Basophils/100 WBC (Bld) Automated basophil % 0. 2-2.0 [facility] Basophils/100 WBC (Bld) 1.4 % 0.2-2.0 [facility] Eosinophils/100 WBC Auto (Bl d)on 03-03-2025 Eosinophils/100 WBC (Bld) Automated eosinophil % 0.9-7.0 [facility] Eosinophils/100 WBC (Bld) 4.7 % 0.9-7.0 [facility] Erythrocyte distribution wid th Auto (RBC) [Ratio]on 03-03-2025 Erythrocyte distribution width (RBC) [Ratio] Erythrocyte distribution width [Ratio] by Automated count 11.0-15.0 [facility] Erythrocyte distribution width (RBC) [Ratio] 13.2 % 11.0-15.0 [facility] Hematocrit Auto (Bld) [Volum e fraction]on 03-03-2025 Hematocrit (Bld) [Volume fraction] Hematocrit [Volume Fraction] of Blood by Automated count Low 42.0-54.0 [facility] Hematocrit (Bld) [Volume fraction] 36.6 % Low 42.0-54.0 [facility] Hemoglobin [Mass/volume] in Bloodon 03-03-2025 Hemoglobin (Bld) [Mass/Vol] Hemoglobin [Mass/volume] in Blood Low 14.0-18.0 [facility] Hemoglobin (Bld) [Mass/Vol] 11.6 g/dL Low 14.0-18.0 [facility] Laboratory - Chemistry and C hemistry - challengeon 03-03-2025 Cobalamin (Vitamin B12) [Mass/Vol] 1463 pg/mL Abnormal 232-1245 [facility] Comment on above: Performed at: [place] [id number] Director: Eduin Middleton PhD, Phone: [phone] Ferritin [Mass/Vol] 68.0 ng/mL 26.0-388.0 [facility] Laboratory - Hematology and Cell countson 03-03-2025 Immature granulocytes/100 WBC (Bld) 0.2 % 0.0-0.5 [facility] Leukocytes [#/volume] correc yumiko for nucleated erythrocytes in Blood by Automated counon 03-03-2025 WBC corrected for nucl RBC Auto (Bld) [#/Vol] Leukocytes [#/volume] corrected for nucleated erythrocytes in Blood by Automated coun 4.0-11.0 [facility] WBC corrected for nucl RBC Auto (Bld) [#/Vol] 8.9 10 3/uL 4.0-11.0 [facility] Lymphocytes Auto (Bld) [#/Vo l]on 03-03-2025 Lymphocytes (Bld) [#/Vol] Lymphocytes [#/volume] in Blood by Automated count 1.2-3.8 [facility] Lymphocytes (Bld) [#/Vol] 1.5 10 3/uL 1.2-3.8 [facility] Lymphocytes/100 WBC Auto (Bl d)on 03-03-2025 Lymphocytes/100 WBC (Bld) Lymphocytes/100 leukocytes in Blood by Automated count Low 20.5-60.0 [facility] Lymphocytes/100 WBC (Bld) 16.4 % Low 20.5-60.0 [facility] MCH Auto (RBC) [Entitic mass ]on 03-03-2025 MCH (RBC) [Entitic mass] MCH [Entitic mass] by Automated count 25.9-34.0 [facility] MCH (RBC) [Entitic mass] 33.0 pg 25.9-34.0 [facility] MCHC Auto (RBC) [Mass/Vol]on 03-03-2025 MCHC (RBC) [Mass/Vol] MCHC [Mass/volume] by Automated count 29.9-35.2 [facility] MCHC (RBC) [Mass/Vol] 31.7 g/dL 29.9-35.2 [facility] MCV Auto (RBC) [Entitic vol] on 03-03-2025 MCV (RBC) [Entitic vol] MCV [Entitic vol ume] by Automated count High 80.0-94.0 [facility] MCV (RBC) [Entitic vol] 104.3 fL High 80.0-94.0 [facility] Monocytes Auto (Bld) [#/Vol] on 03-03-2025 Monocytes (Bld) [#/Vol] Automated blood monocyte count High 0.3-0.8 [facility] Monocytes (Bld) [#/Vol] 0.9 10 3/uL High 0.3-0.8 [facility] Monocytes/100 WBC Auto (Bld) on 03-03-2025 Monocytes/100 WBC (Bld) Automated monocyte % 1. 7-12.0 [facility] Monocytes/100 WBC (Bld) 9.6 % 1.7-12.0 [facility] Neutrophils Auto (Bld) [#/Vo l]on 03-03-2025 Neutrophils (Bld) [#/Vol] Neutrophils [#/volume] in Blood by Automated count 1.4-6.5 [facility] Neutrophils (Bld) [#/Vol] 6.0 10 3/uL 1.4-6.5 [facility] Neutrophils/100 WBC Auto (Bl d)on 03-03-2025 Neutrophils/100 WBC (Bld) Automated neutrophil % 43.0-75.0 [facility] Neutrophils/100 WBC (Bld) 67.7 % 43.0-75.0 [facility] No Panel Informationon 03-03 Eosinophils # (Auto) 0.4 10 3/uL 0.0-0.7 [facility] Folate 29.70 ng/mL 8.60-58.90 [facility] Immature Granulocyte # (Auto) 0.02 10 3/uL 0.00-0.03 [facility] Platelet mean volume Auto (B ld) [Entitic vol]on 03-03-2025 Platelet mean volume (Bld) [Entitic vol] Platelet mean volume [Entitic volume] in Blood by Automated count 9.5-13.5 [facility] Platelet mean volume (Bld) [Entitic vol] 10.6 fL 9.5-13.5 [facility] Platelets Auto (Bld) [#/Vol] on 03-03-2025 Platelets (Bld) [#/Vol] Platelets [#/vol ume] in Blood by Automated count 150-450 [facility] Platelets (Bld) [#/Vol] 298 10 3/uL 150-450 [facility] RBC Auto (Bld) [#/Vol]on RBC (Bld) [#/Vol] Erythrocytes [#/volu me] in Blood by Automated count Low 4.70-6.10 [facility] RBC (Bld) [#/Vol] 3.51 10 6/uL Low 4.70-6.10 [facility] US carotid doppler BIon - US carotid doppler BI [facility] [address] [place] [address] Ultrasound Report Signed Patient: Ivan Anthony MR#: [id number] 221 : 1945 Acct:[id number] Age/Sex: 79 / M ADM Date: 11/08/24 Loc: [facility] Room: Type: [facility] Attending Dr: Irma Pérez OUTREACH LIAISON-C Ordering Provider: Irma Pérez APRN Date of [...] Malcom Irene M.D.11/08/2024 11:51 AM Dictation Location: [place] [address] Tech: Danielle Gomez Transcribed By: ELOY 11/08/24 1151 Dictated By: Malcom Irene MD 11/08/24 1149 Signed By: 11/08/24 1151 Normal [facility] Basophils Auto (Bld) [#/Vol] on 10-31-2024 Basophils (Bld) [#/Vol] Automated basophil count 0.0-0.1 [facility] Basophils/100 WBC Auto (Bld) on 10-31-2024 Basophils/100 WBC (Bld) Automated basophil % 0. 2-2.0 [facility] Eosinophils/100 WBC Auto (Bl d)on 10-31-2024 Eosinophils/100 WBC (Bld) Automated eosinophil % 0.9-7.0 [facility] Erythrocyte distribution wid th Auto (RBC) [Ratio]on 10-31-2024 Erythrocyte distribution width (RBC) [Ratio] Erythrocyte distribution width [Ratio] by Automated count 11.0-15.0 [facility] Hematocrit Auto (Bld) [Volum e fraction]on 10-31-2024 Hematocrit (Bld) [Volume fraction] Hematocrit [Volume Fraction] of Blood by Automated count Low 42.0-54.0 [facility] Hemoglobin [Mass/volume] in Bloodon 10-31-2024 Hemoglobin (Bld) [Mass/Vol] Hemoglobin [Mass/volume] in Blood Low 14.0-18.0 [facility] Iron binding capacity [Mass/ volume] in Serum or Plasmaon 10-31-2024 Iron binding capacity [Mass/Vol] Iron binding capacity [Mass/volume] in Serum or Plasma 250.0-450. 0 [facility] Iron saturation [Mass Fracti on] in Serum or Plasmaon 10-31-2024 Iron saturation [Mass fraction] Iron saturation [Mass Fraction] in Serum or Plasma [facility] Laboratory - Chemistry and C hemistry - challengeon 10-31-2024 Cobalamin (Vitamin B12) [Mass/Vol] 598 pg/mL 232-1245 [facility] Comment on above: Performed at: [address] [id number] Director: Eduin Middleton PhD, Phone: [phone] Ferritin [Mass/Vol] 76.0 ng/mL 26.0-388.0 [facility] Iron [Mass/Vol] 46.0 ug/dL Low 65.0-175.0 [facility] Laboratory - Hematology and Cell countson 10-31-2024 Immature granulocytes/100 WBC (Bld) 0.3 % 0.0-0.5 [facility] Leukocytes [#/volume] correc yumiko for nucleated erythrocytes in Blood by Automated counon 10-31-2024 WBC corrected for nucl RBC Auto (Bld) [#/Vol] Leukocytes [#/volume] corrected for nucleated erythrocytes in Blood by Automated coun High 4.0-11.0 [facility] Lymphocytes Auto (Bld) [#/Vo l]on 10-31-2024 Lymphocytes (Bld) [#/Vol] Lymphocytes [#/volume] in Blood by Automated count 1.2-3.8 [facility] Lymphocytes/100 WBC Auto (Bl d)on 10-31-2024 Lymphocytes/100 WBC (Bld) Lymphocytes/100 leukocytes in Blood by Automated count Low 20.5-60.0 [facility] MCH Auto (RBC) [Entitic mass ]on 10-31-2024 MCH (RBC) [Entitic mass] MCH [Entitic mass] by Automated count 25.9-34.0 [facility] MCHC Auto (RBC) [Mass/Vol]on 10-31-2024 MCHC (RBC) [Mass/Vol] MCHC [Mass/volume] by Automated count 29.9-35.2 [facility] MCV Auto (RBC) [Entitic vol] on 10-31-2024 MCV (RBC) [Entitic vol] MCV [Entitic vol ume] by Automated count High 80.0-94.0 [facility] Monocytes Auto (Bld) [#/Vol] on 10-31-2024 Monocytes (Bld) [#/Vol] Automated blood monocyte count High 0.3-0.8 [facility] Monocytes/100 WBC Auto (Bld) on 10-31-2024 Monocytes/100 WBC (Bld) Automated monocyte % 1. 7-12.0 [facility] Neutrophils Auto (Bld) [#/Vo l]on 10-31-2024 Neutrophils (Bld) [#/Vol] Neutrophils [#/volume] in Blood by Automated count High 1.4-6.5 [facility] Neutrophils/100 WBC Auto (Bl d)on 10-31-2024 Neutrophils/100 WBC (Bld) Automated neutrophil % High 43.0-75.0 [facility] No Panel Informationon 10-31 Eosinophils # (Auto) 0.4 10 3/uL 0.0-0.7 [facility] Immature Granulocyte # (Auto) 0.04 10 3/uL High 0.00-0.03 [facility] Prostate Specific Antigen Total 1.27 ng/mL <=4.00 [facility] Platelet mean volume Auto (B ld) [Entitic vol]on 10-31-2024 Platelet mean volume (Bld) [Entitic vol] Platelet mean volume [Entitic volume] in Blood by Automated count 9.5-13.5 [facility] Platelets Auto (Bld) [#/Vol] on 10-31-2024 Platelets (Bld) [#/Vol] Platelets [#/vol ume] in Blood by Automated count 150-450 [facility] RBC Auto (Bld) [#/Vol]on RBC (Bld) [#/Vol] Erythrocytes [#/volu me] in Blood by Automated count Low 4.70-6.10 [facility] Basophils Auto (Bld) [#/Vol] on 08-29-2024 Basophils (Bld) [#/Vol] 0.1 10 3/uL 0.0-0.1 [facility] Basophils (Bld) [#/Vol] Automated basophil count 0.0-0.1 [facility] Basophils/100 WBC Auto (Bld) on 08-29-2024 Basophils/100 WBC (Bld) 1.4 % 0.2-2.0 [facility] Basophils/100 WBC (Bld) Automated basophil % 0. 2-2.0 [facility] Eosinophils/100 WBC Auto (Bl d)on 08-29-2024 Eosinophils/100 WBC (Bld) 4.1 % 0.9-7.0 [facility] Eosinophils/100 WBC (Bld) Automated eosinophil % 0.9-7.0 [facility] Erythrocyte distribution wid th Auto (RBC) [Ratio]on 08-29-2024 Erythrocyte distribution width (RBC) [Ratio] 13.3 % 11.0-15.0 [facility] Erythrocyte distribution width (RBC) [Ratio] Erythrocyte distribution width [Ratio] by Automated count 11.0-15.0 [facility] Hematocrit Auto (Bld) [Volum e fraction]on 08-29-2024 Hematocrit (Bld) [Volume fraction] 38.4 % Low 42.0-54.0 [facility] Hematocrit (Bld) [Volume fraction] Hematocrit [Volume Fraction] of Blood by Automated count Low 42.0-54.0 [facility] Hemoglobin [Mass/volume] in Bloodon 08-29-2024 Hemoglobin (Bld) [Mass/Vol] 12.1 g/dL Low 14.0-18.0 [facility] Hemoglobin (Bld) [Mass/Vol] Hemoglobin [Mass/volume] in Blood Low 14.0-18.0 [facility] Laboratory - Chemistry and C hemistry - challengeon 08-29-2024 Cobalamin (Vitamin B12) [Mass/Vol] 312 pg/mL 232-7467 [facility] Comment on above: Performed at: - [place] [id number] Director: Eduin Middleton PhD, Phone: [phone] Laboratory - Hematology and Cell countson 08-29-2024 Immature granulocytes/100 WBC (Bld) 0.2 % 0.0-0.5 [facility] Leukocytes [#/volume] correc yumiko for nucleated erythrocytes in Blood by Automated counon 08-29-2024 WBC corrected for nucl RBC Auto (Bld) [#/Vol] 9.2 10 3/uL 4.0-11.0 [facility] WBC corrected for nucl RBC Auto (Bld) [#/Vol] Leukocytes [#/volume] corrected for nucleated erythrocytes in Blood by Automated coun 4.0-11.0 [facility] Lymphocytes Auto (Bld) [#/Vo l]on 08-29-2024 Lymphocytes (Bld) [#/Vol] 1.6 10 3/uL 1.2-3.8 [facility] Lymphocytes (Bld) [#/Vol] Lymphocytes [#/volume] in Blood by Automated count 1.2-3.8 [facility] Lymphocytes/100 WBC Auto (Bl d)on 08-29-2024 Lymphocytes/100 WBC (Bld) 17.4 % Low 20.5-60.0 [facility] Lymphocytes/100 WBC (Bld) Lymphocytes/100 leukocytes in Blood by Automated count Low 20.5-60.0 [facility] MCH Auto (RBC) [Entitic mass ]on 08-29-2024 MCH (RBC) [Entitic mass] 32.5 pg 25.9-34.0 [facility] MCH (RBC) [Entitic mass] MCH [Entitic mass] by Automated count 25.9-34.0 [facility] MCHC Auto (RBC) [Mass/Vol]on 08-29-2024 MCHC (RBC) [Mass/Vol] 31.5 g/dL 29.9-35.2 [facility] MCHC (RBC) [Mass/Vol] MCHC [Mass/volume] by Automated count 29.9-35.2 [facility] MCV Auto (RBC) [Entitic vol] on 08-29-2024 MCV (RBC) [Entitic vol] 103.2 fL High 80.0-94.0 [facility] MCV (RBC) [Entitic vol] MCV [Entitic vol ume] by Automated count High 80.0-94.0 [facility] Monocytes Auto (Bld) [#/Vol] on 08-29-2024 Monocytes (Bld) [#/Vol] 0.9 10 3/uL High 0.3-0.8 [facility] Monocytes (Bld) [#/Vol] Automated blood monocyte count High 0.3-0.8 [facility] Monocytes/100 WBC Auto (Bld) on 08-29-2024 Monocytes/100 WBC (Bld) 10.2 % 1.7-12.0 [facility] Monocytes/100 WBC (Bld) Automated monocyte % 1. 7-12.0 [facility] Neutrophils Auto (Bld) [#/Vo l]on 08-29-2024 Neutrophils (Bld) [#/Vol] 6.1 10 3/uL 1.4-6.5 [facility] Neutrophils (Bld) [#/Vol] Neutrophils [#/volume] in Blood by Automated count 1.4-6.5 [facility] Neutrophils/100 WBC Auto (Bl d)on 08-29-2024 Neutrophils/100 WBC (Bld) 66.7 % 43.0-75.0 [facility] Neutrophils/100 WBC (Bld) Automated neutrophil % 43.0-75.0 [facility] No Panel Informationon 08-29 Eosinophils # (Auto) 0.4 10 3/uL 0.0-0.7 [facility] Folate 24.90 ng/mL 8.60-58.90 [facility] Immature Granulocyte # (Auto) 0.02 10 3/uL 0.00-0.03 [facility] Platelet mean volume Auto (B ld) [Entitic vol]on 08-29-2024 Platelet mean volume (Bld) [Entitic vol] 10.8 fL 9.5-13.5 [facility] Platelet mean volume (Bld) [Entitic vol] Platelet mean volume [Entitic volume] in Blood by Automated count 9.5-13.5 [facility] Platelets Auto (Bld) [#/Vol] on 08-29-2024 Platelets (Bld) [#/Vol] 228 10 3/uL 150-450 [facility] Platelets (Bld) [#/Vol] Platelets [#/vol ume] in Blood by Automated count 150-450 [facility] RBC Auto (Bld) [#/Vol]on RBC (Bld) [#/Vol] 3.72 10 6/uL Low 4.70-6.10 [facility] RBC (Bld) [#/Vol] Erythrocytes [#/volu me] in Blood by Automated count Low 4.70-6.10 [facility] Serum or plasma methylmalona te measurement (moles/volume)on 08-29-2024 Methylmalonate [Moles/Vol] Serum or plasma methylmalonate measurement (moles/volume) Abnormal 0-378 [facility] Comment on above: This test was develo ped and its performance characteristicsdetermined by [employer]. It has not been cleared orapproved by the Food and Drug Administration.Performed at: [address] [id number] Director: Raisa Calderon MD, Phone: [phone] Basophils Auto (Bld) [#/Vol] on 06-27-2024 Basophils (Bld) [#/Vol] 0.1 10 3/uL 0.0-0.1 [facility] Basophils (Bld) [#/Vol] Automated basophil count 0.0-0.1 [facility] Basophils/100 WBC Auto (Bld) on 06-27-2024 Basophils/100 WBC (Bld) 1.1 % 0.2-2.0 [facility] Basophils/100 WBC (Bld) Automated basophil % 0. 2-2.0 [facility] Eosinophils/100 WBC Auto (Bl d)on 06-27-2024 Eosinophils/100 WBC (Bld) 4.5 % 0.9-7.0 [facility] Eosinophils/100 WBC (Bld) Automated eosinophil % 0.9-7.0 [facility] Erythrocyte distribution wid th Auto (RBC) [Ratio]on 06-27-2024 Erythrocyte distribution width (RBC) [Ratio] 13.4 % 11.0-15.0 [facility] Erythrocyte distribution width (RBC) [Ratio] Erythrocyte distribution width [Ratio] by Automated count 11.0-15.0 [facility] Hematocrit Auto (Bld) [Volum e fraction]on 06-27-2024 Hematocrit (Bld) [Volume fraction] 37.7 % Low 42.0-54.0 [facility] Hematocrit (Bld) [Volume fraction] Hematocrit [Volume Fraction] of Blood by Automated count Low 42.0-54.0 [facility] Hemoglobin [Mass/volume] in Bloodon 06-27-2024 Hemoglobin (Bld) [Mass/Vol] 12.3 g/dL Low 14.0-18.0 [facility] Hemoglobin (Bld) [Mass/Vol] Hemoglobin [Mass/volume] in Blood Low 14.0-18.0 [facility] Iron binding capacity [Mass/ volume] in Serum or Plasmaon 06-27-2024 Iron binding capacity [Mass/Vol] 314.0 ug/dL 250.0-450. 0 [facility] Iron binding capacity [Mass/Vol] Iron binding capacity [Mass/volume] in Serum or Plasma 250.0-450. 0 [facility] Iron saturation [Mass Fracti on] in Serum or Plasmaon 06-27-2024 Iron saturation [Mass fraction] 26.8 % [facility] Iron saturation [Mass fraction] Iron saturation [Mass Fraction] in Serum or Plasma [facility] Laboratory - Chemistry and C hemistry - challengeon 06-27-2024 Cobalamin (Vitamin B12) [Mass/Vol] 247.0 pg/mL 193.0-986. 0 [facility] Ferritin [Mass/Vol] 121.0 ng/mL 26.0-388.0 [facility] Iron [Mass/Vol] 84.0 ug/dL 65.0-175.0 [facility] Laboratory - Hematology and Cell countson 06-27-2024 Immature granulocytes/100 WBC (Bld) 0.3 % 0.0-0.5 [facility] Leukocytes [#/volume] correc yumiko for nucleated erythrocytes in Blood by Automated counon 06-27-2024 WBC corrected for nucl RBC Auto (Bld) [#/Vol] 11.2 10 3/uL High 4.0-11.0 [facility] WBC corrected for nucl RBC Auto (Bld) [#/Vol] Leukocytes [#/volume] corrected for nucleated erythrocytes in Blood by Automated coun High 4.0-11.0 [facility] Lymphocytes Auto (Bld) [#/Vo l]on 06-27-2024 Lymphocytes (Bld) [#/Vol] 1.6 10 3/uL 1.2-3.8 [facility] Lymphocytes (Bld) [#/Vol] Lymphocytes [#/volume] in Blood by Automated count 1.2-3.8 [facility] Lymphocytes/100 WBC Auto (Bl d)on 06-27-2024 Lymphocytes/100 WBC (Bld) 14.6 % Low 20.5-60.0 [facility] Lymphocytes/100 WBC (Bld) Lymphocytes/100 leukocytes in Blood by Automated count Low 20.5-60.0 [facility] MCH Auto (RBC) [Entitic mass ]on 06-27-2024 MCH (RBC) [Entitic mass] 33.1 pg 25.9-34.0 [facility] MCH (RBC) [Entitic mass] MCH [Entitic mass] by Automated count 25.9-34.0 [facility] MCHC Auto (RBC) [Mass/Vol]on 06-27-2024 MCHC (RBC) [Mass/Vol] 32.6 g/dL 29.9-35.2 [facility] MCHC (RBC) [Mass/Vol] MCHC [Mass/volume] by Automated count 29.9-35.2 [facility] MCV Auto (RBC) [Entitic vol] on 06-27-2024 MCV (RBC) [Entitic vol] 101.3 fL High 80.0-94.0 [facility] MCV (RBC) [Entitic vol] MCV [Entitic vol ume] by Automated count High 80.0-94.0 [facility] Monocytes Auto (Bld) [#/Vol] on 06-27-2024 Monocytes (Bld) [#/Vol] 0.9 10 3/uL High 0.3-0.8 [facility] Monocytes (Bld) [#/Vol] Automated blood monocyte count High 0.3-0.8 [facility] Monocytes/100 WBC Auto (Bld) on 06-27-2024 Monocytes/100 WBC (Bld) 7.7 % 1.7-12.0 [facility] Monocytes/100 WBC (Bld) Automated monocyte % 1. 7-12.0 [facility] Neutrophils Auto (Bld) [#/Vo l]on 06-27-2024 Neutrophils (Bld) [#/Vol] 8.0 10 3/uL High 1.4-6.5 [facility] Neutrophils (Bld) [#/Vol] Neutrophils [#/volume] in Blood by Automated count High 1.4-6.5 [facility] Neutrophils/100 WBC Auto (Bl d)on 06-27-2024 Neutrophils/100 WBC (Bld) 71.8 % 43.0-75.0 [facility] Neutrophils/100 WBC (Bld) Automated neutrophil % 43.0-75.0 [facility] No Panel Informationon 06-27 Eosinophils # (Auto) 0.5 10 3/uL 0.0-0.7 [facility] Folate 8.20 ng/mL Low 8.60-58.90 [facility] Free Prostate Specific Antigen 0.21 ng/mL N/A [facility] Comment on above: Giuseppe ECLIA methodol ogy. Immature Granulocyte # (Auto) 0.03 10 3/uL 0.00-0.03 [facility] Prostate Specific Antigen Total 1.8 ng/mL 0.0-4.0 [facility] Comment on above: Giuseppe ECLIA methodol ogy.According to the [employer], Serum PSAshould decrease and remain [...] volume (Bld) [Entitic vol] 10.4 fL 9.5-13.5 [facility] Platelet mean volume (Bld) [Entitic vol] Platelet mean volume [Entitic volume] in Blood by Automated count 9.5-13.5 [facility] Platelets Auto (Bld) [#/Vol] on 06-27-2024 Platelets (Bld) [#/Vol] 244 10 3/uL 150-450 [facility] Platelets (Bld) [#/Vol] Platelets [#/vol ume] in Blood by Automated count 150-450 [facility] RBC Auto (Bld) [#/Vol]on RBC (Bld) [#/Vol] 3.72 10 6/uL Low 4.70-6.10 [facility] RBC (Bld) [#/Vol] Erythrocytes [#/volu me] in Blood by Automated count Low 4.70-6.10 [facility] Serum or plasma free prostat e specific antigen (PSA)/total PSA ratioon 06-27-2024 Free PSA/Total PSA [Mass fraction] 11.7 % . [facility] Comment on above: The table below list s the probability of prostate cancer formen with non-suspicious PEDRO results and total PSA between4 and 10 ng/mL, by patient age (Catalona et al, JEREMÍAS 1998,279:1542). % Free PSA 50-64 yr 65-75 yr 0.00-10.00% 56% 55% 10.01-15.00% 24% 35% 15.01-20.00% 17% 23% 20.01-25.00% 10% 20% >25.00% 5% 9%Please note: Carmelita et al did not make specific recommendations regarding the use of percent free PSA for any other population of men.Performed at: [facility] [id number] Director: Eduin Middleton PhD, Phone: [phone] Free PSA/Total PSA [Mass fraction] Serum or plasma free prostate specific antigen (PSA)/total PSA ratio . [facility] Comment on above: The table below list s the probability of prostate cancer formen with non-suspicious PEDRO results and total PSA between4 and 10 ng/mL, by patient age (Catalona et al, JEREMÍAS 1998,279:1542). % Free PSA 50-64 yr 65-75 yr 0.00-10.00% 56% 55% 10.01-15.00% 24% 35% 15.01-20.00% 17% 23% 20.01-25.00% 10% 20% >25.00% 5% 9%Please note: Carmelita et al did not make specific recommendations regarding the use of percent free PSA for any other population of men.Performed at: [address] [id number] Director: Eduin Middleton PhD, Phone: [phone] Office Visit (Cardiology)on 05-20-2023 Follow-up visit Diagnoses/Problems [...] Current smoker Tobacco Use Screening; Status:Complete; Done: [id number] You need to quit smoking.; Status:Complete - Retrospective Authorization; Done: [id number] You need to stop smoking. Though it is not easy, more than half of all adult smokers have quit. We encourage you to write down all the reasons you should quit smoking and set a quit date for yourself. Ask us how we can help. You may also call 2-949-SCPRNOW for free resources and assistance.; Status:Complete - Retrospective Authorization; Done: [id number] Patient Instructions Please bring all medicines, vitamins, [...] negative for complaint. Vitals Vital Signs Recorded: [id number] 02:27PMRecorded: [id number] 02:14PM [id number], LUE, Bmmdczv805, LUE, Sitting Pndxzhiso39, LUE, Kgfkcxc67, LUE, Sitting Heart Rate64, L Radial Height6 ft 2 in Xhlots798 lb BMI Eeppxxjswz47.41 kg/m2 BSA Calculated1.97 Tobacco Usea) Yes Patient [...] May 20 2023 5:02PM EST (Author) Normal [facility] Tobacco Screening.on 023 Fall risk assessment a) No falls within the last year [facility] [employer] 250 DO Work Phone: Tobacco use status [facility] a) Yes [facility] [employer] 250 DO Work Phone: Tobacco Screening. Yes [facility] [employer] 250 DO Work Phone: Office Visit (Cardiology)on [...] we can help. You may also call 4-486-VGEK-NOW for free resources and assistance.; Status:Complete; Done: [...] Vital Signs Recorded: 24Nov2022 04:05PMRecorded: 24Nov2022 03:25PM [id number], LUE, Sitting [id number], LUE, Sitting Heart Rate66, L Radial Height6 ft 2 in Rixtzu910 lb BMI Admiyhchvy08.8 kg/m2 BSA Calculated1.99 Tobacco Usea) Yes Patient [...] Signatures Electro (more content not included)... Normal Ateo Tobacco Screening.on 023 Adult depression screening assessment No [facility] [employer] DO Work Phone: Fall risk assessment a) No falls within the last year [facility] [employer] 250 DO Work Phone: Tobacco use status CP a) Yes M -[facility]u cedric 250 DO Work Phone: Tobacco Screening. Yes MP-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 Supervisor: Marcia Fernandez RDCS, RVT Height: 187.96 cm CC Report to: Weight: 75.30 kg Study Type: Echocardiogram BSA: 2.01 m2 Blood Pressure: 150 /86 mmHg Diagnosis/ICD: I42.9-Cardiomyopathy, unspecified; R06.02-Shortness of breath Indication: Atrial Fibrillation, HTN, Hyperlipidemia, Tobacco Abuse, Carotid Stenosis Procedure/CPT: Echo Complete w Full Doppler-[id number] Study Detail: The following Echo studies were [...] 0.5 m/s (0.6-0.9m/s) PV Max P.2 mmHg [id number] Richy Delgadillo MD Electronically signed on 11/19/2022 at 5:56:19 PM Final Normal [facility] Office Visit (Cardiology)on 10-01-2022 Follow-up [...] we can help. You may also call [phone] for free resources and assistance.; Status:Complete - [...] skin rashes. (more content not included)... Normal [place] Tobacco Screening.on 022 Fall risk assessment a) No falls within the last year [facility] [employer] DO Work Phone: Tobacco use status [facility] a) Yes [facility] [employer] 250 DO Work Phone: Tobacco Screening. Yes -[facility] [employer] 250 DO Work Phone: PROF CHEM 8 (BAS METB)on Anion gap [Moles/Vol] 10.2 mmol/L Normal [facility] Comment on above: Performed By: #### B #### [facility] [address] [place] [address] [address] Oksana Dowell Calcium [Mass/Vol] 8.5 mg/dL Normal 8.5-10.1 [facility] Comment on above: Performed By: #### B MP #### [facility] [address] [address] [address] Oksana Dowell Chloride [Moles/Vol] 106 mmol/L Normal 98-107 [facility] Comment on above: Performed By: #### B MP #### [facility] [address] [address] [address] Oksana Dowell CO2 [Moles/Vol] 27.0 mmol/L Normal 21.0-32.0 [facility] Comment on above: Performed By: #### B MP #### [facility] [address] [address] [address] Oksana Dowell Creatinine [Mass/Vol] 1.06 mg/dL Normal 0.70-1.30 [facility] Comment on above: Performed By: #### B MP #### [facility] [address] [place] [address] Dr. Oksana Dowell EGFR-AF COLOMBIAN >60 Normal >=60 [facility] Comment on above: Performed By: #### B MP #### [facility] [address] [place] [address] Dr. Oksana Dowell EGFR-NON AF COLOMBIAN >60 Normal >=60 [facility] Comment on above: Performed By: #### B MP #### [facility] [address] [place] [address] Dr. Oksana Dowell Glucose [Mass/Vol] 102 mg/dL Normal 74-106 [facility] Comment on above: Performed By: #### B MP #### [facility] [address] [place] [address] Dr. Oksana Dowell Potassium [Moles/Vol] 4.2 mmol/L Normal 3.5-5.1 [facility] Comment on above: Performed By: #### B MP #### [facility] [address] [place] [address] Dr. Oksana Dowell Sodium [Moles/Vol] 139 mmol/L Normal 136-145 [facility] Comment on above: Performed By: #### B MP #### [facility] [address] [place] [address] Dr. Oksana Dowell Urea nitrogen [Mass/Vol] 18.0 mg/dL Normal 7.0-18.0 [facility] Comment on above: Performed By: #### B MP #### [facility] [address] [place] [address] Dr. Oksana Dowell Urea nitrogen/Creatinine [Mass ratio] 17.0 mg/mg Normal [facility] Comment on above: Performed By: #### B MP #### [facility] [address] [place] [address] Dr. Oksana Dowell BNPon 07-23-2022 Natriuretic peptide B (Bld) [Mass/Vol] 562.0 pg/mL Normal <=1,800.0 [facility] Comment on above: Performed By: #### H STROPN, BNP, CMP #### [facility] [address] [place] [address] Dr. Oksana Dowell CBC AUTO DIFFon 07-23-2022 BASO # 0.1 103/ul Normal 0.0-0.1 [facility] Comment on above: Performed By: #### C BC #### [facility] [address] [place] [address] Dr. Oksana Dowell Basophils/100 WBC (Bld) 0.8 % Normal 0.2-2.0 [facility] Comment on above: Performed By: #### C BC #### [facility] [address] [place] [address] Dr. Oksana Dowell EO # 0.4 103/ul Normal 0.0-0.7 [facility] Comment on above: Performed By: #### C BC #### [facility] [address] [place] [address] Dr. Oksana Dowell Eosinophils/100 WBC (Bld) 5.7 % Normal 0.9-7.0 [facility] Comment on above: Performed By: #### C BC #### [facility] [address] [place] [address] Dr. Oksana Dowell Erythrocyte distribution width (RBC) [Ratio] 14.3 % Normal 11.0-15.0 [facility] Comment on above: Performed By: #### C BC #### [facility] [address] [place] [address] Dr. Oksana Dowell Hematocrit (Bld) [Volume fraction] 32.0 % Critically low 42.0-54.0 [facility] Comment on above: Performed By: #### C BC #### [facility] [address] [place] [address] Dr. Oksana Dowell Hemoglobin (Bld) [Mass/Vol] 10.3 g/dL Critically low 14.0-18.0 [facility] Comment on above: Performed By: #### C BC #### [facility] [address] [place] [address] Dr. Oksana Dowell IG # 0.02 10e3/ul Normal 0.00-0.03 [facility] Comment on above: Performed By: #### C BC #### [facility] [address] [place] [address] Dr. Oksana Dowell IG % 0.3 % Normal 0.0-0.5 [facility] Comment on above: Performed By: #### C BC #### [facility] [address] [place] [address] Dr. Oksana Dowell LYMPH # 1.3 103/ul Normal 1.2-3.8 [facility] Comment on above: Performed By: #### C BC #### [facility] [address] [place] [address] Dr. Oksana Dowell Lymphocytes/100 WBC (Bld) 17.9 % Critically low 20.5-60.0 [facility] Comment on above: Performed By: #### C BC #### [facility] [address] [place] [address] Dr. Oksana Dowell MANUAL DIFF REQ NO Normal [facility] Comment on above: Performed By: #### C BC #### [facility] [address] [place] [address] Dr. Oksana Dowell MCH (RBC) [Entitic mass] 31.4 pg Normal 25.9-34.0 [facility] Comment on above: Performed By: #### C BC #### [facility] [address] [address] [address] Oksana Dowell MCHC (RBC) [Mass/Vol] 32.2 g/dL Normal 29.9-35.2 [facility] Comment on above: Performed By: #### C BC #### [facility] [address] [address] [address] Oksana Dowell MCV (RBC) [Entitic vol] 97.6 fL Critically high 80.0-94 .0 [facility] Comment on above: Performed By: #### C BC #### [facility] [address] [address] [address] Oksana Dowell MONO # 0.9 103/ul Critically high 0.3-0.8 [facility] Comment on above: Performed By: #### C BC #### [facility] [address] [place] [address] Dr. Oksana Dowell Monocytes/100 WBC (Bld) 12.8 % Critically high 1.7-12. 0 [facility] Comment on above: Performed By: #### C BC #### [facility] [address] [place] [address] Dr. Oksana Dowell NEUT # 4.5 103/ul Normal 1.4-6.5 [facility] Comment on above: Performed By: #### C BC #### [facility] [address] [place] [address] Dr. Oksana Dowell Neutrophils/100 WBC (Bld) 62.5 % Normal 43.0-75.0 [facility] Comment on above: Performed By: #### C BC #### [facility] [address] [place] [address] Dr. Oksana Dowell Platelet mean volume (Bld) [Entitic vol] 10.6 fL Normal 9.5-13.5 [facility] Comment on above: Performed By: #### C BC #### [facility] [address] [place] [address] Dr. Oksana Dowell PLT 219 103/ul Normal 150-450 [facility] Comment on above: Performed By: #### C BC #### [facility] [address] [address] [address] Oksana Dowell RBC 3.28 106/ul Critically low 4.70-6.10 [facility] Comment on above: Performed By: #### C BC #### [facility] [address] [address] [address] Oksana Dowell WBC 7.2 103/ul Normal 4.0-11.0 [facility] Comment on above: Performed By: #### C BC #### [facility] [address] [address] [address] Oksana Dowell PROF 14(COMP METB)on 022 Albumin [Mass/Vol] 3.2 g/dL Critically low 3.4-5.0 [facility] Comment on above: Performed By: #### H STROPN, BNP, CMP #### [facility] [address] [place] [address] Dr. Oksana Dowell Albumin/Globulin [Mass ratio] 1.1 {ratio} Normal [facility] Comment on above: Performed By: #### H STROPN, BNP, CMP #### [facility] [address] [place] [address] Dr. Oksana Dowell ALP [Catalytic activity/Vol] 59 U/L Normal 46-116 [facility] Comment on above: Performed By: #### H STROPN, BNP, CMP #### [facility] [address] [place] [address] Dr. Oksana Dowell ALT [Catalytic activity/Vol] 15 U/L Critically low 16-63 [facility] Comment on above: Performed By: #### H STROPN, BNP, CMP #### [facility] [address] [place] [address] Dr. Oksana Dowell Anion gap [Moles/Vol] 10.8 mmol/L Normal [facility] Comment on above: Performed By: #### H STROPN, BNP, CMP #### [facility] [address] [place] [address] Dr. Oksana Dowell AST [Catalytic activity/Vol] 12 U/L Critically low 15-37 [facility] Comment on above: Performed By: #### H STROPN, BNP, CMP #### [facility] [address] [place] [address] Dr. Oksana Dowell Bilirubin [Mass/Vol] 0.3 mg/dL Normal 0.2-1.0 [facility] Comment on above: Performed By: #### H STROPN, BNP, CMP #### [facility] [address] [place] [address] Dr. Oksana Dowell Calcium [Mass/Vol] 8.5 mg/dL Normal 8.5-10.1 [facility] Comment on above: Performed By: #### H STROPN, BNP, CMP #### [facility] [address] [place] [address] Dr. Oksana Dowell Chloride [Moles/Vol] 106 mmol/L Normal 98-107 [facility] Comment on above: Performed By: #### H STROPN, BNP, CMP #### [facility] [address] [place] [address] Dr. Oksana Dowell CO2 [Moles/Vol] 26.8 mmol/L Normal 21.0-32.0 [facility] Comment on above: Performed By: #### H STROPN, BNP, CMP #### [facility] [address] [place] [address] Dr. Oksana Dowell Creatinine [Mass/Vol] 0.87 mg/dL Normal 0.70-1.30 [facility] Comment on above: Performed By: #### H STROPN, BNP, CMP #### [facility] [address] [place] [address] Dr. Oksana Dowell EGFR-AF COLOMBIAN >60 Normal >=60 [facility] Comment on above: Performed By: #### H STROPN, BNP, CMP #### [facility] [address] [place] [address] Dr. Oksana Dowell EGFR-NON AF COLOMBIAN >60 Normal >=60 [facility] Comment on above: Performed By: #### H STROPN, BNP, CMP #### [facility] [address] [place] [address] Dr. Oksana Dowell Globulin (S) [Mass/Vol] 3.0 g/dL Normal [facility] Comment on above: Performed By: #### H STROPN, BNP, CMP #### [facility] [address] [address] [address] Oksana Dowell Glucose [Mass/Vol] 119 mg/dL Critically high 74-106 [facility] Comment on above: Performed By: #### H STROPN, BNP, CMP #### [facility] [address] [place] [address] Dr. Oksana Dowell Potassium [Moles/Vol] 3.6 mmol/L Normal 3.5-5.1 [facility] Comment on above: Performed By: #### H STROPN, BNP, CMP #### [facility] [address] [place] [address] Dr. Oksana Dowell Protein [Mass/Vol] 6.2 g/dL Critically low 6.4-8.2 [facility] Comment on above: Performed By: #### H STROPN, BNP, CMP #### [facility] [address] [place] [address] Dr. Oksana Dowell Sodium [Moles/Vol] 140 mmol/L Normal 136-145 [facility] Comment on above: Performed By: #### H STROPN, BNP, CMP #### [facility] [address] [place] [address] Dr. Oksana Dowell Urea nitrogen [Mass/Vol] 13.0 mg/dL Normal 7.0-18.0 [facility] Comment on above: Performed By: #### H STROPN, BNP, CMP #### [facility] [address] [place] [address] Dr. Oksana Dowell Urea nitrogen/Creatinine [Mass ratio] 14.9 mg/mg Normal [facility] Comment on above: Performed By: #### H STROPN, BNP, CMP #### [facility] [address] [place] [address] Dr. Oksana Dowell TROPONIN, HIGH SENSITIVITYon 07-23-2022 HSTROP 8.3 pg/mL Normal 4.0-76.1 [facility] Comment on above: Result Comment: CUT- OFF POINTS HAVE BEEN ESTABLISHED BASED ON THE FOURTH UNIVERSAL DEFINITIONS OF MYOCARDIAL INFARCTION. THE UPPER REFERENCE LIMIT (URL) OF TROPONIN, DEFINED THE 99TH PERCENTILE OF cTnI DISTRIBUTION IN A REFERENCE POPULATION, HAS BEEN CONFIRMED THE DECISION THRESHOLD FOR HI DIAGNOSIS. Performed By: #### H STROPN, BNP, CMP #### [facility] [address] [place], [place] [address] Dr. Oksana Dowell XR CHEST 1 Von [...] ALEXANDRIA SCHAFFER Date: 2022-07-23 20:48 Normal [facility] Basophils Auto (Bld) [#/Vol] Ordered By: Senthil Donato on 07-16-2022 Basophils (Bld) [#/Vol] 0.1 10*3/uL 0.0-0.2 [facility] Basophils/100 WBC Auto (Bld) Ordered By: Senthil Donato on 07-16-2022 Basophils/100 WBC (Bld) 0.9 % . [facility] Creatinine and Glomerular fi ltration rate.predicted panel (S/P/Bld)Ordered By: Senthil Donato on 07-16-2022 Creatinine [Mass/Vol] 1.06 mg/dL 0.64-1.27 [facility] Eosinophils Auto (Bld) [#/Vo l]Ordered By: Senthil Donato on 07-16-2022 Eosinophils (Bld) [#/Vol] 0.3 10*3/uL 0.0-0.45 [facility] Eosinophils/100 WBC Auto (Bl d)Ordered By: Senthil Donato on 07-16-2022 Eosinophils/100 WBC (Bld) 4.0 % . [facility] Erythrocyte distribution wid th Auto (RBC) [Ratio]Ordered By: Senthil Donato on 07-16-2022 Erythrocyte distribution width (RBC) [Ratio] 14.6 % 12.0-14.8 [facility] Estimated glomerular filtrat ion rate (GFR) non- AmericanOrdered By: Senthil Donato on 07-16-2022 GFR/1.73 sq M.predicted among non-blacks MDRD (S/P/Bld) [Vol rate/Area] > 60 mL/Min [facility] Hematocrit Auto (Bld) [Volum e fraction]Ordered By: Senthil Donato on 07-16-2022 Hematocrit (Bld) [Volume fraction] 38.2 % 38.8-50.0 [facility] Hemoglobin [Mass/volume] in BloodOrdered By: Senthil Donato on 07-16-2022 Hemoglobin (Bld) [Mass/Vol] 12.6 g/dL 13.0-17.0 [facility] Laboratory - Hematology and Cell countsOrdered By: Senthil Donato on 07-16-2022 Nucleated RBC/100 WBC (Bld) [Ratio] 0.1 % 0-0.5 [facility] Leukocytes [#/volume] in Blo od by Automated countOrdered By: Senthil Donato on 07-16-2022 WBC (Bld) [#/Vol] 7.2 10*3/uL 4.5-11.0 [facility] Lymphocytes Auto (Bld) [#/Vo l]Ordered By: Senthil Donato on 07-16-2022 Lymphocytes (Bld) [#/Vol] 1.2 10*3/uL 1.00-4.8 [facility] Lymphocytes/100 WBC Auto (Bl d)Ordered By: Senthil Donato on 07-16-2022 Lymphocytes/100 WBC (Bld) 16.4 % . [facility] MCH Auto (RBC) [Entitic mass ]Ordered By: Senthil Donato on 07-16-2022 MCH (RBC) [Entitic mass] 31.7 pg 27.5-35.2 [facility] MCHC Auto (RBC) [Mass/Vol]Or dered By: Senthil Donato on 07-16-2022 MCHC (RBC) [Mass/Vol] 33.1 g/dL 32.5-35.6 [facility] MCV Auto (RBC) [Entitic vol] Ordered By: Senthil Donato on 07-16-2022 MCV (RBC) [Entitic vol] 95.6 fL 83.5-101 [facility] Monocytes Auto (Bld) [#/Vol] Ordered By: Senthil Donato on 07-16-2022 Monocytes (Bld) [#/Vol] 0.5 10*3/uL 0.0-0.8 [facility] Monocytes/100 WBC Auto (Bld) Ordered By: Sentihl Donato on 07-16-2022 Monocytes/100 WBC (Bld) 7.2 % . [facility] Neutrophils Auto (Bld) [#/Vo l]Ordered By: Senthil Donato on 07-16-2022 Neutrophils (Bld) [#/Vol] 5.1 10*3/uL 1.8-7.7 [facility] Neutrophils/100 WBC Auto (Bl d)Ordered By: Senthil Donato on 07-16-2022 Neutrophils/100 WBC (Bld) 71.5 % . [facility] No Panel InformationOrdered By: Senthil Donato on 07-16-2022 Estimated GFR () > 60 mL/Min [facility] Comment on above: GFR estimated refere nce range: According to KDOQI guidelines, <60 ml/min/1.73m2 is sufficient to diagnose a patient with chronic kidney disease. Pharmacy Creatinine Clearance (Chem 61.81 [facility] Platelet mean volume Auto (B ld) [Entitic vol]Ordered By: Senthil Donato on 07-16-2022 Platelet mean volume (Bld) [Entitic vol] 9.5 fL 6.6-10.1 [facility] Platelets Auto (Bld) [#/Vol] Ordered By: Senthil Donato on 07-16-2022 Platelets (Bld) [#/Vol] 197 10*3/uL 150-450 [facility] RBC Auto (Bld) [#/Vol]Ordere d By: Senthil Donato on 07-16-2022 RBC (Bld) [#/Vol] 4.00 10*6/uL 3.90-5.60 [facility] Serum or plasma anion gap de terminationOrdered By: Senthil Donato on 07-16-2022 Anion gap [Moles/Vol] 14.2 mmol/L 6.0-15.0 [facility] Serum or plasma calcium paul urement (mass/volume)Ordered By: Senthil Donato on 07-16-2022 Calcium [Mass/Vol] 9.3 mg/dL 8.2-10.2 [facility] Serum or plasma chloride sarah surement (moles/volume)Ordered By: Senthil Donato on 07-16-2022 Chloride [Moles/Vol] 102 mmol/L 95-114 [facility] Serum or plasma glucose paul urement (mass/volume)Ordered By: Senthil Donato on 07-16-2022 Glucose [Mass/Vol] 106 mg/dL 70-100 [facility] Comment on above: ADA recommended refe rence rangeRandom Glucose Reference Range is dependent on time and content of last meal. Glucose of more than 200 mg/dL in a nonstressed, ambulatory subject supports the diagnosis of Diabetes Mellitus. Serum or plasma potassium me asurement (moles/volume)Ordered By: Senthil Donato on 07-16-2022 Potassium [Moles/Vol] 3.9 mmol/L 3.5-5.1 [facility] Serum or plasma sodium measu rement (moles/volume)Ordered By: Senthil Donato on 07-16-2022 Sodium [Moles/Vol] 137 mmol/L 136-146 [facility] Serum or plasma total carbon dioxide measurement (moles/volume)Ordered By: Senthil Donato on 07-16-2022 CO2 [Moles/Vol] 24.7 mmol/L 22.0-30.0 [facility] Serum or plasma urea nitroge n measurement (mass/volume)Ordered By: Senthil Donato on 07-16-2022 Urea nitrogen [Mass/Vol] 17 mg/dL 9-23 [facility] COVID-19 Positive/NegativeOr dered By: Malcom Irene on 07-14-2022 SARS-CoV-2 (COVID-19) N gene LAUREN+probe Ql (Resp) Negative Negative [facility] Comment on above: Testing for SARS-CoV -2 by RT-PCR This test was developed and its performance characteristics determined by [employer] ([employer]) and validated at the [facility]. This test has not been FDA cleared [...] on 06-18-2022 Creatinine [Mass/Vol] 1.1 mg/dL 0.6-1.3 [facility] Comment on above: ER/ESD physician is notified/shown all ISTAT results. Critical values may be confirmed by laboratory testing if deemed necessary by ER attending doctor. No Panel InformationOrdered By: Malcom Irene on 06-18-2022 POC Estimated GFR > 60 [facility] Comment on above: GFR estimated refere nce range: According to KDOQI guidelines, <60 ml/min/1.73m2 is sufficient to diagnose a patient with chronic kidney disease. POC Estimated GFR Non- Amer > 60 [facility] Covid-19 PCR (CVDTBH)on SARS-CoV-2 (COVID-19) RNA LAUREN+probe Ql (Unsp spec) Not detected Normal NOT DETECTED [facility] Comment on above: Result Comment: This test is not yet approved or cleared by the [place] FDA. When there are no FDA-approved or cleared tests available, and other criteria are met, FDA can make tests available under an emergency access mechanism called an Emergency Use Authorization (EUA). The EUA for this test is supported by the Hospital Nurse of Health and Human Service's (HHS's) declaration [...] SARS-CoV-2. Performed By: #### C [facility] #### [facility] [address] [place] [address] Dr. Oksana Dowell Tobacco Screening.on 022 Adult depression screening assessment No MP-[facility] [employer]ric 250 DO Work Phone: Fall risk assessment a) No falls within the last year -[facility] [employer] Work Phone: Tobacco use status [facility]PH[facility] a) Yes M P-[facility] [employer]ric 250 DO Work Phone: Tobacco Screening. 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 Joseline Irene/Date Pending Procedure/CPT: Echo Complete w Full Doppler-[id number] Study Detail: The following Echo studies were [...] 0.6 m/s (0.6-0.9m/s) PV Max P.3 mmHg [id number] Eran Irwin MD Electronically signed on 01/31/2022 at 7:24:37 PM Final Normal [facility] Echocardiography Please click on the link to view the study images Normal -[facility] 600 DO Work Phone: Tobacco Screening.on 03-24-2 022 Adult depression screening assessment No [facility]Klarissa steele 250 DO Work Phone: Fall risk assessment a) No falls within the last year [facility] Georgiana steele 250 DO Work Phone: [phone] Tobacco use status CPHS a) Yes M [facility] Georgiana steele 250 DO Work Phone: [phone] Tobacco Screening. Yes -[facility]ed steele 250 DO Work Phone: [phone] No Panel Informationon 01-17 Normal [facility] steele 250 DO Work Phone: [phone] No Panel Informationon 01-16 [facility] steele 250 DO Work Phone: [phone] Tobacco Screening.on Adult depression screening assessment No [facility] Georgiana steele 250 DO Work Phone: [phone] Fall risk assessment a) No falls within the last year [facility] Georgiana steele 250 DO Work Phone: [phone] Tobacco use status CPHS a) Yes M [facility] steele 250 DO Work Phone: [phone] Tobacco Screening. Yes -[facility] steele 250 DO Work Phone: [phone] US CAROTID ART BILon 022 US CAROTID [...] by: IVAN CALIXTO Date: 2021-12-17 12:30 Normal [facility] Vital Signs Date Time Vital Sign Value Performing Clinician Facility 05-03-2025 11:10-0400 Body height 189.23 cm Alonzo Ball DO Work Phone: [facility] 05-03-2025 11:10-0400 Body mass index (BMI) [Ratio] 18.5 kg/m2 Alonzo Ball DO Work Phone: [facility] 05-03-2025 11:10-0400 Body weight 66.22 kg Alonzo Ball DO Work Phone: [facility] 05-03-2025 11:10-0400 Diastolic blood pressure 67 mm[Hg] Alonzo Ball DO Work Phone: [facility] 05-03-2025 11:10-0400 Heart rate 66 /min Alonzo Ball DO Work Phone: [facility] 05-03-2025 11:10-0400 Respiratory rate 12 /min Alonzo Ball DO Work Phone: [facility] 05-03-2025 11:10-0400 Systolic blood pressure 109 mm[Hg] Alonzo Ball DO Work Phone: [facility] 03-09-2025 08:55-0400 Diastolic blood pressure 78 mm[Hg] Bhavana 1 [facility] 03-09-2025 08:55-0400 Heart rate 52 /min Bhavana 1 [facility] 03-09-2025 08:55-0400 Systolic blood pressure 118 mm[Hg] Bhavana 1 [facility] 03-07-2025 10:17-0400 Body height 189.23 cm [facility] 03-07-2025 10:17-0400 Body mass index (BMI) [Ratio] 18.5 kg/m2 [facility] 03-07-2025 10:17-0400 Body weight 66.28 kg [facility] 03-07-2025 10:17-0400 Diastolic blood pressure 70 mm[Hg] [facility] 03-07-2025 10:17-0400 Heart rate 58 /min [facility] 03-07-2025 10:17-0400 Respiratory rate 12 /min [facility] 03-07-2025 10:17-0400 Systolic blood pressure 123 mm[Hg] [facility] 02-09-2025 09:58-0400 Body height 189.2 cm Terri Velazco MD Work Phone: [facility] 02-09-2025 09:58-0400 Body mass index (BMI) [Ratio] 18.75 kg/m2 Terri Velazco MD Work Phone: [facility] 02-09-2025 09:58-0400 Body weight 67.13 kg Terri Velazco MD Work Phone: [facility] 02-09-2025 09:58-0400 Diastolic blood pressure 70 mm[Hg] Terri Velazco MD Work Phone: [facility] 02-09-2025 09:58-0400 Heart rate 60 /min Terri Velazco MD Work Phone: [facility] 02-09-2025 09:58-0400 Systolic blood pressure 138 mm[Hg] Terri Velazco MD Work Phone: [facility] 12-06-2024 09:55-0500 Body height 189.23 cm Alonzo Ball DO Work Phone: [facility] 12-06-2024 09:55-0500 Body mass index (BMI) [Ratio] 18.2 kg/m2 Alonzo Ball DO Work Phone: [facility] 12-06-2024 09:55-0500 Body weight 65.43 kg Alonzo Ball DO Work Phone: [facility] 12-06-2024 09:55-0500 Diastolic blood pressure 51 mm[Hg] Alonzo Ball DO Work Phone: [facility] 12-06-2024 09:55-0500 Heart rate 62 /min Alonzo Ball DO Work Phone: [facility] 12-06-2024 09:55-0500 Respiratory rate 12 /min Alonzo Ball DO Work Phone: [facility] 12-06-2024 09:55-0500 Systolic blood pressure 109 mm[Hg] Alonzo Ball DO Work Phone: [facility] 11-08-2024 11:45-0500 Body height 189.23 cm Alonzo Ball DO Work Phone: [facility] 11-08-2024 11:45-0500 Body mass index (BMI) [Ratio] 20.2 kg/m2 Alonzo Ball DO Work Phone: [facility] 11-08-2024 11:45-0500 Body temperature 96.4 [degF] Alonzo Ball DO Work Phone: [facility] 11-08-2024 11:45-0500 Body weight 72.57 kg Alonzo Ball DO Work Phone: [facility] 11-08-2024 11:45-0500 Diastolic blood pressure 62 mm[Hg] Alonzo Ball DO Work Phone: [facility] 11-08-2024 11:45-0500 Heart rate 49 /min Alonzo Ball DO Work Phone: [facility] 11-08-2024 11:45-0500 SaO2% (BldA) [Mass fraction] 92 % Alonzo Ball DO Work Phone: [facility] 11-08-2024 11:45-0500 Systolic blood pressure 138 mm[Hg] Alonzo Ball DO Work Phone: [facility] 09-02-2024 09:55-0400 Body height 186.69 cm [facility] 09-02-2024 09:55-0400 Body mass index (BMI) [Ratio] 18.7 kg/m2 [facility] 09-02-2024 09:55-0400 Body weight 65.31 kg [facility] 09-02-2024 09:55-0400 Diastolic blood pressure 73 mm[Hg] [facility] 09-02-2024 09:55-0400 Heart rate 58 /min [facility] 09-02-2024 09:55-0400 Respiratory rate 12 /min [facility] 09-02-2024 09:55-0400 Systolic blood pressure 145 mm[Hg] [facility] 05-23-2024 11:09-0400 Body height 186.69 cm [facility] 05-23-2024 11:09-0400 Body mass index (BMI) [Ratio] 18.2 kg/m2 [facility] 05-23-2024 11:09-0400 Body weight 63.61 kg [facility] 05-23-2024 11:09-0400 Diastolic blood pressure 61 mm[Hg] [facility] 05-23-2024 11:09-0400 Heart rate 66 /min [facility] 05-23-2024 11:09-0400 Respiratory rate 12 /min [facility] 05-23-2024 11:09-0400 Systolic blood pressure 100 mm[Hg] [facility] 05-19-2024 13:45-0400 Body height 189.2 cm Eran Irwin MD Work Phone: [facility] 05-19-2024 13:45-0400 Body mass index (BMI) [Ratio] 17.71 kg/m2 Eran Irwin MD Work Phone: [facility] 05-19-2024 13:45-0400 Body weight 63.41 kg Eran Irwin MD Work Phone: [facility] 05-19-2024 13:45-0400 Diastolic blood pressure 74 mm[Hg] Eran Irwin MD Work Phone: [facility] 05-19-2024 13:45-0400 Heart rate 60 /min Eran Irwin MD Work Phone: [facility] 05-19-2024 13:45-0400 Systolic blood pressure 138 mm[Hg] Eran Irwin MD Work Phone: [facility] 11-16-2023 09:30-0500 Body height 186.69 cm Alonzo Ball Other [employer] Other 11-16-2023 09:30-0500 Body mass index (BMI) [Ratio] 19.96 kg/m2 Alonzo Ball Other [employer] Other 11-16-2023 09:30-0500 Body weight 69.58 kg Alonzo Ball Other [employer] Other 11-16-2023 09:30-0500 Diastolic blood pressure 78 mm[Hg] Alonzo Ball Other [employer] Other 11-16-2023 09:30-0500 Respiratory rate 12 /min Alonzo Ball Other [employer] Other 11-16-2023 09:30-0500 Systolic blood pressure 159 mm[Hg] Alonzo Ball Other [employer] Other 10-19-2023 11:30-0500 Body height 186.69 cm Malcom Irene Other [employer] Other 10-19-2023 11:30-0500 Body mass index (BMI) [Ratio] 20.56 kg/m2 Malcom Irene Other [employer] Other 10-19-2023 11:30-0500 Body temperature 97.8 [degF] Malcom Irene Other [employer] Other 10-19-2023 11:30-0500 Body weight 71.67 kg Malcom Irene Other [employer] Other 10-19-2023 11:30-0500 Diastolic blood pressure 74 mm[Hg] Malcom Irene Other [employer] Other 10-19-2023 11:30-0500 SaO2% (BldA) [Mass fraction] 97 % Malcom Irene Other [employer] Other 10-19-2023 11:30-0500 Systolic blood pressure 128 mm[Hg] Malcom Irene Other [employer] Other 05-20-2023 14:27-0400 Diastolic blood pressure 70 mm[Hg] Alonzo Jean Carlos Ball Work Phone: [employer] 250 DO Work Phone: 05-20-2023 14:27-0400 Systolic blood pressure 138 mm[Hg] Alonzo Evangelista Ball Work Phone: [employer] 250 DO Work Phone: 05-20-2023 14:14-0400 Body height 187.96 cm Alonzo Evangelista Ball Work Phone: [employer] 250 DO Work Phone: 05-20-2023 14:14-0400 Body mass index (BMI) [Ratio] 20.41 kg/m2 Alonzo Evangelista Ball Work Phone: [employer] 250 DO Work Phone: 05-20-2023 14:14-0400 Body surface area Derived from formula 1.97 m2 Alonzo Evangelista Ball Work Phone: [facility] [employer] 250 DO Work Phone: 05-20-2023 14:14-0400 Body weight 72.12 kg Alonzo E Ball Work Phone: [facility] [employer] 250 DO Work Phone: 05-20-2023 14:14-0400 Diastolic blood pressure 68 mm[Hg] Alonzo E Ball Work Phone: [facility] [employer] 250 DO Work Phone: 05-20-2023 14:14-0400 Heart rate 64 /min Alonzo E Ball Work Phone: [facility] [employer] 250 DO Work Phone: 05-20-2023 14:14-0400 Systolic blood pressure 180 mm[Hg] Alonzo E Ball Work Phone: [facility] [employer] 250 DO Work Phone: 05-15-2023 11:00-0400 Body height 186.69 cm Alonzo Ball Other [facility] [employer] Other 05-15-2023 11:00-0400 Body mass index (BMI) [Ratio] 20.64 kg/m2 Alonzo Ball Other [facility] [employer] Other 05-15-2023 11:00-0400 Body weight 71.94 kg Alonzo Ball Other [facility] [employer] Other 05-15-2023 11:00-0400 Diastolic blood pressure 72 mm[Hg] Alonzo Ball Other [employer] Other 05-15-2023 11:00-0400 Respiratory rate 12 /min Alonzo Ball Other [employer] Other 05-15-2023 11:00-0400 Systolic blood pressure 175 mm[Hg] Alonzo Ball Other [place] [employer] Other 11-24-2022 16:05-0500 Diastolic blood pressure 82 mm[Hg] Alonzo E Ball Work Phone: [facility] 250 DO Work Phone: 11-24-2022 16:05-0500 Systolic blood pressure 138 mm[Hg] Alonzo E Ball Work Phone: [facility] 250 DO Work Phone: 11-24-2022 15:25-0500 Body height 187.96 cm Alonzo E Ball Work Phone: [facility] 250 DO Work Phone: 11-24-2022 15:25-0500 Body mass index (BMI) [Ratio] 20.8 kg/m2 Alonzo E Ball Work Phone: [facility] 250 DO Work Phone: 11-24-2022 15:25-0500 Body surface area Derived from formula 1.99 m2 Alonzo E Ball Work Phone: [facility] 250 DO Work Phone: 11-24-2022 15:25-0500 Body weight 73.48 kg Alonzo E Ball Work Phone: [facility] 250 DO Work Phone: 11-24-2022 15:25-0500 Diastolic blood pressure 82 mm[Hg] Alonzo E Ball Work Phone: [facility] 250 DO Work Phone: 11-24-2022 15:25-0500 Heart rate 66 /min Alonzo E Ball Work Phone: [facility] 250 DO Work Phone: 11-24-2022 15:25-0500 Systolic blood pressure 144 mm[Hg] Alonzo E Ball Work Phone: [facility] 250 DO Work Phone: 11-19-2022 14:30-0500 40 1 Alonzo E Ball Work Phone: [facility] [place] Work Phone: Comment on above: [id number] 10-01-2022 13:47-0500 Body height 187.96 cm Alonzo E Ball Work Phone: [facility] 250 DO Work Phone: 10-01-2022 13:47-0500 Body mass index (BMI) [Ratio] 21.33 kg/m2 Alonzo E Ball Work Phone: [facility] 250 DO Work Phone: 10-01-2022 13:47-0500 Body surface area Derived from formula 2.01 m2 Alonzo E Ball Work Phone: [facility] 250 DO Work Phone: 10-01-2022 13:47-0500 Body weight 75.36 kg Alonzo E Ball Work Phone: [facility] 250 DO Work Phone: 10-01-2022 13:47-0500 Diastolic blood pressure 90 mm[Hg] Alonzo E Ball Work Phone: [facility] 250 DO Work Phone: 10-01-2022 13:47-0500 Heart rate 66 /min Alonzo E Ball Work Phone: [facility] 250 DO Work Phone: 10-01-2022 13:47-0500 Systolic blood pressure 160 mm[Hg] Alonzo E Ball Work Phone: [facility] 250 DO Work Phone: 08-11-2022 12:30-0400 Body height 186.69 cm Irma Pérez Other [employer] Other 08-11-2022 12:30-0400 Body mass index (BMI) [Ratio] 20.82 kg/m2 Irma Pérez Other [employer] Other 08-11-2022 12:30-0400 Body temperature 97.1 [degF] Irma Pérez Other [employer] Other 08-11-2022 12:30-0400 Body weight 72.58 kg Irma Pérez Other [employer] Other 08-11-2022 12:30-0400 Diastolic blood pressure 68 mm[Hg] Iram Pérez Other [employer] Other 08-11-2022 12:30-0400 SaO2% (BldA) [Mass fraction] 98 % Irma Pérez Other [employer] Other 08-11-2022 12:30-0400 Systolic blood pressure 158 mm[Hg] Irma Pérez Other [employer] Other 07-17-2022 07:00-0400 Diastolic blood pressure 54 mm[Hg] DO Alonzo Ball Work Phone: [facility] 07-17-2022 07:00-0400 Heart rate 49 /min DO Alonzo Ball Work Phone: [facility] 07-17-2022 07:00-0400 Respiratory rate 17 /min DO Alonzo Ball Work Phone: [facility] 07-17-2022 07:00-0400 Systolic blood pressure 122 mm[Hg] DO Alonzo Ball Work Phone: [facility] 07-17-2022 06:00-0400 SaO2% (BldA) [Mass fraction] 98 % DO Alonzo Ball Work Phone: [facility] 07-17-2022 05:46-0400 Body weight 74.8 kg DO Alonzo Ball Work Phone: [facility] 07-17-2022 00:00-0400 Body temperature 98.6 [degF] DO Alonzo Ball Work Phone: [facility] 07-17-2022 00:00-0400 Inhaled oxygen flow rate 1 L/min DO Alonzo Ball Work Phone: [facility] 07-16-2022 08:17-0400 Body height 189.23 cm DO Alonzo Ball Work Phone: [facility] 07-16-2022 08:17-0400 Body mass index (BMI) [Ratio] 20.2 kg/m2 DO Alonzo Ball Work Phone: [facility] 06-18-2022 15:35-0400 Diastolic blood pressure 57 mm[Hg] DO Alonzo Ball Work Phone: [facility] 06-18-2022 15:35-0400 Heart rate 57 /min DO Alonzo Ball Work Phone: [facility] 06-18-2022 15:35-0400 Respiratory rate 20 /min DO Alonzo Ball Work Phone: [facility] 06-18-2022 15:35-0400 SaO2% (BldA) [Mass fraction] 95 % DO Alonzo Ball Work Phone: [facility] 06-18-2022 15:35-0400 Systolic blood pressure 131 mm[Hg] DO Alonzo Ball Work Phone: [facility] 06-18-2022 12:30-0400 Inhaled oxygen flow rate 2 L/min DO Alonzo Ball Work Phone: [facility] 06-18-2022 11:04-0400 Body height 187.96 cm DO Alonzo Ball Work Phone: [facility] 06-18-2022 11:04-0400 Body weight 74.84 kg DO Alonzo Ball Work Phone: [facility] 05-20-2022 11:30-0400 Body height 186.69 cm Malcom Irene Other [employer] Other 05-20-2022 11:30-0400 Body mass index (BMI) [Ratio] 20.82 kg/m2 Malcom Brownleerer Other [employer] Other 05-20-2022 11:30-0400 Body temperature 97.6 [degF] Malcom Irene Other [employer] Other 05-20-2022 11:30-0400 Body weight 72.58 kg Malcom Brownleerer Other [employer] Other 05-20-2022 11:30-0400 Diastolic blood pressure 62 mm[Hg] Malcom Irene Other [employer] Other 05-20-2022 11:30-0400 SaO2% (BldA) [Mass fraction] 99 % Malcom Irene Other [employer] Other 05-20-2022 11:30-0400 Systolic blood pressure 138 mm[Hg] Malcom Brownleereenedelia Other [employer] Other 03-18-2022 11:45-0400 Body height 186.69 cm Irma Pérez Other [employer] Other 03-18-2022 11:45-0400 Body mass index (BMI) [Ratio] 20.82 kg/m2 Irma Pérez Other [employer] Other 03-18-2022 11:45-0400 Body temperature 97.2 [degF] Irma Pérez Other [employer] Other 03-18-2022 11:45-0400 Body weight 72.58 kg Irma Pérez Other [employer] Other 03-18-2022 11:45-0400 Diastolic blood pressure 52 mm[Hg] Irma Pérez Other [employer] Other 03-18-2022 11:45-0400 SaO2% (BldA) [Mass fraction] 99 % Irma Pérez Other [employer] Other 03-18-2022 11:45-0400 Systolic blood pressure 140 mm[Hg] Irma Pérez Other [employer] Other 03-10-2022 13:39-0400 Diastolic blood pressure 60 mm[Hg] Alonzo Evangelista Ball Work Phone: [facility] [employer] DO Work Phone: 03-10-2022 13:39-0400 Systolic blood pressure 138 mm[Hg] Alonzo Evangelista Ball Work Phone: [employer] [facility] [employer] 250 DO Work Phone: 03-10-2022 13:19-0400 Body height 187.96 cm Alonzo E Ball Work Phone: [employer] 250 DO Work Phone: 03-10-2022 13:19-0400 Body mass index (BMI) [Ratio] 20.8 kg/m2 Alonzo Evangelista Ball Work Phone: [facility] 250 DO Work Phone: 03-10-2022 13:19-0400 Body surface area Derived from formula 1.99 m2 Alonzo E Ball Work Phone: [facility] 250 DO Work Phone: 03-10-2022 13:19-0400 Body weight 73.48 kg Alonzo E Ball Work Phone: [facility] 250 DO Work Phone: 03-10-2022 13:19-0400 Diastolic blood pressure 62 mm[Hg] Alonzo E Ball Work Phone: [facility] 250 DO Work Phone: 03-10-2022 13:19-0400 Heart rate 66 /min Alonzo E Ball Work Phone: [facility] 250 DO Work Phone: 03-10-2022 13:19-0400 Systolic blood pressure 152 mm[Hg] Alonzo E Ball Work Phone: [facility] 250 DO Work Phone: 02-04-2022 12:00-0400 Body height 186.69 cm Malcom Irene Other [employer] [facility] [employer] Other 02-04-2022 12:00-0400 Body mass index (BMI) [Ratio] 20.82 kg/m2 Malcom Irene Other [employer] Other 02-04-2022 12:00-0400 Body temperature 96.3 [degF] Malcom Irene Other [employer] Other 02-04-2022 12:00-0400 Body weight 72.58 kg Malcom Irene Other [employer] Other 02-04-2022 12:00-0400 Diastolic blood pressure 60 mm[Hg] Malcom Irene Other [employer] Other 02-04-2022 12:00-0400 SaO2% (BldA) [Mass fraction] 97 % Malcom Irene Other [employer] Other 02-04-2022 12:00-0400 Systolic blood pressure 158 mm[Hg] Malcom Irene Other [employer] Other 01-27-2022 08:45-0400 30 1 Alonzo Evangelista Ball Work Phone: [facility] [employer] [address] [place] Work Phone: Comment on above: [id number] 01-23-2022 13:08-0400 Body height 187.96 cm Alonzo Evangelista Ball Work Phone: [facility] [employer] 250 DO Work Phone: 01-23-2022 13:08-0400 Body mass index (BMI) [Ratio] 20.93 kg/m2 Alonzo Evangelista Ball Work Phone: [facility] [employer] 250 DO Work Phone: 01-23-2022 13:08-0400 Body surface area Derived from formula 1.99 m2 Alonzo E Ball Work Phone: [facility] [employer] 250 DO Work Phone: 01-23-2022 13:08-0400 Body weight 73.94 kg Alonzo E Ball Work Phone: [facility] [employer] 250 DO Work Phone: 01-23-2022 13:08-0400 Heart rate 68 /min Alonzo E Ball Work Phone: [facility] [employer] 250 DO Work Phone: 01-16-2022 16:13-0400 30 1 Alonzo E Ball Work Phone: [facility] 250 DO Work Phone: Comment on above: [id number] 01-13-2022 15:09-0400 Diastolic blood pressure 67 mm[Hg] Alonzo E Ball Work Phone: [facility] 250 DO Work Phone: 01-13-2022 15:09-0400 Systolic blood pressure 141 mm[Hg] Alonzo E Ball Work Phone: [facility] 250 DO Work Phone: 01-13-2022 15:05-0400 Body height 189.23 cm Alonzo E Ball Work Phone: [facility] 250 DO Work Phone: 01-13-2022 15:05-0400 Body mass index (BMI) [Ratio] 20.27 kg/m2 Alonzo E Ball Work Phone: [facility] 250 DO Work Phone: 01-13-2022 15:05-0400 Body surface area Derived from formula 1.99 m2 Alonzo E Ball Work Phone: [facility] 250 DO Work Phone: 01-13-2022 15:05-0400 Body weight 72.58 kg Alonzo E Ball Work Phone: [facility] 250 DO Work Phone: 01-13-2022 15:05-0400 Diastolic blood pressure 63 mm[Hg] Alonzo E Ball Work Phone: [facility] 250 DO Work Phone: 01-13-2022 15:05-0400 Heart rate 65 /min Alonzo E Ball Work Phone: [facility] 250 DO Work Phone: 01-13-2022 15:05-0400 Systolic blood pressure 132 mm[Hg] Alonzo Gray Work Phone: [facility] 250 DO Work Phone: 12-23-2021 11:30-0500 Body height 186.69 cm Irma Pérez Other [employer] Other 12-23-2021 11:30-0500 Body mass index (BMI) [Ratio] 20.82 kg/m2 Irma Pérez Other [employer] Other 12-23-2021 11:30-0500 Body temperature 96.9 [degF] Imra Elisa Other [employer] Other 12-23-2021 11:30-0500 Body weight 72.58 kg Irma Elisa Other [employer] Other 12-23-2021 11:30-0500 Diastolic blood pressure 70 mm[Hg] Irma Pérez Other [employer] Other 12-23-2021 11:30-0500 SaO2% (BldA) [Mass fraction] 95 % Irma Elisa Other [employer] Other 12-23-2021 11:30-0500 Systolic blood pressure 160 mm[Hg] Irma Pérez Other [employer] Other Encounters Encounter Date Encounter Type Care Provider Facility Start: 05-03-2025 End: 05-03-2025 ambulatory Alonzo Gray DO Work Phone: [facility] Work Phone: Start: 05-03-2025 End: 05-03-2025 Patient encounter procedure Alonzo Gray DO [facility] Work Phone: Start: 03-29-2025 Non-patient / Non-visit Alonzo evangelista DO [facility] Work Phone: Start: 03-09-2025 End: 03-09-2025 Subsequent hospital visit by physician Bhavana Rosas Admin Room [facility] Comment on above: Left ventricular sys tolic dysfunction; Paroxysmal atrial fibrillation (Multi); Shortness of breath Start: 03-09-2025 End: 03-09-2025 ambulatory [facility] Start: 03-07-2025 End: 03-07-2025 ambulatory [facility] Work Phone: Start: 03-07-2025 End: 03-07-2025 Patient encounter procedure [facility] Work Phone: Start: 03-03-2025 Non-patient / Non-visit [facility] Work Phone: Start: 02-27-2025 End: 02-27-2025 ambulatory [facility] Work Phone: Start: 02-27-2025 End: 02-27-2025 Patient encounter procedure [facility] Work Phone: Start: 02-09-2025 End: 02-09-2025 Office outpatient visit 25 minutes Terri Velazco MD Work Phone: [facility] Comment on above: Left ventricular sys tolic dysfunction (Primary Dx); Primary hypertension; Paroxysmal atrial fibrillation (Multi); Asymptomatic bilateral carotid artery stenosis; Mixed hyperlipidemia; Shortness of breath; Current smoker; Body mass index (BMI) 19.9 or less, adult; H/O carotid endarterectomy; Chronic obstructive pulmonary disease, unspecified COPD type (Multi) Start: 02-09-2025 End: 02-09-2025 ambulatory [facility] Ambulatory Start: 01-20-2025 End: 01-20-2025 ambulatory Alonzo Ball DO Work Phone: [facility] Work Phone: Start: 01-20-2025 End: 01-20-2025 Patient encounter procedure Alonzo Ball DO Work Phone: [facility] Work Phone: Start: 12-20-2024 End: 12-20-2024 ambulatory Alonzo Ball DO Work Phone: [facility] Work Phone: Start: 12-20-2024 End: 12-20-2024 Patient encounter procedure Alonzo Ball DO Work Phone: [facility] Work Phone: Start: 12-06-2024 End: 12-06-2024 ambulatory Alonzo Ball DO Work Phone: [facility] Work Phone: Start: 12-06-2024 End: 12-06-2024 Patient encounter procedure Alonzo Ball DO Work Phone: [facility] Work Phone: Start: 11-15-2024 End: 11-15-2024 ambulatory Alonzo Ball DO Work Phone: [facility] Work Phone: Start: 11-15-2024 End: 11-15-2024 Patient encounter procedure Alonzo Ball DO Work Phone: [facility] Work Phone: Start: 11-08-2024 End: 11-08-2024 ambulatory Alonzo Ball DO Work Phone: [facility] Work Phone: Start: 11-08-2024 End: 11-08-2024 Patient encounter procedure Alonzo Ball DO Work Phone: [facility] Work Phone: Start: 10-31-2024 Non-patient / Non-visit Benjam in Ball DO Work Phone: [facility] Work Phone: Start: 10-11-2024 End: 10-11-2024 Patient encounter procedure Alonzo Ball DO Work Phone: [facility] Work Phone: Start: 10-04-2024 End: 10-04-2024 Patient encounter procedure Alonzo Ball DO Work Phone: [facility] Work Phone: Start: 09-20-2024 End: 09-20-2024 ambulatory [facility] Work Phone: Start: 09-20-2024 End: 09-20-2024 Patient encounter procedure [facility] Work Phone: Start: 09-13-2024 End: 09-13-2024 ambulatory [facility] Work Phone: Start: 09-13-2024 End: 09-13-2024 Patient encounter procedure [facility] Work Phone: Start: 09-02-2024 End: 09-02-2024 ambulatory [facility] Work Phone: Start: 09-02-2024 End: 09-02-2024 Patient encounter procedure [facility] Work Phone: Start: 08-31-2024 Non-patient / Non-visit [facility] Work Phone: Start: 08-29-2024 Non-patient / Non-visit [facility] Work Phone: Start: 06-27-2024 Non-patient / Non-visit [facility] Work Phone: Start: 05-23-2024 End: 05-23-2024 ambulatory [facility] Work Phone: Start: 05-23-2024 End: 05-23-2024 Patient encounter procedure [facility] Work Phone: Start: 05-19-2024 End: 05-19-2024 Office outpatient visit 25 minutes Eran Irwin MD Work Phone: [facility] Comment on above: Mixed hyperlipidemia (Primary Dx); Dilated cardiomyopathy (Multi); Primary hypertension; Paroxysmal atrial fibrillation (Multi); Current smoker; Body mass index (BMI) 19.9 or less, adult Start: 05-19-2024 End: 05-19-2024 ambulatory ERAN IRWIN [facility] Ambulatory Start: 11-23-2023 End: 11-23-2023 ambulatory Alonzo Gray Other [employer] Other Start: 11-23-2023 Telephone encounter Alonzo Gray [facility] Start: 11-16-2023 End: 11-16-2023 ambulatory Alonzo Gray Other [employer] Other Start: 11-16-2023 Office outpatient vi sit 25 minutes Alonzo Gray [facility] Start: 10-19-2023 Office outpatient vi sit 25 minutes Malcom Irene [facility] Vascular Surgery Start: 10-19-2023 End: 10-19-2023 ambulatory DO Alonzo Gray Work Phone: [employer] Other Start: 10-19-2023 End: 10-19-2023 Patient encounter procedure DO Alonzo Gray Work Phone: [facility]-Ultrasound [facility] Start: 08-17-2023 End: 08-17-2023 ambulatory Alonzo Gray Other [employer] Other Start: 08-17-2023 Nursing evaluation o f patient and report Alonzo Gray [facility] Start: 06-11-2023 Rx Renewal Alonzo evangelista Work Phone: [facility] [address] DO Work Phone: Start: 05-27-2023 End: 05-27-2023 ambulatory Alonzo Gray Other [employer] Other Start: 05-27-2023 Telephone encounter Alonzo INTERIANO [facility] Start: 05-20-2023 Office outpatient vi sit 25 minutes Alonzo Gray Work Phone: [facility] [address] DO Work Phone: Start: 05-18-2023 End: 05-18-2023 ambulatory Alonzo Gray Other [employer] Other Start: 05-18-2023 Telephone encounter Alonzo INTERIANO [facility] Start: 05-15-2023 End: 05-15-2023 ambulatory Alonzo Gray Other [employer] Other Start: 05-15-2023 Patient encounter procedure Alonzo Gray [facility] Start: 12-15-2022 Chart Update Alonzo evangelista Work Phone: [facility] [address] DO Work Phone: Start: 11-26-2022 End: 11-26-2022 ambulatory Irma Pérez Other [facility] [employer] Other Start: 11-26-2022 Telephone encounter Irma Fernández [facility] Start: 11-24-[address] Eran Irwin II Facility: Start: 11-24-2022 Chart Update Alonzo evangelista Work Phone: [facility] [address] DO Work Phone: Start: 11-19-2022 Patient encounter procedure Alonzo Gray Work Phone: [facility] [address] [place] Work Phone: Start: 11-19-[address] Eran Irwin II Facility:[id number] Start: 10-14-2022 End: 10-14-2022 ambulatory DO Alonzo Ball Work Phone: [facility] Work Phone: Start: 10-14-2022 End: 10-14-2022 Patient encounter procedure DO Alonzo Ball Work Phone: [facility]-Ultrasound [facility] Start: 10-01-2022 Office outpatient vi sit 25 minutes Alonzo Evangelista Ball Work Phone: -[facility] [address] DO Work Phone: Start: 10-01-[address] Alonzo Gray Facility: Start: 08-11-2022 End: 08-11-2022 ambulatory Irma Pérez Other [employer] Other Start: 08-11-2022 Follow-up encounter Irma Fernández V[facility] Surgery Start: 08-06-2022 End: 08-07-[address] ALONZO GRAY Facility:H1 Start: 07-23-2022 End: 07-23-[address] ALONZO GRAY Facility:H1 Start: 07-16-2022 End: 07-17-2022 Evaluation and management of inpatient DO Alonzo Gray Work Phone: [facility] Start: 07-14-2022 End: 07-14-2022 Patient encounter procedure DO Alonzo Gray Work Phone: [facility]-Pre-Surgical Testing Start: 06-23-2022 End: 06-23-2022 ambulatory Irma Pérez Other [employer] Other Start: 06-23-2022 Encounter for other preprocedural examination Irma Pérez [facility] Start: 06-23-2022 Telephone encounter Irma Fernández [facility] Start: 06-18-2022 End: 06-18-2022 Evaluation and management of inpatient DO Alonzo Ball Work Phone: [facility]-4 North Surgical Start: 06-05-2022 Encounter for preprocedural laboratory examination DR DOCTOR OSEGUERA [facility] Start: 06-02-2022 End: 06-02-[address] ALONZO GRAY Facility:H1 Start: 06-02-2022 End: 06-02-2022 Encounter for preprocedural laboratory examination DR ALONZO GRAY Facility:H1 Start: 05-20-2022 End: 05-20-2022 ambulatory Malcom Irene Other [employer] [employer] Other Start: 05-20-2022 Postop follow up vis it related to original px Malcom Bugissell [facility] Start: 05-20-2022 End: 05-20-2022 Patient encounter procedure DO Alonzo Gray Work Phone: [facility]-Ultrasound [facility] Start: 03-18-2022 End: 03-18-2022 ambulatory Irma Pérez Other [facility] [employer] Other Start: 03-18-2022 Follow-up encounter Irma Fernández [facility] Start: 03-14-2022 End: 03-14-[address] ALONZO GRAY Facility:H1 Start: 03-10-2022 Office outpatient vi sit 25 minutes Alonzo Gray Work Phone: [facility] [employer] [address] DO Work Phone: Start: 03-10-[address] Alonzo Gray Facility: Start: 02-10-2022 End: 02-10-2022 ambulatory Irma Pérez Other [facility] [employer] Other Start: 02-10-2022 Encounter for other preprocedural examination Irma Pérez [facility] Start: 02-10-2022 Telephone encounter Irma Fernández [facility] Start: 02-05-2022 Chart Update Alonzo evangelista Work Phone: [facility] [employer] [address] DO Work Phone: Start: 02-04-2022 End: 02-04-2022 ambulatory Malcom Irene Other [facility] [employer] Other Start: 02-04-2022 Office outpatient vi sit 25 minutes Malcom Irene [facility] Vascular Surgery Start: 01-27-2022 Encounter for other preprocedural examination Dr. Alexandria Issa [facility] Start: 01-27-2022 Telephone encounter Irma Fernández V[facility] Surgery Start: 01-27-2022 Patient encounter procedure Alonzo Gray Work Phone: [facility] [address] [place] Work Phone: Start: 01-27-2022 End: 01-27-[address] Alexandria Issa [facility] [employer] Other Start: 01-23-2022 FUV, Provider: Alexandria Issa, Status: Pen, Time: 1:00 PM Alonzo Gray Work Phone: [facility] [address] DO Work Phone: Start: 01-23-2022 Office outpatient vi sit 25 minutes Alonzo Gray Work Phone: [facility] [address] DO Work Phone: Start: 01-21-2022 Chart Update Alonzo Perez l Work Phone: [facility] [address] DO Work Phone: Start: 01-13-2022 Office consultation new/estab patient 60 min Alonzo Gray Work Phone: [facility] [address] DO Work Phone: Start: 12-23-2021 End: 12-23-2021 ambulatory Irma Pérez Other [facility] [employer] Other Start: 12-23-2021 Office outpatient ne w 20 minutes Irma Péerz [facility] Vascular Surgery Start: 12-17-2021 End: 12-18-[address] ALONZO GRAY Facility: Start: 05-13-2021 Adult health examination Miles Gray Other [facility] [employer] Other Patient encounter status Trista Gray Work Phone: [facility] [address] DO Work Phone: Preoperative state Alonzo Evangelista Ba ll Work Phone: [facility] [address] DO Work Phone: Procedures Date Procedure Procedure Detail Performing Clinician Start: 03-09-2025 Cv strs tst xers&/or rx cont ecg trcg only Terri Velazco MD Work Phone: Start: 11-08-2024 Doppler ultrasonogra phy of bilateral carotid arteries Alonzo Gray DO Work Phone: Start: 10-19-2023 Doppler ultrasonogra phy of bilateral carotid arteries DO Alonzo Gray Work Phone: Start: 11-19-2022 Echocardiography Benjam in Jean Carlos Gray Work Phone: Start: 10-14-2022 Doppler ultrasonogra phy of bilateral carotid arteries DO Alonzo Gray Work Phone: Start: 05-20-2022 Doppler ultrasonogra phy of bilateral carotid arteries DO Alonzo Gray Work Phone: Start: 01-27-2022 Echocardiography Benjam in E Ball Work Phone: Start: 09-28-2017 General examination of [...] of prostate Alonzo Gray Other Tonsillectomy Alonzo evangelista Work Phone: Total colonoscopy Alonzo Gray Work Phone: Comment on above: denies; Plan of Treatment Date Care Activity Detail Author Start: 10-05-2025 End: 10-05-2025 Patient encounter procedure 10/05/2025 9:30 AM EST Office Visit [facility] [address] [place] [address] Terri Velazco MD [address] [place] [address] [facility] Start: 05-24-2025 Medicare Annual Wellness Visit Medicare Annual Wellness Visit (AWV) [facility] Start: 04-19-2025 End: 04-19-2025 Patient encounter procedure 04/19/2025 8:45 AM EDT Appointment [facility] [address] [place] [address] [facility] Start: 03-09-2025 End: 03-09-2025 Patient encounter procedure [facility] Start: 02-09-2025 End: 02-09-2027 NM Heart Perfusion W stress and W radionuclide IV Nuclear Stress Test Cardiac Nuclear Medicine Routine Left ventricular systolic dysfunction Paroxysmal atrial fibrillation (Multi) Shortness of breath Expected: 02/09/2025 (Approximate), Expires: 02/09/2027 [facility] Work Phone: Comment on above: Expected: 02/09/2025 (Approximate), Expi res: 02/09/2027 Start: 02-09-2025 End: 02-09-2027 US Heart Transthoracic Transthoracic Echo Complete Echocardiography Routine Left ventricular systolic dysfunction Paroxysmal atrial fibrillation (Multi) Shortness of breath Expected: 02/09/2025 (Approximate), Expires: 02/09/2027 [facility] Service Area Work Phone: Comment on above: Expected: 02/09/2025 (Approximate), Expi res: 02/09/2027 Start: 12-16-2024 End: 12-16-2024 Patient encounter procedure 12/16/2024 1:40 PM EST Office Visit [facility] [address] [place] [address] Terri Velazco MD [address] [place] [address] [facility] Start: 07-03-2024 COVID-19 Vaccine ( season) COVID-19 Vaccine ( season) [facility] Start: 07-03-2024 Influenza vaccination Influenza Vaccine (#1) [facility] Start: 12-02-2023 FUV, Provider: Eran Irwin, Status: Pen, Time: 2:20 PM FUV, Provider: Eran Irwin, Status: Pen, Time: 2:20 PM -[facility] DO Work Phone: Start: 11-19-2023 Echocardiography Echocardiogram [facility] Start: 07-03-2023 COVID-19 Vaccine ( season) COVID-19 Vaccine ( season) [facility] Start: 05-20-2023 FUV, Provider: Eran Irwin, Status: Pen, Time: 2:20 PM FUV, Provider: Eran Irwin, Status: Pen, Time: 2:20 PM -[facility] [address] DO Work Phone: Start: 11-24-2022 FUV, Provider: Eran Irwin, Status: Pen, Time: 3:30 PM FUV, Provider: Eran Irwin, Status: Pen, Time: 3:30 PM -[facility]-[address] DO Work Phone: Start: 11-19-2022 ECHO, Provider: [facility]TR[facility] ,[id number], Status: Pen, Time: 2:30 PM ECHO, Provider: [employer] [facility] ,[id number], Status: Pen, Time: 2:30 PM -[facility] [address] DO Work Phone: Start: 10-01-2022 FUV, Provider: Eran Irwin, Status: Pen, Time: 1:40 PM FUV, Provider: Eran Irwin, Status: Pen, Time: 1:40 PM [facility] [address] DO Work Phone: Start: 07-17-2022 [facility] Start: 07-16-2022 Extirpation of Matter from Right Internal Carotid Artery, Open Approach Extirpation of Matter from Right Internal Carotid Artery, Open Approach [facility] Start: 07-16-2022 Supplement Right Internal Carotid Artery with Synthetic Substitute, Open Approach Supplement Right Internal Carotid Artery with Synthetic Substitute, Open Approach [facility] Start: 07-16-2022 Hospital admission [facility] Start: 06-18-2022 Fluoroscopy of Abdominal Aorta using Low Osmolar Contrast Fluoroscopy of Abdominal Aorta using Low Osmolar Contrast [facility] Start: 06-18-2022 Fluoroscopy of Bilateral Common Carotid Arteries using Low Osmolar Contrast Fluoroscopy of Bilateral Common Carotid Arteries using Low Osmolar Contrast [facility] Start: 06-18-2022 [facility] Work Phone: Start: 2022 RSV High Risk: (Elderly (60+) or Population) (1 - 1-dose 75+ series) RSV High Risk: (Elderly (60+) or Population) (1 - 1-dose 75+ series) [facility] Start: 03-10-2022 FUV, Provider: Alexandria Issa, Status: Pen, Time: 1:15 PM FUV, Provider: Alexandria Issa, Status: Pen, Time: 1:15 PM [facility] [address] DO Work Phone: Start: 01-27-2022 ECHO, Provider: [facility] HHVI ULTRASOUND 01,[id number], Status: Pen, Time: 8:45 AM ECHO, Provider: [facility] ULTRASOUND 01,[id number], Status: Pen, Time: 8:45 AM -[facility] [address] DO Work Phone: Start: 01-23-2022 FUV, Provider: Alexandria Issa, Status: Pen, Time: 1:00 PM FUV, Provider: Alexandria Issa, Status: Pen, Time: 1:00 PM [facility] [address] DO Work Phone: Start: 01-16-2022 SURGNON, Provider: Eran Arroyo, Status: Pen, Time: 2:00 PM [facility]: Eran Arroyo, Status: Pen, Time: 2:00 PM [facility] [address] DO Work Phone: Start: 2007 RSV patients and/or patients aged 60+ years (1 - 1-dose 60+ series) RSV patients and/or patients aged 60+ years (1 - 1-dose 60+ series) [facility] Start: 1997 Zoster Vaccines (1 of 2) Zoster Vaccines (1 of 2) [facility] Start: 1969 DTaP/Tdap/Td Vaccines (1 - Tdap) DTaP/Tdap/Td Vaccines (1 - Tdap) [facility] Start: 1966 Pneumococcal vaccination Pneumococcal Vaccine (1 of 2 - PCV) [facility] Start: 1965 Diabetes mellitus screening Diabetes Screening [facility] Start: 1965 Hepatitis C screening Hepatitis C Screening [facility] Start: 1953 Pneumococcal Vaccine: 65+ Years (1 of 2 - PCV) Pneumococcal Vaccine: 65+ Years (1 of 2 - PCV) [facility] Start: 1947 Creatinine measurement Creatinine Level [facility] Start: 1947 Lipid panel Lipid Panel [facility] Start: 1947 Medicare Annual Wellness Visit Medicare Annual Wellness Visit (AWV) [facility] Start: 1947 Potassium measurement Potassium Level [facility] Comprehensive metabo lic 2000 panel - Serum or Plasma [facility] CT Abdomen and Pelvi s W contrast IV [facility] Patient Education Arteriogram (DC) [facility] Work Phone: Patient referral [facility] Work Phone: US.doppler Carotid arteries - bilateral [facility] XR Chest 2 Views [facility] Immunizations Immunization Date Immunization Notes Care Provider Fa cility 09-02-2024 influenza, high dose seasonal, preservative-free [facility] 08-02-2024 influenza, seasonal, injectable Terri Velazco MD Work Phone: [facility] 08-17-2023 influenza virus vaccine, unspecified formulation Eran Irwin MD Work Phone: [facility] 08-17-2023 influenza, high dose seasonal, preservative-free Alonzo Gray Other [facility] [employer] Other 09-02-2022 Pfizer COVID-19 Vac Bivalent 30 MCG/0.3ML Intramuscular Suspension Alonzo Gray Work Phone: [facility] 07-22-2022 Fluad Quadrivalent 0 .5 ML Intramuscular Prefilled Syringe Alonzo Gray Work Phone: [facility] [address] DO Work Phone: 07-22-2022 influenza virus vaccine, split virus (incl. purified surface antigen) Alonzo Gray Other [facility] [employer] Other 07-22-2022 influenza virus vaccine, unspecified formulation [facility] 07-22-2022 influenza, high dose seasonal, preservative-free Alonzo Gray Other [facility] [employer] Other 09-02-2021 Moderna COVID-19 Vaccine 100 MCG/0.5ML Intramuscular Suspension Alonzo Gray Work Phone: [facility] 08-14-2021 influenza virus vaccine, split virus (incl. purified surface antigen) Alonzo Gray Other [employer] Other 08-14-2021 influenza virus vaccine, unspecified formulation [facility] 12-31-2020 Moderna COVID-19 Vaccine 100 MCG/0.5ML Intramuscular Suspension Alonzo Gray Work Phone: [facility] 12-03-2020 Moderna COVID-19 Vaccine 100 MCG/0.5ML Intramuscular Suspension Alonzo Gray Work Phone: [facility] 07-10-2020 influenza virus vaccine, split virus (incl. purified surface antigen) Alonzo Gray Other [employer] [facility] [employer] Other 07-10-2020 influenza virus vaccine, unspecified formulation [facility] Payers Date Payer Category Payer Medicare [id number] 2021 Medicare (Managed Care) [employer] [id number] 1959 Medicare [id number] 1947 Unknown [id number] [id number]. 593 1947 Unknown [id number] 2.16840.1.327392.3.579.2. 593 1947 Unknown [id number] 2.16840.1.030625.3.579.2. 593 1947 Unknown [id number] 2.16.840.1.226289.3.579.2. 593 1947 Unknown [id number] 2.16.840.1.311842.3.579.2. 593 1947 Unknown [id number] 2.16.840.1.228225.3.579.2. 1068 1947 Unknown [id number] 2.16.840.1.163962.3.579.2. 1068 1947 Unknown [id number] 2..840.1.509364.3.579.2. 356 1947 Unknown [id number] 2.840.1.280361.3.579.2. 356 1947 Unknown [id number] 2.840.1.739144.3.579.2. 356 1947 Unknown [id number] 2.840.1.692529.3.579.2. 1244 1947 Unknown [id number] 2.840.1.689723.3.579.2. 1244 1947 Unknown [id number] 2.840.1.047330.3.579.2. 6 1947 Unknown [id number] 2.840.1.266130.3.579.2. 1246 1947 Unknown [id number] 2.840.1.717552.3.579.2. 124 1947 Unknown [id number] 2.840.1.579422.3.579.2. 1245 1947 Unknown [id number] 2.840.1.755308.3.579.2. 1246 Medicare Medicare [id number] Self-pay Self Pay [id number] Unknown Social History Date Type Detail Facility Start: 11-23-2023 End: 02-09-2025 No alcohol use No alcohol use -[facility] [address] DO Work Phone: Comment on above: 1to 2 cups of coffee daily; 1/2 pack per day; 1/4 pack per day; Start: 11-23-2023 End: 02-09-2025 Sex Assigned At [facility] [employer] Other Start: 06-18-2022 End: 11-16-2023 Tobacco smoking status NHIS Smoker (finding) [facility] Start: 1945 Sex Assigned At Male F [facility] Start: 09-13-2024 End: 03-07-2025 Sex Male (finding) [facility] Start: 05-19-2024 End: 05-03-2025 Tobacco smoking status SCIS Smokes tobacco daily [facility] History of tobacco use Cigarette Smoker [facility] Work Phone: Start: 05-19-2024 Tobacco use and exposure Smokeless tobacco non-user [facility] Work Phone: Start: 05-19-2024 End: 02-09-2025 Alcoholic beverage intake Lifetime non-drinker (finding) [facility] Work Phone: Start: 1945 Sex assigned at Not on file [facility] Work Phone: Start: 05-09-2024 End: 03-09-2025 Exposure to SARS-CoV-2 (event) Not sure [facility] Medical Equipment Procedure Code Equipment Code Equipment Origin al Text Equipment Identifier Dates Endarterectomy, carotid Cardiovascular patch, animal-derived ()[id number] [facility] Start: 02-20-2022 Endarterectomy, carotid Cardiovascular patch, animal-derived ()[id number] FDA Start: 07-16-2022 Goals Date Patient Goal Desired Activity /State Functional Status Date Assessment Result Facility 07-17-2022 Functional status Patient at [facility] Work Phone: Mental Status Date Assessment Result Facility 07-17-2022 Cognitive function Cognitive Sta tus Patient at [facility] Work Phone: Clinical Notes 12-23-2021 to 03-07-2025 Note Date & Type Note Facility 03-07-2025 Evaluation note Diagnosis Onset Date Resolution Anemia acute March 07, 2025 9:57am Atrial [...] Nonischemic cardiomyopathy acute March 07, 2025 9:57am Weight loss acute March 07, 2025 9:57am Anemia acute May 03, 2025 10:53am Atrial fibrillation acute May 03, 2025 10:53am Chronic bronchitis acute May 032024 10:53am Chronic HFrEF (heart failure with reduced ejection fraction) acute May 03 10:53am H/O carotid stenosis acute May 03, 2025 10:53am Hypercholesteremia acute May 032024 10:53am Hypertension acute May 03 10:53am Nicotine addiction acute May 032024 10:53am Nonischemic cardiomyopathy acute May 03, 2025 10:53am Peripheral artery disease acute May 03, 2025 10:53am Weight loss acute May 03 10:53am Medicare annual wellness visit, subsequent noneactive May 03, 2025 10:53am Screening PSA (prostate specific antigen) noneactive May 03, 2025 10:53am [facility] Work Phone: 1(211) 859-880704-10-2025 History of Present illness Narrative* Terri Velazco MD - 02/09/2025 9:40 AM EDT Chief Complaint Patient presents with Follow-up 6 month for cardiomyopathy Subjective Ivan Anthony is a 79 y.o. male HPI 79-year-old white male who has previously followed Dr. Irwin and prior to that with Dr. Issa. His cardiac condition started in 2021 when he had carotid endarterectomy surgery at [facility] and at that time he was found [...] follow with vascular surgery for bilateral carotid endar terectomy surgery. He denies any symptoms suggestive of [...] hypertension and hyperlipidemia. The present functional status isclass II stage C. He is on GDMT with compensation. Patient was advised to repeat the echocardiogramto ensure improvement and also to obtain a Lexiscan Cardiolite stress test to ensure there is no ischemic component. Present medical therapy will left unchanged 2-essential hypertension, currently under control 3-hyperlipidemia on statin therapy. 4-history of atrial fibrillation requiring cardioversion in [place] 5 years ago with no recurrent disease, currently not on antiarrhythmics or anticoagulants. 5-status post bilateral carotid endarterectomy surgery with no previous strokes, continue to followwith vascular surgery, encouraged the patient to quit [...] (150 mg) by mouth once daily in themorning. Take before meals., Disp: , Rfl: carvedilol [...] Scribe Attestation By signing my name below, Michelle Garcia LPN, Scribe attest that this documentation has [...] exam, discussion and plan. documented in [facility] Work Phone: 1(643) 596-953804-10-2025 Instructions* Patient Instructions* Michelle Mullins LPN - 02/09/2025 9:40 AM [...] Stress test Same medications documented in this [facility] Work Phone: 1(675) 716-175802-04-2025 Evaluation note* Diagnosis Onset Date Resolution Status Admit Date Anemia acute December 06, 2024 9:49am Atrial fibrillation acute Febru raj2024 9:49am Chronic bronchitis acute Februa 2024 9:49am Elevated PSA acute December 9:49am H/O carotid stenosis acute Febr uary 2024 9:49am Heart failure with improved ejection fraction (HFimpEF) acute Febr uary 2024 9:49am Hypercholesteremia acute Februa 2024 9:49am Hypertension acute December 9:49am Nicotine addiction acute ua 2024 9:49am Nonischemic cardiomyopathy acute December 06, 2024 9:49am [facility] Work Phone: 1(696) 924-837001-07-2025 Evaluation note* Diagnosis Onset Date Resolution Status Admit Date Occlusion and stenosis of bilateral carotid arteries acute 2024 11:20am Anemia acute December 06, 2024 9:49am Atrial fibrillation acute Febru 2024 9:49am Chronic bronchitis acute Februa 2024 9:49am H/O carotid stenosis acute Febr ua2024 9:49am Heart failure with improved ejection fraction (HFimpEF) acute Febr uary 2024 9:49am Hypercholesteremia acute Februa ry 2024 9:49am Hypertension acute December 9:49am Nicotine addiction acute Februa ry 2024 9:49am Nonischemic cardiomyopathy acute December 06, 2024 9:49am [facility] Work Phone: 1([phone]) 424-807601-07-2025 Evaluation note* Diagnosis Onset Date Resolution Status Admit Date Occlusion and stenosis of bilateral carotid arteries acute Novua 2024 11:20am Anemia acute December 06, 2024 9:49am Atrial fibrillation acute Febru raj2024 9:49am Chronic bronchitis acute 2024 9:49am Elevated PSA acute December 9:49am H/O carotid stenosis acute ua2024 9:49am Heart failure with improved ejection fraction (HFimpEF) acute 2024 9:49am Hypercholesteremia acute 2024 9:49am Hypertension acute December 9:49am Nicotine addiction acute 2024 9:49am Nonischemic cardiomyopathy acute December 06, 2024 9:49am [facility] Work Phone: 1(259) 508-664701-07-2025 [facility]iology [facility] [address] [place] [address] Ultrasound Report Signed Patient: Ivan Anthony MR#: [id number] : 1945 Acct:[id number] Age/Sex: 79 / M ADM Date: 5 Loc: [facility] Room: Type: [facility] Attending Dr: Irma Pérez OUTREACH LIAISON-C Ordering Provider: Irma Pérez APRN Date of [...] Malcom Irene M.D.11/08/2024 11:51 AM Dictation Location: [id number] Tech: Daniellecraig Gomez Transcribed By: ELOY 11/08/24 1151 Dictated By: Malcom Irene MD 11/08/24 1149 Signed By: 11/08/24 1151 [facility] Work Phone: 1(207) 596-980211-01-2024 Evaluation note* Diagnosis Onset Date Resolution Status [...] Nonischemic cardiomyopathy acute September 02, 2024 9:54am [facility] Work Phone: 1(478) 289-803811-01-2024 Evaluation note* Diagnosis Onset Date Resolution Status Admit Date Anemia acute September 02, 2024 9:54am Atrial fibrillation acute Novem irp 2023 9:54am Chronic bronchitis acute Novemb er 2023 9:54am Chronic HFrEF (heart failure with reduced ejection fraction) acute Novem rip 2023 9:54am H/O carotid stenosis acute Nove mber 2023 9:54am Hypercholesteremia acute Novemb er 2023 9:54am Hypertension acute September 9:54am Nicotine addiction acute Novemb er 2023 9:54am Nonischemic cardiomyopathy acute September 02, 2024 9:54am Occlusion and stenosis of bilateral carotid arteries acute Janua ry 2024 11:20am [facility] Work Phone: 1(296) 376-845507-18-2024 History of Present illness Narrative* Eran Irwin [...] exam, discussion and plan. documented in this [facility] Work Phone: 1(727) 326-941207-18-2024 Instructions* Patient Instructions* Manolo Cortes RN - [...] 18.5 = 5.9 Lbs documented in this [facility]Ohio[facility] Work Phone: 1(148) 737-491401-15-2024 Evaluation note* Encounter Date Diagnosis Assessment Notes [...] are maintaining regular scheduled appts with their internet and e business project manager. Nov, Carotid atherosclerosis, bilateral (ICD-10 - I65.23) Smoking cessation advised. Continue DAPT Continue secondary prevention measures. Nov, Cigarette nicotine dependence in remission (ICD-10 - F17.211) This patient has been encouraged to quit tobacco use immediately. They are aware of the hazards associated with tobacco use, including but not limited to respiratory infections, vascular disease and cancers. [employer] Other 01-15-2024 Evaluation note* Encounter Date Diagnosis [...] are maintaining regular scheduled appts with their internet and e business project manager. Nov, Carotid atherosclerosis, bilateral (ICD-10 - I65.23) Smoking cessation advised. Continue DAPT Continue secondary prevention measures. Nov, Cigarette nicotine dependence in remission (ICD-10 - F17.211) Continue abstinence. UTD w/ yearly LDCT chest for lung cancer screening [employer] Other 12-18-2023 Evaluation note* Encounter Date Diagnosis [...] see him back annually for follow-up duplex [employer] Other 07-14-2023 Evaluation note* Encounter Date Diagnosis [...] are maintaining regular scheduled appts with their internet and e business project manager. May, Cigarette nicotine dependence without complication [...] PSA (prostate specific antigen) (ICD-10 - Z12.5) [employer] Other 07-14-2023 Evaluation note* Encounter Date Diagnosis [...] are maintaining regular scheduled appts with their internet and e business project manager. May, Bilateral carotid artery stenosis (ICD-10 [...] to respiratory infections, vascular disease and cancers. [employer] Other 10-10-2022 Evaluation note* Encounter Date Diagnosis [...] is unmotivated to quit at this time. [employer] Other 08-22-2022 Evaluation note* Encounter Date Diagnosis Assessment Notes Treatment Notes Treatment Clinical Notes Jun, Pre-op testing (ICD-10 - Z01.818) [employer] Other 07-19-2022 Evaluation note* Encounter Date Diagnosis [...] will schedule him for right carotid endarterectomy. [employer] Other 05-17-2022 Evaluation note* Encounter Date Diagnosis [...] surgery of circulatory system (ICD-10 - Z48.812) [employer] Other 04-11-2022 Evaluation note* Encounter Date Diagnosis Assessment Notes Treatment Notes Treatment Clinical Notes Jan, Pre-op testing (ICD-10 - Z01.818) [employer] Other 04-05-2022 Evaluation note* Encounter Date Diagnosis [...] between open standard carotid endarterectomy or TCAR. [employer] Other 02-21-2022 Evaluation note* Encounter Date Diagnosis Assessment Notes Treatment Notes Treatment Clinical Notes Dec, Asymptomatic bilateral carotid artery stenosis (ICD-10 - I65.23) We reviewed ultrasound results from the [facility] indicating high-grade stenosis of bilateral [...] smoking cessation. Patient provided with information on [employer] tobacco program. He seems unmotivated to quit at this time. [employer] Other Chief complaint Narrative - ReportedDAVIChristie ANTHONY is being seen for a cardiovascular evaluation . POC. Carotid Surgery. Dr. Mcnally. -[facility] 250 DO Work Phone: Evaluation noteNo InformationNort [employer] Other Evaluation noteNo assessment information available [facility] Work Phone: Evaluation note* Diagnosis Onset Date Resolution Status Stenosis of right carotid artery acute [facility] Work Phone: Evaluation note* Diagnosis Onset Date Resolution Status Atrial fibrillation acute Chronic bronchitis acute Chronic HFrEF (heart failure with reduced ejection fraction) acute H/O carotid stenosis acute Nicotine addiction acute Nonischemic cardiomyopathy a cute Medicare annual wellness visit, subsequent noneactive Screening PSA (prostate specific antigen) noneactive [facility] Work Phone: Evaluation note* Diagnosis Onset Date Resolution Status Atrial fibrillation acute Chronic bronchitis acute Chronic HFrEF (heart failure with reduced ejection fraction) acute H/O carotid stenosis acute Hypercholesteremia acute Hypertension acute Nicotine addiction acute Nonischemic cardiomyopathy a cute [facility] Work Phone: Evaluation note* Diagnosis Mixed hyperlipidemia- Primary Dilated cardiomyopathy (Multi) Other primary cardiomyopathies Primary hypertension Unspecified essential hypertension Paroxysmal atrial fibrillation (Multi) Atrial fibrillation Current smoker Body mass index (BMI) 19.9 or less, adult documented in this encounter [facility] Work Phone: Evaluation note* Diagnosis Left ventricular systolic dysfunction- Primary Primary hypertension Unspecified essential hypertension Paroxysmal atrial fibrillation (Multi) Atrial fibrillation Asymptomatic bilateral carotid artery stenosis Mixed hyperlipidemia Shortness of breath Current smoker Body mass index (BMI) 19.9 or less, adult H/O carotid endarterectomy Chronic obstructive pulmonary disease, unspecified COPD type (Multi) documented in this encounter [facility] Work Phone: Evaluation note* Diagnosis Onset Date Resolution Status Admit Date Anemia acute March 07, 2025 9:57am Atrial fibrillation acute March 072024 9:57am Chronic bronchitis acute March h2024 9:57am Elevated PSA acute March 07 9:57am H/O carotid stenosis acute March 07, 2025 9:57am Heart failure with improved ejection fraction (HFimpEF) acute March 07, 2025 9:57am Hypercholesteremia acute March h2024 9:57am Hypertension acute March 07 9:57am Nicotine addiction acute March h2024 9:57am Nonischemic cardiomyopathy acute March 07, 2025 9:57am [facility] Work Phone: Evaluation note* Diagnosis Left ventricular systolic dysfunction Paroxysmal atrial fibrillation (Multi) Atrial fibrillation Shortness of breath documented in this encounter [facility] Work Phone: History general Narrative - Reported* Type Description Date Medical History hypertension Medical History acid reflux Medical History coronary artery disease Surgical History melanoma excision FACE Hospitalization History REACTION TO [employer] Other History general Narrative - Reported* Type Description Date Medical History hypertension Medical History acid reflux Medical History coronary artery disease Surgical History melanoma excision FACE Surgical History LEFT CAR ENDART Hospitalization History REACTION TO [facility] 2018 [employer] Other [employer] general Narrative - Reported* Type Description Date [...] History [ ] Hospitalization History REACTION TO [facility] 2018 [employer] Other History of Present illness Narrative* Mr. [...] chronic cigarette abuse with active cigarette smoking. [facility] Work Phone: History of Present [...] for follow-up or sooner if problems develop. [facility] Work Phone: History of Present [...] I did advocate the merits of smokingcessation. [facility] Work Phone: History of Present illness NarrativePatient [...] and the merits of smoking cessation were advocated.[facility] [employer] Work Phone: Reason for referral (narrative)* Consultation (Routine) - Authorized Specialty Diagnoses / Procedures Referred By Contac t Referred To Contact Cardiology Diagnoses Dilated cardiomyopathy (Multi) Procedures Follow Up In Cardiology Eran Irwin MD [address], [address] [address] Terri Velazco MD [address], [address] [address] Referral ID Status Reason Start Date Expiration Date V isits Requested Visits Authorized [id number] Authorized 05/19/2024 05/19/2025 1 1 [facility] Work Phone: Rehjfg for referral (narrative)No reason for referral information availableHolzer [facility] System Work Phone: Reason for visit Narrative* Cardiac Stress Testing (Routine) - Authorized Specialty Diagnoses / Procedures Referred By Contac t Referred To Contact Radiology Diagnoses Dilated cardiomyopathy (Multi) Atrial fibrillation, unspecified type (Multi) Shortness of breath Procedures Nuclear Stress Test CHG MYOCARDIAL SPECT MULTIPLE STUDIES Terri Velazco MD [address] [facility] [address], [address] [place] [address] Phone: tel: fax: Referral ID Status Reason Start Date Expiration Date V isits Requested Visits Authorized [id number] Authorized 02/09/2025 02/09/2026 5 5 [facility] Work Phone: reason for visit Narrative* Cardiac Stress Testing (Routine) - Authorized Specialty Diagnoses / Procedures Referred By Patricia t Referred To Contact Radiology Diagnoses Dilated cardiomyopathy (Multi) Atrial fibrillation, unspecified type (Multi) Shortness of breath Procedures Nuclear Stress Test CHG MYOCARDIAL SPECT MULTIPLE STUDIES Terri Velazco MD [address], [place] [address] [place] [id number] Phone: tel: fax: Referral ID Status Reason Start Date Expiration Date V isits Requested Visits Authorized [id number] Authorized 02/09/2025 02/09/2026 5 5 [facility] Work Phone: Family History Unknown Family Member [...] 9:57am Nonischemic cardiomyopathy March 07, 2025 9:57am Chief Complaint Admit Date B12 shot February 27, 2025 9:2 9am 3 mo f/u March 07, 2025 9:57am [facility] May 03, 2025 10:53 am Reason for Visit Admit Date Anemia March [...] 9:57am Nonischemic cardiomyopathy March 07, 2025 9:57am Weight loss March 07, 2025 9:57am Anemia May 03, 2025 10:53 am Atrial fibrillation May 03, 2025 10:53 am Chronic bronchitis May 03, 2025 10:53 am Chronic HFrEF (heart failure with reduce d ejection fraction) May 03, 2025 10:53am H/O carotid stenosis May 03, 2025 10:5 3am Hypercholesteremia May 03, 2025 10:53 am Hypertension May 03, 2025 10:53 am Nicotine addiction May 03, 2025 10:53 am Nonischemic cardiomyopathy May 03 10:53am Peripheral artery disease May 03, 2025 10:53am Weight loss May 03, 2025 10:53 am Medicare annual wellness visit, juan nt May 03, 2025 10:53am Screening PSA (prostate specific antigen ) May 03, 2025 10:53am Advance Directives Advance Directive Response Recorded Date/ [...] Follow Up In Cardiology Eran Irwin MD [address] [place] [address] [address], [address] [address] Eran Irwin MD [address] [place] [address] [address], [address] [address] Referral ID Status Reason Start Date Expiration Date V isits Requested Visits Authorized [id number] Authorized 11/23/2023 11/22/2024 1 1 Reason Comments Follow-up 6 month for cardiomy opathy Specialty Diagnoses / Procedures Referred By Contac t Referred To Contact Cardiology Diagnoses Dilated cardiomyopathy (Multi) Procedures Follow Up In Cardiology Eran Irwin MD [facility], Terri Torres MD [address] [place] [address] [address], [address] [address] Phone: tel: fax: Referral ID Status Reason Start Date Expiration Date V isits Requested Visits Authorized [id number] Authorized 05/19/2024 05/19/2025 1 1 Care Teams [...] Status: Inactive Member Role Status Dates Alonzo Ball , DO Primary Care Provide r, Attending [...] Chiquita Gray DO Primary Care Provider Active Malcom Irene MD Admit Provider, Attending Provide r Active Team Status: Inactive Member Role Status Dates Alonzo Gray DO Primary Care Provider Active Malcom Irene MD Attending Provider Active Team Status: Inactive Member Role Status Dates Alonzo Gray DO Primary Care Provider Active Irma Pérez OUTREACH LIAISON-C Attending Provider Active Team Status: Inactive Member Role Status Dates Alonzo Gray DO Primary Care Provide r, Attending Provider Active Start: May 23, 2024 End: May 23, 2024 Internal Medicine Hospitalist Relationship Specialty Start Date End Date Alonzo Gray DO PCP - General 11/02/20 Team Status: Active Member Role Status Dates Alonzo Gray DO Primary Care Provider Active Start: November 08, 2024 LEONOR BaileyC Attending Provider Active Start: November 08, 2024 Internal Medicine Hospitalist Relationship Specialty Start Date End Date Alonzo Gray DO PCP - General 11/02/20 Team Status: Active Member Role Status Dates Alonzo Gray DO Primary Care Provide r, Attending Provider Active Start: March 03, 2025 Team Status: Inactive Member Role Status Dates Alonzo Gray DO Primary Care Provide r, Attending Provider Active Start: March 07, 2025 End: March 07, 2025 Internal Medicine Hospitalist Relationship Specialty Start Date End Date Alonzo Gray DO PCP - General 11/02/20 Internal Medicine Hospitalist Relationship Specialty Start Date End Date Alonzo Gray DO PCP - General 11/02/20 Internal Medicine Hospitalist Relationship Specialty Start Date End Date Alonzo Gray DO PCP - General 11/02/20 Team Status: Inactive Member Role Status Dates Alonzo Gray DO Primary Care Provider Active Start: February 27, 2025 End: February 27, 2025 Alonzo Gray DO Attending Provider Active Sta rt: February 27, 2025 End: February 27, 2025 Team Status: Active Member Role Status Dates Alonzo Gray Primary Care Provider Active Start: March 03, 2025 Alonzo Gray , Attending Provider Active Sta rt: March 03, 2025 Team Status: Inactive Member Role Status Dates Alonzo Gray DO Primary Care Provider Active Start: March 07, 2025 End: March 07, 2025 Alonzo Gray , Attending Provider Active Sta rt: March 07, 2025 End: March 07, 2025 Team Status: Active Member Role Status Dates Alonzo Gray DO Primary Care Provider Active Start: March 29, 2025 Alonzo Gray , Attending Provider Active Sta rt: March 29, 2025 Team Status: Inactive Member Role Status Dates Alonzo Gray DO Primary Care Provider Active Start: May 03, 2025 End: May 03, 2025 Alonzo Gray , Attending Provider Active Sta rt: May 03, 2025 End: May 03, 2025 Goals (unrecognized section and content) Goals may be documented in a n alternate section (unrecognized sect ion and content) No Status Records FoundNo Status Records FoundNo Status Records FoundNo Status Records FoundNo Status Records FoundNo Status Records FoundNo Status Records Found INFORMATION SOURCE (unrecogn ized section and content) DATE CREATED AUTHOR 08/09/2022 [facility] DATE CREATED AUTHOR AUTHOR'S ORGANIZ ATION [facility]2022 [facility] DATE CREATED AUTHOR AUTHOR'S ORGANIZ ATION 03/08/2023 [facility] DATE CREATED AUTHOR AUTHOR'S ORGANIZ ATION 05/21/2023 [employer] DATE CREATED AUTHOR AUTHOR'S ORGANIZ ATION 11/14/2024 [facility] DATE CREATED AUTHOR AUTHOR'S ORGANIZ ATION 03/12/2025 [facility] DATE CREATED AUTHOR AUTHOR'S ORGANIZ ATION 03/15/2025 [facility] FOR RECORDS PERTAINING TO PATIENTS WHO ARE [...] BE BASED ON THE PRIMARY CLINICAL RECORDS. [facility] [employer] [facility]. provides no warranty or guarantee of the accuracy or completeness of information in this document.
[2025-05-18 11:14] LABS: Hematocrit 34.9 % (42.0-54.0); Hemoglobin 11.3 g/dL (14.0-18.0); Immature Granulocytes Abs Auto 0.01 10^3/uL (0.00-0.03); Immature Granulocytes Pct Auto 0.1 % (0.0-0.5); Lymphocytes Absolute Auto 1.4 10^3/uL (1.2-3.8); Mean Corpuscular HGB Conc 32.4 g/dL (29.9-35.2); Mean Corpuscular Hemoglobin 33.0 pg (25.9-34.0); Mean Corpuscular Volume 102.0 fL (80.0-94.0); Platelet Count 237 10^3/uL (150-450); Red Blood Count 3.42 10^6/uL (4.70-6.10); White Blood Count 8.3 10^3/uL (4.0-11.0)
[2025-05-18 11:53] LABS: Microalbum Creatinine Ratio Ur 24.6 mg/g (0.0-29.9)
[2025-05-18 15:31] LABS: Alanine Aminotransferase 22 U/L (16-63); Albumin Globulin Ratio 1.2; Albumin Level 3.7 g/dL (3.4-5.0); Alkaline Phosphatase 59 U/L (46-116); Anion Gap 14.6; Aspartate Amino Transferase 12 U/L (15-37); Blood Urea Nitrogen 28.0 mg/dL (7.0-18.0); Calcium 8.9 mg/dL (8.5-10.1); Carbon Dioxide 23.4 mmol/L (21.0-32.0); Chloride 106 mmol/L (98-107); Cholesterol 81 mg/dL (<=200); Estimated GFR (African America 53 (>=60 mL/min/1.73m^2); Estimated GFR (Non-African Ame 44 (>=60 mL/min/1.73m^2); Globulin 3.2 g/dL; Glucose 96 mg/dL (74-106); HDL Cholesterol 42 mg/dL (40-60); Potassium 5.0 mmol/L (3.5-5.1); Sodium 139 mmol/L (136-145); Total Protein 6.9 g/dL (6.4-8.2); Triglycerides 70 mg/dL (<=150); VLDL CHOLESTEROL 14.0 mg/dL
--- NOTE | 2025-05-24 14:22 | SWNOTE1 ---
NICHO completed HCPOA with Ming, he put his and 2 daughters as agents in his HCPOA. Ming was given the original and a copy and a copy was taken to medical records.
== END 2025-05-18 10:40 | disposition home or self-care (01) ==
LOC: LAB 10:42
PROVIDERS: PCP Internal Medicine; Visit Provider Internal Medicine
DX: I12.9 Hypertensive chronic kidney disease with stage 1 through stage 4 chronic kidney disease, or unspecified chronic kidney disease (principal); N18.31 Chronic kidney disease, stage 3a; E78.00 Pure hypercholesterolemia, unspecified; Z12.5 Encounter for screening for malignant neoplasm of prostate; D52.9 Folate deficiency anemia, unspecified
CPT/HCPCS: 36415; 80053; 80061; 82043; 82570; 85025; G0103

== ENCOUNTER 2025-06-13 09:22 | Outpatient (OUT) | payer MEDICARE, SELFPAY ==
--- NOTE | 2025-06-13 | CT_ITS ---
The [address] [address] Patient Name: IVAN BERNAL MRN: [id number] date: 1945 Sex: M Assigned Patient Location: CT Current Patient Location: CT Accession/Order Number: [id number] Exam Date: 06/13/2025 09:54 Report Date: 06/13/2025 09:56 At the request of: CHAVA BRICE DO Procedure: CT lung screening low-dose CT CHEST WITHOUT CONTRAST, LOW DOSE SCREENING: CLINICAL DATA: A 79-year old current smoker, smoking for 59 pack-years. COMPARISON: None TECHNIQUE: Noncontrast axial CT scan images of the chest were obtained under the low dose screening CT protocol. Coronal and sagittal reconstructed images were also submitted. FINDINGS: Mediastinum : Suboptimal evaluation due to low-dose technique. Thoracic aorta appears normal in caliber. Pulmonary trunk appears nondilated. No pericardial effusion. No lymphadenopathy. The esophagus is grossly unremarkable. Lungs: No focal consolidation, pneumothorax or pleural effusion. Trachea and distal airways appear patent. Emphysema. Mild bronchial wall thickening. Calcified granulomas. No suspicious noncalcified pulmonary nodule or mass. Upper abdomen: No acute findings. Bony thorax and chest wall: Soft tissues surrounding the chest wall demonstrate no acute findings. Osseous structures demonstrate degenerative change. CT/CT lung screening low-dose IMPRESSION: NO SUSPICIOUS PULMONARY NODULE. LUNG - RADS Version 1.0 Assessment: Category 1, Negative (No nodules and definitely benign nodules). Management: Continue annual lung screening with LDCT in 12 months. Impression dictated by: Rell Munoz Jr., D.O. 06/13/2025 9:56 AM Dictation Location: [place] [address] Electronically authenticated by: [id number] Y Date: 06/13/2025 09:56
--- OUTSIDE RECORDS SUMMARY | 2025-06-13 09:24 | XMS_ITS | Clinical Summary ---
Author Organization [facility] Address [address] [place] [address], [address] [place] [address] Care Team Providers Care Water Maintenance Supervisor Name Role Phone Unavailable Primary Care [...]
--- OUTSIDE RECORDS SUMMARY | 2025-06-13 09:24 | XMS_ITS | Encounter Summary ---
Author Organization [facility] Address [address] [place] [address] Phone Care Team Providers Care Cmv Driver Name Role Phone Alonzo Gray DO Primary Care Provider [phone] Encounter Details Date Type Department Care Team (Late st Contact Info) Description 05/26/2024 Scanned Document [facility] [address] [place] [address] Scanning, Generic Provider Social History [...] Care Team (Late st Contact Info) Description 06/16/2025 8:45 AM EDT Appointment [place] [address] [place] [address] [place] [address] 10/05/2025 9:30 AM EST Office Visit [address] [place] [address] Terri Velazco MD [address] [facility] [address] [place] [address] documented as of this encounter Visit Diagnoses Not on filedocumented in this encounter Additional Health Concerns Assessment Noted Time A fall risk assessment has been complete d for the patient 05/19/2024 1:43 PM EDT documented as of this encounter Care Teams Cmv Driver Relationship Specialty Start Date End Date Alonzo Gray DO PCP - General 11/02/20 documented as of this encounter
--- OUTSIDE RECORDS SUMMARY | 2025-06-13 09:25 | XMS_ITS | Clinical Summary ---
Author Organization [facility] Address [address] [place] [address] Phone Care Team Providers Care Software Release Engineer Name Role Phone Alonzo Gray DO Primary Care Provider [phone] Allergies Active Allergy Reactions Criticality Noted Date [...] tablet by mouth 2 times a day. 2 Active cholecalciferol (Vitamin D-3) 25 MCG (1000 UT) tablet Take 1 tablet (25 mcg) by mouth once daily. Active empagliflozin (Jardiance) 10 mgIndications:Cardi omyopathy, unspecified type (Multi) Take 1 tablet (10 mg) by mouth once daily. 90 tablet 3 4 09/21/20 25 Active spironolactone (Aldactone) 25 mg tabletIndications:D ilated cardiomyopathy (Multi),Primary hypertension Take 1 tablet (25 mg) by mouth once daily. 90 tablet 3 4 11/01/20 25 Active folic acid (Folvite) 1 mg tablet Take 1 tablet (1 mg) by mouth once daily. Active buPROPion XL (Wellbutrin XL) 150 mg 24 hr tablet Take 1 tablet (150 mg) by mouth once daily in the morning. Take before meals. Active carvedilol (Coreg) 6.25 mg tabletIndications:C ardiomyopathy, unspecified TAKE 1 TABLET BY MOUTH TWICE A DAY WITH FOOD 180 tablet 3 Active Active Problems Problem Noted Date Diagnosed Date Body mass index (BMI) 19.9 or less, adult 2023 Abnormal EKG 09/19/2023 Abnormal stress test 09/19/2023 Asymptomatic bilateral carotid artery stenosis 1 11/19/2022 Atrial fibrillation (Multi) 09/19/2023 Cardiomyopathy 09/19/2023 Hypertension 09/19/2023 Hyperlipidemia 09/19/2023 Shortness of breath 09/19/2023 Current smoker 09/19/2023 Encounters Date Type Department Care Team Description 03/24/2025 Refill [facility] [address] [phone] Suyapa Rosales MD Cardiomyopathy, unspecified from Last 3 Months Immunizations Immunization Administration [...] on file Sexual Orientation Not on file Last Filed Vital Signs Vital Sign Reading [...] Info) Description 06/16/2025 8:45 AM EDT [facility]ment [facility] 703 [facility] [address] [place] [address] 10/05/2025 9:30 AM EST Office Visit [facility] [address] [place] [phone] Terri Velazco MD [address] [facility] [address] [place] [address] Health Maintenance Due Date Last Done Comments Creatinine Level 1945 Lipid Panel 1945 Potassium Level 1945 Diabetes Screening 1965 Hepatitis C Screening 1965 Pneumococcal Vaccine (1 of 2 - PCV) 1966 DTaP/Tdap/Td Vaccines (1 - Tdap) 1969 Zoster Vaccines (1 of 2) 1997 RSV High Risk: (Elderly (60+) or Population) (1 - 1-dose 75+ series) 2022 Echocardiogram 11/19/2023 11/19/2022, 11/02, 01/27/2022, Additional history exists COVID-19 Vaccine ( season) 2024 09/02/2022, 09/02/2021, 12/31/2020, Additional history exists Medicare Annual Wellness Visit (AWV) 05/24/2025 05/23/2024 Influenza Vaccine (#1) 2025 4, 08/02/2024, 08/17/2023, Additional history exists HIB Vaccines Aged [...] Procedure Name Priority Date/Time Associated Diagnosis Comments ECHOCARDIOGRAM Routine 11/19/2022 from Last 3 Months or Most Recently Relevant to Health Maintenance Results * Echocardiogram (11/19/2022) 11/19/2022 [facility] RADIOLOGY SYSTEM - 11/19/2022 12:00 AM EST [facility] [address] [facility], [address] [address] TRANSTHORACIC ECHOCARDIOGRAM REPORT Patient Name: IVAN ANTHONY Reading Physician: [id number] Richy Delgadillo MD Study Date: 11/19/2022 Referring Physician: SUYAPA ROSALES MRN/PID: [id number] PCP: Alonzo Gray Accession/Order#: [id number] Department Location: [facility] Date of : 1945 Fellow: Gender: M Nurse: Admit Date: Scanning Coordinator: Marcia Fernandez RDCS, T Height: 187.96 cm CC Report to: Weight: 75.30 kg Study Type: Echocardiogram BSA: 2.01 m2 Blood Pressure: 150 /86 mmHg Diagnosis/ICD: I42.9-Cardiomyopathy, unspecified; R06.02-Shortness of breath Indication: Atrial Fibrillation, HTN, Hyperlipidemia, Tobacco Abuse, Carotid Stenosis Procedure/CPT: Echo Complete w Full [id number] Study Detail: The following Echo studies were [...] 0.5 m/s (0.6-0.9m/s) PV Max P.2 mmHg [id number] Richy Delgadillo MD Electronically signed on 11/19/2022 at 5:56:19 PM Final Procedure Note Conversion, Syngo - 12/05/[address], [address] [place] [address] TRANSTHORACIC ECHOCARDIOGRAM REPORT Patient Name: IVAN Arciniega Physician: [id number] Annamarie MURPHY Study Date: 11/19/2022 Referring Physician: SUYAPA ROSALES MRN/PID: [id number] PCP: Alonzo Gray Accession/Order#: [id number] Department Location: [facility] Date of : 1945 Fellow: Gender: M Nurse: Admit Date: Scanning Coordinator: Marcia Fernandez RD,T Height: 187.96 cm CC Report to: Weight: 75.30 kg Study Type: Echocardiogram BSA: 2.01 m2 Blood Pressure: 150 /86 mmHg Diagnosis/ICD: I42.9-Cardiomyopathy, unspecified; R06.02-Shortness ofbreath Indication: Atrial Fibrillation, HTN, Hyperlipidemia, Tobacco Abuse,Carotid Stenosis Procedure/CPT: Echo Complete w Full [id number] Study Detail: The following Echo studies were [...] 0.5 m/s (0.6-0.9m/s) PV Max P.2 mmHg [id number] Richy Delgadillo MD Electronically signed on 11/19/2022 at 5:56:19 PM Final us Syngo Conversion CV ECHO PROCEDURES Final Result [facility] [address] from Last 3 Months or Most Recently Relevant to Health Maintenance Insurance [employer] Care Teams Software Release Engineer Relationship Specialty Start Date End Date Alonzo Gray DO PCP - General 11/02/20
--- OUTSIDE RECORDS SUMMARY | 2025-06-13 09:25 | XMS_ITS | Encounter Summary ---
Author Organization [facility] Address [address] [place] [address] Phone Care Team Providers Care Dye Blender Name Role Phone Alonzo Gray Primary Care Provider [phone] Encounter Details Date Type Department Care Team (Late st Contact Info) Description 10/31/2024 Scanned Document [address] [place] [address] Scanning, Generic Provider Social History [...] Info) Description 06/16/2025 8:45 AM EDT Appointment [place] [address] [place] [phone] 10/05/2025 9:30 AM EST Office Visit [address] [phone] Terri Velazco MD 703 [facility] 2, [address] [phone] documented as of this encounter Visit Diagnoses Not on filedocumented in this encounter Additional Health Concerns Assessment Noted Time A fall risk assessment has been complete d for the patient 05/19/2024 1:43 PM EDT documented as of this encounter Care Teams Dye Blender Relationship Specialty Start Date End Date Alonzo Gray DO PCP - General 11/02/20 documented as of this encounter
--- OUTSIDE RECORDS SUMMARY | 2025-06-13 09:25 | XMS_ITS | Encounter Summary ---
Author Organization [facility] Address [address] [place] [address] Phone Care Team Providers Care Social Media Intern Name Role Phone Alonzo Gray DO Primary Care Provider [phone] Encounter Details Date Type Department Care Team (Late st Contact Info) Description 07/16/2022 Orders Only [facility] [address] [place] [address] Conversion, Onbase Social History Tobacco Use Types [...] Info) Description 06/16/2025 8:45 AM EDT Appointment [address] [place] [phone] 10/05/2025 9:30 AM EST Office Visit [address] [place] [address] Terri Velazco MD 703 [facility] [address] [place] [address] Scheduled Orders Name Type Priority Associated Diagnoses Orde r Schedule OUTSIDE LAB SCAN Lab Ordered: 07/16/2022 documented as of this encounter Visit Diagnoses Not on filedocumented in this encounter Care Teams Social Media Intern Relationship Specialty Start Date End Date Alonzo Gray DO PCP - General 11/02/20 documented as of this encounter
--- OUTSIDE RECORDS SUMMARY | 2025-06-13 09:25 | XMS_ITS | Encounter Summary ---
Author Organization [facility] Address [address] [place] [address] Phone Care Team Providers Care Vendor Specialist Name Role Phone Alonzo Gray Primary Care Provider [phone] Encounter Details Date Type Department Care Team (Late st Contact Info) Description 11/02/2024 Scanned Document [facility] [address] [place] [phone] Scanning, Generic Provider Social History Tobacco Use [...] Info) Description 06/16/2025 8:45 AM EDT Appointment [place] [address] [place] [phone] 10/05/2025 9:30 AM EST Office Visit [address] [phone] Terri Velazco MD 703 [facility] 2, [address] [phone] Scheduled Orders Name Type Priority Associated Diagnoses Orde r Schedule Ultrasound- OnBase Scan Imaging O rdered: 11/02/2024 documented as of this encounter Visit Diagnoses Not on filedocumented in this encounter Additional Health Concerns Assessment Noted Time A fall risk assessment has been complete d for the patient 05/19/2024 1:43 PM EDT documented as of this encounter Care Teams Vendor Specialist Relationship Specialty Start Date End Date Alonzo Gray DO PCP - General 11/02/20 documented as of this encounter
--- OUTSIDE RECORDS SUMMARY | 2025-06-13 09:25 | XMS_ITS | Encounter Summary ---
Author Organization [facility] Address [address] [place] [address] Phone Care Team Providers Care Carbon Brush Maker Name Role Phone Alonzo Gray DO Primary Care Provider [phone] Encounter Details Date Type Department Care Team (Late st Contact Info) Description 08/06/2022 Orders Only [facility] [address] [place] [address] Conversion, Onbase Social History Tobacco Use Types [...] Info) Description 06/16/2025 8:45 AM EDT Appointment [address] [place] [phone] 10/05/2025 9:30 AM EST Office Visit [address] [place] [phone] Terri Velazco MD 703 [facility] [address] [place] [address] Scheduled Orders Name Type Priority Associated Diagnoses Orde r Schedule OUTSIDE LAB SCAN Lab Ordered: 08/06/2022 documented as of this encounter Visit Diagnoses Not on filedocumented in this encounter Care Teams Carbon Brush Maker Relationship Specialty Start Date End Date Alonzo Gray DO PCP - General 11/02/20 documented as of this encounter
== END 2025-06-13 09:23 | disposition home or self-care (01) ==
LOC: CT 09:22
PROVIDERS: PCP Internal Medicine; Visit Provider Internal Medicine
DX: F17.210 Nicotine dependence, cigarettes, uncomplicated (principal)
CPT/HCPCS: 71271